=== PATIENT | female | born 1965 | race Hispanic/Latino ===

== ENCOUNTER 2017-12-21 10:08 | Emergency (ER) | payer OTHER ==
[2017-12-21] MEDS ORDERED: MORPHINE 4 MG/ML SYR ONE (11:03)
[2017-12-21] MEDS ORDERED: ONDANSETRON 4 MG/2 ML VIAL ONE (11:03)
--- NOTE | 2017-12-21 11:20 | RAD REPORT ---
EXAM DESCRIPTION: CT - Stone Protocol - 12/21/2017 10:54 am CLINICAL HISTORY: Abdominal pain. Lower abdominal pain. Left flank pain. COMPARISON: None. TECHNIQUE: Computed axial tomography of the abdomen pelvis was obtained without oral or IV contrast. Lack of IV and oral contrast limits evaluation of solid organs, bowel, and vessels. Coronal reformat phoebe images were obtained and reviewed. All CT scans are performed using dose optimization technique as appropriate and may include automated exposure control or mA/KV adjustment according to patient size. FINDINGS: A 1 millimeter calculus is present within the left kidney without hydronephrosis. A right renal calculus is not present. An ureteral calculus is not noted. A bladder calculus is not present. The liver, spleen, pancreas and adrenals appear grossly normal There is no evidence of diverticulitis. The appendix appears normal. The gallbladder has been removed. A tiny umbilical hernia is present. Tubal ligation clips are presen t. An adnexal mass is not present. IMPRESSION: 1 millimeter nonobstructing left renal calculi
[2017-12-21 11:25] LABS: Urine Bacteria 20-50 /HPF (<20); Urine Culture Reflex Order NOT NEEDED; Urine RBC <5 /HPF (NONE SEEN)
[2017-12-21 11:27] LABS: Absolute Lymphocytes (CBC) 1.4 K/uL (0.7-4.9); Absolute Monocytes 0.6 K/uL (0.1-1.3); Absolute Neutrophil 4.7 K/uL (1.8-8.0); Basophils % 0.6 % (0-1.3); Hematocrit 41.5 % (36.0-45.0); MCH 24.9 pg (27.0-35.0); MCV 75.1 fL (80-100); MPV 8.1 fL (7.6-11.3); Monocytes % 8.3 % (3.3-12.3); RBC Red Blood Cell Count 5.53 M/uL (3.86-4.86)
[2017-12-21 11:42] LABS: Bicarbonate 27 mEq/L (21-31); Glucose Level 155 mg/dL (65-120); Lipase 21 U/L (22-51); Potassium 3.8 mEq/L (3.6-5.0); Sodium Level 140 mEq/L (135-145)
[2017-12-21 11:48] LABS: ALT/SGPT 33 IU/L (10-60); AST/SGOT 29 IU/L (10-42); Albumin 4.1 g/dL (3.2-5.5); Alkaline Phosphatase 86 IU/L (42-121); Amylase Level 52 U/L (28-100); BUN Blood Urea Nitrogen 12 mg/dL (6-20); Bilirubin Direct 0.1 mg/dL (0-0.2); Bilirubin Total 0.5 mg/dL (0.3-1.2); Protein, Total 7.6 g/dL (6.0-8.3)
[2017-12-21] MEDS ORDERED: NA CHLORIDE 0.9% 500 ML ONE (11:52)
[2017-12-21] MEDS ORDERED: KETOROLAC 30 MG/ML INJ ONE (11:52)
[2017-12-21 12:50] LABS: Urine Blood 3+ (NEG); Urine Glucose NEGATIVE (NEG); Urine Protein TRACE (NEG); Urine Specific Gravity 1.025 (1.005-1.030); Urine pH 5.5 (5.0-7.0)
--- NOTE | 2017-12-21 12:56 | ER ---
Nurse's Notes [facility] Name: Erma Yoo Age: 52 yrs Sex: Female : 1965 Arrival Date: 12/21/2017 Time: 10:15 Bed 14 Private MD: Diagnosis: Left Flank Pain;Unspecified symptoms and signs involving the genitourinary system-Urgency and Frequency;Hypertensive heart disease Presentation: 12/21 10:23 Presenting complaint: Patient states: Lower abdominal pain that radiates to left flank, hb urinary frequency and urgency x 2 days. Transition of care: patient was not received from another setting of care. Onset of symptoms was December 19, 2017. Initial Sepsis Screen: Does the patient meet any 2 criteria? No. Patient's initial sepsis screen is negative. Does the patient have a suspected source of infection? Yes: Dysuria/Frequency/Urgency/UTI. Care prior to arrival: None. 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 method Historical: - Allergies: 10:28 Niacin (Hives, Respiratory distress); hb - Home Meds: 10:28 metformin 1,000 mg Oral tab 1 tab 2 times per day [Active]; lisinopril 5 mg Oral tab 1 hb tab once daily [Active]; Ambien 5 mg Oral tab 1 tab once daily [Active]; Advair Diskus Inhl [Active]; bupropion HCl 150 mg Oral Tb24 1 tab once daily [Active]; atorvastatin 10 mg oral tab 1 tab once daily [Active]; Topamax 50 mg Oral tab 1 tab 2 times per day [Active]; venlafaxine 75 mg oral tr24 1 tab once daily [Active]; - PMHx: 10:28 Hypertension; Diabetes - NIDDM; Asthma; insomnia; hb - PSHx: 10:28 Cholecystectomy; hb - Immunization history:: Adult Immunizations up to date. - Social history:: Smoking status: Patient uses tobacco products, smokes one-half pack cigarettes per day. Screenin:48 Abuse screen: Denies threats or abuse. Denies injuries from another. Nutritional aj screening: No deficits noted. Tuberculosis screening: No symptoms or risk factors identified. Fall Risk None identified. Assessment: 10:48 General: Appears in no apparent distress. uncomfortable, obese, Behavior is calm, aj cooperative, appropriate for age. Pain: Complains of pain in pelvis. Neuro: Level of Consciousness is awake, alert, obeys commands, Oriented to person, place, time, situation. Respiratory: Airway is patent Respiratory effort is even, unlabored, Respiratory pattern is regular, symmetrical. GI: Abdomen is flat, obese, Bowel sounds present X 4 quads. Abd is soft and non tender. : Reports urgency, urinary frequency. Derm: Skin is intact, is healthy with good turgor, Skin is pink, warm \T\ dry. normal. Vital Signs: 10:28 BP 168 / 106; Pulse 68; Resp 16; Temp 97.9; Pulse Ox 100% on R/A; Weight 81.65 kg; hb Height 5 ft. 1 in. (154.94 cm); Pain 9/10; 11:46 BP 183 / 103; Pulse 93; Resp 17; Pulse Ox 100% on R/A; aj 13:46 BP 176 / 102; Pulse 91; Resp 18; Temp 98.5; Pulse Ox 99% on R/A; aj 10:28 Body Mass Index 34.01 (81.65 kg, 154.94 cm) hb ED Course: 10:15 Patient arrived in ED. sb2 10:25 Triage completed. hb 10:28 Arm band placed on right wrist. hb 10:29 Annie Gorman, SISSY is Primary Nurse. aj 10:34 Arie Milner PA is PHCP. cp 10:34 Kingsley Eller MD is Attending Physician. cp 10:54 CT Stone Protocol In Process Unspecified. EDMS 11:11 Inserted saline lock: 20 gauge in right antecubital area, using aseptic technique. aj Blood collected. 13:50 No provider procedures requiring assistance completed. Patient did not have IV access aj during this emergency room visit. intact, bleeding controlled, No redness/swelling at site. Pressure dressing applied. 13:51 Patient has correct armband on for positive identification. aj Administered Medications: 11:09 Drug: morphine 2 mg Route: IVP; Site: right antecubital; aj 11:25 Follow up: Response: No adverse reaction; Pain is decreased aj 11:10 Drug: Zofran 4 mg Route: IVP; Site: right antecubital; aj 11:24 Follow up: Response: No adverse reaction; Pain is decreased aj 11:58 Drug: TORadol 30 mg Route: IVP; Site: right antecubital; aj 13:51 Follow up: Response: No adverse reaction; Pain is decreased aj 11:58 Drug: NS 0.9% 500 ml Route: IV; Rate: bolus; Site: right antecubital; aj 13:52 Follow up: Response: No adverse reaction aj Outcome: 12:55 Discharge ordered by . luis 13:50 Discharged to home ambulatory. aj 13:50 Condition: good 13:50 Discharge instructions given to patient, Instructed on discharge instructions, follow up and referral plans. medication usage, Demonstrated understanding of instructions, follow-up care, medications, Prescriptions given X 3. 13:52 Patient left the ED. iw Signatures: Dispatcher [employer] Annie Florez RN RN Hellen Ledesma RN RN iw Arie Milner, Melanie Velazco cp, RN RN Jackie Galindo sb2
--- NOTE | 2017-12-21 12:56 | EDPHYS ---
Physician Documentation [facility] Name: Erma Yoo Age: 52 yrs Sex: Female : 1965 Arrival Date: 12/21/2017 Time: 10:15 Bed 14 Private MD: ED Physician Kingsley Eller HPI: 12/21 10:50 This 52 yrs old Female presents to ER via Ambulatory with complaints of cp Abdominal Pain. 10:50 The patient complains of pain in the left mid back. The pain radiates to the left side cp of abdomen. 10:50 Onset: The symptoms/episode began/occurred 2 day(s) ago. Associated signs and symptoms: cp Pertinent positives: urinary frequency, urgency, Pertinent negatives: diarrhea, fever, hematuria, vomiting. Severity of pain: in the emergency department the pain is unchanged despite home interventions. 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 method hb Historical: - Allergies: 10:28 Niacin (Hives, Respiratory distress); hb - Home Meds: 10:28 metformin 1,000 mg Oral tab 1 tab 2 times per day [Active]; lisinopril 5 mg Oral tab 1 hb tab once daily [Active]; Ambien 5 mg Oral tab 1 tab once daily [Active]; Advair Diskus Inhl [Active]; bupropion HCl 150 mg Oral Tb24 1 tab once daily [Active]; atorvastatin 10 mg oral tab 1 tab once daily [Active]; Topamax 50 mg Oral tab 1 tab 2 times per day [Active]; venlafaxine 75 mg oral tr24 1 tab once daily [Active]; - PMHx: 10:28 Hypertension; Diabetes - NIDDM; Asthma; insomnia; hb - PSHx: 10:28 Cholecystectomy; hb - Immunization history:: Adult Immunizations up to date. - Social history:: Smoking status: Patient uses tobacco products, smokes one-half pack cigarettes per day. ROS: 11:00 Constitutional: Negative for body aches, chills, fever, poor PO intake. cp 11:00 Eyes: Negative for injury, pain, redness, and discharge. cp 11:00 ENT: Negative for drainage from ear(s), ear pain, sore throat, difficulty swallowing, difficulty handling secretions. 11:00 Cardiovascular: Negative for chest pain, edema, palpitations. 11:00 Respiratory: Negative for cough, shortness of breath, wheezing. 11:00 Abdomen/GI: Positive for abdominal pain, of the posterior aspect of left lateral abdomen, anterior aspect of left lateral abdomen and left lower quadrant, Negative for vomiting, diarrhea, constipation, anorexia. 11:00 Back: Positive for flank pain, on the left. 11:00 : Positive for urinary frequency, urinary urgency, Negative for burning with urination, vaginal bleeding, vaginal discharge. 11:00 Skin: Negative for cellulitis, rash. 11:00 Neuro: Negative for altered mental status, gait disturbance, headache, weakness. 11:00 All other systems are negative. Exam: 11:08 Constitutional: The patient appears in no acute distress, alert, awake, cp non-diaphoretic, non-toxic, well developed, well nourished, uncomfortable. 11:08 Head/Face: Normocephalic, atraumatic. cp 11:08 Eyes: Periorbital structures: appear normal, Pupils: equal, round, and reactive to light and accomodation, Extraocular movements: intact throughout, Conjunctiva: normal, no exudate, no injection, Sclera: no appreciated abnormality, Lids and lashes: appear normal, bilaterally. 11:08 ENT: External ear(s): are unremarkable, Nose: is normal, Mouth: Lips: moist, Oral mucosa: pink and intact, moist, Posterior pharynx: is normal, airway is patent, no erythema, no exudate, Voice: is normal. 11:08 Neck: ROM/movement: is normal, is supple, without pain, no range of motions limitations, no nuchal rigidity. 11:08 Chest/axilla: Inspection: normal, Palpation: is normal, no crepitus, no tenderness. 11:08 Cardiovascular: Rate: normal, Rhythm: regular. 11:08 Respiratory: the patient does not display signs of respiratory distress, Respirations: normal, no use of accessory muscles, no retractions, no splinting, no tachypnea, Breath sounds: are clear throughout, no decreased breath sounds, no stridor, no wheezing. 11:08 Abdomen/GI: Inspection: abdomen appears normal, Bowel sounds: active, all quadrants, Palpation: soft, in all quadrants, moderate abdominal tenderness, in the left lower quadrant, rebound tenderness, is not appreciated, voluntary guarding, is not appreciated, involuntary guarding, is not appreciated. 11:08 Back: pain, that is mild, of the left mid back, ROM is normal, muscle spasm, is not present, Straight leg raises: of both lower extremities does not illicit pain. 11:08 Skin: cellulitis, is not appreciated, no rash present. 11:08 Neuro: Orientation: to person, place \T\ time. Mentation: lucid, able to follow commands, Cerebellar function: is grossly normal, Motor: moves all fours, strength is normal, Sensation: no obvious gross deficits. Vital Signs: 10:28 BP 168 / 106; Pulse 68; Resp 16; Temp 97.9; Pulse Ox 100% on R/A; Weight 81.65 kg; hb Height 5 ft. 1 in. (154.94 cm); Pain 9/10; 11:46 BP 183 / 103; Pulse 93; Resp 17; Pulse Ox 100% on R/A; aj 13:46 BP 176 / 102; Pulse 91; Resp 18; Temp 98.5; Pulse Ox 99% on R/A; aj 10:28 Body Mass Index 34.01 (81.65 kg, 154.94 cm) hb MDM: 10:34 Patient medically screened. cp 12:53 Data reviewed: vital signs, nurses notes, lab test result(s), radiologic studies, CT cp scan. 12:53 Counseling: I had a detailed discussion with the patient and/or guardian regarding: the cp historical points, exam findings, and any diagnostic results supporting the discharge/admit diagnosis, lab results, radiology results, the need for outpatient follow up, a family practitioner, to return to the emergency department if symptoms worsen or persist or if there are any questions or concerns that arise at home. Counseling: I had a detailed discussion with the patient and/or guardian regarding: the presence of at least one elevated blood pressure reading (>120/80) during this emergency department visit. Response to treatment: the patient's symptoms have markedly improved after treatment. ED course: VSS. CT negative for acute findings. Will treat for UTI due to symptoms and discharge to home for continued monitoring. 12/21 10:44 Order name: Urine Dipstick--Ancillary (enter results); Complete Time: 12:52 bd 12/21 12:52 Interpretation: Normal except: UBLD 3+; UESTR TRACE. cp 12/21 10:44 Order name: Urine --Ancillary (enter results); Complete Time: 12:52 bd 12/21 10:44 Order name: Amylase, Serum; Complete Time: 11:50 cp 12/21 10:44 Order name: Basic Metabolic Panel; Complete Time: 11:50 cp 12/21 11:50 Interpretation: Normal except: GLUC 155. cp 12/21 10:44 Order name: CBC with Diff; Complete Time: 11:29 cp 12/21 11:29 Interpretation: Normal except: RBC 5.53; MCV 75.1; MCH 24.9. cp 12/21 10:44 Order name: Creatinine for Radiology; Complete Time: 11:50 cp 12/21 10:44 Order name: Hepatic Function; Complete Time: 11:50 cp 12/21 10:44 Order name: Lipase; Complete Time: 11:50 cp 12/21 10:44 Order name: Urine Microscopic Only; Complete Time: 11:29 cp 12/21 11:30 Interpretation: Normal except: UWBC 5-10; UBACT 20-50; SQEPI >50. cp 12/21 10:44 Order name: CT Stone Protocol; Complete Time: 11:22 cp 12/21 10:44 Order name: Urine Test (obtain specimen); Complete Time: 11:10 cp 12/21 10:44 Order name: IV Saline Lock; Complete Time: 11:10 cp 12/21 10:44 Order name: Labs collected and sent; Complete Time: 11:10 cp 12/21 10:44 Order name: Urine Dipstick-Ancillary (obtain specimen); Complete Time: 11:10 cp Administered Medications: 11:09 Drug: morphine 2 mg Route: IVP; Site: right antecubital; aj 11:25 Follow up: Response: No adverse reaction; Pain is decreased aj 11:10 Drug: Zofran 4 mg Route: IVP; Site: right antecubital; aj 11:24 Follow up: Response: No adverse reaction; Pain is decreased aj 11:58 Drug: TORadol 30 mg Route: IVP; Site: right antecubital; aj 13:51 Follow up: Response: No adverse reaction; Pain is decreased aj 11:58 Drug: NS 0.9% 500 ml Route: IV; Rate: bolus; Site: right antecubital; aj 13:52 Follow up: Response: No adverse reaction aj Disposition: 04/20/18 12:55 Discharged to Home. Impression: Left Flank Pain, Unspecified symptoms and signs involving the genitourinary system - Urgency and Frequency, Hypertensive heart disease. - Condition is Stable. - Discharge Instructions: Flank Pain, Hypertension, How to Take Your Blood Pressure, [id number], Managing Your High Blood Pressure. - Prescriptions for Cipro 500 mg Oral Tablet - take 1 tablet by ORAL route every 12 hours for 5 days; 10 tablet. Cyclobenzaprine 10 mg Oral Tablet - take 1 tablet by ORAL route every 8 hours As needed no driving while taking medication; 15 tablet. Tramadol 50 mg Oral Tablet - take 1 tablet by ORAL route every 8 hours as needed; 12 tablet. - Work release form, Medication Reconciliation Form, Thank You Letter, Antibiotic Education, Prescription Opioid Use form. - Follow up: Private Physician; When: 1 - 2 days; Reason: Recheck today's complaints. - Problem is new. - Symptoms have improved. Addendum: 01/05/2018 19:43 Co-signature as Attending Physician, Kingsley Eller MD I agree with the assessment and k dr plan of care. Signatures: Dispatcher [employer] EDMS Annie Gorman RN RN Kingsley Arias MD MD [facility] Hellen Giang RN RN iw Arie Milner PA PA cp Melanie Dotson RN RN Corrections: (The following items were deleted from the chart) 12/21 12:55 12:55 12/21/2017 12:55 Discharged to Home. Impression: Left Flank Pain; Unspecified cp symptoms and signs involving the genitourinary system - Urgency and Frequency. Condition is Stable. Forms are Medication Reconciliation Form, Thank You Letter, Antibiotic Education, Prescription Opioid Use. Follow up: Private Physician; When: 1 - 2 days; Reason: Recheck today's complaints. Problem is new. Symptoms have improved. cp 13:52 12:55 12/21/2017 12:55 Discharged to Home. Impression: Left Flank Pain; Unspecified iw symptoms and signs involving the genitourinary system - Urgency and Frequency; Hypertensive heart disease. Condition is Stable. Forms are Medication Reconciliation Form, Thank You Letter, Antibiotic Education, Prescription Opioid Use. Follow up: Private Physician; When: 1 - 2 days; Reason: Recheck today's complaints. Problem is new. Symptoms have improved. cp
== END 2017-12-21 13:52 | disposition home or self-care (01) ==
LOC: ER 10:08
DX: R39.9 Unspecified symptoms and signs involving the genitourinary system (principal); R39.15 Urgency of urination; I11.9 Hypertensive heart disease without heart failure; I10 Essential (primary) hypertension; E11.9 Type 2 diabetes mellitus without complications; F17.210 Nicotine dependence, cigarettes, uncomplicated; Z88.8 Allergy status to other drugs, medicaments and biological substances
CPT/HCPCS: 36415; 74176; 76377; 80048; 80076; 81003; 81015; 81025; 82150; 83690; 85025; 96374; 96375; 99284; J2405

== ENCOUNTER 2017-12-24 12:39 | Emergency (ER) | payer OTHER ==
[2017-12-24] MEDS ORDERED: PROMETHAZINE 25 MG TABLET ONE (13:49)
[2017-12-24] MEDS ORDERED: HYDROCODONE/APAP 10/325 TAB ONE (13:49)
--- NOTE | 2017-12-24 14:30 | ER ---
Nurse's Notes [facility] Name: Erma Yoo Age: 52 yrs Sex: Female : 1965 Arrival Date: 12/24/2017 Time: 12:41 Bed 27 Private MD: Diagnosis: Urinary tract infection, site not specified Presentation: 12/24 12:52 Presenting complaint: Patient states: was seen Sunday for left flank pain, had CT, was iw negative, was sent home with abx for UTI, and pain medicine, pt still having pain, also started vomiting last night. Has not had BM since . Transition of care: patient was not received from another setting of care. Onset of symptoms was December 21, 2017. Initial Sepsis Screen: Does the patient meet any 2 criteria? No. Patient's initial sepsis screen is negative. Does the patient have a suspected source of infection? No. Patient's initial sepsis screen is negative. Care prior to arrival: None. 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 iw Historical: - Allergies: 12:54 Niacin (Hives, Respiratory distress); iw - Home Meds: 12:54 Advair Diskus Inhl [Active]; Ambien 5 mg Oral tab 1 tab once daily [Active]; iw atorvastatin 10 mg Oral tab 1 tab once daily [Active]; bupropion HCl 150 mg Oral Tb24 1 tab once daily [Active]; lisinopril 5 mg Oral tab 1 tab once daily [Active]; metformin 1,000 mg Oral tab 1 tab 2 times per day [Active]; Topamax 50 mg Oral tab 1 tab 2 times per day [Active]; venlafaxine 75 mg Oral tr24 1 tab once daily [Active]; - PMHx: 12:54 Asthma; Diabetes - NIDDM; Hypertension; insomnia; iw - PSHx: 12:54 Cholecystectomy; iw - Immunization history:: Adult Immunizations up to date. - Social history:: Smoking status: Patient uses tobacco products, 2 cigarettes per day . Screenin:21 Abuse screen: Denies threats or abuse. Nutritional screening: No deficits noted. dm5 Tuberculosis screening: No symptoms or risk factors identified. Fall Risk None identified. Assessment: 13:21 General: Appears uncomfortable, well groomed, well developed, well nourished, Behavior dm5 is calm, cooperative, appropriate for age. Pain: Complains of pain in posterior aspect of left lateral abdomen and anterior aspect of left lateral abdomen Pain currently is 8 out of 10 on a pain scale. Neuro: Level of Consciousness is awake, alert, obeys commands, Oriented to person, place, time, situation, Appropriate for age. Cardiovascular: Reports None Heart tones S1 S2 Capillary refill < 3 seconds in bilateral fingers. Respiratory: Airway is patent Trachea midline Respiratory effort is even, unlabored, Respiratory pattern is regular, symmetrical, Breath sounds are clear bilaterally. GI: No signs and/or symptoms were reported involving the gastrointestinal system. : Reports pt was here Sunday and dx with kidney stones, states that the pain medicine does not help with the pain, discussed that it would not take all of the pain away and that it would be somewhat uncomfortable until the stone passes through her system. EENT: No signs and/or symptoms were reported regarding the EENT system. Derm: No signs and/or symptoms reported regarding the dermatologic system. Musculoskeletal: No signs and/or symptoms reported regarding the musculoskeletal system. 15:31 Reassessment: Patient appears in no apparent distress at this time. No changes from tl3 previously documented assessment. Patient and/or family updated on plan of care and expected duration. Pain level reassessed. Patient is alert, oriented x 3, equal unlabored respirations, skin warm/dry/pink. waiting on Urinalysis to be returned. Vital Signs: 12:54 BP 151 / 106; Pulse 99; Resp 16; Temp 98.2; Pulse Ox 99% on R/A; Weight 81.65 kg; iw Height 5 ft. 1 in. (154.94 cm); Pain 9/10; 15:31 BP 171 / 103; Pulse 94; Resp 18; Pulse Ox 100% on R/A; tl3 12:54 Body Mass Index 34.01 (81.65 kg, 154.94 cm) iw ED Course: 12:41 Patient arrived in ED. rg4 12:54 Triage completed. iw 12:54 Arm band placed on. iw 13:14 Papito Shell NP is PHCP. pm1 13:14 Arie Frey MD is Attending Physician. pm1 13:21 Cha Rodríguez, SISSY is Primary Nurse. dm5 13:21 No apparent distress. Awaiting ED provider evaluation. dm5 13:21 Patient has correct armband on for positive identification. Bed in low position. Call dm5 light in reach. Side rails up X 1. Adult w/ patient. 13:21 No provider procedures requiring assistance completed. dm5 Administered Medications: 13:54 Drug: [place] 10 mg-325 mg 1 tabs Route: PO; tl3 15:34 Follow up: Response: No adverse reaction; Pain is decreased tl3 13:54 Drug: Phenergan 25 mg Route: PO; tl3 15:34 Follow up: Response: No adverse reaction; Nausea is decreased tl3 Outcome: 14:29 Discharge ordered by . pm1 16:40 Patient left the ED. tl3 Addendum: 12/27/2017 13:00 Addendum: Culture Results: Positive urine culture. spoke with patient who reports she s s has an appointment with Dr. Cheng at 1430 today. Faxed over culture report to doctor cheng office. Signatures: Cha Rodríguez RN RN dm5 Hellen Giang RN RN iw Nani Hunter RN RN ss Papito Shell, LITA THEATRICAL RIGGER pm1 Padmini Mccoy rg4 Kailee Dave RN RN tl3 Corrections: (The following items were deleted from the chart) 12/24 12:56 12:52 Presenting complaint: Patient states: was seen Sunday for left flank pain, had iw CT, was negative, was sent home with abx for UTI, and pain medicine, pt still having pain, also started vomiting last night iw
--- NOTE | 2017-12-24 14:30 | EDPHYS ---
Physician Documentation [facility] Name: Erma Yoo Age: 52 yrs Sex: Female : 1965 Arrival Date: 12/24/2017 Time: 12:41 Bed 27 Private MD: ED Physician Arie Frey HPI: 12/24 16:00 This 52 yrs old Female presents to ER via Ambulatory with complaints of Flank pm1 Pain. 16:00 The patient complains of pain in the left low back. The pain radiates to the anterior pm1 aspect of left lateral abdomen. Onset: The symptoms/episode began/occurred 5 day(s) ago. Modifying factors: The symptoms are alleviated by nothing. the symptoms are aggravated by nothing. Associated signs and symptoms: Pertinent positives: pressure with urinating, Pertinent negatives: fever. Severity of pain: in the emergency department the pain is unchanged. The patient has not experienced similar symptoms in the past. The patient has been recently seen at the [facility] Emergency Department, this week, for similar complaints. Patient with CT scan and labs performed 3 days ago for flank pain. Patient diagnosed with UTI and discharged home with pain medications. Patient reports no improvement in pain. 16:00 Urine culture was not obtained. 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 iw Historical: - Allergies: 12:54 Niacin (Hives, Respiratory distress); iw - Home Meds: 12:54 Advair Diskus Inhl [Active]; Ambien 5 mg Oral tab 1 tab once daily [Active]; iw atorvastatin 10 mg Oral tab 1 tab once daily [Active]; bupropion HCl 150 mg Oral Tb24 1 tab once daily [Active]; lisinopril 5 mg Oral tab 1 tab once daily [Active]; metformin 1,000 mg Oral tab 1 tab 2 times per day [Active]; Topamax 50 mg Oral tab 1 tab 2 times per day [Active]; venlafaxine 75 mg Oral tr24 1 tab once daily [Active]; - PMHx: 12:54 Asthma; Diabetes - NIDDM; Hypertension; insomnia; iw - PSHx: 12:54 Cholecystectomy; iw - Immunization history:: Adult Immunizations up to date. - Social history:: Smoking status: Patient uses tobacco products, 2 cigarettes per day . ROS: 16:00 Constitutional: Negative for fever, chills, and weight loss, Eyes: Negative for injury, pm1 pain, redness, and discharge, ENT: Negative for injury, pain, and discharge, Neck: Negative for injury, pain, and swelling, Cardiovascular: Negative for chest pain, palpitations, and edema, Respiratory: Negative for shortness of breath, cough, wheezing, and pleuritic chest pain, Abdomen/GI: Negative for abdominal pain, nausea, vomiting, diarrhea, and constipation. 16:00 MS/Extremity: Negative for injury and deformity, Skin: Negative for injury, rash, and discoloration, Neuro: Negative for headache, weakness, numbness, tingling, and seizure. 16:00 Back: Positive for flank pain, on the left. 16:00 : Positive for pressure sensation with urinating. Exam: 16:00 Constitutional: This is a well developed, well nourished patient who is awake, alert, pm1 and in no acute distress. Head/Face: Normocephalic, atraumatic. Chest/axilla: Normal chest wall appearance and motion. Nontender with no deformity. No lesions are appreciated. Cardiovascular: Regular rate and rhythm with a normal S1 and S2. No gallops, murmurs, or rubs. Normal PMI, no JVD. No pulse deficits. Respiratory: Lungs have equal breath sounds bilaterally, clear to auscultation and percussion. No rales, rhonchi or wheezes noted. No increased work of breathing, no retractions or nasal flaring. Abdomen/GI: Soft, non-tender, with normal bowel sounds. No distension or tympany. No guarding or rebound. No evidence of tenderness throughout. 16:00 Skin: Warm, dry with normal turgor. Normal color with no rashes, no lesions, and no evidence of cellulitis. MS/ Extremity: Pulses equal, no cyanosis. Neurovascular intact. Full, normal range of motion. 16:00 Back: normal spinal alignment noted, CVA tenderness, that is mild, is noted on the left, vertebral tenderness, is not appreciated. Vital Signs: 12:54 BP 151 / 106; Pulse 99; Resp 16; Temp 98.2; Pulse Ox 99% on R/A; Weight 81.65 kg; iw Height 5 ft. 1 in. (154.94 cm); Pain 9/10; 15:31 BP 171 / 103; Pulse 94; Resp 18; Pulse Ox 100% on R/A; tl3 12:54 Body Mass Index 34.01 (81.65 kg, 154.94 cm) iw MDM: 13:18 Patient medically screened. pm1 14:25 Data reviewed: vital signs. Data interpreted: Pulse oximetry: on room air is 99 %. pm1 Interpretation: normal. Counseling: I had a detailed discussion with the patient and/or guardian regarding: the historical points, exam findings, and any diagnostic results supporting the discharge/admit diagnosis, the need for outpatient follow up, to return to the emergency department if symptoms worsen or persist or if there are any questions or concerns that arise at home. 16:00 ED course: Patient with CaOxalate on urine micro that was not present on prior urine pm1 three days ago. Patient likely passing stone. Pending urine culture results. Patient feeling improved pain relief with Po medications given in the ER. 12/24 14:34 Order name: Urine Microscopic Only; Complete Time: 15:51 pm1 12/24 14:34 Order name: Urine Culture pm1 12/24 16:38 Order name: Urine Dipstick--Ancillary (enter results) bd Administered Medications: 13:54 Drug: [place] 10 mg-325 mg 1 tabs Route: PO; tl3 15:34 Follow up: Response: No adverse reaction; Pain is decreased tl3 13:54 Drug: Phenergan 25 mg Route: PO; tl3 15:34 Follow up: Response: No adverse reaction; Nausea is decreased tl3 Disposition: 12/25 07:50 Co-signature as Attending Physician, Arie Frey MD I agree with the assessment and julio plan of care. Disposition: 12/24/17 14:29 Discharged to Home. Impression: Urinary tract infection, site not specified. - Condition is Stable. - Discharge Instructions: Flank Pain, Kidney Stones, Dietary Guidelines to Help Prevent Kidney Stones. - Prescriptions for promethazine 25 mg Oral Tablet - take 1 tablet by ORAL route every 6 hours As needed; 20 tablet. Tylenol- Codeine #3 300-30 mg Oral Tablet - take 2 tablets by ORAL route every 6 hours As needed; 20 tablet. - Medication Reconciliation Form, Thank You Letter, Antibiotic Education, Prescription Opioid Use form. - Follow up: Emergency Department; When: As needed; Reason: Worsening of condition. Follow up: Private Physician; When: 2 - 3 days; Reason: Recheck today's complaints, Continuance of care, Re-evaluation by your physician. - Problem is new. - Symptoms have improved. - Notes: Continue taking your cipro as directed Signatures: Dispatcher [employer] Arie Villeda MD MD cha Williams, Irene, RN RN Papito Watters, INSURANCE SPECIAL AGENT INSURANCE SPECIAL AGENT pm1 Kailee Dave RN RN tl3
[2017-12-24 15:50] LABS: Calcium Oxalate Crystals- Ur MANY (NONE SEEN); Urine Bacteria <20 /HPF (<20); Urine Culture Reflex Order NOT NEEDED; Urine RBC <5 /HPF (NONE SEEN)
[2017-12-24 16:47] LABS: Urine Blood NEGATIVE (NEG); Urine Glucose NEGATIVE (NEG); Urine Protein TRACE (NEG); Urine pH 7.5 (5.0-7.0)
== END 2017-12-24 16:40 | disposition home or self-care (01) ==
LOC: ER 12:39
DX: N39.0 Urinary tract infection, site not specified (principal); E11.9 Type 2 diabetes mellitus without complications; I10 Essential (primary) hypertension; J45.909 Unspecified asthma, uncomplicated; F51.01 Primary insomnia
CPT/HCPCS: 81003; 81015; 87077; 87086; 87088; 87186; 99282

== ENCOUNTER 2018-04-29 13:52 | Emergency (ER) | payer OTHER ==
[2018-04-29 16:34] LABS: Absolute Monocytes 0.6 K/uL (0.1-1.3); Absolute Neutrophil 6.2 K/uL (1.8-8.0); Basophils % 0.5 % (0-1.3); Hematocrit 41.1 % (36.0-45.0); Lymphocytes % 21.9 % (15.3-44.8); MCH 25.4 pg (27.0-35.0); MCV 76.7 fL (80-100); MPV 8.3 fL (7.6-11.3); Monocytes % 6.8 % (3.3-12.3); RBC Red Blood Cell Count 5.35 M/uL (3.86-4.86)
[2018-04-29 16:37] LABS: Urine Blood NEGATIVE (NEG); Urine Glucose NEGATIVE (NEG); Urine Protein NEGATIVE (NEG); Urine Specific Gravity >1.030 (1.005-1.030); Urine pH 6.5 (5.0-7.0)
[2018-04-29 16:42] LABS: Urine RBC NONE SEEN /HPF (NONE SEEN)
[2018-04-29 16:43] LABS: Calcium Oxalate Crystals- Ur MODERATE (NONE SEEN); Urine Bacteria <20 /HPF (<20); Urine Culture Reflex Order NOT NEEDED
[2018-04-29 16:50] LABS: ALT/SGPT 34 U/L (12-78); AST/SGOT 20 U/L (15-37); Albumin 3.9 g/dL (3.4-5.0); Alkaline Phosphatase 117 U/L (45-117); BUN Blood Urea Nitrogen 14 mg/dL (7-18); Bicarbonate 27 mmol/L (21-32); Bilirubin Direct < 0.1 mg/dL (0-0.2); Bilirubin Total 0.2 mg/dL (0.2-1.0); Glucose Level 137 mg/dL (74-106); Lipase 124 U/L (73-393); Potassium 3.9 mmol/L (3.5-5.1); Protein, Total 7.9 g/dL (6.4-8.2); Sodium Level 141 mmol/L (136-145)
[2018-04-29] MEDS ORDERED: NA CHLORIDE 0.9% 1,000 ML ONE ×2 (17:09→17:34)
[2018-04-29] MEDS ORDERED: ONDANSETRON 4 MG/2 ML VIAL ONE (17:09)
[2018-04-29] MEDS ORDERED: KETOROLAC 30 MG/ML INJ ONE (17:34)
--- NOTE | 2018-04-29 18:34 | RAD REPORT ---
EXAM DESCRIPTION: CT - Stone Protocol - 04/29/2018 6:23 pm CLINICAL HISTORY: Abdominal pain. Nausea and vomiting COMPARISON: December 2017 TECHNIQUE: Computed axial tomography of the abdomen pelvis was obtained without oral or IV contrast. Lack of IV and oral contrast limits evaluation of solid organs, bowel, and vessels. Coronal reformat phoebe images were obtained and reviewed. All CT scans are performed using dose optimization technique as appropriate and may include automated exposure control or mA/KV adjustment according to patient size. FINDINGS: Two 1 millimeter left renal calculi are present without hydronephrosis. An ureteral calcul us is not noted. A bladder calculus is not present. The liver, spleen, pancreas and adrenals appear grossly normal There is no evidence of diverticulitis. The appendix appears normal. The gallbladder has been removed A small umbilical hernia seen. Tubal ligation clips are present within the pelvis IMPRESSION: Nonobstructing left renal calculi
[2018-04-29] MEDS ORDERED: HYDROCODONE/APAP 5/325 MG TAB ONE (18:38)
--- NOTE | 2018-04-29 19:20 | EDPHYS ---
Physician Documentation [facility] Name: Erma Yoo Age: 52 yrs Sex: Female : 1965 Arrival Date: 04/29/2018 Time: 13:55 Bed 20 Private MD: Abundio Nicholas E ED Physician Michele Johnson HPI: 04/29 19:13 This 52 yrs old Female presents to ER via Ambulatory with complaints of gs Nausea, Diarrhea. 19:13 Onset: The symptoms/episode began/occurred 2 day(s) ago, and became persistent. gs Possible causes: unknown. The symptoms are aggravated by nothing. The symptoms are alleviated by nothing. Associated signs and symptoms: Pertinent negatives: fever. Severity of symptoms: At their worst the symptoms were moderate in the emergency department the symptoms have improved markedly. The patient has experienced similar episodes in the past, a few times. The patient has not recently seen a physician. 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 - Social history:: Smoking status: Patient uses tobacco products, 1 cigarette a day . - Ebola Screening: : No symptoms or risks identified at this time. ROS: 19:13 All other systems are negative. gs Exam: 19:13 Head/Face: Normocephalic, atraumatic. Eyes: Pupils equal round and reactive to light, gs extra-ocular motions intact. Lids and lashes normal. Conjunctiva and sclera are non-icteric and not injected. Cornea within normal limits. Periorbital areas with no swelling, redness, or edema. ENT: Nares patent. No nasal discharge, no septal abnormalities noted. Tympanic membranes are normal and external auditory canals are clear. Oropharynx with no redness, swelling, or masses, exudates, or evidence of obstruction, uvula midline. Mucous membranes moist. Neck: Trachea midline, no thyromegaly or masses palpated, and no cervical lymphadenopathy. Supple, full range of motion without nuchal rigidity, or vertebral point tenderness. No Meningismus. Chest/axilla: Normal chest wall appearance and motion. Nontender with no deformity. No lesions are appreciated. Cardiovascular: Regular rate and rhythm with a normal S1 and S2. No gallops, murmurs, or rubs. Normal PMI, no JVD. No pulse deficits. Respiratory: Lungs have equal breath sounds bilaterally, clear to auscultation and percussion. No rales, rhonchi or wheezes noted. No increased work of breathing, no retractions or nasal flaring. Back: No spinal tenderness. No costovertebral tenderness. Full range of motion. Skin: Warm, dry with normal turgor. Normal color with no rashes, no lesions, and no evidence of cellulitis. MS/ Extremity: Pulses equal, no cyanosis. Neurovascular intact. Full, normal range of motion. Neuro: Awake and alert, GCS 15, oriented to person, place, time, and situation. Cranial nerves II-XII grossly intact. Motor strength 5/5 in all extremities. Sensory grossly intact. Cerebellar exam normal. Normal gait. 19:13 Constitutional: The patient appears alert, awake. 19:13 Abdomen/GI: Palpation: mild abdominal tenderness, in all quadrants, rebound tenderness, is not appreciated. Vital Signs: 14:08 BP 176 / 103; Pulse 96; Resp 16 S; Temp 97.2; Pulse Ox 97% on R/A; Weight 76.66 kg (R); aa5 Height 5 ft. 0 in. (152.40 cm) (R); Pain 7/10; 17:15 BP 160 / 91; Pulse 76; Resp 18; Temp 98.3; Pulse Ox 99% on R/A; Pain 8/10; ch 18:10 BP 180 / 89; Pulse 78; Resp 15; Pulse Ox 99% on R/A; Pain 9/10; ch 19:04 BP 167 / 76; Pulse 80; Resp 16; Temp 98.3; Pulse Ox 99% on R/A; Pain 8/10; ch 14:08 Body Mass Index 33.01 (76.66 kg, 152.40 cm) aa5 MDM: 15:54 Patient medically screened. gs 19:13 Differential diagnosis: Nonspecific abd pain, viral gastroenteritis, gastroenteritis, gs cdiff. Data reviewed: vital signs, nurses notes. Counseling: I had a detailed discussion with the patient and/or guardian regarding: the historical points, exam findings, and any diagnostic results supporting the discharge/admit diagnosis, lab results, radiology results, the need for outpatient follow up. Response to treatment: the patient's symptoms have markedly improved after treatment, and as a result, I will discharge patient. ED course: no diarrhea her explained would need sample before starting abx will refer for follow up. 04/29 15:59 Order name: Basic Metabolic Panel; Complete Time: 17:17 04/29 15:59 Order name: CBC with Diff; Complete Time: 17:17 04/29 15:59 Order name: Hepatic Function; Complete Time: 17:17 04/29 15:59 Order name: Lipase; Complete Time: 17:17 04/29 15:59 Order name: Urine Microscopic Only; Complete Time: 17:17 04/29 16:32 Order name: Urine Dipstick--Ancillary (enter results); Complete Time: 17:17 04/29 16:32 Order name: Urine --Ancillary (enter results); Complete Time: 17:17 04/29 18:06 Order name: CT Stone Protocol; Complete Time: 19:10 04/29 15:59 Order name: IV Saline Lock; Complete Time: 16:48 04/29 15:59 Order name: Labs collected and sent; Complete Time: 16:49 04/29 15:59 Order name: Urine Dipstick-Ancillary (obtain specimen); Complete Time: 16:49 gs Administered Medications: 17:13 Drug: NS 0.9% 1000 ml Route: IV; Rate: 1 bolus; Site: right antecubital; ch 18:08 Follow up: IV Status: Completed infusion; IV Intake: 1000ml ch 17:13 Drug: Zofran 4 mg Route: IVP; Site: right antecubital; ch 18:08 Follow up: Response: No adverse reaction ch 17:25 Drug: NS 0.9% 1000 ml Route: IV; Rate: 1 bolus; Site: right antecubital; ch 19:33 Follow up: IV Status: Completed infusion; IV Intake: 1000ml bp 17:40 Drug: TORadol 15 mg Route: IVP; Site: right antecubital; ch 19:06 Follow up: Response: No adverse reaction; Marked relief of symptoms ch 18:30 Drug: [place] 5 mg-325 mg 1 tabs Route: PO; ch 19:33 Follow up: Response: No adverse reaction; Pain is decreased bp Point of Care Testing: Blood Glucose: 14:08 Blood Glucose: 152 mg/dL; aa5 Ranges: Critical Glucose Levels:Adult <50 mg/dl or >400 mg/dl <40 mg/dl or >180 mg/dl Disposition: 04/29/18 19:19 Discharged to Home. Impression: Diarrhea, unspecified. - Condition is Stable. - Discharge Instructions: Diarrhea, Adult. - Work release form, Medication Reconciliation Form, Thank You Letter, Antibiotic Education, Prescription Opioid Use form. - Follow up: Tiago Roach MD; When: 2 - 3 days; Reason: Re-evaluation by your physician. Signatures: Dispatcher [employer] Kassie Rodríguez, RN RN Berenice Landry RN RN aa5 Michele Johnson MD MD gs Peltier, Brian RN RN bp Corrections: (The following items were deleted from the chart) 19:34 19:19 04/29/2018 19:19 Discharged to Home. Impression: Diarrhea, unspecified. Condition bp is Stable. Forms are Medication Reconciliation Form, Thank You Letter, Antibiotic Education, Prescription Opioid Use. Follow up: Tiago Roach; When: 2 - 3 days; Reason: Re-evaluation by your physician. gs
--- NOTE | 2018-04-29 19:20 | ER ---
Nurse's Notes [facility] Name: Erma Yoo Age: 52 yrs Sex: Female : 1965 Arrival Date: 04/29/2018 Time: 13:55 Bed 20 Private MD: Abundio Nicholas E Diagnosis: Diarrhea, unspecified Presentation: 04/29 14:07 Presenting complaint: Patient states: Nausea, vomiting, and diarrhea that began aa5 Sunday. Pt c/o headache and upper abd aching. Transition of care: patient was not received from another setting of care. Onset of symptoms was April 2018. Risk Assessment: Do you want to hurt yourself or someone else? Patient reports no desire to harm self or others. Initial Sepsis Screen: Does the patient meet any 2 criteria? No. Patient's initial sepsis screen is negative. Does the patient have a suspected source of infection? No. Patient's initial sepsis screen is negative. Care prior to arrival: None. 14:07 Method Of Arrival: Ambulatory aa5 14:07 Acuity: VINNY 3 aa5 Triage Assessment: 19:00 General: Appears in no apparent distress. comfortable, obese, Behavior is cooperative, bp appropriate for age, anxious. GI: Reports diarrhea. 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 - Social history:: Smoking status: Patient uses tobacco products, 1 cigarette a day . - Ebola Screening: : No symptoms or risks identified at this time. Screenin:15 Abuse screen: Denies threats or abuse. Denies injuries from another. Nutritional ch screening: No deficits noted. Tuberculosis screening: No symptoms or risk factors identified. Fall Risk None identified. Assessment: 17:00 General: Appears in no apparent distress. comfortable, Behavior is calm, cooperative, ch appropriate for age. Pain: Complains of pain in head and abdomen Pain currently is 9 out of 10 on a pain scale. 17:00 Neuro: No deficits noted. Cardiovascular: Heart tones S1 S2 present. Respiratory: ch Airway is patent Respiratory effort is even, unlabored, Breath sounds are clear bilaterally. GI: Abdomen is round obese, Bowel sounds present X 4 quads. Abd is soft and non tender X 4 quads. Derm: No signs and/or symptoms reported regarding the dermatologic system. 18:10 Reassessment: Patient appears in no apparent distress at this time. Patient and/or family updated on plan of care and expected duration. Pain level reassessed. Patient is alert, oriented x 3, equal unlabored respirations, skin warm/dry/pink. pt states she does not feel any better, states her pain is still there and she is worried her blood pressure is going up because of her pain. erp notified, medicated per orders. 18:17 Reassessment: Patient appears in no apparent distress at this time. pt transported to [facility] via wheelchair now. 19:00 Reassessment: RECD REPORT FROM KASSIE SHEEHAN. 58YO HF P/W NAUSEA/DIARRHEA AND ANXIETY bp ABOUT BLOOD PRESSURE. ALL CURRENT ORDERS COMPLETED, DISPO PENDING. 19:04 Reassessment: Patient appears in no apparent distress at this time. Patient and/or family updated on plan of care and expected duration. Pain level reassessed. Patient is alert, oriented x 3, equal unlabored respirations, skin warm/dry/pink. Patient states symptoms have improved. 19:31 Reassessment: PT D/C HOME AMBULATORY, S/S RELIEVED, DX WITH NONSPECIFIC DIARRHEA. bp Vital Signs: 14:08 BP 176 / 103; Pulse 96; Resp 16 S; Temp 97.2; Pulse Ox 97% on R/A; Weight 76.66 kg (R); aa5 Height 5 ft. 0 in. (152.40 cm) (R); Pain 7/10; 17:15 BP 160 / 91; Pulse 76; Resp 18; Temp 98.3; Pulse Ox 99% on R/A; Pain 8/10; ch 18:10 BP 180 / 89; Pulse 78; Resp 15; Pulse Ox 99% on R/A; Pain 9/10; ch 19:04 BP 167 / 76; Pulse 80; Resp 16; Temp 98.3; Pulse Ox 99% on R/A; Pain 8/10; ch 14:08 Body Mass Index 33.01 (76.66 kg, 152.40 cm) aa5 ED Course: 13:55 Patient arrived in ED. mr 13:56 Abundio Nicholas MD is Private Physician. mr 14:06 Arm band placed on. aa5 14:08 Triage completed. aa5 15:22 Michele Johnson MD is Attending Physician. gs 16:07 Kassie Gill, RN is Primary Nurse. ch 16:20 Initial lab(s) drawn, by me, sent to lab. Urine collected: clean catch specimen, clear. em1 16:47 Inserted saline lock: 20 gauge in right antecubital area, using aseptic technique. em1 Blood collected. Missed attempt(s): 20 gauge in left antecubital area. Bleeding controlled, band aid applied, catheter tip intact. 17:15 Patient has correct armband on for positive identification. Placed in gown. Bed in low ch position. Call light in reach. Side rails up X 1. 17:15 No provider procedures requiring assistance completed. ch 18:[address] mw3 18:22 CT completed. Patient tolerated procedure well. Patient moved back from CT. mw3 18:23 CT Stone Protocol In Process Unspecified. EDMS 18:59 Primary Nurse role handed off by Kassie Gill, RN bp 18:59 Chavez Barreto, RN is Primary Nurse. bp 19:05 Report given to Chavez. ch 19:19 Tiago Roach MD is Referral Physician. gs 19:32 IV discontinued, intact, bleeding controlled, No redness/swelling at site. Pressure bp dressing applied. Administered Medications: 17:13 Drug: NS 0.9% 1000 ml Route: IV; Rate: 1 bolus; Site: right antecubital; ch 18:08 Follow up: IV Status: Completed infusion; IV Intake: 1000ml ch 17:13 Drug: Zofran 4 mg Route: IVP; Site: right antecubital; ch 18:08 Follow up: Response: No adverse reaction ch 17:25 Drug: NS 0.9% 1000 ml Route: IV; Rate: 1 bolus; Site: right antecubital; ch 19:33 Follow up: IV Status: Completed infusion; IV Intake: 1000ml bp 17:40 Drug: TORadol 15 mg Route: IVP; Site: right antecubital; ch 19:06 Follow up: Response: No adverse reaction; Marked relief of symptoms ch 18:30 Drug: [place] 5 mg-325 mg 1 tabs Route: PO; ch 19:33 Follow up: Response: No adverse reaction; Pain is decreased bp Point of Care Testing: Blood Glucose: 14:08 Blood Glucose: 152 mg/dL; aa5 Ranges: Intake: 18:08 IV: 1000ml; Total: 1000ml. 19:33 IV: 1000ml; Total: 2000ml. bp Outcome: 19:19 Discharge ordered by MD. 19:32 Discharged to home ambulatory, with family. bp 19:32 Condition: stable 19:32 Discharge instructions given to patient, Instructed on discharge instructions, follow up and referral plans. Demonstrated understanding of instructions, follow-up care. 19:34 Patient left the ED. bp Signatures: Dispatcher [employer] EDMS Kassie Gill RN RN Amanda Rosario Eric em1 Berenice Gold RN RN aa5 Michele Johnson MD MD Chavez Barreto RN RN Summer Saeed mw3 Corrections: (The following items were deleted from the chart) 14:10 14:07 Presenting complaint: Patient states: Nausea, vomiting, and diarrhea that began aa5 Sunday. aa5
== END 2018-04-29 19:34 | disposition home or self-care (01) ==
LOC: ER 13:52
DX: R19.7 Diarrhea, unspecified (principal); I10 Essential (primary) hypertension; Z91.048 Other nonmedicinal substance allergy status
CPT/HCPCS: 36415; 74176; 76377; 80048; 80076; 81003; 81015; 81025; 82962; 83690; 85025; 96361; 96374; 96375; 99284; J2405; J7030

== ENCOUNTER 2018-07-14 13:19 | Emergency (ER) | payer OTHER ==
[2018-07-14 14:32] LABS: Absolute Lymphocytes (CBC) 1.6 K/uL (0.7-4.9); Absolute Monocytes 0.6 K/uL (0.1-1.3); Absolute Neutrophil 5.2 K/uL (1.8-8.0); Basophils % 0.8 % (0-1.3); Eosinophils % 3.3 % (0-4.4); Hematocrit 38.1 % (36.0-45.0); Lymphocytes % 20.5 % (15.3-44.8); MCH 25.5 pg (27.0-35.0); MCV 76.6 fL (80-100); MPV 8.2 fL (7.6-11.3); Monocytes % 7.8 % (3.3-12.3); RBC Red Blood Cell Count 4.97 M/uL (3.86-4.86)
[2018-07-14] MEDS ORDERED: KETOROLAC 30 MG/ML INJ ONE (14:38)
[2018-07-14 14:46] LABS: BUN Blood Urea Nitrogen 22 mg/dL (7-18); Bicarbonate 25 mmol/L (21-32); Glucose Level 170 mg/dL (74-106); Potassium 3.8 mmol/L (3.5-5.1); Sodium Level 144 mmol/L (136-145); Troponin (Emerg Dept Use Only) < 0.02 ng/mL (0.0-0.045)
--- NOTE | 2018-07-14 15:10 | EDPHYS ---
Physician Documentation [facility] Name: Erma Yoo Age: 52 yrs Sex: Female : 1965 Arrival Date: 07/14/2018 Time: 13:22 Bed 20 Private MD: ED Physician Michele Johnson HPI: 07/14 14:50 This 52 yrs old Female presents to ER via Ambulatory with complaints of left gs breast pain. 14:50 The patient or guardian reports chest pain that is located primarily in the left gs breast. Onset: yesterday. The pain does not radiate. Associated signs and symptoms: Pertinent negatives: abdominal pain, diaphoresis, dizziness, headache, shortness of breath. The chest pain is described as sharp. Duration: The patient or guardian reports multiple episodes, that wax and wane. Modifying factors: the symptoms are aggravated by twisting torso, palpation of left breast. Severity of pain: At its worst the pain was severe in the emergency department the pain has improved moderately. The patient has not experienced similar symptoms in the past, last mammogram a few years ago. 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/A - Post-menopause aj Historical: - Allergies: 13:25 Niacin (Hives, Respiratory distress); aj - Home Meds: 13:25 Topamax 50 mg Oral tab 1 tab 2 times per day [Active]; Advair Diskus Inhl [Active]; aj Ambien 5 mg Oral tab 1 tab once daily [Active]; atorvastatin 10 mg Oral tab 1 tab once daily [Active]; bupropion HCl 150 mg Oral Tb24 1 tab once daily [Active]; lisinopril 5 mg Oral tab 1 tab once daily [Active]; metformin 1,000 mg Oral tab 1 tab 2 times per day [Active]; venlafaxine 75 mg Oral tr24 1 tab once daily [Active]; - PMHx: 13:25 Asthma; Diabetes - NIDDM; Hypertension; insomnia; aj - PSHx: 13:25 Cholecystectomy; aj - Immunization history:: Adult Immunizations up to date. - Social history:: Smoking status: Patient uses tobacco products, denies chronic smoking, but will smoke occasionally. - Ebola Screening: : Patient negative for fever greater than or equal to 101.5 degrees Fahrenheit, and additional compatible Ebola Virus Disease symptoms Patient denies exposure to infectious person Patient denies travel to an Ebola-affected area in the 21 days before illness onset No symptoms or risks identified at this time. ROS: 14:50 Constitutional: Negative for fever. gs 14:50 Skin: Negative for cellulitis, discoloration, nipple discharge. Exam: 14:50 Head/Face: Normocephalic, atraumatic. Eyes: Pupils equal round and reactive to light, gs extra-ocular motions intact. Lids and lashes normal. Conjunctiva and sclera are non-icteric and not injected. Cornea within normal limits. Periorbital areas with no swelling, redness, or edema. ENT: Nares patent. No nasal discharge, no septal abnormalities noted. Tympanic membranes are normal and external auditory canals are clear. Oropharynx with no redness, swelling, or masses, exudates, or evidence of obstruction, uvula midline. Mucous membranes moist. Neck: Trachea midline, no thyromegaly or masses palpated, and no cervical lymphadenopathy. Supple, full range of motion without nuchal rigidity, or vertebral point tenderness. No Meningismus. Cardiovascular: Regular rate and rhythm with a normal S1 and S2. No gallops, murmurs, or rubs. Normal PMI, no JVD. No pulse deficits. Respiratory: Lungs have equal breath sounds bilaterally, clear to auscultation and percussion. No rales, rhonchi or wheezes noted. No increased work of breathing, no retractions or nasal flaring. Abdomen/GI: Soft, non-tender, with normal bowel sounds. No distension or tympany. No guarding or rebound. No evidence of tenderness throughout. Back: No spinal tenderness. No costovertebral tenderness. Full range of motion. Skin: Warm, dry with normal turgor. Normal color with no rashes, no lesions, and no evidence of cellulitis. MS/ Extremity: Pulses equal, no cyanosis. Neurovascular intact. Full, normal range of motion. Neuro: Awake and alert, GCS 15, oriented to person, place, time, and situation. Cranial nerves II-XII grossly intact. Motor strength 5/5 in all extremities. Sensory grossly intact. Cerebellar exam normal. Normal gait. 14:50 Constitutional: The patient appears alert, awake, uncomfortable. 14:50 Chest/axilla: Breasts: mass(es), not id, sas etl developer rn present, tenderness, that is moderate, of the left breast. 14:50 ECG was reviewed by the Attending Physician. Vital Signs: 13:25 BP 166 / 87; Pulse 99; Resp 19; Temp 98.1; Pulse Ox 97% on R/A; Weight 79.83 kg; Height aj 5 ft. 0 in. (152.40 cm); 14:36 BP 139 / 60; Pulse 66; Resp 18; Pulse Ox 98% on R/A; Pain 10/10; em 15:05 BP 135 / 61; Pulse 65; Resp 19; Pulse Ox 99% on R/A; Pain 7/10; em 13:25 Body Mass Index 34.37 (79.83 kg, 152.40 cm) aj MDM: 13:57 Patient medically screened. 14:50 Differential diagnosis: abnormal EKG, breast mass, cad. Data reviewed: vital signs, nurses notes. 07/14 13:59 Order name: Basic Metabolic Panel; Complete Time: 14:49 07/14 13:59 Order name: CBC with Diff; Complete Time: 14:49 07/14 13:59 Order name: Troponin (emerg Dept Use Only); Complete Time: 14:49 07/14 13:59 Order name: EKG; Complete Time: 13:59 07/14 13:59 Order name: XRAY Chest Pa And Lat (2 Views); Complete Time: 15:24 07/14 13:59 Order name: Cardiac monitoring; Complete Time: 14:19 07/14 13:59 Order name: EKG - Nurse/Tech; Complete Time: 14:19 07/14 13:59 Order name: IV Saline Lock; Complete Time: 14:19 07/14 13:59 Order name: Labs collected and sent; Complete Time: 14:20 07/14 13:59 Order name: O2 Per Protocol; Complete Time: 14:20 07/14 13:59 Order name: O2 Sat Monitoring; Complete Time: 14:20 EC:50 Rate is 69 beats/min. Rhythm is regular. CA interval is normal. QRS interval is normal. QT interval is normal. T waves are Flattened in leads V2, V3. Clinical impression: NSR w/ Non-specific ST/T Changes. Interpreted by me. Administered Medications: 14:44 Drug: TORadol 30 mg Route: IVP; Site: right antecubital; iw 15:13 Follow up: Response: No adverse reaction; Pain is decreased em Disposition: 07/14/18 15:09 Discharged to Home. Impression: Other chest pain. - Condition is Stable. - Discharge Instructions: Breast Tenderness, Breast Scan. - Medication Reconciliation Form, Thank You Letter, Antibiotic Education, Prescription Opioid Use form. - Follow up: Michele Johnson MD; When: 2 - 3 days; Reason: Re-evaluation by your physician. Follow up: Clif Roman MD; When: 2 - 3 days. Signatures: Dispatcher [employer] EDAnnie Cabral RN RN Zac Casey, INFRASTRUCTURE DEVELOPER INFRASTRUCTURE DEVELOPER Hellen Esteban RN RN iw Starr, Gregory, MD MD Corrections: (The following items were deleted from the chart) 15:10 15:09 07/14/2018 15:09 Discharged to Home. Impression: Other chest pain. Condition is gs Stable. Forms are Medication Reconciliation Form, Thank You Letter, Antibiotic Education, Prescription Opioid Use. Follow up: Michele Johnson; When: 2 - 3 days; Reason: Re-evaluation by your physician. gs 15:32 15:10 07/14/2018 15:09 Discharged to Home. Impression: Other chest pain. Condition is em Stable. Discharge Instructions: Breast Tenderness, Breast Scan. Forms are Medication Reconciliation Form, Thank You Letter, Antibiotic Education, Prescription Opioid Use. Follow up: Michele Johnson; When: 2 - 3 days; Reason: Re-evaluation by your physician. Follow up: Clif Roman; When: 2 - 3 days. gs
--- NOTE | 2018-07-14 15:10 | ER ---
Nurse's Notes [facility] Name: Erma Yoo Age: 52 yrs Sex: Female : 1965 Arrival Date: 07/14/2018 Time: 13:22 Bed 20 Private MD: Diagnosis: Other chest pain Presentation: 07/14 13:23 Presenting complaint: Patient states: Reports pain to left breast for 8 days that is aj worse with deep breathing and improves with compression. Transition of care: patient was not received from another setting of care. Onset of symptoms was July 05, 2018. Risk Assessment: Do you want to hurt yourself or someone else? Patient reports no desire to harm self or others. Initial Sepsis Screen: Does the patient meet any 2 criteria? No. Patient's initial sepsis screen is negative. Does the patient have a suspected source of infection? No. Patient's initial sepsis screen is negative. Care prior to arrival: None. 13:23 Method Of Arrival: Ambulatory aj 13:23 Acuity: VINNY 3 aj Triage Assessment: 13:25 General: Appears in no apparent distress. comfortable, obese, Behavior is calm, aj cooperative, appropriate for age. Pain: Complains of pain in left breast. Neuro: Level of Consciousness is awake, alert, obeys commands, Oriented to person, place, time, situation, Appropriate for age. Respiratory: Airway is patent Respiratory effort is even, unlabored, Respiratory pattern is regular, symmetrical. GI: Abdomen is flat. Derm: Skin is intact, is healthy with good turgor, Skin is pink, warm \T\ dry. normal. Musculoskeletal: Reports pain in left breast. 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 N/A - Post-menopause aj Historical: - Allergies: 13:25 Niacin (Hives, Respiratory distress); aj - Home Meds: 13:25 Topamax 50 mg Oral tab 1 tab 2 times per day [Active]; Advair Diskus Inhl [Active]; aj Ambien 5 mg Oral tab 1 tab once daily [Active]; atorvastatin 10 mg Oral tab 1 tab once daily [Active]; bupropion HCl 150 mg Oral Tb24 1 tab once daily [Active]; lisinopril 5 mg Oral tab 1 tab once daily [Active]; metformin 1,000 mg Oral tab 1 tab 2 times per day [Active]; venlafaxine 75 mg Oral tr24 1 tab once daily [Active]; - PMHx: 13:25 Asthma; Diabetes - NIDDM; Hypertension; insomnia; aj - PSHx: 13:25 Cholecystectomy; aj - Immunization history:: Adult Immunizations up to date. - Social history:: Smoking status: Patient uses tobacco products, denies chronic smoking, but will smoke occasionally. - Ebola Screening: : Patient negative for fever greater than or equal to 101.5 degrees Fahrenheit, and additional compatible Ebola Virus Disease symptoms Patient denies exposure to infectious person Patient denies travel to an Ebola-affected area in the 21 days before illness onset No symptoms or risks identified at this time. Screenin:21 Abuse screen: Denies threats or abuse. Nutritional screening: No deficits noted. em Tuberculosis screening: No symptoms or risk factors identified. Fall Risk None identified. Assessment: 13:59 General: Appears uncomfortable, Behavior is cooperative, crying. Pain: Complains of em pain in left breast Pain currently is 10 out of 10 on a pain scale. Quality of pain is described as sharp, Pain began 1 week ago Aggravated by applying pressure. Neuro: Level of Consciousness is awake, alert, obeys commands, Oriented to person, place, time, situation. Cardiovascular: Denies chest pain, Heart tones S1 S2 present Capillary refill < 3 seconds Patient's skin is warm and dry. Respiratory: Airway is patent Respiratory effort is even, unlabored, Respiratory pattern is regular, symmetrical, Breath sounds are clear bilaterally. GI: Abdomen is round non-distended, Bowel sounds present X 4 quads. Abd is soft and non tender X 4 quads. : No signs and/or symptoms were reported regarding the genitourinary system. EENT: No signs and/or symptoms were reported regarding the EENT system. Derm: Skin is intact, Skin is pink, warm \T\ dry. Musculoskeletal: Range of motion: intact in all extremities. 14:05 Reassessment: I agree with previous assessment. hb 15:00 Reassessment: Patient appears in no apparent distress at this time. Patient and/or em family updated on plan of care and expected duration. Pain level reassessed. Patient is alert, oriented x 3, equal unlabored respirations, skin warm/dry/pink. 15:31 Reassessment: Patient appears in no apparent distress at this time. Patient and/or iw family updated on plan of care and expected duration. Pain level reassessed. Patient is alert, oriented x 3, equal unlabored respirations, skin warm/dry/pink. Patient states feeling better. Patient states symptoms have improved. Vital Signs: 13:25 BP 166 / 87; Pulse 99; Resp 19; Temp 98.1; Pulse Ox 97% on R/A; Weight 79.83 kg; Height aj 5 ft. 0 in. (152.40 cm); 14:36 BP 139 / 60; Pulse 66; Resp 18; Pulse Ox 98% on R/A; Pain 10/10; em 15:05 BP 135 / 61; Pulse 65; Resp 19; Pulse Ox 99% on R/A; Pain 7/10; em 13:25 Body Mass Index 34.37 (79.83 kg, 152.40 cm) aj ED Course: 13:22 Patient arrived in ED. mr 13:24 Triage completed. aj 13:25 Arm band placed on right wrist. Patient placed in an exam room. aj 13:27 Michele Johnson MD is Attending Physician. gs 13:27 Zac Rai LVN is Primary Nurse. em 13:50 chaperoned for breast exam. em 14:00 Patient has correct armband on for positive identification. Placed in gown. Bed in low em position. Call light in reach. 14:07 Patient moved to radiology via wheelchair. sg4 14:08 X-ray completed. Portable x-ray completed in exam room. Patient tolerated procedure sg4 well. 14:09 Patient moved back from radiology. sg4 14:10 XRAY Chest Pa And Lat (2 Views) In Process Unspecified. EDMS 14:15 Initial lab(s) drawn, by me, sent to lab. Inserted saline lock: 20 gauge in right em antecubital area, using aseptic technique. Blood collected. 15:05 Michele Johnson MD is Referral Physician. gs 15:10 Clif Roman MD is Referral Physician. gs 15:31 IV discontinued, intact, bleeding controlled, No redness/swelling at site. Pressure em dressing applied. Administered Medications: 14:44 Drug: TORadol 30 mg Route: IVP; Site: right antecubital; iw 15:13 Follow up: Response: No adverse reaction; Pain is decreased em Outcome: 15:09 Discharge ordered by . gs 15:31 Discharged to home ambulatory. em 15:31 Condition: good 15:31 Discharge instructions given to patient, Instructed on discharge instructions, follow up and referral plans. Demonstrated understanding of instructions, follow-up care. 15:32 Patient left the ED. em Signatures: Dispatcher [employer] Annie Florez, RN Eden Laguna mr Rai, Zac, TONNAGE COMPILATION CLERK TONNAGE COMPILATION CLERK em Hellen Giang RN RN iw Baxter, Heather, RN RN hb Starr, Gregory, MD MD gs Garcia, Susana sg4
--- NOTE | 2018-07-14 15:21 | RAD REPORT ---
EXAM DESCRIPTION: RAD - Chest Pa And Lat (2 Views) - 07/14/2018 2:10 pm CLINICAL HISTORY: Left-sided chest pain, breast pain COMPARISON: None. TECHNIQUE: PA and lateral views of the chest were obtained. FINDINGS: The lungs are clear. Heart size is normal and central vasculature is within normal limit s. No pleural effusion or pneumothorax seen. No acute bony finding noted. No aortic abnormality. IMPRESSION: No acute cardiopulmonary process.
--- NOTE | 2018-07-15 07:04 | EKG ---
Test Date: 2018-07-14 Test Time: 14:34:12 Tank Maker Wood: LATRELL MEASUREMENT RESULTS: Intervals: Rate: 69 [place]: 132 QRSD: 78 QT: 400 QTc: 428 [place]: P: 49 [place]: 132 QRS: 42 T: 49 INTERPRETIVE STATEMENTS: Normal sinus rhythm Nonspecific T wave abnormality Abnormal ECG No previous ECG available for comparison Electronically Signed On 07-15-18 07:02:38 APPLIANCE FIXER by Ezio Berumen
== END 2018-07-14 15:32 | disposition home or self-care (01) ==
LOC: ER 13:19
DX: N64.4 Mastodynia (principal); R07.89 Other chest pain; R94.31 Abnormal electrocardiogram [ECG] [EKG]; Z72.0 Tobacco use; E11.9 Type 2 diabetes mellitus without complications; I10 Essential (primary) hypertension; J45.909 Unspecified asthma, uncomplicated; G47.00 Insomnia, unspecified; Z79.84 Long term (current) use of oral hypoglycemic drugs; Z79.51 Long term (current) use of inhaled steroids; Z79.899 Other long term (current) drug therapy
CPT/HCPCS: 36415; 71046; 80048; 84484; 85025; 93005; 96374; 99284

== ENCOUNTER 2018-08-29 16:52 | Emergency (ER) | payer OTHER ==
--- NOTE | 2018-08-29 17:51 | ER ---
Nurse's Notes [facility] Name: Erma Yoo Age: 52 yrs Sex: Female : 1965 Arrival Date: 08/29/2018 Time: 16:56 Bed 9 Private MD: Abundio Nicholas E Diagnosis: Injury of conjunctiva and corneal abrasion without foreign body Presentation: 08/29 17:15 Presenting complaint: Patient states: Redness and pain in R eye, states, "When I woke ph up there was crusty stuff in it." Redness noted to R sclera , pt reports sensitivity to light. Transition of care: patient was not received from another setting of care. Onset of symptoms was August 29, 2018. Risk Assessment: Do you want to hurt yourself or someone else? Patient reports no desire to harm self or others. Initial Sepsis Screen: Does the patient meet any 2 criteria? No. Patient's initial sepsis screen is negative. Care prior to arrival: None. 17:15 Method Of Arrival: Ambulatory ph 17:15 Acuity: VINNY 4 ph 17:30 Initial Sepsis Screen: Does the patient have a suspected source of infection? No. ph Patient's initial sepsis screen is negative. Historical: - Allergies: 17:17 Niacin (Hives, Respiratory distress); ph - PMHx: 17:17 Asthma; Diabetes - NIDDM; Hypertension; insomnia; ph - PSHx: 17:17 Cholecystectomy; ph - Immunization history:: Adult Immunizations unknown. - Social history:: Smoking status: Patient uses tobacco products, smokes one-half pack cigarettes per day, Patient/guardian denies using alcohol, street drugs, The patient lives with family. - Family history:: not pertinent, pertinent for. - Ebola Screening: : No symptoms or risks identified at this time. - Hospitalizations: : No recent hospitalization is reported. Screenin:35 Abuse screen: Denies threats or abuse. Denies injuries from another. Nutritional ph screening: No deficits noted. Tuberculosis screening: No symptoms or risk factors identified. Fall Risk None identified. Assessment: 17:30 General: Appears in no apparent distress. uncomfortable, well groomed, Behavior is ph calm, cooperative, appropriate for age, Denies fever, feeling ill. Pain: Complains of pain in right eye. Neuro: Level of Consciousness is awake, alert, obeys commands, Oriented to person, place, time, situation. Cardiovascular: Capillary refill < 3 seconds in bilateral fingers Patient's skin is warm and dry. Respiratory: Airway is patent Respiratory effort is even, unlabored. GI: No signs and/or symptoms were reported involving the gastrointestinal system. EENT: Sclera/Cornea are reddened in right eye Reports photophobia in right eye. Derm: Skin is intact, is healthy with good turgor, Skin is pink, warm \\T\\ dry. Musculoskeletal: Circulation, motion, and sensation intact. Range of motion: intact in all extremities. 18:10 Reassessment: Patient appears in no apparent distress at this time. Patient and/or ph family updated on plan of care and expected duration. Pain level reassessed. Patient is alert, oriented x 3, equal unlabored respirations, skin warm/dry/pink. Pt instructed to follow up w/ eye doctor as soon as possible, also instructed to not use contacts until cleared until cleared by eye doctor Patient denies pain at this time. Vital Signs: 17:17 BP 170 / 94; Pulse 90; Resp 18; Temp 97.8; Pulse Ox 99% on R/A; Weight 79.83 kg; Height ph 5 ft. 1 in. (154.94 cm); 17:17 Body Mass Index 33.25 (79.83 kg, 154.94 cm) ph ED Course: 16:56 Patient arrived in ED. mr 16:56 Abundio Nicholas MD is Private Physician. mr 17:17 Triage completed. ph 17:18 Arm band placed on. ph 17:30 Evi Kim MD is Attending Physician. ma2 17:30 Patient has correct armband on for positive identification. Bed in low position. Call light in reach. Door closed. Lights dimmed. 18:10 Rosario Roy, SISSY is Primary Nurse. ph 18:10 No provider procedures requiring assistance completed. Patient did not have IV access ph during this emergency room visit. Administered Medications: No medications were administered Outcome: 17:50 Discharge ordered by . ma2 18:14 Patient left the ED. hb 18:14 Discharged to home ambulatory. ph 18:14 Condition: good 18:14 Discharge instructions given to patient, Instructed on discharge instructions, follow up and referral plans. medication usage, Demonstrated understanding of instructions, follow-up care, medications, Prescriptions given X 2. Signatures: Eden Rosario Patricia RN RN ph Melanie Dotson RN RN Evi Kim MD MD ma2
--- NOTE | 2018-08-29 17:52 | EDPHYS ---
Physician Documentation [facility] Name: Erma Yoo Age: 52 yrs Sex: Female : 1965 Arrival Date: 08/29/2018 Time: 16:56 Bed 9 Private MD: Abundio Nicholas E ED Physician Evi Kim HPI: 08/29 17:46 This 52 yrs old Female presents to ER via Ambulatory with complaints of ma2 Redness of Eye. 17:46 Onset: The symptoms/episode began/occurred gradually, 2 day(s) ago. Duration: the ma2 symptoms are continuous. Alleviated by nothing, blinking. Associated signs and symptoms: Pertinent positives: Pertinent negatives: None. chills, dizziness, ear ache, fever, headache, runny nose. Patient wears soft contacts. Severity of symptoms: At their worst the symptoms were mild in the emergency department the symptoms are unchanged. The patient has not experienced similar symptoms in the past. here with eye burning and redness . Historical: - Allergies: 17:17 Niacin (Hives, Respiratory distress); ph - PMHx: 17:17 Asthma; Diabetes - NIDDM; Hypertension; insomnia; ph - PSHx: 17:17 Cholecystectomy; ph - Immunization history:: Adult Immunizations unknown. - Social history:: Smoking status: Patient uses tobacco products, smokes one-half pack cigarettes per day, Patient/guardian denies using alcohol, street drugs, The patient lives with family. - Family history:: not pertinent, pertinent for. - Ebola Screening: : No symptoms or risks identified at this time. - Hospitalizations: : No recent hospitalization is reported. ROS: 17:46 Constitutional: Negative for fever, chills, and weight loss, ENT: Negative for injury, ma2 pain, and discharge, Neck: Negative for injury, pain, and swelling, Cardiovascular: Negative for chest pain, palpitations, and edema, Respiratory: Negative for shortness of breath, cough, wheezing, and pleuritic chest pain, Abdomen/GI: Negative for abdominal pain, nausea, diarrhea, and constipation. 17:46 Eyes: Positive for pain, redness, Negative for blurry vision, icterus, injury or acute deformity, itching, sunken appearance, swelling. 17:46 All other systems are negative. ma2 Exam: 17:46 Constitutional: This is a well developed, well nourished patient who is awake, alert, ma2 and in no acute distress. Head/Face: Normocephalic, atraumatic. ENT: Nares patent. No nasal discharge, no septal abnormalities noted. Tympanic membranes are normal and external auditory canals are clear. Oropharynx with no redness, swelling, or masses, exudates, or evidence of obstruction, uvula midline. Mucous membranes moist. Neck: Trachea midline, no thyromegaly or masses palpated, and no cervical lymphadenopathy. Supple, full range of motion without nuchal rigidity, or vertebral point tenderness. No Meningismus. Chest/axilla: Normal chest wall appearance and motion. Nontender with no deformity. No lesions are appreciated. Cardiovascular: Regular rate and rhythm with a normal S1 and S2. No gallops, murmurs, or rubs. Normal PMI, no JVD. No pulse deficits. Respiratory: Lungs have equal breath sounds bilaterally, clear to auscultation and percussion. No rales, rhonchi or wheezes noted. No increased work of breathing, no retractions or nasal flaring. Abdomen/GI: Soft, non-tender, with normal bowel sounds. No distension or tympany. No guarding or rebound. No evidence of tenderness throughout. Neuro: Awake and alert, GCS 15, oriented to person, place, time, and situation. Cranial nerves II-XII grossly intact. Motor strength 5/5 in all extremities. Sensory grossly intact. Cerebellar exam normal. Normal gait. 17:46 Eyes: Pupils: equal, round, and reactive to light and accomodation, Extraocular movements: intact throughout, Conjunctiva: tearing noted, Corneas: abrasion, that is small, approximately 2 mm(s), on the right, at 5 o'clock, Anterior chamber: normal, Lids and lashes: appear normal, Visual olvera: are intact, a slit lamp exam was employed for the exam, Intraocular pressure: right eye = 18mmHg, left eye = 17mmHg. Vital Signs: 17:17 BP 170 / 94; Pulse 90; Resp 18; Temp 97.8; Pulse Ox 99% on R/A; Weight 79.83 kg; Height ph 5 ft. 1 in. (154.94 cm); 17:17 Body Mass Index 33.25 (79.83 kg, 154.94 cm) ph MDM: 17:30 Patient medically screened. ma2 17:46 Differential diagnosis: Corneal abrasion of unlikely conjunctivitis or glaucoma or eye ma2 trauma. Data reviewed: vital signs, nurses notes. Counseling: I had a detailed discussion with the patient and/or guardian regarding: the historical points, exam findings, and any diagnostic results supporting the discharge/admit diagnosis, the presence of at least one elevated blood pressure reading (>120/80) during this emergency department visit, the need for outpatient follow up. Administered Medications: No medications were administered Disposition: 08/29/18 17:50 Discharged to Home. Impression: Injury of conjunctiva and corneal abrasion without foreign body. - Condition is Stable. - Discharge Instructions: Corneal Abrasion. - Prescriptions for Acular 0.5 % Ophthalmic Drops - instill 1 drop by OPHTHALMIC route every 6 hours into affected eye(s); 5 milliliter. Erythromycin 5 mg/gram (0.5 %) Ophthalmic Ointment - apply 1 centimeter by OPHTHALMIC route 2-3 times daily for 7 days; 1 tube. - Work release form, Medication Reconciliation Form, Thank You Letter, Antibiotic Education, Prescription Opioid Use form. - Follow up: Private Physician; When: Tomorrow; Reason: Continuance of care. - Notes: see eye doctor in 1 day dont wear contact lenses untill you see your eye doctor Signatures: Rosario Roy RN RN ph Melanie Dotson RN RN Evi Kim MD MD ma2 Corrections: (The following items were deleted from the chart) 18:14 17:50 08/29/2018 17:50 Discharged to Home. Impression: Injury of conjunctiva and hb corneal abrasion without foreign body. Condition is Stable. Forms are Medication Reconciliation Form, Thank You Letter, Antibiotic Education, Prescription Opioid Use. Follow up: Private Physician; When: Tomorrow; Reason: Continuance of care. ma2
== END 2018-08-29 18:14 | disposition home or self-care (01) ==
LOC: ER 16:52
DX: S05.01XA Injury of conjunctiva and corneal abrasion without foreign body, right eye, initial encounter (principal); X58.XXXA Exposure to other specified factors, initial encounter; F17.210 Nicotine dependence, cigarettes, uncomplicated
CPT/HCPCS: 99282

== ENCOUNTER 2018-10-22 14:11 | Emergency (ER) | payer BC, OTHER ==
--- NOTE | 2018-10-22 15:18 | RAD REPORT ---
EXAM DESCRIPTION: Nirali Toney (2 Views)10/22/2018 3:01 pm CLINICAL HISTORY: Cough COMPARISON: July 2018 FINDINGS: The lungs appear clear of acute infiltrate. The heart is normal size IMPRESSION: No acute abnormalities displayed
[2018-10-22] MEDS ORDERED: NA CHLORIDE 0.9% 1,000 ML ONE (15:29)
[2018-10-22 15:45] LABS: Absolute Lymphocytes (CBC) 1.8 K/uL (0.7-4.9); Absolute Monocytes 0.8 K/uL (0.1-1.3); Basophils % 0.8 % (0-1.3); Eosinophils % 3.8 % (0-4.4); Hematocrit 41.1 % (36.0-45.0); Lymphocytes % 23.1 % (15.3-44.8); MPV 8.1 fL (7.6-11.3); Monocytes % 9.7 % (3.3-12.3); RBC Red Blood Cell Count 5.47 M/uL (3.86-4.86)
[2018-10-22 15:57] LABS: Bilirubin Total 0.2 mg/dL (0.2-1.0); Potassium 3.9 mmol/L (3.5-5.1); Protein, Total 8.1 g/dL (6.4-8.2)
--- NOTE | 2018-10-22 16:22 | ER ---
Nurse's Notes [facility] Name: Erma Yoo Age: 52 yrs Sex: Female : 1965 Arrival Date: 10/22/2018 Time: 14:14 Bed 13 Private MD: Diagnosis: Acute bronchitis Presentation: 10/22 14:18 Presenting complaint: Productive cough with green sputum, body aches, headache, sore hb throat, nausea, intermittent fever, and diarrhea x 10 days. TMAX 102. Transition of care: patient was not received from another setting of care. Onset of symptoms is unknown. Risk Assessment: Do you want to hurt yourself or someone else? Patient reports no desire to harm self or others. Care prior to arrival: None. 14:18 Method Of Arrival: Ambulatory hb 14:18 Acuity: VINNY 3 hb 14:25 Initial Sepsis Screen: Does the patient meet any 2 criteria? No. Patient's initial rb1 sepsis screen is negative. Does the patient have a suspected source of infection? No. Patient's initial sepsis screen is negative. Triage Assessment: 14:25 General: Behavior is calm, cooperative. General: Appears in no apparent distress. 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 Historical: - Allergies: 14:20 Niacin (Hives, Respiratory distress); hb - Home Meds: 14:20 Advair Diskus Inhl [Active]; Ambien 5 mg Oral tab 1 tab once daily [Active]; hb atorvastatin 10 mg Oral tab 1 tab once daily [Active]; bupropion HCl 150 mg Oral Tb24 1 tab once daily [Active]; lisinopril 5 mg Oral tab 1 tab once daily [Active]; metformin 1,000 mg Oral tab 1 tab 2 times per day [Active]; Topamax 50 mg Oral tab 1 tab 2 times per day [Active]; venlafaxine 75 mg Oral tr24 1 tab once daily [Active]; - PMHx: 14:20 Asthma; Hypertension; Diabetes - NIDDM; insomnia; hb - PSHx: 14:20 Cholecystectomy; hb - Immunization history:: Adult Immunizations up to date. - Social history:: Smoking status: Patient/guardian denies using tobacco. - Ebola Screening: : No symptoms or risks identified at this time. Screenin:25 Abuse screen: Denies threats or abuse. Nutritional screening: No deficits noted. rb1 Tuberculosis screening: No symptoms or risk factors identified. Fall Risk None identified. Assessment: 14:25 General: Appears in no apparent distress. Behavior is calm, cooperative, Reports rb1 feeling ill for. General: Generalized bodyaches. Pain: Complains of pain in sore throat Pain currently is 5 out of 10 on a pain scale. Neuro: Level of Consciousness is awake, alert, obeys commands, Oriented to person, place, time, situation. Cardiovascular: Capillary refill < 3 seconds is brisk in bilateral fingers. Respiratory: Airway is patent Respiratory effort is even, unlabored, Respiratory pattern is regular, symmetrical. GI: No signs and/or symptoms were reported involving the gastrointestinal system. : No signs and/or symptoms were reported regarding the genitourinary system. EENT: Throat is reddened. Derm: Skin is dry, Skin is normal, Skin temperature is warm. 14:25 Respiratory: Breath sounds are clear bilaterally. rb1 15:25 Reassessment: Patient appears in no apparent distress at this time. No changes from rb1 previously documented assessment. 16:20 Reassessment: Patient appears in no apparent distress at this time. Patient and/or rb1 family updated on plan of care and expected duration. Pain level reassessed. Patient is alert, oriented x 3, equal unlabored respirations, skin warm/dry/pink. 16:47 Reassessment: Patient appears in no apparent distress at this time. Patient and/or ss family updated on plan of care and expected duration. Pain level reassessed. Patient is alert, oriented x 3, equal unlabored respirations, skin warm/dry/pink. Patient states feeling better. Patient states symptoms have improved. Vital Signs: 14:19 BP 160 / 103; Pulse 84; Resp 18; Temp 97.9; Pulse Ox 100% on R/A; Pain 8/10; hb 15:20 BP 162 / 95; Pulse 88; Resp 16; Pulse Ox 99% on R/A; rb1 16:20 BP 153 / 89; Pulse 71; Resp 17; Pulse Ox 99% on R/A; Pain 6/10; rb1 ED Course: 14:14 Patient arrived in ED. rg4 14:19 Triage completed. hb 14:19 Arm band placed on right wrist. hb 14:23 Ector Mac PA is PHCP. jmm 14:23 Michele Johnson MD is Attending Physician. m 14:25 Patient has correct armband on for positive identification. Bed in low position. Call rb1 light in reach. Side rails up X 1. Pulse ox on. NIBP on. 14:29 Chetna Piper, RN is Primary Nurse. [facility] 15:02 Chest Pa And Lat (2 Views) In Process Unspecified. EDMS 15:25 Inserted saline lock: 22 gauge in left antecubital area, using aseptic technique. Blood rb1 collected. 16:47 No provider procedures requiring assistance completed. IV discontinued, intact, ss bleeding controlled, No redness/swelling at site. Pressure dressing applied. Administered Medications: 15:25 Drug: NS 0.9% 1000 ml Route: IV; Rate: 1 bolus; Site: left antecubital; rb1 16:30 Follow up: IV Status: Completed infusion rb1 Outcome: 16:21 Discharge ordered by MD. [facility] 16:47 Discharged to home ambulatory. 16:47 Condition: good 16:47 Discharge instructions given to patient, Instructed on discharge instructions, follow up and referral plans. medication usage, Demonstrated understanding of instructions, follow-up care, medications, Prescriptions given X 1. 16:47 Patient left the ED. Signatures: Dispatcher [employer] EDMS Ector Mac PA PA jmm Smirch, Shelby, RN RN Chetna Piper, RN RN Melanie Robb, Padmini Thakkar RN rg4 Corrections: (The following items were deleted from the chart) 18:04 18:03 General: Appears [place] [id number]
--- NOTE | 2018-10-22 16:23 | EDPHYS ---
Physician Documentation [facility] Name: Erma Yoo Age: 52 yrs Sex: Female : 1965 Arrival Date: 10/22/2018 Time: 14:14 Bed 13 Private MD: ED Physician Michele Johnson HPI: 10/22 14:39 This 52 yrs old Female presents to ER via Ambulatory with complaints of Cough, jmm Sore Throat, Body Aches. 14:39 The patient or guardian reports cough. Onset: The symptoms/episode began/occurred jmm gradually, 1 week(s) ago. Modifying factors: The symptoms are alleviated by nothing, the symptoms are aggravated by nothing. Associated signs and symptoms: Pertinent positives: sore throat. This is a 52 year old female with a history of asthma, htn, dm that presents to the ED with complaints of cough, diarrhea, sore throat for the past week. Denies vomiting. . 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 Historical: - Allergies: 14:20 Niacin (Hives, Respiratory distress); hb - Home Meds: 14:20 Advair Diskus Inhl [Active]; Ambien 5 mg Oral tab 1 tab once daily [Active]; hb atorvastatin 10 mg Oral tab 1 tab once daily [Active]; bupropion HCl 150 mg Oral Tb24 1 tab once daily [Active]; lisinopril 5 mg Oral tab 1 tab once daily [Active]; metformin 1,000 mg Oral tab 1 tab 2 times per day [Active]; Topamax 50 mg Oral tab 1 tab 2 times per day [Active]; venlafaxine 75 mg Oral tr24 1 tab once daily [Active]; - PMHx: 14:20 Asthma; Hypertension; Diabetes - NIDDM; insomnia; hb - PSHx: 14:20 Cholecystectomy; hb - Immunization history:: Adult Immunizations up to date. - Social history:: Smoking status: Patient/guardian denies using tobacco. - Ebola Screening: : No symptoms or risks identified at this time. ROS: 14:39 Constitutional: Positive for body aches, fever. jmm 14:39 ENT: Positive for sore throat. 14:39 Respiratory: Positive for cough. 14:39 Abdomen/GI: Positive for diarrhea. 14:39 All other systems are negative. Exam: 14:39 Constitutional: This is a well developed, well nourished patient who is awake, alert, jmm and in no acute distress. Head/Face: atraumatic. Eyes: EOMI, no conjunctival erythema appreciated ENT: Moist Mucus Membranes Neck: Trachea midline, Supple Chest/axilla: Normal chest wall appearance and motion. Cardiovascular: Regular rate and rhythm. No edema appreciated Respiratory: Normal respirations, no respiratory distress appreciated Abdomen/GI: Non distended, soft Back: Normal ROM Skin: General appearance color normal MS/ Extremity: Moves all extremities, no obvious deformities appreciated, no edema noted to the lower extremities Neuro: Awake and alert, normal gait Psych: Behavior is normal, Mood is normal, Patient is cooperative and pleasant 14:39 ENT: Posterior pharynx: erythema, that is mild. 14:39 Respiratory: the patient does not display signs of respiratory distress, Respirations: normal, Breath sounds: are clear throughout. Vital Signs: 14:19 BP 160 / 103; Pulse 84; Resp 18; Temp 97.9; Pulse Ox 100% on R/A; Pain 8/10; hb 15:20 BP 162 / 95; Pulse 88; Resp 16; Pulse Ox 99% on R/A; rb1 16:20 BP 153 / 89; Pulse 71; Resp 17; Pulse Ox 99% on R/A; Pain 6/10; rb1 MDM: 14:36 Patient medically screened. [facility] 16:18 Data reviewed: vital signs, nurses notes. Counseling: I had a detailed discussion with [facility] the patient and/or guardian regarding: the historical points, exam findings, and any diagnostic results supporting the discharge/admit diagnosis, lab results, radiology results, the need for outpatient follow up, to return to the emergency department if symptoms worsen or persist or if there are any questions or concerns that arise at home. ED course: Patient is alert and non toxic in appearance in the ED. Patient shows no signs of resp distress. Patient is given return precautions. Patient understood and agrees with the plan of care. . 10/22 14:37 Order name: CBC with Diff; Complete Time: 16: [facility] 10/22 14:37 Order name: CMP; Complete Time: 16: [facility] 10/22 14:37 Order name: Chest Pa And Lat (2 Views) XRAY [facility] 10/22 14:37 Order name: Flu; Complete Time: 16: [facility] 10/22 14:43 Order name: Chest Pa And Lat (2 Views); Complete Time: 15:47 [facility] 10/22 14:37 Order name: Saline Lock; Complete Time: 16:02 [facility] Administered Medications: 15:25 Drug: NS 0.9% 1000 ml Route: IV; Rate: 1 bolus; Site: left antecubital; rb1 16:30 Follow up: IV Status: Completed infusion rb1 Disposition: 10/22/18 16:21 Discharged to Home. Impression: Acute bronchitis. - Condition is Stable. - Discharge Instructions: Acute Bronchitis, Adult. - Prescriptions for promethazine- DM - take 5 milliliter by ORAL route every 4-6 hours; 120 milliliter. - Medication Reconciliation Form, Thank You Letter, Antibiotic Education, Prescription Opioid Use form. - Follow up: Private Physician; When: 2 - 3 days; Reason: Recheck today's complaints, Continuance of care, Re-evaluation by your physician. Addendum: 10/24/2018 21:02 Co-signature as Attending Physician, Michele Johnson MD. g s Signatures: Dispatcher [employer] [facility] Ector Mac PA PA [facility] Nani Hunter RN RN ss Chetna Piper, SISSY RN rb1 Melanie Dotson RN RN Michele Johnson MD MD Corrections: (The following items were deleted from the chart) 10/22 16:47 16:21 10/22/2018 16:21 Discharged to Home. Impression: Acute bronchitis. Condition is ss Stable. Forms are Medication Reconciliation Form, Thank You Letter, Antibiotic Education, Prescription Opioid Use. Follow up: Private Physician; When: 2 - 3 days; Reason: Recheck today's complaints, Continuance of care, Re-evaluation by your physician. [facility]
== END 2018-10-22 16:47 | disposition home or self-care (01) ==
LOC: ER 14:11
DX: J20.9 Acute bronchitis, unspecified (principal); J45.909 Unspecified asthma, uncomplicated; I10 Essential (primary) hypertension; E11.9 Type 2 diabetes mellitus without complications; Z79.84 Long term (current) use of oral hypoglycemic drugs; Z88.8 Allergy status to other drugs, medicaments and biological substances
CPT/HCPCS: 36415; 71046; 80053; 85025; 87804; 96360; 99284; J7030

== ENCOUNTER 2018-11-07 13:06 | Emergency (ER) | payer BC ==
--- NOTE | 2018-11-07 14:19 | ER ---
Nurse's Notes [facility] Name: Erma Yoo Age: 53 yrs Sex: Female : 1965 Arrival Date: 11/07/2018 Time: 13:10 Bed Treatment Private MD: Diagnosis: Dental Carries, Dental Abscess Presentation: 11/07 13:25 Presenting complaint: Right upper molar pain 06/12. Transition of care: patient was not hb received from another setting of care. Onset of symptoms was November 07, 2018. Risk Assessment: Do you want to hurt yourself or someone else? Patient reports no desire to harm self or others. Care prior to arrival: None. 13:25 Method Of Arrival: Ambulatory hb 13:25 Acuity: VINNY 4 hb 14:00 Initial Sepsis Screen: Does the patient meet any 2 criteria? No. Patient's initial iw sepsis screen is negative. Does the patient have a suspected source of infection? No. Patient's initial sepsis screen is negative. Triage Assessment: 13:40 General: Behavior is calm. iw 14:00 General: Appears in no apparent distress. iw 14:00 EENT: Reports pain. 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 - Social history:: Smoking status: Patient/guardian denies using tobacco. - Ebola Screening: : No symptoms or risks identified at this time. - Family history:: not pertinent. - Hospitalizations: : No recent hospitalization is reported. Screenin:40 Abuse screen: Denies threats or abuse. Denies injuries from another. Nutritional iw screening: No deficits noted. Tuberculosis screening: No symptoms or risk factors identified. Fall Risk None identified. Assessment: 14:00 General: Appears uncomfortable, Behavior is calm, cooperative. Pain: Complains of pain iw in upper left third molar (#16) and upper left third molar. Neuro: Level of Consciousness is awake, alert, obeys commands, Oriented to person, place, time, situation, Moves all extremities. Cardiovascular: Patient's skin is warm and dry. Respiratory: Respiratory effort is even, unlabored, Respiratory pattern is regular. EENT: Good dentition noted. Derm: Skin is intact, is healthy with good turgor. Musculoskeletal: Range of motion: intact in all extremities. Vital Signs: 13:26 BP 146 / 86; Pulse 90; Resp 16; Temp 98.2; Pulse Ox 100% on R/A; Pain 10/10; hb ED Course: 13:10 Patient arrived in ED. rg4 13:26 Triage completed. hb 13:26 Arm band placed on right wrist. hb 14:00 Patient has correct armband on for positive identification. iw 14:08 [facility] kav 14:08 Kingsley Eller MD is Attending Physician. kav 14:17 Devin Schilling DDS is Referral Physician. kav 14:26 Hellen Giang, RN is Primary Nurse. iw 14:40 No provider procedures requiring assistance completed. Patient did not have IV access iw during this emergency room visit. Administered Medications: 14:36 Drug: HYDROcodone-acetaminophen 10 mg-325 mg 1 tabs Route: PO; iw Outcome: 14:19 Discharge ordered by MD. kav 14:42 Discharged to home ambulatory. iw 14:42 Condition: good 14:42 Discharge instructions given to patient, family, Instructed on discharge instructions, follow up and referral plans. medication usage, Demonstrated understanding of instructions, follow-up care, medications, Prescriptions given X 2. 14:43 Patient left the ED. iw Signatures: Leola Guzman FNP FNP kav Williams, Irene, RN SISSY Melanie Dotson RN RN Padmini Goldberg rg4
--- NOTE | 2018-11-07 14:19 | EDPHYS ---
Physician Documentation [facility] Name: Erma Yoo Age: 53 yrs Sex: Female : 1965 Arrival Date: 11/07/2018 Time: 13:10 Bed Treatment Private MD: ED Physician Kingsley Eller HPI: 11/07 14:12 This 53 yrs old Female presents to ER via Ambulatory with complaints of kav Toothache. 14:12 The patient presents with broken tooth/teeth, pain, swelling. The problem is located in kav the upper left third molar. Onset: The symptoms/episode began/occurred acutely, 2 day(s) ago. Duration: The symptoms are continuous, and are unchanged since they started, and are markedly worse than the original presentation. Modifying factors: The symptoms are alleviated by nothing, the symptoms are aggravated by air, cold fluids, hot fluids. Associated signs and symptoms: Pertinent positives: pain, Pertinent negatives: fever. Severity of symptoms: At their worst the symptoms were severe, just prior to arrival. The patient has been recently seen by a physician: [facility]. Patient reports that the dentist would not give her any prescription abx or pain meds as "they do not take her insurance". She found a dentist on her insurance and reports that she can't get an appointment for tooth extraction until Sunday.. 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 - Social history:: Smoking status: Patient/guardian denies using tobacco. - Ebola Screening: : No symptoms or risks identified at this time. - Family history:: not pertinent. - Hospitalizations: : No recent hospitalization is reported. ROS: 14:15 Constitutional: Negative for fever, chills, and weight loss, Eyes: Negative for injury, kav pain, redness, and discharge, Neck: Negative for injury, pain, and swelling, Cardiovascular: Negative for chest pain, palpitations, and edema, Respiratory: Negative for shortness of breath, cough, wheezing, and pleuritic chest pain, Abdomen/GI: Negative for abdominal pain, nausea, vomiting, diarrhea, and constipation, Back: Negative for injury and pain, : Negative for injury, bleeding, discharge, and swelling, MS/Extremity: Negative for injury and deformity, Skin: Negative for injury, rash, and discoloration, Neuro: Negative for headache, weakness, numbness, tingling, and seizure, Psych: Negative for depression, anxiety, suicide ideation, homicidal ideation, and hallucinations, Allergy/Immunology: Negative for hives, rash, and allergies, Endocrine: Negative for neck swelling, polydipsia, polyuria, polyphagia, and marked weight changes, Hematologic/Lymphatic: Negative for swollen nodes, abnormal bleeding, and unusual bruising. 14:15 ENT: Positive for dental pain, Negative for Gum pain Exam: 14:15 Constitutional: This is a well developed, well nourished patient who is awake, alert, kav and in no acute distress. Head/Face: Normocephalic, atraumatic. Eyes: Pupils equal round and reactive to light, extra-ocular motions intact. Lids and lashes normal. Conjunctiva and sclera are non-icteric and not injected. Cornea within normal limits. Periorbital areas with no swelling, redness, or edema. Neck: Trachea midline, no thyromegaly or masses palpated, and no cervical lymphadenopathy. Supple, full range of motion without nuchal rigidity, or vertebral point tenderness. No Meningismus. Chest/axilla: Normal chest wall appearance and motion. Nontender with no deformity. No lesions are appreciated. Cardiovascular: Regular rate and rhythm with a normal S1 and S2. No gallops, murmurs, or rubs. Normal PMI, no JVD. No pulse deficits. Respiratory: Lungs have equal breath sounds bilaterally, clear to auscultation and percussion. No rales, rhonchi or wheezes noted. No increased work of breathing, no retractions or nasal flaring. Abdomen/GI: Soft, non-tender, with normal bowel sounds. No distension or tympany. No guarding or rebound. No evidence of tenderness throughout. Back: No spinal tenderness. No costovertebral tenderness. Full range of motion. Skin: Warm, dry with normal turgor. Normal color with no rashes, no lesions, and no evidence of cellulitis. MS/ Extremity: Pulses equal, no cyanosis. Neurovascular intact. Full, normal range of motion. Neuro: Awake and alert, GCS 15, oriented to person, place, time, and situation. Cranial nerves II-XII grossly intact. Motor strength 5/5 in all extremities. Sensory grossly intact. Cerebellar exam normal. Normal gait. Psych: Awake, alert, with orientation to person, place and time. Behavior, mood, and affect are within normal limits. 14:15 ENT: Dental exam: dental caries, that is moderate, specifically in the upper left third molar (#16), fractured teeth are noted, specifically the upper left third molar (#16), pain, that is severe, specifically in the upper left third molar (#16). Vital Signs: 13:26 BP 146 / 86; Pulse 90; Resp 16; Temp 98.2; Pulse Ox 100% on R/A; Pain 10/10; hb MDM: 14:08 Medical screening is not applicable. kav 14:15 Differential diagnosis: dental caries, dental abscess. Data reviewed: vital signs, ka nurses notes. Counseling: I had a detailed discussion with the patient and/or guardian regarding: the historical points, exam findings, and any diagnostic results supporting the discharge/admit diagnosis, the need for outpatient follow up, a dentist. Administered Medications: 14:36 Drug: HYDROcodone-acetaminophen 10 mg-325 mg 1 tabs Route: PO; iw Disposition: 14:56 Co-signature as Attending Physician, Kingsley Eller MD I agree with the assessment and kdr plan of care. Disposition: 11/07/18 14:19 Discharged to Home. Impression: Dental Carries, Dental Abscess. - Condition is Stable. - Discharge Instructions: Dental Abscess, [id number], Dental Caries, Ouyw-fv-Casc, Preventive Dental Care, Adult. - Prescriptions for Augmentin 875- 125 mg Oral Tablet - take 1 tablet by ORAL route every 12 hours for 10 days; 20 tablet. Tylenol- Codeine #3 300-30 mg Oral Tablet - take 2 tablets by ORAL route every 6 hours As needed; 15 tablet. - Medication Reconciliation Form, Thank You Letter, Antibiotic Education, Prescription Opioid Use form. - Follow up: Devin Schilling DDS; When: 24 Hours; Reason: Recheck today's complaints, Continuance of care, Re-evaluation by your physician. - Problem is an acute exacerbation. - Symptoms have improved. Signatures: Kingsley Eller MD MD kdr Vern, Katherine, FNP FNP kav Williams, Irene SISSY RN iw Melanie Dotson RN RN Corrections: (The following items were deleted from the chart) 14:43 14:19 11/07/2018 14:19 Discharged to Home. Impression: Dental Carries, Dental Abscess. iw Condition is Stable. Forms are Medication Reconciliation Form, Thank You Letter, Antibiotic Education, Prescription Opioid Use. Follow up: Devin Schilling; When: 24 Hours; Reason: Recheck today's complaints, Continuance of care, Re-evaluation by your physician. Problem is an acute exacerbation. Symptoms have improved. salbador
[2018-11-07] MEDS ORDERED: HYDROCODONE/APAP 10/325 TAB ONE (14:46)
== END 2018-11-07 14:43 | disposition home or self-care (01) ==
LOC: ER 13:06
DX: K04.7 Periapical abscess without sinus (principal); Z91.048 Other nonmedicinal substance allergy status
CPT/HCPCS: 99283

== ENCOUNTER 2019-05-22 08:13 | Emergency (ER) | payer BC ==
[2019-05-22] MEDS ORDERED: ONDANSETRON 4 MG/2 ML VIAL ONE (08:39)
[2019-05-22] MEDS ORDERED: KETOROLAC 30 MG/ML INJ ONE (08:39)
[2019-05-22 08:51] LABS: Absolute Lymphocytes (CBC) 1.6 K/uL (0.7-4.9); Basophils % 0.7 % (0-1.3); Hematocrit 40.3 % (36.0-45.0); Lymphocytes % 28.3 % (15.3-44.8); RBC Red Blood Cell Count 5.36 M/uL (3.86-4.86)
--- NOTE | 2019-05-22 08:54 | RAD REPORT ---
EXAM DESCRIPTION: RAD - Chest Single View - 05/22/2019 8:44 am CLINICAL HISTORY: CHEST PAIN Chest pain. COMPARISON: Chest Pa And Lat (2 Views) dated 10/22/2018; Chest Pa And Lat (2 Views) dated 07/14/2018 FINDINGS: Portable technique limits examination quality. The lungs are grossly clear. The heart is normal in size. No displaced fractures. IMPRESSION: No acute intrathoracic process suspected.
[2019-05-22 09:14] LABS: ALT/SGPT 34 U/L (12-78); AST/SGOT 19 U/L (15-37); Albumin 3.7 g/dL (3.4-5.0); Alkaline Phosphatase 92 U/L (45-117); BUN Blood Urea Nitrogen 15 mg/dL (7-18); Bicarbonate 28 mmol/L (21-32); Bilirubin Direct < 0.1 mg/dL (0-0.2); Bilirubin Total 0.3 mg/dL (0.2-1.0); Glucose Level 176 mg/dL (74-106); Magnesium 2.1 mg/dL (1.8-2.4); NT PRO-BNP 52 pg/mL (<125); Potassium 3.2 mmol/L (3.5-5.1); Protein, Total 7.8 g/dL (6.4-8.2); Sodium Level 141 mmol/L (136-145); Troponin (Emerg Dept Use Only) < 0.02 ng/mL (0.0-0.045)
[2019-05-22] MEDS ORDERED: POTASSIUM CL SA 10 MEQ TAB PO ONE (09:58)
--- NOTE | 2019-05-22 10:34 | ER ---
Nurse's Notes [facility] Name: Erma Yoo Age: 53 yrs Sex: Female : 1965 Arrival Date: 05/22/2019 Time: 08:15 Bed 4 Private MD: Marvin Seymour Diagnosis: Chest pain on breathing;Chest pain, unspecified;Other chest pain Presentation: 05/22 08:23 Presenting complaint: Patient states: midsternal chest pain X 3 days, was seen at Dr. dimas Seymour's office and was referred to Dr. Gutierrez but he's out of town and she can't wait any longer, pain is non radiating, aggravated by exertion, sharp, constant, 8/10. Transition of care: patient was not received from another setting of care. Onset of symptoms was May 19, 2019. Risk Assessment: Do you want to hurt yourself or someone else? Patient reports no desire to harm self or others. Initial Sepsis Screen: Does the patient meet any 2 criteria? No. Patient's initial sepsis screen is negative. Does the patient have a suspected source of infection? No. Patient's initial sepsis screen is negative. Care prior to arrival: None. 08:23 Method Of Arrival: Wheelchair iw 08:23 Acuity: VINNY 2 iw Triage Assessment: 08:30 General: Appears in no apparent distress. comfortable, well groomed, well developed, sg well nourished, Behavior is calm, cooperative, appropriate for age. Pain: Complains of pain in anterior aspect of right upper chest Quality of pain is described as tender. EENT: No signs and/or symptoms were reported regarding the EENT system. Neuro: Level of Consciousness is awake, alert, obeys commands, Oriented to person, place, time, Diplomatic Interpreter/Translator are equal bilaterally Moves all extremities. Full function Gait is steady, Speech is normal, Facial symmetry appears normal, Pupils are PERRLA. Cardiovascular: Capillary refill is brisk in bilateral fingers Patient's skin is warm and dry. Chest pain is described as vague, is located in right anterior chest wall episodes are continuous is aggravated by touching the area of chest. Respiratory: Airway is patent Respiratory effort is even, unlabored, Respiratory pattern is regular, symmetrical, Breath sounds are clear bilaterally. Denies cough, shortness of breath labored breathing. GI: Abdomen is round non-distended, Bowel sounds present X 4 quads. Reports nausea, tolerance of fluids, tolerance of food. : No signs and/or symptoms were reported regarding the genitourinary system. Derm: Skin is pink, warm \T\ dry. Musculoskeletal: Circulation, motion, and sensation intact. Range of motion: intact in all extremities. Historical: - Allergies: 08: Niacin (Hives, Respiratory distress); iw - Home Meds: : Advair Diskus Inhl [Active]; Ambien 5 mg Oral tab 1 tab once daily [Active]; iw atorvastatin 10 mg Oral tab 1 tab once daily [Active]; bupropion HCl 150 mg Oral Tb24 1 tab once daily [Active]; lisinopril 5 mg Oral tab 1 tab once daily [Active]; metformin 1,000 mg Oral tab 1 tab 2 times per day [Active]; Topamax 50 mg Oral tab 1 tab 2 times per day [Active]; venlafaxine 75 mg Oral tr24 1 tab once daily [Active]; - PMHx: : Asthma; Diabetes - NIDDM; Hypertension; insomnia; iw - PSHx: : Tubal ligation; Cholecystectomy; iw - Immunization history:: Adult Immunizations up to date. - Social history:: Smoking status: Patient uses tobacco products, one cigarette per day . - Ebola Screening: : Patient negative for fever greater than or equal to 101.5 degrees Fahrenheit, and additional compatible Ebola Virus Disease symptoms Patient denies exposure to infectious person Patient denies travel to an Ebola-affected area in the 21 days before illness onset No symptoms or risks identified at this time. Screenin:36 Abuse screen: Denies threats or abuse. Denies injuries from another. Nutritional sg screening: No deficits noted. Tuberculosis screening: No symptoms or risk factors identified. Never had TB. Fall Risk None identified. Assessment: 08:36 Reassessment: Patient appears in no apparent distress at this time. Patient and/or sg family updated on plan of care and expected duration. Pain level reassessed. Patient is alert, oriented x 3, equal unlabored respirations, skin warm/dry/pink. 10:35 Reassessment: Patient appears in no apparent distress at this time. Patient and/or sg family updated on plan of care and expected duration. Pain level reassessed. Patient is alert, oriented x 3, equal unlabored respirations, skin warm/dry/pink. Patient states symptoms have not improved. Vital Signs: 08:26 BP 152 / 86; Pulse 92; Resp 16; Pulse Ox 100% on R/A; Weight 78.93 kg; Height 5 ft. iw (152.40 cm); Pain 8/10; 08:30 Temp 98.2; sg 09:30 BP 125 / 81; Pulse 80; Resp 14; Pulse Ox 99% ; sv 10:41 BP 118 / 65; Pulse 70; Resp 20; Pulse Ox 100% ; sv 08:26 Body Mass Index 33.98 (78.93 kg, 152.40 cm) iw ED Course: 08:15 Patient arrived in ED. am2 08:15 Abundio Nicholas MD is Private Physician. am2 08:15 Marvin Seymour MD is Private Physician. am2 08:18 Kingsley Eller MD is Attending Physician. kdr 08:21 Rodriguez Pa, SISSY is Primary Nurse. sg 08:21 Arm band placed on. sg 08:25 Triage completed. iw 08:25 EKG done, by life support technician. reviewed by Kingsley Eller MD. jb1 08:30 No provider procedures requiring assistance completed. Initial lab(s) drawn, by sd, sg sent to lab. Inserted saline lock: 20 gauge in left antecubital area, using aseptic technique. Blood collected. Patient maintains SpO2 saturation greater than 95% on room air. 08:42 X-ray completed. Portable x-ray completed in exam room. Patient tolerated procedure mh1 well. 08:52 XRAY Chest (1 view) In Process Unspecified. EDMS 10:31 Marvin Seymour MD is Referral Physician. kdr Administered Medications: 08:50 Drug: TORadol - Ketorolac 15 mg Route: IVP; Site: left antecubital; sg 10:00 Follow up: Response: No adverse reaction sg 08:50 Drug: Zofran 4 mg Route: IVP; Site: left antecubital; sg 10:00 Follow up: Response: No adverse reaction; Nausea is decreased sg 10:11 Drug: Potassium Chloride 40 mEq Route: PO; sg 11:00 Follow up: Response: No adverse reaction sg Outcome: 10:31 Discharge ordered by . kdr 11:24 Patient left the ED. iw Signatures: Dispatcher [employer] Germán Jane jb1 Siomara Mcdonald RN RN sv Gay, Steven, RN RN Kingsley Eller MD MD [facility] Christiane Rey [facility] Hellen Giang RN RN Rah, Annie 2
--- NOTE | 2019-05-22 10:37 | EDPHYS ---
Physician Documentation [facility] Name: Erma Yoo Age: 53 yrs Sex: Female : 1965 Arrival Date: 05/22/2019 Time: 08:15 Bed 4 Private MD: Marvin Seymour ED Physician Kingsley Eller HPI: 05/22 09:00 This 53 yrs old Female presents to ER via Wheelchair with complaints of Chest kdr Pain > 30 y/o. 09:00 The patient or guardian reports chest pain that is located primarily in the anterior kdr chest wall, right. Onset: gradually, 1 week(s) ago. The pain does not radiate. Associated signs and symptoms: Pertinent positives: diaphoresis, lightheadedness, shortness of breath, Pertinent negatives: abdominal pain, cough, headache, lower extremity pain, lower extremity swelling, nausea, near syncope, palpitations, recent travel, syncope. The chest pain is described as aching, dull, a heaviness, a pressure. Duration: The patient or guardian reports a single episode, that is still ongoing, Wax and waneing. Modifying factors: The symptoms are alleviated by nothing. the symptoms are aggravated by activity. Severity of pain: At its worst the pain was mild in the emergency department the pain is unchanged. The patient has not experienced similar symptoms in the past. The patient has been recently seen by a physician: Dr. Bruno. The patient had seen Dr. Pearl this last week and he had referred her to cardiology but they will not be able to see her until next week and she felt that she couldn't wait that long. Historical: - Allergies: 08:26 Niacin (Hives, Respiratory distress); iw - Home Meds: 08:26 Advair Diskus Inhl [Active]; Ambien 5 mg Oral tab 1 tab once daily [Active]; iw atorvastatin 10 mg Oral tab 1 tab once daily [Active]; bupropion HCl 150 mg Oral Tb24 1 tab once daily [Active]; lisinopril 5 mg Oral tab 1 tab once daily [Active]; metformin 1,000 mg Oral tab 1 tab 2 times per day [Active]; Topamax 50 mg Oral tab 1 tab 2 times per day [Active]; venlafaxine 75 mg Oral tr24 1 tab once daily [Active]; - PMHx: 08:26 Asthma; Diabetes - NIDDM; Hypertension; insomnia; iw - PSHx: 08:26 Tubal ligation; Cholecystectomy; iw - Immunization history:: Adult Immunizations up to date. - Social history:: Smoking status: Patient uses tobacco products, one cigarette per day . - Ebola Screening: : Patient negative for fever greater than or equal to 101.5 degrees Fahrenheit, and additional compatible Ebola Virus Disease symptoms Patient denies exposure to infectious person Patient denies travel to an Ebola-affected area in the 21 days before illness onset No symptoms or risks identified at this time. ROS: 09:00 Constitutional: Negative for fever, chills, and weight loss, Eyes: Negative for injury, kdr pain, redness, and discharge, ENT: Negative for injury, pain, and discharge, Neck: Negative for injury, pain, and swelling, Respiratory: Negative for shortness of breath, cough, wheezing, and pleuritic chest pain, Abdomen/GI: Negative for abdominal pain, nausea, vomiting, diarrhea, and constipation, Back: Negative for injury and pain, : Negative for injury, bleeding, discharge, and swelling, MS/Extremity: Negative for injury and deformity, Skin: Negative for injury, rash, and discoloration, Neuro: Negative for headache, weakness, numbness, tingling, and seizure activity. Psych: Negative for depression, anxiety, suicide ideation, homicidal ideation, and hallucinations, Allergy/Immunology: Negative for hives, rash, and allergies, Endocrine: Negative for neck swelling, polydipsia, polyuria, polyphagia, and marked weight changes. 09:00 Cardiovascular: Positive for chest pain, of the anterior aspect of right upper chest, Negative for edema, orthopnea, palpitations, paroxysmal nocturnal dyspnea, acute changes. Exam: 09:00 Constitutional: This is a well developed, well nourished patient who is awake, alert, kdr and in no acute distress. Head/Face: Normocephalic, atraumatic. Eyes: Pupils equal round and reactive to light, extra-ocular motions intact. Lids and lashes normal. Conjunctiva and sclera are non-icteric and not injected. Cornea within normal limits. Periorbital areas with no swelling, redness, or edema. Neck: Trachea midline, no thyromegaly or masses palpated, and no cervical lymphadenopathy. Supple, full range of motion without nuchal rigidity, or vertebral point tenderness. No Meningismus. Cardiovascular: Regular rate and rhythm with a normal S1 and S2. No gallops, murmurs, or rubs. Normal PMI, no JVD. No pulse deficits. Respiratory: Lungs have equal breath sounds bilaterally, clear to auscultation and percussion. No rales, rhonchi or wheezes noted. No increased work of breathing, no retractions or nasal flaring. Abdomen/GI: Soft, non-tender, with normal bowel sounds. No distension or tympany. No guarding or rebound. No evidence of tenderness throughout. Back: No spinal tenderness. No costovertebral tenderness. Full range of motion. Skin: Warm, dry with normal turgor. Normal color with no rashes, no lesions, and no evidence of cellulitis. MS/ Extremity: Pulses equal, no cyanosis. Neurovascular intact. Full, normal range of motion. Neuro: Awake and alert, GCS 15, oriented to person, place, time, and situation. Cranial nerves II-XII grossly intact. Motor strength 5/5 in all extremities. Sensory grossly intact. Cerebellar exam normal. Normal gait. 09:00 Chest/axilla: Inspection: normal, Palpation: tenderness, that is mild, of the anterior aspect of right upper chest. Vital Signs: 08:26 BP 152 / 86; Pulse 92; Resp 16; Pulse Ox 100% on R/A; Weight 78.93 kg; Height 5 ft. iw (152.40 cm); Pain 8/10; 08:30 Temp 98.2; sg 09:30 BP 125 / 81; Pulse 80; Resp 14; Pulse Ox 99% ; sv 10:41 BP 118 / 65; Pulse 70; Resp 20; Pulse Ox 100% ; sv 08:26 Body Mass Index 33.98 (78.93 kg, 152.40 cm) iw MDM: 09:00 Data reviewed: vital signs, nurses notes, lab test result(s). kdr 10:31 Patient medically screened. kdr 05/22 08:18 Order name: Basic Metabolic Panel; Complete Time: 09:51 kdr 05/22 08:18 Order name: CBC with Diff; Complete Time: 09:51 kdr 05/22 08:18 Order name: LFT's; Complete Time: :51 kdr 05/22 08:18 Order name: Magnesium; Complete Time: 09:51 kdr 05/22 08:18 Order name: NT PRO-BNP; Complete Time: 09:51 kdr 05/22 08:18 Order name: PT-INR; Complete Time: 09:51 kdr 05/22 08:18 Order name: Troponin (emerg Dept Use Only); Complete Time: 09:51 kdr 05/22 08:18 Order name: XRAY Chest (1 view); Complete Time: 09:51 kdr 05/22 08:18 Order name: EKG; Complete Time: 08:22 kdr 05/22 08:18 Order name: Cardiac monitoring; Complete Time: 08:25 kdr 05/22 08:18 Order name: EKG - Nurse/Tech; Complete Time: 08:25 kdr 05/22 08:18 Order name: IV Saline Lock; Complete Time: 08:36 kdr 05/22 08:18 Order name: Labs collected and sent; Complete Time: 08:36 kdr 05/22 08:18 Order name: O2 Per Protocol; Complete Time: 08:25 kdr 05/22 08:18 Order name: O2 Sat Monitoring; Complete Time: 08:25 kdr Administered Medications: 08:50 Drug: TORadol - Ketorolac 15 mg Route: IVP; Site: left antecubital; sg 10:00 Follow up: Response: No adverse reaction sg 08:50 Drug: Zofran 4 mg Route: IVP; Site: left antecubital; sg 10:00 Follow up: Response: No adverse reaction; Nausea is decreased sg 10:11 Drug: Potassium Chloride 40 mEq Route: PO; sg 11:00 Follow up: Response: No adverse reaction sg Disposition: 05/22/19 10:31 Discharged to Home. Impression: Chest pain on breathing, Chest pain, unspecified, Other chest pain. - Condition is Stable. - Discharge Instructions: Chest Wall Pain, [id number], Nonspecific Chest Pain, [id number]. - Prescriptions for Ibuprofen 600 mg Oral Tablet - take 1 tablet by ORAL route every 6 hours As needed take with food; 15 tablet. - Medication Reconciliation Form, Thank You Letter, Work release form form. - Follow up: Marvin Seymour MD; When: 2 - 3 days; Reason: If symptoms return, Further diagnostic work-up, Recheck today's complaints, Continuance of care, Re-evaluation by your physician. - Problem is new. - Symptoms have improved. Signatures: Dispatcher [employer] EDRodriguez Harden RN RN sg Kingsley Eller MD MD kdr Hellen Giang RN RN iw Corrections: (The following items were deleted from the chart) 11:24 10:31 05/22/2019 10:31 Discharged to Home. Impression: Chest pain on breathing; Chest iw pain, unspecified; Other chest pain. Condition is Stable. Forms are Medication Reconciliation Form, Thank You Letter, Antibiotic Education, Prescription Opioid Use. Follow up: Marvin Seymour; When: 2 - 3 days; Reason: If symptoms return, Further diagnostic work-up, Recheck today's complaints, Continuance of care, Re-evaluation by your physician. Problem is new. Symptoms have improved. kdr
[2019-05-22 11:44] VITALS: TEMP 98.2
[2019-05-22 11:47] VITALS: BP 118/65; O2SAT 100
--- NOTE | 2019-05-23 10:35 | EKG ---
Test Date: 2019-05-22 Test Time: 08:25:39 Rate Clerk: SARAH MEASUREMENT RESULTS: Intervals: Rate: 101 IN: 134 QRSD: 82 QT: 354 QTc: 459 [place]: P: 24 IN: 134 QRS: 8 T: 6 INTERPRETIVE STATEMENTS: Sinus tachycardia Nonspecific T wave abnormality Abnormal ECG Compared to ECG 07/14/2018 14:34:12 Sinus rhythm no longer present T-wave abnormality still present Electronically Signed On 05-23-19 10:31:59 CDT by Ezio Berumen
== END 2019-05-22 11:24 | disposition home or self-care (01) ==
LOC: ER 08:13
DX: R07.1 Chest pain on breathing (principal); E11.9 Type 2 diabetes mellitus without complications; I10 Essential (primary) hypertension; Z72.0 Tobacco use
CPT/HCPCS: 93005; 85025; 80048; 36415; 83735; 85610; 80076; 84484; 83880; 71045; 96375; 96374; 99284; J2405

== ENCOUNTER 2019-12-08 20:40 | Emergency (ER) | payer BC ==
--- NOTE | 2019-12-08 21:04 | EDPHYS ---
Physician Documentation [facility] Name: Erma Yoo Age: 54 yrs Sex: Female : 1965 Arrival Date: 12/08/2019 Time: 20:42 Bed 23 Private MD: ED Physician Harvey Henao HPI: 12/07 20:59 This 54 yrs old Female presents to ER via Ambulatory with complaints of kb Vaginal Pain. 21:01 The patient presents with an abscess of the pelvis. Description: draining, kb erythematous, swollen. Onset: The symptoms/episode began/occurred 2 day(s) ago. Possible cause(s): ingrown hair. Associated signs and symptoms: Pertinent positives: drainage, erythema, swelling, Pertinent negatives: foreign body sensation, fever, headache, nausea, shortness of breath, vomiting. Modifying factors: the symptoms are alleviated by nothing, the symptoms are aggravated by nothing. Severity of symptoms: At their worst the symptoms were moderate, in the emergency department the symptoms are unchanged. The patient has not experienced similar symptoms in the past. The patient has not recently seen a physician. Pt reports she shaved a few days ago and noticed an ingrown hair. States she used a sewing needle to poke at it and now it is red, swollen and draining. 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 - Social history:: Smoking status: Patient reports the use of cigarette tobacco products, smokes one-half pack cigarettes per day, Patient uses alcohol, only on a social basis. Patient/guardian denies using street drugs, IV drugs. ROS: 20:59 Constitutional: Negative for fever, chills, and weight loss, Neck: Negative for injury, kb pain, and swelling, Cardiovascular: Negative for chest pain, palpitations, and edema, Respiratory: Negative for shortness of breath, cough, wheezing, and pleuritic chest pain, Abdomen/GI: Negative for abdominal pain, nausea, vomiting, diarrhea, and constipation, MS/Extremity: Negative for injury and deformity, Neuro: Negative for headache, weakness, numbness, tingling, and seizure. 20:59 Skin: Positive for abscess, of the groin. Exam: 21:00 Constitutional: This is a well developed, well nourished patient who is awake, alert, kb and in no acute distress. Head/Face: Normocephalic, atraumatic. Chest/axilla: Normal chest wall appearance and motion. Nontender with no deformity. No lesions are appreciated. Cardiovascular: Regular rate and rhythm with a normal S1 and S2. No gallops, murmurs, or rubs. Normal PMI, no JVD. No pulse deficits. Respiratory: Lungs have equal breath sounds bilaterally, clear to auscultation and percussion. No rales, rhonchi or wheezes noted. No increased work of breathing, no retractions or nasal flaring. Abdomen/GI: Soft, non-tender, with normal bowel sounds. No distension or tympany. No guarding or rebound. No evidence of tenderness throughout. MS/ Extremity: Pulses equal, no cyanosis. Neurovascular intact. Full, normal range of motion. Neuro: Awake and alert, GCS 15, oriented to person, place, time, and situation. Cranial nerves II-XII grossly intact. Motor strength 5/5 in all extremities. Sensory grossly intact. Cerebellar exam normal. Normal gait. 21:00 Skin: abscess, that is small, of the pelvis, with drainage, that is purulent. Vital Signs: 20:45 BP 148 / 76; Pulse 100; Resp 18; Temp 98.0; Pulse Ox 99% ; Weight 78.02 kg; Height 5 ll1 ft. 0 in. (152.40 cm); Pain 9/10; 20:45 Body Mass Index 33.59 (78.02 kg, 152.40 cm) ll1 MDM: 20:49 Patient medically screened. kb 20:59 Data reviewed: vital signs, nurses notes. Data interpreted: Pulse oximetry: on room air kb is 99 %. Interpretation: normal. 21:00 Counseling: I had a detailed discussion with the patient and/or guardian regarding: the kb historical points, exam findings, and any diagnostic results supporting the discharge/admit diagnosis, the need for outpatient follow up, a family practitioner, to return to the emergency department if symptoms worsen or persist or if there are any questions or concerns that arise at home. ED course: Drained moderate amount of purulent drainage from abscess that was already opened. Pt educated to use hot compresses 3 times a day to area and to take antibiotics as prescribed. . Administered Medications: 21:09 Drug: Bactrim (160 mg-800 mg (DS) 1 tablet Route: PO; vc 21:09 Follow up: Response: No adverse reaction; Medication administered at discharge. vc 21: Drug: KeFLEX 500 mg Route: PO; vc 21: Follow up: Response: No adverse reaction; Medication administered at discharge. vc Disposition: 12/08 05:30 Co-signature as Attending Physician, Harvey Henao MD I agree with the assessment and tw4 plan of care. Disposition: 12/08/19 21:03 Discharged to Home. Impression: Cutaneous abscess of groin. - Condition is Stable. - Discharge Instructions: Skin Abscess, [id number]. - Prescriptions for Keflex 500 mg Oral Capsule - take 1 capsule by ORAL route every 8 hours for 10 days; 30 capsule. Bactrim DS 800- 160 mg Oral Tablet - take 1 tablet by ORAL route every 12 hours for 10 days; 20 tablet. - Medication Reconciliation Form, Thank You Letter, Antibiotic Education, Prescription Opioid Use form. - Follow up: Emergency Department; When: As needed; Reason: Worsening of condition. Follow up: Private Physician; When: 2 - 3 days; Reason: Recheck today's complaints, Continuance of care, Re-evaluation by your physician. Signatures: Flor Jimenez, JESSICA-C JESSICA-Harvey Zurita MD MD tw4 Eladia Arboleda RN RN Tabby Perez RN RN ll1 Corrections: (The following items were deleted from the chart) 12/07 21:00 21:00 Skin: abscess, that is small, of the pelvis, with drainage, aarti broussard 21:11 21:03 12/08/2019 21:03 Discharged to Home. Impression: Cutaneous abscess of groin. vc Condition is Stable. Forms are Medication Reconciliation Form, Thank You Letter, Antibiotic Education, Prescription Opioid Use. Follow up: Emergency Department; When: As needed; Reason: Worsening of condition. Follow up: Private Physician; When: 2 - 3 days; Reason: Recheck today's complaints, Continuance of care, Re-evaluation by your physician. kb
--- NOTE | 2019-12-08 21:04 | ER ---
Nurse's Notes [facility] Name: Erma Yoo Age: 54 yrs Sex: Female : 1965 Arrival Date: 12/08/2019 Time: 20:42 Bed 23 Private MD: Diagnosis: Cutaneous abscess of groin Presentation: 12/07 20:45 Chief complaint: Patient states: Reports abscess to vaginal area since Sunday. Drains ll1 bloody pus. No fever. Coronavirus screen: Proceed with normal triage. Patient denies a cough. Patient denies shortness of breath or difficulty breathing. Patient denies measured and/or subjective temperature greater than 100.4F prior to today's visit. Patient denies travel on a cruise ship or to a country the [facility] currently lists as an affected area. Patient denies contact with known and/or suspected case of COVID-19. Ebola Screen: Patient denies travel to an Ebola-affected area in the 21 days before illness onset. Initial Sepsis Screen: Does the patient meet any 2 criteria? HR > 90 bpm. Does the patient have a suspected source of infection? Yes: Skin breakdown/wound. Risk Assessment: Do you want to hurt yourself or someone else? Patient reports no desire to harm self or others. Onset of symptoms was December 06, 2019. 20:45 Method Of Arrival: Ambulatory ll1 20:45 Acuity: VINNY 3 ll1 Triage Assessment: 20:55 General: Appears in no apparent distress. uncomfortable, Behavior is calm, cooperative, vc appropriate for age. Pain: Complains of pain in pelvis and groin. 20:55 Pain: Complains of pain in groin and pelvis. 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 - Social history:: Smoking status: Patient reports the use of cigarette tobacco products, smokes one-half pack cigarettes per day, Patient uses alcohol, only on a social basis. Patient/guardian denies using street drugs, IV drugs. Screenin:55 Abuse screen: Denies threats or abuse. Nutritional screening: No deficits noted. vc Tuberculosis screening: No symptoms or risk factors identified. Fall Risk None identified. Assessment: 20:45 General: Appears in no apparent distress. uncomfortable, Behavior is calm, cooperative, vc appropriate for age. Neuro: Level of Consciousness is awake, alert, obeys commands, Oriented to person, place, time, situation. Cardiovascular: Patient's skin is warm and dry. Respiratory: Airway is patent Respiratory effort is even, unlabored, Respiratory pattern is regular, symmetrical. GI: No signs and/or symptoms were reported involving the gastrointestinal system. : No signs and/or symptoms were reported regarding the genitourinary system. : abscess, supra pubic region Reports pain in suprapubic area. EENT: No signs and/or symptoms were reported regarding the EENT system. Vital Signs: 20:45 BP 148 / 76; Pulse 100; Resp 18; Temp 98.0; Pulse Ox 99% ; Weight 78.02 kg; Height 5 ll1 ft. 0 in. (152.40 cm); Pain 9/10; 20:45 Body Mass Index 33.59 (78.02 kg, 152.40 cm) ll1 ED Course: 20:42 Patient arrived in ED. cl3 20:47 Triage completed. ll1 20:49 [facility]. kb 20:49 Harvey Henao MD is Attending Physician. kb 20:49 Arm band placed on Patient placed in an exam room, on a stretcher. ll1 20:55 Patient has correct armband on for positive identification. Placed in gown. Bed in low vc position. Call light in reach. 21:05 Eladia Arboleda, SISSY is Primary Nurse. vc 21:10 No provider procedures requiring assistance completed. Patient did not have IV access vc during this emergency room visit. Administered Medications: 21:09 Drug: Bactrim (160 mg-800 mg (DS) 1 tablet Route: PO; vc 21:09 Follow up: Response: No adverse reaction; Medication administered at discharge. vc 21:09 Drug: KeFLEX 500 mg Route: PO; vc 21:09 Follow up: Response: No adverse reaction; Medication administered at discharge. vc Outcome: 21:03 Discharge ordered by . kb 21:10 Discharged to home ambulatory. vc 21:10 Condition: good 21:10 Discharge instructions given to patient, Instructed on discharge instructions, follow up and referral plans. medication usage, wound care, Demonstrated understanding of instructions, follow-up care, medications, wound care, Prescriptions given X 2. 21:11 Patient left the ED. vc Signatures: Flor Jimenez, CONFERENCE INTERPRETER-C CONFERENCE INTERPRETER-Spencer Levy cl3 Eladia Arboleda RN RN vc Tabby Moreno RN RN ll1 Corrections: (The following items were deleted from the chart) 21:13 20:45 General: Appears in no apparent distress. uncomfortable, Behavior is calm, vc cooperative, appropriate for age, vc 21:13 20:45 Pain: Complains of pain in pelvis and groin vc vc 21:13 20:45 LMP N/A - Hysterectomy vc vc
[2019-12-08] MEDS ORDERED: CEPHALEXIN 250 MG CAP ONE (21:12)
[2019-12-08] MEDS ORDERED: SMZ./TMP. 800/160 MG TABLET ONE (21:12)
[2019-12-08 21:24] VITALS: BP 148/76; TEMP 98; O2SAT 99
== END 2019-12-08 21:11 | disposition home or self-care (01) ==
LOC: ER 20:40
DX: L02.214 Cutaneous abscess of groin (principal); I10 Essential (primary) hypertension; F17.210 Nicotine dependence, cigarettes, uncomplicated; Z91.018 Allergy to other foods; Z91.048 Other nonmedicinal substance allergy status
CPT/HCPCS: 99283

== ENCOUNTER 2019-12-25 | Emergency (ER) | payer BC, OTHER | END 2019-12-26 01:00 | disposition home or self-care (01) | CPT/HCPCS: 36415; 71045; 80048; 80076; 82550; 82553; 83690; 83735; 83880; 84484; 85025; 85610; 85730; 87070; 87081; 87804; 93005; 96374; 99285; J2930; U0001 ==

== ENCOUNTER 2020-04-09 20:07 | Emergency (ER) | payer BC, OTHER ==
--- OUTSIDE RECORDS SUMMARY | 2020-04-09 20:10 | XMS REPORT | Summary of Care ---
:1965 Author Organization [facility] Address [address] [place] [id number] Care Team Providers Name Role Phone Marvin Seymour Pilo Primary Care Provider Reason for Visit Reason Comments LAB Cough exposure Shortness of Breath Encounter Details Date Type Department Care Team Description 03/08/2020 Laboratory Only [facility] Karen Spaulding FNP [address] [facility] [address] [place] [address] Suspected Covid-19 Medicine - [facility], [facility] Fam Pob I Virus Infection [address] [facility] (Primary D x) [place] [address] Allergies Not on Filedocumented as of this encounter (statuses as of 03/08/2020) Medications Not on filedocumented as of this encounter (statuses as of 03/08/2020) Active Problems Not on filedocumented as of this encounter (statuses as of 03/08/2020) Social History Tobacco Use Types Packs/Day Years Used Date Never Assessed Sex Assigned at Date Recorded Not on file Job Start Date Occupation Industry Not on file Not on file Not on file Travel History Travel Start Travel End No recent travel history available. documented as of this encounter Last Filed Vital Signs Not on filedocumented in this encounter Plan of Treatment Name Type Priority Associated Diagnoses Order S chedule COVID-19 (PCR MOLECULAR LAB Routine Suspected Covid-1 9 Virus Expected: 03/08/2020, TESTING) Infection Expires: 2020 Health Maintenance Due Date Last Done Comments DTaP,Tdap,and Td Vaccines (1 - 1978 Tdap) Depression Screening 1979 PAP SMEAR 1988 Breast Cancer Screening 2007 (MAMMOGRAM) COLONOSCOPY 2017 Zoster Recombinant Vaccine 2017 (SHINGRIX) (1 of 2) INFLUENZA VACCINE (#1) 2020 PNEUMOCOCCAL 0-64 YEARS COMBINED Aged Out No longer eligible based on SERIES patient's age to complete this topic documented as of this encounter Results Not on filedocumented in this encounter Visit Diagnoses Diagnosis Suspected Covid-19 Virus Infection - [facility] documented in this encounter Additional Health Concerns Infection Onset Date Last Indicated Resolved Time COVID-19 Rule Out 03/08/2020 03/08/2020 documented as of this encounter Insurance Payer Benefit Plan Subscriber ID Effective Dates Phone Address Type / Group BCBS [facility] [id number] 2018-Jose [phone] [address] PPO/POS [facility] [id number] [place] [address] ([place]) [place] [address] documented as of this encounter
--- OUTSIDE RECORDS SUMMARY | 2020-04-09 20:10 | XMS REPORT | Continuity of Care Document ---
:1965 Author Organization [facility] t Address [address] [place] [address] Care Team Providers Name Role Phone Lab, [facility] Fam Pob I Attending Clinician Unavailable Problems This patient has no known problems. Allergies, Adverse Reactions, Alerts This patient has no known allergies or adverse reactions. Medications This patient has no known medications. Procedures This patient has no known procedures. Encounters Start End Encounter Admission Attending Care Care Encounter Source Date/Time Date/Time Type Type Clinicians Facility Department ID 2020-03-08 2020-03-08 Laboratory Lab, [facility] [id number] 11:13:22 11:33:22 Only Fam Pob I [facility] [id number] [place] [id number] [phone] [address] Results This patient has no known results.
[2020-04-09] MEDS ORDERED: FAMOTIDINE 20 MG/2 ML VIAL IV ONE (20:57)
[2020-04-09] MEDS ORDERED: METHYLPREDNISOLONE 125 MG INJ ONE (20:57)
[2020-04-09] MEDS ORDERED: DIPHENHYDRAMINE 50 MG/ML VIAL ONE (20:57)
[2020-04-09] MEDS ORDERED: NA CHLORIDE 0.9% 1,000 ML ONE (20:57)
--- NOTE | 2020-04-09 21:50 | EDPHYS ---
Physician Documentation [facility] Name: Erma Yoo Age: 54 yrs Sex: Female : 1965 Arrival Date: 04/09/2020 Time: 20:09 Bed 15 Private MD: ED Physician Cory Worthington HPI: 04/09 22:13 This 54 yrs old Female presents to ER via Ambulatory with complaints of kb Allergic Reaction, Rash, Dizziness, Doesn't Feel Right. 22:13 The patient presents with itching, rash, that is diffuse. Onset: The symptoms/episode kb began/occurred 1 hour(s) ago. Associated signs and symptoms: Pertinent positives: hives, Pertinent negatives: abdominal pain, Altered mental status chest pain, dysphagia, fever, headache, Light headed nausea, rash, shortness of breath, swelling, Syncope vomiting. Possible causes: The patient has no known obvious cause for the symptoms. At home the patient or guardian has treated the symptoms with nothing. Severity of symptoms: At their worst the symptoms were moderate in the emergency department the symptoms are unchanged. The patient has not experienced similar symptoms in the past. The patient has not recently seen a physician. 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 Denies any new foods or substances that could have caused symptoms. 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 - Social history:: Smoking status: Patient reports the use of cigarette tobacco products, denies chronic smoking, but will smoke occasionally. ROS: 22:12 Constitutional: Negative for fever, chills, and weight loss, Cardiovascular: Negative kb for chest pain, palpitations, and edema, Respiratory: Negative for shortness of breath, cough, wheezing, and pleuritic chest pain, Abdomen/GI: Negative for abdominal pain, nausea, vomiting, diarrhea, and constipation, MS/Extremity: Negative for injury and deformity, Neuro: Negative for headache, weakness, numbness, tingling, and seizure. 22:12 Skin: Positive for rash, diffusely. Exam: 22:12 Constitutional: This is a well developed, well nourished patient who is awake, alert, kb and in no acute distress. Head/Face: Normocephalic, atraumatic. Chest/axilla: Normal chest wall appearance and motion. Nontender with no deformity. No lesions are appreciated. Cardiovascular: Regular rate and rhythm with a normal S1 and S2. No gallops, murmurs, or rubs. Normal PMI, no JVD. No pulse deficits. Respiratory: Lungs have equal breath sounds bilaterally, clear to auscultation and percussion. No rales, rhonchi or wheezes noted. No increased work of breathing, no retractions or nasal flaring. Abdomen/GI: Soft, non-tender, with normal bowel sounds. No distension or tympany. No guarding or rebound. No evidence of tenderness throughout. MS/ Extremity: Pulses equal, no cyanosis. Neurovascular intact. Full, normal range of motion. Neuro: Awake and alert, GCS 15, oriented to person, place, time, and situation. Cranial nerves II-XII grossly intact. Motor strength 5/5 in all extremities. Sensory grossly intact. Cerebellar exam normal. Normal gait. 22:12 Skin: rash a moderate rash is noted, rash can be described as urticarial, consistent with urticaria, and is diffusely located. Vital Signs: 20:42 BP 155 / 78; Pulse 74; Resp 15 S; Temp 97.5(TE); Pulse Ox 100% on R/A; Weight 75.3 kg ca1 (R); Height 5 ft. 0 in. (152.40 cm) (R); 21:30 BP 154 / 96; Pulse 66; Resp 16; Pulse Ox 100% on R/A; jb4 20:42 Body Mass Index 32.42 (75.30 kg, 152.40 cm) ca1 MDM: 20:38 Patient medically screened. kb 22:12 Data reviewed: vital signs, nurses notes. Data interpreted: Pulse oximetry: on room air kb is 100 %. Interpretation: normal. Counseling: I had a detailed discussion with the patient and/or guardian regarding: the historical points, exam findings, and any diagnostic results supporting the discharge/admit diagnosis, the need for outpatient follow up, a family practitioner, to return to the emergency department if symptoms worsen or persist or if there are any questions or concerns that arise at home. Response to treatment: the patient's symptoms have markedly improved after treatment. 04/09 20:39 Order name: IV Start; Complete Time: 20:59 kb Administered Medications: 20:50 Drug: NS 0.9% 1000 ml Route: IV; Rate: 1000 ml; Site: right antecubital; jb4 21:45 Follow up: Response: No adverse reaction; IV Status: Completed infusion; IV Intake: jb4 1000ml 20:50 Drug: SOLU-Medrol 125 mg Route: IVP; Site: right antecubital; jb4 21:15 Follow up: Response: No adverse reaction; Marked relief of symptoms jb4 20:50 Drug: Pepcid 20 mg Route: IVP; Site: right antecubital; jb4 21:15 Follow up: Response: No adverse reaction; Marked relief of symptoms jb4 20:50 Drug: Benadryl 12.5 mg Route: IVP; Site: right antecubital; jb4 21:15 Follow up: Response: No adverse reaction; Marked relief of symptoms jb4 Disposition: 04/10 00:03 Co-signature as Attending Physician, Cory Worthington MD. [email or web address] Disposition: 04/09/20 21:49 Discharged to Home. Impression: Urticaria. - Condition is Stable. - Discharge Instructions: Hives, Gfay-[id number], Allergies, [id number]-od-Olbx. - Prescriptions for Pepcid 20 mg Oral Tablet - take 1 tablet by ORAL route every 12 hours for 5 days; 10 tablet. Prednisone 20 mg Oral Tablet - take 1 tablet by ORAL route once daily for 5 days; 5 tablet. - Medication Reconciliation Form, Thank You Letter, Antibiotic Education, Prescription Opioid Use form. - Follow up: Private Physician; When: 2 - 3 days; Reason: Recheck today's complaints, Continuance of care, Re-evaluation by your physician. Follow up: Emergency Department; When: As needed; Reason: Worsening of condition. Signatures: Flor Jimenez, JESSICA-C JESSICA-Newton Lu RN RN jb4 Bev Hercules RN RN [facility] Cory Worthington MD MD [email or web address] Corrections: (The following items were deleted from the chart) 04/09 22:02 21:49 04/09/2020 21:49 Discharged to Home. Impression: Urticaria. Condition is Stable. jb4 Forms are Medication Reconciliation Form, Thank You Letter, Antibiotic Education, Prescription Opioid Use. Follow up: Private Physician; When: 2 - 3 days; Reason: Recheck today's complaints, Continuance of care, Re-evaluation by your physician. Follow up: Emergency Department; When: As needed; Reason: Worsening of condition. kb
--- NOTE | 2020-04-09 21:50 | ER ---
Nurse's Notes [facility] Name: Erma Yoo Age: 54 yrs Sex: Female : 1965 Arrival Date: 04/09/2020 Time: 20:09 Bed 15 Private MD: Diagnosis: Urticaria Presentation: 04/09 20:42 Chief complaint: Patient states: Rash, hives itching x 2 hours. Unknown cause. Denies ca1 SOB. Ebola Screen: Patient negative for fever greater than or equal to 101.5 degrees Fahrenheit, and additional compatible Ebola Virus Disease symptoms Patient denies exposure to infectious person. Patient denies travel to an Ebola-affected area in the 21 days before illness onset. No symptoms or risks identified at this time. 20:42 Method Of Arrival: Ambulatory ca1 20:42 Coronavirus screen: Client denies travel out of the [place] in the last 14 days. At this ca1 time, the client does not indicate any symptoms associated with coronavirus-19. Initial Sepsis Screen: Does the patient meet any 2 criteria? No. Patient's initial sepsis screen is negative. Does the patient have a suspected source of infection? No. Patient's initial sepsis screen is negative. Risk Assessment: Do you want to hurt yourself or someone else? Patient reports no desire to harm self or others. Onset of symptoms was April 09, 2020. 20:42 Acuity: VINNY 3 ca1 TOUCHER UP: 20:50 LMP N/A - Post-menopause ca1 Historical: - Allergies: 20:50 Cheese; ca1 20:50 Niacin (Hives, Respiratory distress); ca1 - PMHx: 20:50 Asthma; Depression; Diabetes - NIDDM; Hypertension; insomnia; ca1 - PSHx: 20:50 Cholecystectomy; Tubal ligation; ca1 - Immunization history:: Adult Immunizations up to date. - Social history:: Smoking status: Patient reports the use of cigarette tobacco products, denies chronic smoking, but will smoke occasionally. Screenin:45 Abuse screen: Denies threats or abuse. Nutritional screening: No deficits noted. jb4 Tuberculosis screening: No symptoms or risk factors identified. Fall Risk None identified. Assessment: 20:45 General: Appears in no apparent distress. uncomfortable, Behavior is calm, cooperative, jb4 appropriate for age. Pain: Denies pain. Neuro: Level of Consciousness is awake, alert, obeys commands, Oriented to person, place, time, situation. Cardiovascular: Patient's skin is warm and dry. Respiratory: Airway is patent Respiratory effort is even, unlabored, Respiratory pattern is regular, symmetrical, Denies shortness of breath. GI: No signs and/or symptoms were reported involving the gastrointestinal system. : No signs and/or symptoms were reported regarding the genitourinary system. EENT: No signs and/or symptoms were reported regarding the EENT system. Derm: Skin is intact, Skin is pink, warm \T\ dry. Rash noted that is itchy, red, urticaria, on chest, right arm, left arm, right leg and left leg. Musculoskeletal: Circulation, motion, and sensation intact. Range of motion: intact in all extremities. 21:15 Reassessment: Patient and/or family updated on plan of care and expected duration. Pain jb4 level reassessed. Patient is alert, oriented x 3, equal unlabored respirations, skin warm/dry/pink. PT denies itching, urticaria has improved. Patient states feeling better. Patient states symptoms have improved. 21:46 Reassessment: Patient appears in no apparent distress at this time. Patient and/or jb4 family updated on plan of care and expected duration. Pain level reassessed. Patient is alert, oriented x 3, equal unlabored respirations, skin warm/dry/pink. Patient states feeling better. 22:00 Reassessment: Patient and/or family updated on plan of care and expected duration. Pain jb4 level reassessed. Patient is alert, oriented x 3, equal unlabored respirations, skin warm/dry/pink. Pt verbalized understanding of D/c and follow up instructions. Denies questions or concerns. Ambulated out of ED with steady gait. No urticaria noted. Pt denies itching. Vital Signs: 20:42 BP 155 / 78; Pulse 74; Resp 15 S; Temp 97.5(TE); Pulse Ox 100% on R/A; Weight 75.3 kg ca1 (R); Height 5 ft. 0 in. (152.40 cm) (R); 21:30 BP 154 / 96; Pulse 66; Resp 16; Pulse Ox 100% on R/A; jb4 20:42 Body Mass Index 32.42 (75.30 kg, 152.40 cm) ca1 ED Course: 20:09 Patient arrived in ED. cf2 20:10 Flor Jimenez FNP-C is PHCP. kb 20:10 Cory Worthington MD is Attending Physician. kb 20:34 Lizbeth Jaimes, SISSY is Primary Nurse. ks7 20:38 Flor Jimenez FNP-C is PHCP. kb 20:38 Cory Worthington MD is Attending Physician. kb 20:42 Newton Lewis, SISSY is Primary Nurse. jb4 20:45 Patient has correct armband on for positive identification. Bed in low position. Call jb4 light in reach. Side rails up X 1. Pulse ox on. NIBP on. 20:45 Inserted saline lock: 18 gauge in right antecubital area, using aseptic technique. jb4 20:50 Triage completed. ca1 20:50 Arm band placed on right wrist. ca1 22:00 No provider procedures requiring assistance completed. IV discontinued, intact, jb4 bleeding controlled, No redness/swelling at site. Pressure dressing applied. Administered Medications: 20:50 Drug: NS 0.9% 1000 ml Route: IV; Rate: 1000 ml; Site: right antecubital; jb4 21:45 Follow up: Response: No adverse reaction; IV Status: Completed infusion; IV Intake: jb4 1000ml 20:50 Drug: SOLU-Medrol 125 mg Route: IVP; Site: right antecubital; jb4 21:15 Follow up: Response: No adverse reaction; Marked relief of symptoms jb4 20:50 Drug: Pepcid 20 mg Route: IVP; Site: right antecubital; jb4 21:15 Follow up: Response: No adverse reaction; Marked relief of symptoms jb4 20:50 Drug: Benadryl 12.5 mg Route: IVP; Site: right antecubital; jb4 21:15 Follow up: Response: No adverse reaction; Marked relief of symptoms jb4 Intake: 21:45 IV: 1000ml; Total: 1000ml. jb4 Outcome: 21:49 Discharge ordered by . kb 22:00 Discharged to home ambulatory. jb4 22:00 Condition: stable 22:00 Discharge instructions given to patient, Instructed on discharge instructions, follow up and referral plans. medication usage, Demonstrated understanding of instructions, follow-up care, medications, Prescriptions given X 2. 22:02 Patient left the ED. jb4 Signatures: Flor Jimenez, JESSICA-C SECURITY TRAINER-Newton Lu RN RN jb4 Bev Hercules RN RN ca1 Jean-Paul Davis cf2 Lizbeth Jaimes, RN RN ks7
[2020-04-09 22:16] VITALS: TEMP 97.5; O2SAT 100
[2020-04-09 22:21] VITALS: BP 154/96
== END 2020-04-09 22:02 | disposition home or self-care (01) ==
LOC: ER 20:07
DX: L50.9 Urticaria, unspecified (principal); I10 Essential (primary) hypertension; F17.210 Nicotine dependence, cigarettes, uncomplicated; Z88.8 Allergy status to other drugs, medicaments and biological substances; Z91.018 Allergy to other foods
CPT/HCPCS: 96361; 96375; 96374; 99284; J1200; J7030; J2930

== ENCOUNTER 2020-07-18 18:40 | Emergency (ER) | payer BC ==
--- OUTSIDE RECORDS SUMMARY | 2020-07-18 18:43 | XMS REPORT | Continuity of Care Document ---
:1965 Author Organization [facility] t Address [address] [place] [address] Care Team Providers Name Role Phone Lab, [facility] Fam Pob I Attending Clinician Unavailable Problems This patient has no known problems. Allergies, Adverse Reactions, Alerts This patient has no known allergies or adverse reactions. Medications This patient has no known medications. Procedures This patient has no known procedures. Encounters Start End Encounter Admission Attending Care Care Encounter Source Date/Time Date/Time Type Type Clinicians Facility Department ID 2020-03-08 2020-03-08 Laboratory Lab, [facility] [id number] 11:13:22 11:33:22 Only Fam Pob I [facility] [id number] [place] [id number] [place] [id number] [address] Results This patient has no known results.
[2020-07-18 19:20] LABS: Absolute Lymphocytes (CBC) 1.8 K/uL (0.7-4.9); Basophils % 0.9 % (0-1.3); Hematocrit 39.6 % (36.0-45.0); Lymphocytes % 27.7 % (15.3-44.8); MPV 8.3 fL (7.6-11.3); RBC Red Blood Cell Count 5.25 M/uL (3.86-4.86)
[2020-07-18 19:22] LABS: Protime INR 0.9
[2020-07-18 19:44] LABS: ALT/SGPT 26 U/L (12-78); AST/SGOT 17 U/L (15-37); Albumin 3.5 g/dL (3.4-5.0); Alkaline Phosphatase 106 U/L (45-117); BUN Blood Urea Nitrogen 15 mg/dL (7-18); Bicarbonate 28 mmol/L (21-32); Bilirubin Direct < 0.1 mg/dL (0-0.2); Bilirubin Total 0.2 mg/dL (0.2-1.0); Glucose Level 140 mg/dL (74-106); Magnesium 2.3 mg/dL (1.8-2.4); NT PRO-BNP 49 pg/mL (<125); Potassium 3.9 mmol/L (3.5-5.1); Protein, Total 7.5 g/dL (6.4-8.2); Sodium Level 144 mmol/L (136-145); Troponin (Emerg Dept Use Only) < 0.02 ng/mL (0.0-0.045)
--- NOTE | 2020-07-18 20:10 | ER ---
Nurse's Notes [facility] Name: Erma Yoo Age: 54 yrs Sex: Female : 1965 Arrival Date: 07/18/2020 Time: 18:42 Bed 16 Private MD: Diagnosis: Chest pain on breathing;Other chest pain Presentation: 07/18 18:50 Chief complaint: Patient states: Chest pain x 3 days, constant, heavy on the L side. ca1 Went to PCP on Sunday, tested Negative for Covid. reports cough. N/V started just now. Denies fever. Coronavirus screen: Client denies travel out of the [place] in the last 14 days. nausea, vomiting. Client presents with at least one sign or symptom that may indicate coronavirus-19. Standard/surgical mask placed on the client. Provider contacted for isolation considerations. The client reports previous COVID testing was negative. Date of collection: July 16, 2020. Ebola Screen: Patient negative for fever greater than or equal to 101.5 degrees Fahrenheit, and additional compatible Ebola Virus Disease symptoms Patient denies exposure to infectious person. Patient denies travel to an Ebola-affected area in the 21 days before illness onset. No symptoms or risks identified at this time. Initial Sepsis Screen: Does the patient meet any 2 criteria? No. Patient's initial sepsis screen is negative. Does the patient have a suspected source of infection? No. Patient's initial sepsis screen is negative. Risk Assessment: Do you want to hurt yourself or someone else? Patient reports no desire to harm self or others. Onset of symptoms was July 18, 2020. 18:50 Method Of Arrival: Ambulatory ca1 18:50 Acuity: VINNY 3 ca1 GRAIN BLENDER: 18:52 LMP N/A - Post-menopause ca1 Historical: - Allergies: 18:52 Cheese; ca1 18:52 Niacin (Hives, Respiratory distress); ca1 - Home Meds: 18:52 metformin 1,000 mg Oral tab 1 tab 2 times per day [Active]; ca1 - PMHx: 18:52 Asthma; Depression; Diabetes - NIDDM; Hypertension; insomnia; ca1 - PSHx: 18:52 Cholecystectomy; Tubal ligation; ca1 - Immunization history:: Adult Immunizations up to date, Flu vaccine is up to date. - Social history:: Smoking status: Patient reports the use of cigarette tobacco products, smokes one-half pack cigarettes per day. Screenin:59 Abuse screen: Denies threats or abuse. Nutritional screening: No deficits noted. jd3 Tuberculosis screening: No symptoms or risk factors identified. Fall Risk Ambulatory Aid- None/Bed Rest/Nurse Assist (0 pts). Gait- Normal/Bed Rest/Wheelchair (0 pts) Mental Status- Oriented to own ability (0 pts). Total Gu Fall Scale indicates No Risk (0-24 pts). Assessment: 18:58 General: Appears in no apparent distress. uncomfortable, Behavior is calm, cooperative, jd3 appropriate for age. Pain: Complains of pain in chest Pain does not radiate. Quality of pain is described as aching, Pain began 2-3 days ago. Neuro: Level of Consciousness is awake, alert, obeys commands, Oriented to person, place, time, situation. Cardiovascular: Reports chest pain, Capillary refill < 3 seconds Patient's skin is warm and dry. Rhythm is irregular. Respiratory: Airway is patent Respiratory effort is even, unlabored, Respiratory pattern is regular, symmetrical, Denies shortness of breath. GI: Abdomen is round non-distended, Abd is soft and non tender X 4 quads. Reports nausea. : No signs and/or symptoms were reported regarding the genitourinary system. EENT: No signs and/or symptoms were reported regarding the EENT system. Derm: Skin is intact, Skin is dry, Skin is normal, Skin temperature is warm. Musculoskeletal: Circulation, motion, and sensation intact. Range of motion: intact in all extremities. 20:20 Reassessment: Patient appears in no apparent distress at this time. pt verbalized " I sg am ready to go home and go to sleep." Informed order for IVP toradol prior to dispo to home, pt stated understanding. 20:29 Reassessment: Patient and/or family updated on plan of care and expected duration. Pain ea level reassessed. Patient is alert, oriented x 3, equal unlabored respirations, skin warm/dry/pink. Discharge instruction given to patient, verbalized the understanding of instruction. Pt left ED ambulatory tolerating well. Vital Signs: 18:50 BP 143 / 87; Pulse 111; Resp 18 S; Temp 97.3(TE); Pulse Ox 100% on R/A; Weight 75.3 kg ca1 (R); Height 5 ft. 0 in. (152.40 cm) (R); Pain 8/10; 20:00 BP 125 / 57; Pulse 85; Resp 17; Pulse Ox 98% on R/A; sg 18:50 Body Mass Index 32.42 (75.30 kg, 152.40 cm) ca1 ED Course: 18:42 Patient arrived in ED. as 18:48 Duncan Sanchez RN is Primary Nurse. jd3 18:52 Triage completed. ca1 18:52 Flor Jimenez FNP-C is PHCP. kb 18:52 Anand Naranjo MD is Attending Physician. kb 18:52 Arm band placed on right wrist. ca1 19:00 Patient has correct armband on for positive identification. Placed in gown. Bed in low jd3 position. Call light in reach. Side rails up X 1. desk monitor on. Pulse ox on. NIBP on. 19:00 Patient maintains SpO2 saturation greater than 95% on room air. jd3 19:06 Inserted saline lock: 20 gauge in right antecubital area, using aseptic technique. dh4 Blood collected. 19:12 XRAY Chest (1 view) In Process Unspecified. EDMS 20:28 No provider procedures requiring assistance completed. IV discontinued, intact, jd3 bleeding controlled, No redness/swelling at site. Pressure dressing applied. Administered Medications: 20:20 Drug: TORadol - Ketorolac 15 mg Route: IVP; Site: right antecubital; sg 20:28 Follow up: Response: No adverse reaction; Medication administered at discharge. jd3 Outcome: 20:10 Discharge ordered by . kb 20:29 Discharged to home ambulatory, with family. jd3 20:29 Condition: stable 20:29 Discharge instructions given to patient, Instructed on discharge instructions, follow up and referral plans. medication usage, Demonstrated understanding of instructions, follow-up care, medications, Prescriptions given X 1. 20:29 Patient left the ED. jd3 Signatures: Dispatcher [employer] EDMS Flor Jimenez FNP-C FNP-Ckb Gay, Steven, RN RN sg Martinez, Amelia as Antunez, Elena, RN RN ea Davies, Jonathon, RN RN j Bev Hercules RN RN [facility] Brendan Romero 4 Corrections: (The following items were deleted from the chart) 20:18 20:00 BP 144 / 80; Pulse 85bpm; Resp 17bpm; Pulse Ox 98% RA; sg sg
--- NOTE | 2020-07-18 20:10 | EDPHYS ---
Physician Documentation [facility] Name: Erma Yoo Age: 54 yrs Sex: Female : 1965 Arrival Date: 07/18/2020 Time: 18:42 Bed 16 Private MD: ED Physician Anand Naranjo HPI: 07/18 20:01 This 54 yrs old Female presents to ER via Ambulatory with complaints of Chest kb Pain. 20:02 The patient or guardian reports chest pain that is located primarily in the anterior kb chest wall, left. Onset: 3 day(s) ago. The pain does not radiate. Associated signs and symptoms: Pertinent positives: cough, Pertinent negatives: abdominal pain, diaphoresis, dizziness, headache, lower extremity pain, lower extremity swelling, lightheadedness, nausea, near syncope, palpitations, recent travel, shortness of breath, syncope, vomiting. The chest pain is described as a pressure. Duration: The patient or guardian reports a single episode, that is still ongoing. Modifying factors: The symptoms are alleviated by nothing. the symptoms are aggravated by cough, deep breath, palpation of area. Severity of pain: At its worst the pain was moderate in the emergency department the pain is unchanged. The patient has experienced similar episodes in the past, a few times. The patient has not recently seen a physician. Pt reports left chest pressure that started 3 days ago. States she has also had a cough because she "smokes a lot." States she called her PCP on Sunday and was sent for a covid test that was negative. Pain is reproducible. Denies shortness of breath, nausea. States she has had this pain before and it was due to asthma. . RN ENDOSCOPY: 18:52 LMP N/A - Post-menopause ca1 Historical: - Allergies: 18:52 Cheese; ca1 18:52 Niacin (Hives, Respiratory distress); ca1 - Home Meds: 18:52 metformin 1,000 mg Oral tab 1 tab 2 times per day [Active]; ca1 - PMHx: 18:52 Asthma; Depression; Diabetes - NIDDM; Hypertension; insomnia; ca1 - PSHx: 18:52 Cholecystectomy; Tubal ligation; ca1 - Immunization history:: Adult Immunizations up to date, Flu vaccine is up to date. - Social history:: Smoking status: Patient reports the use of cigarette tobacco products, smokes one-half pack cigarettes per day. ROS: 19:15 Constitutional: Negative for fever, chills, and weight loss, Abdomen/GI: Negative for kb abdominal pain, nausea, vomiting, diarrhea, and constipation, Back: Negative for injury and pain, MS/Extremity: Negative for injury and deformity, Skin: Negative for injury, rash, and discoloration, Neuro: Negative for headache, weakness, numbness, tingling, and seizure. 19:15 Cardiovascular: Positive for chest pain, Negative for edema, orthopnea, palpitations, paroxysmal nocturnal dyspnea. 19:15 Respiratory: Positive for cough, Negative for dyspnea on exertion, hemoptysis, orthopnea, pleurisy, shortness of breath, sputum production, wheezing. Exam: 19:15 Constitutional: This is a well developed, well nourished patient who is awake, alert, kb and in no acute distress. Head/Face: Normocephalic, atraumatic. Cardiovascular: Regular rate and rhythm with a normal S1 and S2. No gallops, murmurs, or rubs. Normal PMI, no JVD. No pulse deficits. Respiratory: Lungs have equal breath sounds bilaterally, clear to auscultation and percussion. No rales, rhonchi or wheezes noted. No increased work of breathing, no retractions or nasal flaring. Abdomen/GI: Soft, non-tender, with normal bowel sounds. No distension or tympany. No guarding or rebound. No evidence of tenderness throughout. Skin: Warm, dry with normal turgor. Normal color with no rashes, no lesions, and no evidence of cellulitis. MS/ Extremity: Pulses equal, no cyanosis. Neurovascular intact. Full, normal range of motion. Neuro: Awake and alert, GCS 15, oriented to person, place, time, and situation. Cranial nerves II-XII grossly intact. Motor strength 5/5 in all extremities. Sensory grossly intact. Cerebellar exam normal. Normal gait. 19:15 Chest/axilla: Inspection: normal, Palpation: tenderness, that is moderate, of the anterior aspect of left upper chest, that totally reproduces the patient's complaints. 19:16 ECG was reviewed by the Attending Physician. Vital Signs: 18:50 BP 143 / 87; Pulse 111; Resp 18 S; Temp 97.3(TE); Pulse Ox 100% on R/A; Weight 75.3 kg ca1 (R); Height 5 ft. 0 in. (152.40 cm) (R); Pain 8/10; 20:00 BP 125 / 57; Pulse 85; Resp 17; Pulse Ox 98% on R/A; sg 18:50 Body Mass Index 32.42 (75.30 kg, 152.40 cm) ca1 MDM: 18:52 Patient medically screened. kb 19:15 Data reviewed: vital signs, nurses notes. Data interpreted: Pulse oximetry: on room air kb is 100 %. Interpretation: normal. 20:04 Counseling: I had a detailed discussion with the patient and/or guardian regarding: the kb historical points, exam findings, and any diagnostic results supporting the discharge/admit diagnosis, lab results, radiology results, the need for outpatient follow up, a family practitioner, to return to the emergency department if symptoms worsen or persist or if there are any questions or concerns that arise at home. 07/18 18:53 Order name: Basic Metabolic Panel; Complete Time: 19:47 kb 07/18 18:53 Order name: CBC with Diff; Complete Time: 19:33 kb 07/18 18:53 Order name: LFT's; Complete Time: 19:47 kb 07/18 18:53 Order name: Magnesium; Complete Time: 19:47 kb 07/18 18:53 Order name: NT PRO-BNP; Complete Time: 19:47 kb 07/18 18:53 Order name: PT-INR; Complete Time: 19:33 kb 07/18 18:53 Order name: Troponin (emerg Dept Use Only); Complete Time: 19:47 kb 07/18 18:53 Order name: XRAY Chest (1 view); Complete Time: 20:25 kb 07/18 18:53 Order name: EKG; Complete Time: 18:54 kb 07/18 18:53 Order name: Cardiac monitoring; Complete Time: 18:58 kb 07/18 18:53 Order name: EKG - Nurse/Tech; Complete Time: 18:58 kb 07/18 18:53 Order name: IV Saline Lock; Complete Time: 18:58 kb 07/18 18:53 Order name: D-Dimer; Complete Time: 19:33 kb 07/18 18:53 Order name: Labs collected and sent; Complete Time: 18:58 kb 07/18 18:53 Order name: O2 Per Protocol; Complete Time: 18:58 kb 07/18 18:53 Order name: O2 Sat Monitoring; Complete Time: 18:58 kb EC:16 Rate is 98 beats/min. Rhythm is regular. QRS [place] is Normal. DC interval is normal at kb 130 msec. QRS interval is normal at 76 msec. QT interval is normal at 342 msec. Administered Medications: 20:20 Drug: TORadol - Ketorolac 15 mg Route: IVP; Site: right antecubital; 20:28 Follow up: Response: No adverse reaction; Medication administered at discharge. jd3 Disposition: 07/19 15:50 Co-signature as Attending Physician, Anand Naranjo MD. rn Disposition: 07/18/20 20:10 Discharged to Home. Impression: Chest pain on breathing, Other chest pain. - Condition is Stable. - Discharge Instructions: Costochondritis, [id number], Chest Wall Pain, [id number], Nonspecific Chest Pain, [id number]. - Prescriptions for Ibuprofen 800 mg Oral Tablet - take 1 tablet by ORAL route every 8 hours As needed take with food; 30 tablet. - Medication Reconciliation Form, Thank You Letter, Antibiotic Education, Prescription Opioid Use form. - Follow up: Private Physician; When: 2 - 3 days; Reason: Recheck today's complaints, Continuance of care, Re-evaluation by your physician. Follow up: Emergency Department; When: As needed; Reason: Worsening of condition. Signatures: Dispatcher [employer] EDFlor Altman, BHARGAV SPECIALIST [employer]-Rodriguez Curtis RN RN sg Nieto, Roman, MD MD rn Davies, Jonathon, RN RN jd3 Acob, Cheryl, RN RN ca1 Corrections: (The following items were deleted from the chart) 07/18 20:29 20:10 07/18/2020 20:10 Discharged to Home. Impression: Chest pain on breathing; Other jd3 chest pain. Condition is Stable. Forms are Medication Reconciliation Form, Thank You Letter, Antibiotic Education, Prescription Opioid Use. Follow up: Private Physician; When: 2 - 3 days; Reason: Recheck today's complaints, Continuance of care, Re-evaluation by your physician. Follow up: Emergency Department; When: As needed; Reason: Worsening of condition. kb
--- NOTE | 2020-07-18 20:23 | RAD REPORT ---
EXAM DESCRIPTION: RAD - Chest Single View - 07/18/2020 7:11 pm CLINICAL HISTORY: CHEST PAIN COMPARISON: Portable December 25 TECHNIQUE: AP portable chest image was obtained 07/18/2020 7:11 pm . FINDINGS: Lung volumes are low. No focal lung parenchymal process. No failure or volume overload. He art and vasculature are normal. No measurable pleural effusion and no pneumothorax. No acute bony abn ormality seen. No acute aortic findings suspected. IMPRESSION: No acute cardiopulmonary process. No suspicious change from comparison.
[2020-07-18] MEDS ORDERED: KETOROLAC 30 MG/ML INJ ONE (20:30)
[2020-07-18 22:54] VITALS: TEMP 97.3
[2020-07-18 22:56] VITALS: BP 125/57; O2SAT 98
== END 2020-07-18 20:29 | disposition home or self-care (01) ==
LOC: ER 18:40
DX: R07.1 Chest pain on breathing (principal)
CPT/HCPCS: 36415; 71045; 80048; 80076; 83735; 83880; 84484; 85025; 85379; 85610; 93005; 96374; 99285

== ENCOUNTER 2020-10-21 14:53 | Emergency (ER) | payer BC, SELFPAY ==
[2020-10-21] MEDS ORDERED: HYDROCODONE/APAP 7.5/325 MG TAB ONE (17:54)
[2020-10-21] MEDS ORDERED: IBUPROFEN 400 MG TAB ONE (17:54)
--- NOTE | 2020-10-21 18:20 | RAD REPORT ---
EXAM DESCRIPTION: RAD - Hand Right 3 View - 10/21/2020 6:06 pm CLINICAL HISTORY: Pain;Swelling COMPARISON: No comparisons FINDINGS: Swelling is present involving the first and second fingers. No fracture or dislocation see n.
--- NOTE | 2020-10-21 18:38 | RAD REPORT ---
EXAM DESCRIPTION: US - Extremity Venous Uni Ltd - 10/21/2020 6:32 pm CLINICAL HISTORY: Pain;Swelling Arm swelling and edema. COMPARISON: No comparisons FINDINGS: Right upper extremity venous system was interrogated with Doppler technique. Normal flow, compressibility and augmentation was noted. There is no DVT present. IMPRESSION: No evidence of right upper extremity deep venous thrombosis.
--- NOTE | 2020-10-21 18:50 | ER ---
Nurse's Notes [facility] Name: Erma Yoo Age: 54 yrs Sex: Female : 1965 Arrival Date: 10/21/2020 Time: 14:55 Bed 13 Private MD: Diagnosis: Pain in right hand Presentation: 10/21 15:02 Chief complaint: Patient states: R hand joint pain and swelling since Sunday, since it ll1 got cold. Less pain with warmth, wears gloves. Coronavirus screen: Client denies travel out of the [place] in the last 14 days. At this time, the client does not indicate any symptoms associated with coronavirus-19. Ebola Screen: Patient denies travel to an Ebola-affected area in the 21 days before illness onset. Initial Sepsis Screen: Does the patient meet any 2 criteria? HR > 90 bpm. No. Patient's initial sepsis screen is negative. Does the patient have a suspected source of infection? Yes: Bone or joint infection. Risk Assessment: Do you want to hurt yourself or someone else? Patient reports no desire to harm self or others. Onset of symptoms was October 18, 2020. 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 - Social history:: Smoking status: Patient denies any tobacco usage or history of. Screenin:31 Abuse screen: Denies threats or abuse. Nutritional screening: No deficits noted. tw2 Tuberculosis screening: No symptoms or risk factors identified. Fall Risk None identified. Assessment: 17:22 General: Appears in no apparent distress. obese, well groomed, Behavior is calm, tw2 cooperative, appropriate for age. Pain: Complains of pain in right arm. Neuro: Level of Consciousness is awake, alert, obeys commands, Oriented to person, place, time, situation. Cardiovascular: Patient's skin is warm and dry. Respiratory: Airway is patent Respiratory effort is even, unlabored, Respiratory pattern is regular, symmetrical. GI: No signs and/or symptoms were reported involving the gastrointestinal system. : No signs and/or symptoms were reported regarding the genitourinary system. Musculoskeletal: Circulation, motion, and sensation intact. Range of motion: intact in all extremities, Reports pain in right arm. 18:31 Reassessment: Patient appears in no apparent distress at this time. No changes from tw2 previously documented assessment. Patient and/or family updated on plan of care and expected duration. Pain level reassessed. Patient is alert, oriented x 3, equal unlabored respirations, skin warm/dry/pink. 19:02 Reassessment: Patient appears in no apparent distress at this time. No changes from tw2 previously documented assessment. Patient and/or family updated on plan of care and expected duration. Pain level reassessed. Patient is alert, oriented x 3, equal unlabored respirations, skin warm/dry/pink. Vital Signs: 15:02 BP 118 / 75; Pulse 107; Resp 17; Temp 97.8; Pulse Ox 99% ; Weight 76.2 kg; Height 5 ft. ll1 1 in. (154.94 cm); Pain 10/10; 18:44 BP 118 / 70; Pulse 76; Resp 17; Pulse Ox 99% on R/A; tw2 15:02 Body Mass Index 31.74 (76.20 kg, 154.94 cm) ll1 ED Course: 14:55 Patient arrived in ED. as 15:03 Triage completed. ll1 15:04 Arm band placed on. ll1 17:22 Arie Milner PA is PHCP. cp 17:22 Arie Frey MD is Attending Physician. cp 17:22 Bed in low position. Call light in reach. Pulse ox on. NIBP on. tw2 17:35 Opal Mcelroy, SISSY is Primary Nurse. tw2 18:06 XRAY Hand RIGHT 3 View In Process Unspecified. EDMS 18:32 US Extremity Venous Unilateral Ltd In Process Unspecified. EDMS 19:01 No provider procedures requiring assistance completed. Patient did not have IV access tw2 during this emergency room visit. Administered Medications: 17:43 Drug: Hydrocodone-Acetaminophen (7.5 mg-325 mg) 1 tabs {Note: RASS 0.} Route: PO; tw2 18:53 Follow up: Response: No adverse reaction; Pain is decreased; RASS: Alert and Calm (0) tw2 17:44 Drug: Ibuprofen 800 mg Route: PO; 18:53 Follow up: Response: No adverse reaction Outcome: 18:50 Discharge ordered by . luis 19:01 Patient left the ED. jb4 19:01 Discharged to home ambulatory. tw2 19:01 Condition: stable 19:01 Discharge instructions given to patient, Instructed on discharge instructions, follow up and referral plans. no drinking with medication, no driving heavy equipment, medication usage, Demonstrated understanding of instructions, follow-up care, medications, Prescriptions given X 2. Signatures: Dispatcher [employer] EDMS Milena Roman Corey, PA PA cp Wise, Tara RN RN tw2 Newton Lewis, RN RN jb4 Tabby Moreno RN RN ll1
--- NOTE | 2020-10-21 18:50 | EDPHYS ---
Physician Documentation [facility] Name: Erma Yoo Age: 54 yrs Sex: Female : 1965 Arrival Date: 10/21/2020 Time: 14:55 Bed 13 Private MD: ED Physician Arie Frey HPI: 10/21 17:35 This 54 yrs old Female presents to ER via Ambulatory with complaints of Hand cp Swelling, Hand Pain, Arm Pain. 17:35 The patient or guardian reports pain, swelling, tenderness. The complaints affect the cp dorsum of right hand. Context: resulted from an unknown cause. Onset: The symptoms/episode began/occurred 3 day(s) ago. Associated signs and symptoms: Pertinent positives: decreased sensation distally, Pertinent negatives: cyanosis distally, fever, injury. Severity of symptoms: in the emergency department the symptoms are unchanged, despite home interventions. 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 - Social history:: Smoking status: Patient denies any tobacco usage or history of. ROS: 17:40 MS/extremity: Positive for pain, paresthesias, swelling, tenderness, of the right hand, cp Negative for injury or acute deformity, decreased range of motion. 17:40 Constitutional: Negative for body aches, chills, fever. cp 17:40 Cardiovascular: Negative for chest pain. 17:40 Respiratory: Negative for cough, shortness of breath, wheezing. 17:40 Abdomen/GI: Negative for abdominal pain, nausea, vomiting, and diarrhea. 17:40 Skin: Negative for cellulitis, rash. 17:40 Neuro: Negative for headache, weakness. 17:40 All other systems are negative. Exam: 17:45 Constitutional: The patient appears in no acute distress, alert, awake, non-toxic, well cp developed, well nourished. 17:45 Head/Face: Normocephalic, atraumatic. cp 17:45 Chest/axilla: Inspection: normal. 17:45 Cardiovascular: Rate: normal. 17:45 Respiratory: the patient does not display signs of respiratory distress, Respirations: normal. 17:45 Musculoskeletal/extremity: Extremities: grossly normal except: noted in the dorsum of right hand: pain, tenderness, mild swelling noted proximal phalanx and distal metacarpals right second and third digits, There is no evidence of decreased ROM, deformity, erythema, Perfusion: the extremity is normally perfused throughout, the right index finger decreased sensation. 17:45 Skin: cellulitis, is not appreciated, no rash present. Vital Signs: 15:02 BP 118 / 75; Pulse 107; Resp 17; Temp 97.8; Pulse Ox 99% ; Weight 76.2 kg; Height 5 ft. ll1 1 in. (154.94 cm); Pain 10/10; 18:44 BP 118 / 70; Pulse 76; Resp 17; Pulse Ox 99% on R/A; tw2 15:02 Body Mass Index 31.74 (76.20 kg, 154.94 cm) ll1 MDM: 17:23 Patient medically screened. julio 18:00 Differential diagnosis: dislocation, closed fracture, contusion, tendonitis, cp cellulitis, gout. 18:48 Data reviewed: vital signs, nurses notes, radiologic studies, plain films, ultrasound. cp ED course: Review of [place] prescription monitor website shows narcotic score of 170, sedative score 301 and overdose risk score of 070. 18:50 Counseling: I had a detailed discussion with the patient and/or guardian regarding: the cp historical points, exam findings, and any diagnostic results supporting the discharge/admit diagnosis, radiology results, the need for outpatient follow up, a family practitioner, to return to the emergency department if symptoms worsen or persist or if there are any questions or concerns that arise at home. 18:50 Response to treatment: the patient's symptoms have markedly improved after treatment, cp and as a result, I will discharge patient. 10/21 17:32 Order name: US Extremity Venous Unilateral Ltd; Complete Time: 18:41 cp 10/21 17:32 Order name: XRAY Hand RIGHT 3 View; Complete Time: 18:41 cp Administered Medications: 17:43 Drug: Hydrocodone-Acetaminophen (7.5 mg-325 mg) 1 tabs {Note: RASS 0.} Route: PO; tw2 18:53 Follow up: Response: No adverse reaction; Pain is decreased; RASS: Alert and Calm (0) tw2 17:44 Drug: Ibuprofen 800 mg Route: PO; tw2 18:53 Follow up: Response: No adverse reaction tw2 Disposition: 19:05 Chart complete. cp 10/22 05:41 Co-signature as Attending Physician, Arie Frey MD I agree with the assessment and julio plan of care. Disposition: 10/21/20 18:50 Discharged to Home. Impression: Pain in right hand. - Condition is Stable. - Discharge Instructions: Hand Pain. - Prescriptions for Diclofenac Sodium 75 mg Oral Tablet Sustained Release - take 1 tablet by ORAL route 2 times per day; 30 tablet. Tramadol 50 mg Oral Tablet - take 1 tablet by ORAL route every 8 hours as needed; 12 tablet. - Medication Reconciliation Form, Thank You Letter, Antibiotic Education, Prescription Opioid Use form. - Follow up: Private Physician; When: 2 - 3 days; Reason: Recheck today's complaints. - Problem is new. - Symptoms have improved. Signatures: Dispatcher [employer] EDArie Harris MD MD cha Page, Corey, PA PA cp Opal Mcelroy RN RN tw2 Newton Lewis RN RN jb4 Tabby Moreno RN RN ll1 Corrections: (The following items were deleted from the chart) 10/21 19:01 18:50 10/21/2020 18:50 Discharged to Home. Impression: Pain in right hand. Condition is jb4 Stable. Forms are Medication Reconciliation Form, Thank You Letter, Antibiotic Education, Prescription Opioid Use. Follow up: Private Physician; When: 2 - 3 days; Reason: Recheck today's complaints. Problem is new. Symptoms have improved. cp
[2020-10-21 19:19] VITALS: BP 118/70; O2SAT 99
== END 2020-10-21 19:01 | disposition home or self-care (01) ==
LOC: ER 14:53
DX: M79.641 Pain in right hand (principal); I10 Essential (primary) hypertension; Z91.011 Allergy to milk products; Z91.048 Other nonmedicinal substance allergy status
CPT/HCPCS: 93971; 99284

== ENCOUNTER 2020-12-27 15:29 | Emergency (ER) | payer SELFPAY ==
--- OUTSIDE RECORDS SUMMARY | 2020-12-27 15:31 | XMS REPORT | Continuity of Care Document ---
:1965 Author Organization [facility] t Address [address] [place] [address] Care Team Providers Name Role Phone Lab, [facility] Pob I Attending Clinician Unavailable Problems This patient has no known problems. Allergies, Adverse Reactions, Alerts This patient has no known allergies or adverse reactions. Medications This patient has no known medications. Procedures This patient has no known procedures. Encounters Start End Encounter Admission Attending Care Care Encounter Source Date/Time Date/Time Type Type Clinicians Facility Department ID 2020-03-08 2020-03-08 Laboratory Lab, [facility] [id number] 11:13:22 11:33:22 Only Fam Pob I [facility] [id number] [place] [id number] Bess[place] [phone] nal 044 Office [address] One Results This patient has no known results.
--- NOTE | 2020-12-27 20:12 | RAD REPORT ---
EXAM DESCRIPTION: Nirali Toney (2 Views)12/27/2020 7:55 pm CLINICAL HISTORY: Cough COMPARISON: 2019 FINDINGS: The lungs appear clear of acute infiltrate. The heart is normal size IMPRESSION: No acute abnormalities displayed
[2020-12-27 20:51] LABS: SARS-COV-2 RT PCR NEGATIVE (NEGATIVE)
--- NOTE | 2020-12-27 20:58 | EDPHYS ---
Physician Documentation [facility] Name: Erma Yoo Age: 55 yrs Sex: Female : 1965 Arrival Date: 12/27/2020 Time: 15:34 Bed 14 Private MD: Marvin Seymour ED Physician Anand Naranjo HPI: 12/27 19:35 This 55 yrs old Female presents to ER via Ambulatory with complaints of Cough, cp Fever. 19:35 The patient or guardian reports cough, that is intermittent, with productive sputum. cp Onset: The symptoms/episode began/occurred 4 day(s) ago. Associated signs and symptoms: Pertinent positives: fever, sore throat, Pertinent negatives: chest pain, diarrhea, vomiting. Historical: - Allergies: 15:43 Cheese; ll1 15:43 Niacin (Hives, Respiratory distress); ll1 - PMHx: 15:43 Asthma; Hypertension; Diabetes - NIDDM; Depression; insomnia; ll1 - PSHx: 15:43 Cholecystectomy; Tubal ligation; ll1 - Immunization history:: Client reports receiving the 2nd dose of the Covid vaccine, Flu vaccine is up to date. - Social history:: Smoking status: Patient reports the use of cigarette tobacco products, denies chronic smoking, but will smoke occasionally. ROS: 19:37 Eyes: Negative for injury, pain, redness, and discharge. cp 19:37 Constitutional: Negative for body aches, chills, fever, poor PO intake. 19:37 Respiratory: Positive for cough, "sounds productive", Negative for shortness of breath, wheezing. 19:37 Abdomen/GI: Negative for abdominal pain, nausea, vomiting, and diarrhea. 19:37 Skin: Negative for cellulitis, rash. 19:37 Neuro: Negative for altered mental status, headache, weakness. 19:37 All other systems are negative. Exam: 19:38 Head/Face: Normocephalic, atraumatic. cp 19:38 Constitutional: The patient appears in no acute distress, alert, awake, comfortable, non-toxic, well developed, well nourished. 19:38 Eyes: Periorbital structures: appear normal, Conjunctiva: normal, no exudate, no injection, Lids and lashes: appear normal, bilaterally. 19:38 ENT: External ear(s): are unremarkable, Nose: is normal, Mouth: Lips: moist, Oral mucosa: moist, Posterior pharynx: Airway: no evidence of obstruction, patent, Tonsils: no enlargement, no exudate, erythema, that is mild, exudate, is not appreciated. 19:38 Neck: ROM/movement: is normal, is supple, no meningismus, no nuchal rigidity, Lymph nodes: no appreciated lymphadenopathy. 19:38 Chest/axilla: Inspection: normal. 19:38 Cardiovascular: Rate: normal, Rhythm: regular. 19:38 Respiratory: the patient does not display signs of respiratory distress, Respirations: normal, no use of accessory muscles, no retractions, labored breathing, is not present, Breath sounds: bronchial sounds, that are mild, are heard diffusely, wheezing: is not appreciated. 19:38 Abdomen/GI: Exam negative for discomfort, distension, guarding, Inspection: abdomen appears normal. Vital Signs: 15:39 BP 153 / 91; Pulse 84; Resp 17; Temp 98.7; Pulse Ox 97% on R/A; Weight 75.75 kg; Height ll1 5 ft. 1 in. (154.94 cm); Pain 0/10; 21:00 BP 160 / 90; Pulse 70; Resp 16; Pulse Ox 98% on R/A; jb4 15:39 Body Mass Index 31.55 (75.75 kg, 154.94 cm) ll1 MDM: 19:16 Patient medically screened. cp 20:30 Differential Diagnosis: Bronchitis Influenza Pneumonia Other strep throat. cp 20:57 Data reviewed: vital signs, nurses notes, lab test result(s), radiologic studies, plain cp films. 20:57 Test interpretation: by ED physician or midlevel provider: plain radiologic studies. cp Counseling: I had a detailed discussion with the patient and/or guardian regarding: the historical points, exam findings, and any diagnostic results supporting the discharge/admit diagnosis, lab results, radiology results, to return to the emergency department if symptoms worsen or persist or if there are any questions or concerns that arise at home. ED course: VSS. Patient appears non-toxic and no signs of respiratory distress. Will discharge to home for continued monitoring. 12/27 19:32 Order name: XRAY Chest Pa And Lat (2 Views); Complete Time: 20:15 cp 12/27 20:15 Interpretation: Report reviewed. cp 12/27 19:32 Order name: Strep 12/27 20:48 Order name: Throat Culture EDOH 12/27 20:52 Order name: COVID-19/FLU A+B EDMS Administered Medications: 20:59 Drug: Albuterol HFA Inhaler 2 puffs Route: Inhalation; jb4 21:44 Follow up: Response: No adverse reaction jb4 20:59 Drug: Tessalon Perle (benzonatate) 200 mg Route: PO; jb4 21:44 Follow up: Response: No adverse reaction jb4 Disposition: 22:58 Co-signature as Attending Physician, Anand Naranjo MD. rn Disposition: 12/27/20 20:58 Discharged to Home. Impression: Acute bronchitis, unspecified. - Condition is Stable. - Discharge Instructions: Acute Bronchitis, Adult. - Prescriptions for Tessalon Perles 100 mg Oral Capsule - take 2 capsule by ORAL route every 8 hours As needed; 30 capsule. Albuterol Sulfate 2.5 mg /3 mL (0.083 %) Inhalation Solution for Nebulization - inhale 1 unit by NEBULIZATION route every 8 hours As needed; 1 box. Zithromax Z- [place] 250 mg Oral Tablet - take 1 tablet by ORAL route as directed for 5 days Day 1 - take two (2) tablets one time. Day 2, 3, 4 , 5 take one (1) tablet once daily.; 6 tablet. Albuterol Sulfate 90 mcg/actuation - inhale 1-2 puff by INHALATION route every 4-6 hours; 1 Inhaler. - Medication Reconciliation Form, Thank You Letter, Antibiotic Education, Prescription Opioid Use, Work release form form. - Follow up: Private Physician; When: 2 - 3 days; Reason: Worsening of condition. - Problem is new. - Symptoms have improved. Signatures: Dispatcher [employer] EDMS Anand Naranjo MD MD rn Page, Corey, PA PA cp Bryson, James, RN RN jb4 Tabby Moreno RN RN ll1 Corrections: (The following items were deleted from the chart) 19:48 19:33 Influenza Screen (A \\T\\ B)+BA.LAB.BRZ ordered. EDMS EDMS 19:48 19:33 CORONAVIRUS+MR.LAB.BRZ ordered. EDOH EDMS 21:45 20:58 12/27/2020 20:58 Discharged to Home. Impression: Acute bronchitis, unspecified. jb4 Condition is Stable. Forms are Medication Reconciliation Form, Thank You Letter, Antibiotic Education, Prescription Opioid Use. Follow up: Private Physician; When: 2 - 3 days; Reason: Worsening of condition. Problem is new. Symptoms have improved. cp
--- NOTE | 2020-12-27 20:58 | ER ---
Nurse's Notes [facility] Name: Erma Yoo Age: 55 yrs Sex: Female : 1965 Arrival Date: 12/27/2020 Time: 15:34 Bed 14 Private MD: Marvin Seymour Diagnosis: Acute bronchitis, unspecified Presentation: 12/27 15:39 Chief complaint: Patient states: Cough , fever, fatigue, tiredness for 4 days. Fever ll1 101 at home. Coronavirus screen: Client denies travel out of the [place] in the last 14 days. chills, congestion, cough unrelated to allergies, diarrhea, difficulty breathing, fatigue, fever, nausea, runny nose, sore throat, Client presents with at least one sign or symptom that may indicate coronavirus-19. Standard/surgical mask placed on the client. Ebola Screen: Patient denies travel to an Ebola-affected area in the 21 days before illness onset. Initial Sepsis Screen: Does the patient meet any 2 criteria? No. Patient's initial sepsis screen is negative. Does the patient have a suspected source of infection? No. Patient's initial sepsis screen is negative. Risk Assessment: Do you want to hurt yourself or someone else? Patient reports no desire to harm self or others. Onset of symptoms was December 24, 2020. 15:39 Method Of Arrival: Ambulatory ll1 15:39 Acuity: VINNY 3 ll1 Historical: - Allergies: 15:43 Cheese; ll1 15:43 Niacin (Hives, Respiratory distress); ll1 - PMHx: 15:43 Asthma; Hypertension; Diabetes - NIDDM; Depression; insomnia; ll1 - PSHx: 15:43 Cholecystectomy; Tubal ligation; ll1 - Immunization history:: Client reports receiving the 2nd dose of the Covid vaccine, Flu vaccine is up to date. - Social history:: Smoking status: Patient reports the use of cigarette tobacco products, denies chronic smoking, but will smoke occasionally. Screenin:20 Abuse screen: Denies threats or abuse. Nutritional screening: No deficits noted. jb4 Tuberculosis screening: No symptoms or risk factors identified. Fall Risk None identified. Assessment: 19:20 General: Appears in no apparent distress. comfortable, Behavior is calm, cooperative, jb4 appropriate for age. Pain: Denies pain. Neuro: Level of Consciousness is awake, alert, obeys commands, Oriented to person, place, time, situation. Cardiovascular: Patient's skin is warm and dry. Respiratory: Airway is patent Respiratory effort is even, unlabored, Respiratory pattern is regular, symmetrical. GI: No signs and/or symptoms were reported involving the gastrointestinal system. : No signs and/or symptoms were reported regarding the genitourinary system. EENT: No signs and/or symptoms were reported regarding the EENT system. Derm: Skin is intact, Skin is pink, warm \T\ dry. Musculoskeletal: Circulation, motion, and sensation intact. Range of motion: intact in all extremities. 20:30 Reassessment: Patient appears in no apparent distress at this time. Patient and/or jb4 family updated on plan of care and expected duration. Pain level reassessed. Patient is alert, oriented x 3, equal unlabored respirations, skin warm/dry/pink. 21:43 Reassessment: Patient appears in no apparent distress at this time. Patient and/or jb4 family updated on plan of care and expected duration. Pain level reassessed. Patient is alert, oriented x 3, equal unlabored respirations, skin warm/dry/pink. Vital Signs: 15:39 BP 153 / 91; Pulse 84; Resp 17; Temp 98.7; Pulse Ox 97% on R/A; Weight 75.75 kg; Height ll1 5 ft. 1 in. (154.94 cm); Pain 0/10; 21:00 BP 160 / 90; Pulse 70; Resp 16; Pulse Ox 98% on R/A; jb4 15:39 Body Mass Index 31.55 (75.75 kg, 154.94 cm) ll1 ED Course: 15:34 Patient arrived in ED. am2 15:34 Marvin Seymour MD is Private Physician. am2 15:42 Triage completed. ll1 15:43 Arm band placed on. ll1 19:14 Arie Milner PA is PHCP. cp 19:14 Anand Naranjo MD is Attending Physician. cp 19:20 Patient has correct armband on for positive identification. Bed in low position. Call jb4 light in reach. Side rails up X 1. 19:36 Newton Lewis, SISSY is Primary Nurse. jb4 19:44 Strep Sent. jb4 19:54 XRAY Chest Pa And Lat (2 Views) In Process Unspecified. EDMS 21:44 No provider procedures requiring assistance completed. Patient did not have IV access jb4 during this emergency room visit. Administered Medications: 20:59 Drug: Albuterol HFA Inhaler 2 puffs Route: Inhalation; jb4 21:44 Follow up: Response: No adverse reaction jb4 20:59 Drug: Tessalon Perle (benzonatate) 200 mg Route: PO; jb4 21:44 Follow up: Response: No adverse reaction jb4 Outcome: 20:58 Discharge ordered by . luis 21:44 Discharged to home ambulatory. jb4 21:44 Condition: stable 21:44 Discharge instructions given to patient, Instructed on discharge instructions, follow up and referral plans. medication usage, Demonstrated understanding of instructions, follow-up care, medications, Prescriptions given X 4. 21:45 Patient left the ED. jb4 Signatures: Dispatcher [employer] EDMS Arie Milner PA PA cp Bryson, James, RN RN jb4 Annie Monreal am2 Tabby Moreno RN RN ll1 Corrections: (The following items were deleted from the chart) 19:48 19:44 Influenza Screen (A \T\ B)+BA.LAB.BRZ drawn and sent. jb4 EDMS
[2020-12-27] MEDS ORDERED: BENZONATATE 100 MG CAP PO ONE (21:11)
[2020-12-27] MEDS ORDERED: ALBUTEROL INHALER 60 PUFF/8 GM IH ONE (21:12)
[2020-12-27 21:54] VITALS: TEMP 98.7
[2020-12-27 21:55] VITALS: BP 160/90; O2SAT 98
== END 2020-12-27 21:45 | disposition home or self-care (01) ==
LOC: ER 15:29
DX: J20.9 Acute bronchitis, unspecified (principal); Z20.822 Contact with and (suspected) exposure to COVID-19; I10 Essential (primary) hypertension; F17.210 Nicotine dependence, cigarettes, uncomplicated; Z91.018 Allergy to other foods; Z91.048 Other nonmedicinal substance allergy status
CPT/HCPCS: 0240U; 71046; 87070; 87081; 99284

== ENCOUNTER 2021-02-23 17:43 | Emergency (ER) | payer SELFPAY ==
--- OUTSIDE RECORDS SUMMARY | 2021-02-23 17:46 | XMS REPORT | Continuity of Care Document ---
:1965 Author Organization [facility] t Address [address] [place] [address] Care Team Providers Name Role Phone Lab, [facility] Pob I Attending Clinician Unavailable Problems This patient has no known problems. Allergies, Adverse Reactions, Alerts This patient has no known allergies or adverse reactions. Medications This patient has no known medications. Procedures This patient has no known procedures. Encounters Start End Encounter Admission Attending Care Care Encounter Source Date/Time Date/Time Type Type Clinicians Facility Department ID 2020-03-08 2020-03-08 Laboratory Lab, [facility] [id number] 11:13:22 11:33:22 Only Fam Pob I [facility] [id number] [place] [id number] Bess[place] [id number] nal 044 [address] One Results This patient has no known results.
--- NOTE | 2021-02-23 19:09 | EDPHYS ---
Physician Documentation [facility] Name: Erma Yoo Age: 55 yrs Sex: Female : 1965 Arrival Date: 02/23/2021 Time: 17:46 Bed 7 Private MD: ED Physician Arie Frey HPI: 02/23 18:58 This 55 yrs old Female presents to ER via Ambulatory with complaints of Right cp Wrist Pain. 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 - tw2 Historical: - Allergies: 17:57 Niacin (Hives, Respiratory distress); tw2 17:57 cheese; tw2 - Home Meds: 17:57 venlafaxine 75 mg Oral tr24 1 tab once daily [Active]; Topamax 50 mg Oral tab 1 tab 2 tw2 times per day [Active]; metformin 1,000 mg Oral tab 1 tab 2 times per day [Active]; lisinopril 5 mg Oral tab 1 tab once daily [Active]; bupropion HCl 150 mg Oral Tb24 1 tab once daily [Active]; atorvastatin 10 mg Oral tab 1 tab once daily [Active]; Ambien 5 mg Oral tab 1 tab once daily [Active]; Advair Diskus Inhl [Active]; - PMHx: 17:57 Hypertension; Diabetes - NIDDM; Depression; Asthma; insomnia; tw2 - PSHx: 17:57 Cholecystectomy; Tubal ligation; tw2 Vital Signs: 17:54 BP 147 / 86; Pulse 90; Resp 18; Temp 97.9(TE); Pulse Ox 100% on R/A; Weight 79.83 kg; tw2 Height 5 ft. 0 in. (152.40 cm); Pain 10/10; 17:54 Body Mass Index 34.37 (79.83 kg, 152.40 cm) tw2 MDM: 18:49 Patient medically screened. cp 02/23 18:59 Order name: Splint - Wrist; Complete Time: 20:00 cp Administered Medications: 19:30 Drug: Ibuprofen 800 mg Route: PO; ad5 19:30 Drug: Tylenol 1000 mg Route: PO; ad5 Disposition: 02/23/21 19:12 Discharged to Home. Impression: Carpal tunnel syndrome, right upper limb. - Condition is Stable. - Discharge Instructions: Carpal Tunnel Syndrome. - Prescriptions for Ultracet 37.5- 325 mg Oral Tablet - take 1 tablet by ORAL route every 6 hours - for up to 5 days; do not exceed 8 tablets per day.; 20 tablet. Diclofenac Sodium 75 mg Oral Tablet, Delayed Release (E.C.) - take 1 tablet by ORAL route 2 times per day; 20 tablet. - Medication Reconciliation Form, Thank You Letter, Antibiotic Education, Prescription Opioid Use form. - Follow up: Dar Levine MD; When: 2 - 3 days; Reason: Recheck today's complaints. - Problem is an ongoing problem. - Symptoms are unchanged. Signatures: Arie Milner PA PA cp Opal Mcelroy, RN RN tw2 Parish Che ad5 Corrections: (The following items were deleted from the chart) 19:11 19:09 02/23/2021 19:09 Discharged to Home. Impression: Carpal tunnel syndrome, right cp upper limb. Condition is Stable. Forms are Medication Reconciliation Form, Thank You Letter, Antibiotic Education, Prescription Opioid Use. Follow up: Dar Levine; When: 2 - 3 days; Reason: Recheck today's complaints. Problem is an ongoing problem. Symptoms have improved. cp 20:03 19:12 02/23/2021 19:12 Discharged to Home. Impression: Carpal tunnel syndrome, right ad5 upper limb. Condition is Stable. Prescriptions for Diclofenac Sodium 75 mg Oral Tablet, Delayed Release (E.C.) - take 1 tablet by ORAL route 2 times per day; 20 tablet, Ultracet 37.5-325 mg Oral Tablet - take 1 tablet by ORAL route every 6 hours - for up to 5 days; do not exceed 8 tablets per day.; 20 tablet. and Forms are Medication Reconciliation Form, Thank You Letter, Antibiotic Education, Prescription Opioid Use. Follow up: Dar Levine; When: 2 - 3 days; Reason: Recheck today's complaints. Problem is an ongoing problem. Symptoms are unchanged. cp
--- NOTE | 2021-02-23 19:09 | ER ---
Nurse's Notes [facility] Name: Erma Yoo Age: 55 yrs Sex: Female : 1965 Arrival Date: 02/23/2021 Time: 17:46 Bed 7 Private MD: Diagnosis: Carpal tunnel syndrome, right upper limb Presentation: 02/23 17:54 Chief complaint: Patient states: i came to the ER last time it was both hands. they tw2 gave me gabapentin. the doctor saw me and it was nerves. this time it is still the same. i cant stand the pain. all the doctor did was increase the pain that they gave me. Coronavirus screen: At this time, the client does not indicate any symptoms associated with coronavirus-19. Ebola Screen: Patient denies travel to an Ebola-affected area in the 21 days before illness onset. Initial Sepsis Screen: Does the patient meet any 2 criteria? No. Patient's initial sepsis screen is negative. Does the patient have a suspected source of infection? No. Patient's initial sepsis screen is negative. Risk Assessment: Do you want to hurt yourself or someone else? Patient reports no desire to harm self or others. Onset of symptoms was February 23, 2021. 17:54 Method Of Arrival: Ambulatory tw2 17:54 Acuity: VINNY 3 tw2 Triage Assessment: 17:57 General: Appears in no apparent distress. uncomfortable, obese, well groomed, Behavior tw2 is calm, cooperative, appropriate for age. Pain: Complains of pain in right hand. Musculoskeletal: Swelling present in right hand. 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 Historical: - Allergies: 17:57 Niacin (Hives, Respiratory distress); tw2 17:57 cheese; tw2 - Home Meds: 17:57 venlafaxine 75 mg Oral tr24 1 tab once daily [Active]; Topamax 50 mg Oral tab 1 tab 2 tw2 times per day [Active]; metformin 1,000 mg Oral tab 1 tab 2 times per day [Active]; lisinopril 5 mg Oral tab 1 tab once daily [Active]; bupropion HCl 150 mg Oral Tb24 1 tab once daily [Active]; atorvastatin 10 mg Oral tab 1 tab once daily [Active]; Ambien 5 mg Oral tab 1 tab once daily [Active]; Advair Diskus Inhl [Active]; - PMHx: 17:57 Hypertension; Diabetes - NIDDM; Depression; Asthma; insomnia; tw2 - PSHx: 17:57 Cholecystectomy; Tubal ligation; tw2 Screenin:30 Abuse screen: Denies threats or abuse. Denies injuries from another. Nutritional ad5 screening: No deficits noted. Tuberculosis screening: No symptoms or risk factors identified. Fall Risk None identified. Assessment: 19:30 General: Appears in no apparent distress. Behavior is calm, cooperative, appropriate ad5 for age. Neuro: No deficits noted. Level of Consciousness is awake, alert, obeys commands, Oriented to person, place, time, situation, Appropriate for age [employer] Emergency Services Dispatcher are equal bilaterally Intact. Cardiovascular: No deficits noted. Capillary refill < 3 seconds Patient's skin is warm and dry. Respiratory: No deficits noted. Airway is patent Respiratory effort is even, unlabored, Respiratory pattern is regular, symmetrical. Musculoskeletal: Reports pain in smiley wrist, worse to R wrist; distal SMCs intact; pt denies injury, no obvious edema, deformity or other abnormality noted. Vital Signs: 17:54 BP 147 / 86; Pulse 90; Resp 18; Temp 97.9(TE); Pulse Ox 100% on R/A; Weight 79.83 kg; tw2 Height 5 ft. 0 in. (152.40 cm); Pain 10/10; 17:54 Body Mass Index 34.37 (79.83 kg, 152.40 cm) tw2 ED Course: 17:46 Patient arrived in ED. mr 17:55 Triage completed. tw2 17:57 Arm band placed on. tw2 18:45 Arie Milner PA is PHCP. cp 18:45 Anand Naranjo MD is Attending Physician. cp 19:07 Parish Che is Primary Nurse. ad5 19:08 Dar Levine MD is Referral Physician. cp 19:11 Arie Frey MD is Attending Physician. cp 19:11 Dar Levine MD is Referral Physician. cp 19:35 Velcro wrist splint applied to right wrist. ad5 20:02 Patient did not have IV access during this emergency room visit. ad5 20:03 No provider procedures requiring assistance completed. ad5 Administered Medications: 19:30 Drug: Ibuprofen 800 mg Route: PO; ad5 19:30 Drug: Tylenol 1000 mg Route: PO; ad5 Outcome: 19:09 Discharge ordered by MD. cp 19:12 Discharge ordered by MD. cp 20:03 Discharged to home ambulatory. ad5 20:03 Condition: stable 20:03 Discharge instructions given to patient, Instructed on discharge instructions, follow up and referral plans. medication usage, Demonstrated understanding of instructions, follow-up care, medications, Prescriptions given X 2. 20:03 Patient left the ED. ad5 Signatures: Eden Rosario mr Arie Milner PA PA Opal Hardy RN RN tw2 Parish Che ad5 Corrections: (The following items were deleted from the chart) 20:02 19:30 Musculoskeletal: Reports pain in smiley wrist, worse to R wrist; distal SMCs intact ad5 ad5
[2021-02-23] MEDS ORDERED: ACETAMINOPHEN 500 MG TAB ONE (19:34)
[2021-02-23] MEDS ORDERED: IBUPROFEN 400 MG TAB ONE (19:35)
[2021-02-23 20:25] VITALS: BP 147/86; TEMP 97.9; O2SAT 100
== END 2021-02-23 20:03 | disposition home or self-care (01) ==
LOC: ER 17:43
DX: G56.01 Carpal tunnel syndrome, right upper limb (principal); I10 Essential (primary) hypertension; E11.9 Type 2 diabetes mellitus without complications; Z91.018 Allergy to other foods; Z91.048 Other nonmedicinal substance allergy status

== ENCOUNTER 2021-03-13 01:08 | Emergency (ER) | payer SELFPAY ==
--- OUTSIDE RECORDS SUMMARY | 2021-03-13 01:11 | XMS REPORT | Continuity of Care Document ---
:1965 Author Organization [facility] t Address [address] [place] [address] Care Team Providers Name Role Phone Lab, [facility] Fam Pob I Attending Clinician Unavailable Problems This patient has no known problems. Allergies, Adverse Reactions, Alerts This patient has no known allergies or adverse reactions. Medications This patient has no known medications. Procedures This patient has no known procedures. Encounters Start End Encounter Admission Attending Care Care Encounter Source Date/Time Date/Time Type Type Clinicians Facility Department ID 2020-03-08 2020-03-08 Laboratory Lab, [facility] [id number] 11:13:22 11:33:22 Only Fam Pob I [facility] [id number] [place] [id number] Bessy [id number] nal 0[address] One Results This patient has no known results.
[2021-03-13] MEDS ORDERED: KETOROLAC 30 MG/ML INJ ONE (03:51)
--- NOTE | 2021-03-13 04:42 | EDPHYS ---
Physician Documentation [facility] Name: Erma Yoo Age: 55 yrs Sex: Female : 1965 Arrival Date: 03/13/2021 Time: 01:09 Bed 4 Private MD: Marvin Seymour ED Physician Cory Worthington HPI: 03/13 04:34 This 55 yrs old Female presents to ER via Ambulatory with complaints of Arm mh7 Pain. 04:34 The patient or guardian complains of pain, that is chronic. The complaints affect the mh7 right wrist. Context: The problem was sustained at an unknown location, resulted from carpal tunnel. Onset: The symptoms/episode began/occurred 1 week(s) ago. Treatment prior to arrival includes: no previous treatment. Modifying factors: The symptoms are alleviated by nothing. the symptoms are aggravated by movement. Associated signs and symptoms: Pertinent positives: decreased range of motion, pain, Pertinent negatives: deformity, erythema, fever, nausea, numbness, swelling, tingling, vomiting, warmth, weakness. Severity of symptoms: At their worst the symptoms were moderate, 2 day(s) ago, in the emergency department the symptoms are unchanged. The patient has experienced similar episodes in the past, multiple times. 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 bb Historical: - Allergies: : Cheese; bb :27 Niacin (Hives, Respiratory distress); bb - Home Meds: : Advair Diskus Inhl [Active]; Ambien 5 mg Oral tab 1 tab once daily [Active]; bb atorvastatin 10 mg Oral tab 1 tab once daily [Active]; bupropion HCl 150 mg Oral Tb24 1 tab once daily [Active]; lisinopril 5 mg Oral tab 1 tab once daily [Active]; metformin 1,000 mg Oral tab 1 tab 2 times per day [Active]; Topamax 50 mg Oral tab 1 tab 2 times per day [Active]; venlafaxine 75 mg Oral tr24 1 tab once daily [Active]; - PMHx: :27 Asthma; Depression; Diabetes - NIDDM; Hypertension; insomnia; bb - Immunization history:: Adult Immunizations unknown. - Social history:: Smoking status: unknown. ROS: 04:34 Constitutional: Negative for fever, chills, and weight loss, Eyes: Negative for injury, mh7 pain, redness, and discharge, ENT: Negative for injury, pain, and discharge, Neck: Negative for injury, pain, and swelling, Cardiovascular: Negative for chest pain, palpitations, and edema, Respiratory: Negative for shortness of breath, cough, wheezing, and pleuritic chest pain, Abdomen/GI: Negative for abdominal pain, nausea, vomiting, diarrhea, and constipation, Back: Negative for injury and pain, : Negative for injury, bleeding, discharge, and swelling, Skin: Negative for injury, rash, and discoloration, Neuro: Negative for headache, weakness, numbness, tingling, and seizure, Psych: Negative for depression, anxiety, suicide ideation, homicidal ideation, and hallucinations, Allergy/Immunology: Negative for hives, rash, and allergies, Endocrine: Negative for neck swelling, polydipsia, polyuria, polyphagia, and marked weight changes, Hematologic/Lymphatic: Negative for swollen nodes, abnormal bleeding, and unusual bruising. Exam: 04:34 Constitutional: This is a well developed, well nourished patient who is awake, alert, mh7 and in no acute distress. Head/Face: Normocephalic, atraumatic. Skin: Warm, dry with normal turgor. Normal color with no rashes, no lesions, and no evidence of cellulitis. 04:34 Neuro: Awake and alert, GCS 15, oriented to person, place, time, and situation. Cranial nerves II-XII grossly intact. Motor strength 5/5 in all extremities. Sensory grossly intact. Cerebellar exam normal. Normal gait. Psych: Awake, alert, with orientation to person, place and time. Behavior, mood, and affect are within normal limits. 04:34 Musculoskeletal/extremity: Extremities: noted in the right wrist: pain, tenderness, volar aspect, ROM: limited active range of motion due to pain, in the right wrist, limited passive range of motion due to pain, in the right wrist, Circulation is intact in all extremities. Sensation intact. Compartment Syndrome exam of affected extremity: is normal. no numbness, no tingling, no sensation deficit, no palor, no weak pulses, Joints: the right wrist displays painful range of motion, tenderness, Tendon exam: specific tendon testing normal through active and passive range of motion Vital Signs: 01:25 BP 160 / 88; Pulse 85; Resp 16 S; Temp 98.3(O); Pulse Ox 97% on R/A; Weight 79.83 kg bb (R); Height 5 ft. 0 in. (152.40 cm) (R); Pain 10/10; 02:15 BP 163 / 77; Pulse 69; Resp 16; Pulse Ox 100% on R/A; jb4 03:30 BP 137 / 82; Pulse 56; Resp 18; Pulse Ox 98% on R/A; jb4 04:30 BP 176 / 86; Pulse 73; Resp 16; Pulse Ox 97% on R/A; jb4 01:25 Body Mass Index 34.37 (79.83 kg, 152.40 cm) bb MDM: 04:40 Differential diagnosis: tendonitis, carpal tunnel pain. Data reviewed: vital signs, [facility] nurses notes, old medical records. Counseling: I had a detailed discussion with the patient and/or guardian regarding: the historical points, exam findings, and any diagnostic results supporting the discharge/admit diagnosis, the need for outpatient follow up, a hand specialist, to return to the emergency department if symptoms worsen or persist or if there are any questions or concerns that arise at home. Response to treatment: the patient's symptoms have markedly improved after treatment. 04:42 Patient medically screened. [facility] Administered Medications: 03:35 Drug: TORadol (ketorolac) 60 mg Route: IM; Site: right gluteus; jb4 04:00 Follow up: Response: No adverse reaction; Marked relief of symptoms; Pain is decreased jb4 Disposition Summary: 03/13/21 04:42 Discharge Ordered Location: Home [facility] Problem: an acute exacerbation [facility] Symptoms: have improved [facility] Condition: Stable [facility] Diagnosis - Carpal tunnel syndrome, right upper limb [facility] Followup: [facility] - With: Private Physician - When: 1 - 2 days - Reason: Worsening of condition, Recheck today's complaints, Continuance of care, Re-evaluation by your physician Followup: [facility] - With: Dar Levine MD - When: 1 - 2 days - Reason: Worsening of condition, Recheck today's complaints Discharge Instructions: - Discharge Summary Sheet [facility] - Carpal Tunnel Syndrome, [id number] [facility] Forms: - Medication Reconciliation Form [facility] - Thank You Letter [facility] - Antibiotic Education [facility] - Prescription Opioid Use [facility] Prescriptions: - ketorolac 10 mg Oral tablet - take 1 tablet by ORAL route every 6 hours As needed not to exceed 40 mg in [facility] 24hrs; 12 tablet; Refills: 0, Product Selection Permitted Signatures: Maris Allen RN RN bb Newton Lewis RN RN jb4 Cory Worthington MD MD [facility]
--- NOTE | 2021-03-13 04:42 | ER ---
Nurse's Notes [facility] Name: Erma Yoo Age: 55 yrs Sex: Female : 1965 Arrival Date: 03/13/2021 Time: : Bed 4 Private MD: Marvin Seymour Diagnosis: Carpal tunnel syndrome, right upper limb Presentation: 03/13 01:25 Chief complaint: Patient states: she has carpal tunnel syndrome in her right wrist and bb her hand feels like it is burning with pain 06/12 she has appt with Dr Pasquale velasco till March 28. Coronavirus screen: At this time, the client does not indicate any symptoms associated with coronavirus-19. Ebola Screen: No symptoms or risks identified at this time. Initial Sepsis Screen: Does the patient meet any 2 criteria? No. Patient's initial sepsis screen is negative. Does the patient have a suspected source of infection? No. Patient's initial sepsis screen is negative. Risk Assessment: Do you want to hurt yourself or someone else? Patient reports no desire to harm self or others. Onset of symptoms is unknown. 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 bb Historical: - Allergies: : Cheese; bb 01: Niacin (Hives, Respiratory distress); bb - Home Meds: 01: Advair Diskus Inhl [Active]; Ambien 5 mg Oral tab 1 tab once daily [Active]; bb atorvastatin 10 mg Oral tab 1 tab once daily [Active]; bupropion HCl 150 mg Oral Tb24 1 tab once daily [Active]; lisinopril 5 mg Oral tab 1 tab once daily [Active]; metformin 1,000 mg Oral tab 1 tab 2 times per day [Active]; Topamax 50 mg Oral tab 1 tab 2 times per day [Active]; venlafaxine 75 mg Oral tr24 1 tab once daily [Active]; - PMHx: 01:27 Asthma; Depression; Diabetes - NIDDM; Hypertension; insomnia; bb - Immunization history:: Adult Immunizations unknown. - Social history:: Smoking status: unknown. Screenin:30 Abuse screen: Denies threats or abuse. Nutritional screening: No deficits noted. jb4 Tuberculosis screening: No symptoms or risk factors identified. Fall Risk None identified. Assessment: 01:30 General: Appears in no apparent distress. uncomfortable, Behavior is calm, cooperative, jb4 crying, Pt given ice pack, applied to right wrist.. Pain: Complains of pain in right hand Pain does not radiate. Pain currently is 10 out of 10 on a pain scale. Neuro: Level of Consciousness is awake, alert, obeys commands, Oriented to person, place, time, situation. Cardiovascular: Patient's skin is warm and dry. Respiratory: Airway is patent Respiratory effort is even, unlabored, Respiratory pattern is regular, symmetrical. GI: No signs and/or symptoms were reported involving the gastrointestinal system. : No signs and/or symptoms were reported regarding the genitourinary system. EENT: No signs and/or symptoms were reported regarding the EENT system. Derm: Skin is intact, Skin is pink, warm \T\ dry. Musculoskeletal: Circulation, motion, and sensation intact. Range of motion: intact in all extremities. 02:25 Reassessment: Patient appears in no apparent distress at this time. Patient and/or jb4 family updated on plan of care and expected duration. Pain level reassessed. Patient is alert, oriented x 3, equal unlabored respirations, skin warm/dry/pink. 03:30 Reassessment: Patient appears in no apparent distress at this time. Patient and/or jb4 family updated on plan of care and expected duration. Pain level reassessed. Patient is alert, oriented x 3, equal unlabored respirations, skin warm/dry/pink. 04:54 Reassessment: Patient appears in no apparent distress at this time. Patient and/or jb4 family updated on plan of care and expected duration. Pain level reassessed. Patient is alert, oriented x 3, equal unlabored respirations, skin warm/dry/pink. Vital Signs: 01:25 BP 160 / 88; Pulse 85; Resp 16 S; Temp 98.3(O); Pulse Ox 97% on R/A; Weight 79.83 kg bb (R); Height 5 ft. 0 in. (152.40 cm) (R); Pain 10/10; 02:15 BP 163 / 77; Pulse 69; Resp 16; Pulse Ox 100% on R/A; jb4 03:30 BP 137 / 82; Pulse 56; Resp 18; Pulse Ox 98% on R/A; jb4 04:30 BP 176 / 86; Pulse 73; Resp 16; Pulse Ox 97% on R/A; jb4 01:25 Body Mass Index 34.37 (79.83 kg, 152.40 cm) ED Course: 01:09 Patient arrived in ED. am4 01:09 Marvin Seymour MD is Private Physician. am4 01:27 Triage completed. bb 01:27 Arm band placed on Patient placed in an exam room, on a stretcher, on pulse oximetry. bb 01:30 Patient has correct armband on for positive identification. Bed in low position. Call jb4 light in reach. Side rails up X 1. Pulse ox on. NIBP on. 01:39 Cory Worthington MD is Attending Physician. [facility] 01:51 Newton Lewis, RN is Primary Nurse. jb4 04:30 No provider procedures requiring assistance completed. Patient did not have IV access jb4 during this emergency room visit. 04:41 Dar Levine MD is Referral Physician. [facility] Administered Medications: 03:35 Drug: TORadol (ketorolac) 60 mg Route: IM; Site: right gluteus; jb4 04:00 Follow up: Response: No adverse reaction; Marked relief of symptoms; Pain is decreased jb4 Outcome: 04:42 Discharge ordered by . [facility] 04:58 Discharged to home ambulatory. jb4 04:58 Condition: stable 04:58 Discharge instructions given to patient, Instructed on discharge instructions, follow up and referral plans. medication usage, Demonstrated understanding of instructions, follow-up care, medications, Prescriptions given X 1. 04:58 Patient left the ED. jb4 Signatures: Maris Allen, RN RN Newton Lewis, SISSY RN jb4 Cory Worthington MD MD Rosanna Bernal 4
[2021-03-13 05:03] VITALS: TEMP 98.3
[2021-03-13 05:08] VITALS: BP 176/86; O2SAT 97
== END 2021-03-13 04:58 | disposition home or self-care (01) ==
LOC: ER 01:08
DX: G56.01 Carpal tunnel syndrome, right upper limb (principal); I10 Essential (primary) hypertension; E11.9 Type 2 diabetes mellitus without complications; F32.9 Major depressive disorder, single episode, unspecified; Z91.018 Allergy to other foods; Z91.048 Other nonmedicinal substance allergy status
CPT/HCPCS: 96372; 99283

== ENCOUNTER 2021-04-20 15:54 | Emergency (ER) | payer SELFPAY ==
--- OUTSIDE RECORDS SUMMARY | 2021-04-20 15:56 | XMS REPORT | Continuity of Care Document ---
:1965 Author Organization [facility] t Address [address] [place] [address] Care Team Providers Name Role Phone Lab, [facility] Fam Pob I Attending Clinician Unavailable Problems This patient has no known problems. Allergies, Adverse Reactions, Alerts This patient has no known allergies or adverse reactions. Medications This patient has no known medications. Procedures This patient has no known procedures. Encounters Start End Encounter Admission Attending Care Care Encounter Source Date/Time Date/Time Type Type Clinicians Facility Department ID 2020-03-08 2020-03-08 Laboratory Lab, [facility] [id number] 11:13:22 11:33:22 Only Fam Pob I [facility] [id number] [place] [id number] Bessy [id number] nal 044 [address] One Results This patient has no known results.
[2021-04-20 17:22] LABS: Absolute Lymphocytes (CBC) 1.5 K/uL (0.7-4.9); Basophils % 0.5 % (0-1.3); Hematocrit 39.8 % (36.0-45.0); Lymphocytes % 24.2 % (15.3-44.8); MPV 7.8 fL (7.6-11.3); RBC Red Blood Cell Count 5.26 M/uL (3.86-4.86)
[2021-04-20 17:27] LABS: ALT/SGPT 49 U/L (12-78); AST/SGOT 23 U/L (15-37); Albumin 3.7 g/dL (3.4-5.0); Alkaline Phosphatase 86 U/L (45-117); BUN Blood Urea Nitrogen 11 mg/dL (7-18); Bicarbonate 26 mmol/L (21-32); Bilirubin Direct < 0.1 mg/dL (0-0.2); Bilirubin Total 0.3 mg/dL (0.2-1.0); Glucose Level 231 mg/dL (74-106); Lipase 69 U/L (73-393); Potassium 3.8 mmol/L (3.5-5.1); Protein, Total 7.5 g/dL (6.4-8.2); Sodium Level 142 mmol/L (136-145)
--- NOTE | 2021-04-20 19:56 | RAD REPORT ---
EXAM DESCRIPTION: CT - Abdomen Pelvis W Contrast - 04/20/2021 7:38 pm CLINICAL HISTORY: ABD PAIN COMPARISON: No comparisons TECHNIQUE: Biphasic, helical CT imaging of the abdomen and pelvis was performed following 100 ml non -ionic IV contrast. No oral contrast administered. All CT scans are performed using dose optimization technique as appropriate and may include automated exposure control or mA/KV adjustment according to patient size. FINDINGS: No suspicious findings in the lung bases. The liver, spleen, and pancreas show no suspicious focal findings. Fatty infiltration of the liver is noted. Cholecystectomy clips present with no biliary tree dilatation. Symmetric renal function is seen with no hydronephrosis or suspicious renal mass. No pyelonephritis o r acute parenchymal process. No bladder abnormalities. No adrenal abnormalities. Uterus and ovaries s how no suspicious findings. Tubal ligation clips are present. No dilated bowel loops or bowel wall thickening. No appendicitis findings. No free air, free fluid or inflammatory stranding. No hernia, mass or bulky lymphadenopathy. No suspicious bony findings. IMPRESSION: Contrast enhanced CT abdomen and pelvis showing no acute or emergent finding.
[2021-04-20 20:20] LABS: Urine Blood 1+ (Negative); Urine Glucose Trace (Negative); Urine Protein Negative (Negative); Urine Specific Gravity 1.025 (1.005-1.030); Urine pH 5.5 (5.0-7.0)
[2021-04-20 20:55] LABS: Urine Specific Gravity/Preg 1.025 (1.005-1.030)
[2021-04-20] MEDS ORDERED: ONDANSETRON 4 MG/2 ML VIAL ONE (21:05)
[2021-04-20] MEDS ORDERED: NA CHLORIDE 0.9% 1,000 ML ONE (21:05)
[2021-04-20] MEDS ORDERED: MORPHINE 4 MG/ML SYR ONE (21:05)
[2021-04-20] MEDS ORDERED: CODEINE 30MG/APAP 300MG TAB ONE (21:32)
--- NOTE | 2021-04-20 21:39 | ER ---
Nurse's Notes [facility] Name: Erma Yoo Age: 55 yrs Sex: Female : 1965 Arrival Date: 04/20/2021 Time: 15:58 Bed 17 [facility] MD: Diagnosis: Upper abdominal pain, unspecified Presentation: 04/20 16:03 Chief complaint: Patient states: LUQ pain that began 1.5 weeks ago. Denies N/V/D and/or ss constipation. Coronavirus screen: Client denies travel out of the [place] in the last 14 days. Ebola Screen: Patient denies exposure to infectious person. Patient denies travel to an Ebola-affected area in the 21 days before illness onset. Initial Sepsis Screen: Does the patient meet any 2 criteria? No. Patient's initial sepsis screen is negative. Does the patient have a suspected source of infection? No. Patient's initial sepsis screen is negative. Risk Assessment: Do you want to hurt yourself or someone else? Patient reports no desire to harm self or others. Note Pt reports that her abd is tender upon palpation. Onset of symptoms was April 09, 2021. 16:03 Method Of Arrival: Ambulatory ss 16:03 Acuity: VINNY 3 ss Historical: - Allergies: 16:05 Cheese; ss 16:05 Niacin (Hives, Respiratory distress); ss - PMHx: 16:05 Asthma; Depression; Diabetes - NIDDM; Hypertension; insomnia; ss - Immunization history:: Client reports receiving the 2nd dose of the Covid vaccine. - Social history:: Smoking status: Patient reports the use of cigarette tobacco products, smokes one-half pack cigarettes per day. Screenin:16 Abuse screen: Denies threats or abuse. Denies injuries from another. Nutritional kg screening: No deficits noted. Tuberculosis screening: No symptoms or risk factors identified. Fall Risk None identified. No fall in past 12 months (0 pts). No secondary diagnosis (0 pts). No IV (0 pts). Ambulatory Aid- None/Bed Rest/Nurse Assist (0 pts). Gait- Normal/Bed Rest/Wheelchair (0 pts) Mental Status- Oriented to own ability (0 pts). Total Gu Fall Scale indicates No Risk (0-24 pts). Assessment: 21:00 General: Appears in no apparent distress. Behavior is calm, cooperative, appropriate kg for age, quiet. Pain: Complains of pain in left upper quadrant. Neuro: No deficits noted. Cardiovascular: No deficits noted. Respiratory: No deficits noted. GI: Abdomen is round Bowel sounds present X 4 quads. Abdomen is tender to palpation in left lower quadrant. : No deficits noted. EENT: No deficits noted. Derm: No deficits noted. Musculoskeletal: No deficits noted. Vital Signs: 16:03 BP 142 / 93; Pulse 97; Resp 15; Temp 98.6(TE); Pulse Ox 98% on R/A; Weight 79.83 kg; ss Height 5 ft. 0 in. (152.40 cm); Pain 10/10; 20:00 BP 177 / 78; Pulse 63; Resp 20; Pulse Ox 100% ; kg 21:00 BP 171 / 71; Pulse 61; Resp 18; Pulse Ox 100% ; kg 22:07 BP 166 / 88; Pulse 60; Resp 20; Pulse Ox 100% ; kg 16:03 Body Mass Index 34.37 (79.83 kg, 152.40 cm) ED Course: 15:58 Patient arrived in ED. mr 16:05 Triage completed. ss 16:05 Arm band placed on right wrist. ss 16:51 Initial lab(s) drawn, by in, sent to lab. Inserted saline lock: 20 gauge in right dh3 antecubital area, using aseptic technique. Blood collected. 18:36 Flor Jimenez FNP-C is [facility]. kb 18:36 Anand Naranjo MD is Attending Physician. kb 19:38 CT Abd/Pelvis - IV Contrast Only In Process Unspecified. EDMS 20:37 Zac Rai, SISSY is Primary Nurse. em 22:16 Patient has correct armband on for positive identification. kg 22:16 No provider procedures requiring assistance completed. IV discontinued, intact, kg bleeding controlled, No redness/swelling at site. Pressure dressing applied. Administered Medications: 20:45 Drug: NS 0.9% 1000 ml Route: IV; Rate: 1000 ml; Site: right antecubital; kg 22:18 Follow up: Response: No adverse reaction; IV Status: Completed infusion; IV Intake: kg 1000ml 21:11 Drug: Zofran (Ondansetron) 4 mg Route: IVP; Site: right antecubital; kg 22:17 Follow up: Response: No adverse reaction kg 21:11 Not Given (Patient Refused): morphine 4 mg IVP once; RASS on ADMIN: Combtv4, Very kg Agttd3, Agttd2, Rstlss1, AlertClm0, Drwsy-1, Lt Sdtn-2, Mod Sdtn-3, Dp Sdtn-4, UnArsble-5 21:12 Drug: Tylenol #3 (300 mg-30 mg) 1 tablet Route: PO; kg 22:17 Follow up: Response: No adverse reaction; Pain is decreased kg Intake: 22:18 IV: 1000ml; Total: 1000ml. kg Outcome: 21:39 Discharge ordered by . kb 22:16 Discharged to home ambulatory. kg 22:16 Condition: good 22:16 Discharge instructions given to patient, Instructed on discharge instructions, follow up and referral plans. Demonstrated understanding of instructions, follow-up care, medications, Prescriptions given X 1. 22:18 Patient left the ED. kg Signatures: Dispatcher [employer] Flor Rodriguez, JESSICA-C JESSICA-Eden Sanchez mr Zac Rai, RN RN Nani Anaya, SISSY RN Jenna Dawkins [facility] Betzy Ziegler RN RN kg
--- NOTE | 2021-04-20 21:40 | EDPHYS ---
Physician Documentation [facility] Name: Erma Yoo Age: 55 yrs Sex: Female : 1965 Arrival Date: 04/20/2021 Time: 15:58 Bed 17 Private MD: ED Physician Anand Naranjo HPI: 04/20 21:54 This 55 yrs old Female presents to ER via Ambulatory with complaints of kb Abdominal Pain. 21:54 The patient presents with abdominal pain. The patient has not recently seen a physician.kb 21:54 Onset: The symptoms/episode began/occurred 1.5 week(s) ago. The symptoms do not kb radiate. Associated signs and symptoms: none. The symptoms are described as constant. Modifying factors: The symptoms are alleviated by nothing, the symptoms are aggravated by pressure. Severity of pain: At its worst the pain was moderate in the emergency department the pain is unchanged. The patient has not experienced similar symptoms in the past. Historical: - Allergies: 16:05 Cheese; ss 16:05 Niacin (Hives, Respiratory distress); ss - PMHx: 16:05 Asthma; Depression; Diabetes - NIDDM; Hypertension; insomnia; ss - Immunization history:: Client reports receiving the 2nd dose of the Covid vaccine. - Social history:: Smoking status: Patient reports the use of cigarette tobacco products, smokes one-half pack cigarettes per day. ROS: 21:53 Constitutional: Negative for fever, chills, and weight loss. kb 21:53 Abdomen/GI: Positive for abdominal pain, Negative for nausea, vomiting, and diarrhea. 21:53 All other systems are negative. Exam: 21:53 Constitutional: This is a well developed, well nourished patient who is awake, alert, kb and in no acute distress. Head/Face: Normocephalic, atraumatic. ENT: Moist Mucous membranes Cardiovascular: Regular rate and rhythm with a normal S1 and S2. No gallops, murmurs, or rubs. No pulse deficits. Respiratory: Respirations even and unlabored. No increased work of breathing, no retractions or nasal flaring. Skin: Warm, dry with normal turgor. Normal color. MS/ Extremity: Pulses equal, no cyanosis. Neurovascular intact. Full, normal range of motion. Neuro: Awake and alert, GCS 15, oriented to person, place, time, and situation. Moves all extremities. Normal gait. Psych: Awake, alert, with orientation to person, place and time. Behavior, mood, and affect are within normal limits. 21:53 Abdomen/GI: Inspection: abdomen appears normal, Bowel sounds: normal, Palpation: soft, in all quadrants, moderate abdominal tenderness, in the left upper quadrant. Vital Signs: 16:03 BP 142 / 93; Pulse 97; Resp 15; Temp 98.6(TE); Pulse Ox 98% on R/A; Weight 79.83 kg; ss Height 5 ft. 0 in. (152.40 cm); Pain 10/10; 20:00 BP 177 / 78; Pulse 63; Resp 20; Pulse Ox 100% ; kg 21:00 BP 171 / 71; Pulse 61; Resp 18; Pulse Ox 100% ; kg 22:07 BP 166 / 88; Pulse 60; Resp 20; Pulse Ox 100% ; kg 16:03 Body Mass Index 34.37 (79.83 kg, 152.40 cm) ss MDM: 19:30 Patient medically screened. kb 21:53 Data reviewed: vital signs, nurses notes. Data interpreted: Pulse oximetry: on room air kb is 98 %. Interpretation: normal. Counseling: I had a detailed discussion with the patient and/or guardian regarding: the historical points, exam findings, and any diagnostic results supporting the discharge/admit diagnosis, lab results, radiology results, the need for outpatient follow up, a family practitioner, to return to the emergency department if symptoms worsen or persist or if there are any questions or concerns that arise at home. 04/20 16:10 Order name: Basic Metabolic Panel kb 04/20 16:10 Order name: CBC with Diff; Complete Time: 17:27 kb 04/20 16:10 Order name: Hepatic Function kb 04/20 16:10 Order name: Lipase kb 04/20 16:10 Order name: Basic Metabolic Panel; Complete Time: 17:27 EDMS 04/20 16:11 Order name: Liver (Hepatic) Function; Complete Time: 17:27 EDMS 04/20 16:11 Order name: Lipase; Complete Time: 17:27 EDMS 04/20 19:22 Order name: CT Abd/Pelvis - IV Contrast Only; Complete Time: 20:02 kb 04/20 20:19 Order name: Urine --Ancillary (enter results); Complete Time: 20:59 tt3 04/20 20:19 Order name: Urine Dipstick-Ancillary; Complete Time: 20:20 EDMS 04/20 16:10 Order name: IV Saline Lock; Complete Time: 16:55 kb 04/20 16:10 Order name: Labs collected and sent; Complete Time: 16:55 kb Administered Medications: 20:45 Drug: NS 0.9% 1000 ml Route: IV; Rate: 1000 ml; Site: right antecubital; kg 22:18 Follow up: Response: No adverse reaction; IV Status: Completed infusion; IV Intake: kg 1000ml 21:11 Drug: Zofran (Ondansetron) 4 mg Route: IVP; Site: right antecubital; kg 22:17 Follow up: Response: No adverse reaction kg 21:11 Not Given (Patient Refused): morphine 4 mg IVP once; RASS on ADMIN: Combtv4, Very kg Agttd3, Agttd2, Rstlss1, AlertClm0, Drwsy-1, Lt Sdtn-2, Mod Sdtn-3, Dp Sdtn-4, UnArsble-5 21:12 Drug: Tylenol #3 (300 mg-30 mg) 1 tablet Route: PO; kg 22:17 Follow up: Response: No adverse reaction; Pain is decreased kg Disposition: 04/21 14:35 Co-signature as Attending Physician, Anand Naranjo MD. rn Disposition Summary: 04/20/21 21:39 Discharge Ordered Location: Home kb Condition: Stable kb Diagnosis - Upper abdominal pain, unspecified kb Followup: kb - With: Emergency Department - When: As needed - Reason: Worsening of condition Followup: kb - With: Private Physician - When: 2 - 3 days - Reason: Recheck today's complaints, Continuance of care, Re-evaluation by your physician Discharge Instructions: - Discharge Summary Sheet kb - Abdominal Pain, Adult, [id number] kb Forms: - Medication Reconciliation Form kb - Thank You Letter kb - Antibiotic Education kb - Prescription Opioid Use kb - Work release form kg Prescriptions: - Diclofenac Sodium 75 mg Oral tablet,delayed release (DR/EC) - take 1 tablet by ORAL route 2 times per day As needed; 30 tablet; Refills: 0, kb Product Selection Permitted Signatures: Dispatcher [employer] EDFlor Altman, JESSICA-C CHIEF GREEN OFFICER-Ckb Anand Naranjo MD MD rn Nani Hunter RN RN ss Betzy Ziegler RN RN kg
[2021-04-20 22:26] VITALS: TEMP 98.6
[2021-04-20 22:28] VITALS: O2SAT 100
[2021-04-20 22:30] VITALS: BP 166/88
== END 2021-04-20 22:18 | disposition home or self-care (01) ==
LOC: ER 15:54
DX: R10.12 Left upper quadrant pain (principal); I10 Essential (primary) hypertension; F17.210 Nicotine dependence, cigarettes, uncomplicated; Z91.018 Allergy to other foods; Z91.048 Other nonmedicinal substance allergy status
CPT/HCPCS: 36415; 74177; 80048; 80076; 81003; 81025; 83690; 85025; 96361; 96374; 99284; J2405; J7030; Q9967

== ENCOUNTER 2021-05-13 03:11 | Observation (INO) | payer SELFPAY ==
--- OUTSIDE RECORDS SUMMARY | 2021-05-13 03:14 | XMS REPORT | Continuity of Care Document ---
:1965 Author Organization [facility] t Address [address] [place] [address] Care Team Providers Name Role Phone Lab, Adc Fam Pob I Attending Clinician Unavailable Problems This patient has no known problems. Allergies, Adverse Reactions, Alerts This patient has no known allergies or adverse reactions. Medications This patient has no known medications. Procedures This patient has no known procedures. Encounters Start End Encounter Admission Attending Care Care Encounter Source Date/Time Date/Time Type Type Clinicians Facility Department ID 2021-04-26 2021-04-26 Outpatient [facility] [id number] [facility] 00:00:00 00:00:00 [facility]ics 2020-03-08 2020-03-08 Laboratory Lab, [facility] [id number] 11:13:22 11:33:22 Only Fam Pob I [facility] [id number] [place] [id number] [facility] [id number] [address]al [address] Results This patient has no known results.
--- NOTE | 2021-05-13 04:18 | ER ---
Nurse's Notes [facility] Name: Erma Yoo Age: 55 yrs Sex: Female : 1965 Arrival Date: 05/13/2021 Time: 03:13 Bed 3 Private MD: Diagnosis: Chest pain, unspecified;Type 2 diabetes mellitus with hyperglycemia;Obesity, unspecified;Essential (primary) hypertension Presentation: 05/13 03:35 Chief complaint: Patient states: substernal chest pain that started at 10 PM, reports em nausea, denies fever, cough shortness of breath. Coronavirus screen: Vaccine status: Patient reports receiving the 2nd dose of the covid vaccine. Ebola Screen: Patient negative for fever greater than or equal to 101.5 degrees Fahrenheit, and additional compatible Ebola Virus Disease symptoms Patient denies exposure to infectious person. Patient denies travel to an Ebola-affected area in the 21 days before illness onset. No symptoms or risks identified at this time. Initial Sepsis Screen: Does the patient meet any 2 criteria? HR > 90 bpm. No. Patient's initial sepsis screen is negative. Does the patient have a suspected source of infection? No. Patient's initial sepsis screen is negative. Risk Assessment: Do you want to hurt yourself or someone else? Patient reports no desire to harm self or others. Onset of symptoms was May 13, 2021. 03:35 Method Of Arrival: Ambulatory em 03:35 Acuity: VINNY 3 em Triage Assessment: 03:35 General: Appears in no apparent distress. uncomfortable, Behavior is cooperative, em crying. Pain: Complains of pain in chest. Neuro: Level of Consciousness is awake, alert, obeys commands, Oriented to person, place, time, situation. Cardiovascular: Reports chest pain, Patient's skin is warm and dry. Respiratory: Airway is patent Respiratory effort is even, unlabored, Respiratory pattern is regular, symmetrical. Derm: Skin is intact, is healthy with good turgor, Skin is pink, warm \T\ dry. Musculoskeletal: Capillary refill < 3 seconds, Range of motion: intact in all extremities. SCRAPER MEAT: 03:37 LMP N/A - Post-menopause em Historical: - Allergies: 03:37 Cheese; em 03:37 Niacin (Hives, Respiratory distress); em - Home Meds: 03:37 lisinopril 5 mg Oral tab 1 tab once daily [Active]; atorvastatin 10 mg Oral tab 1 tab em once daily [Active]; - PMHx: 03:37 Asthma; Depression; Diabetes - NIDDM; Hypertension; insomnia; em - Immunization history:: Client reports receiving the 2nd dose of the Covid vaccine. - Social history:: Smoking status: Patient denies any tobacco usage or history of. - Family history:: not pertinent. Screenin:54 Abuse screen: Denies threats or abuse. Nutritional screening: No deficits noted. ea Tuberculosis screening: No symptoms or risk factors identified. Fall Risk None identified. Assessment: 04:55 General: Appears uncomfortable, Behavior is cooperative, crying. Pain:. Neuro: Level of ea Consciousness is awake, alert, obeys commands, Oriented to person, place, time. Respiratory: Airway is patent Respiratory effort is even, unlabored, Respiratory pattern is regular, symmetrical. Vital Signs: 03:35 BP 188 / 105; Pulse 96; Resp 18; Temp 97.4; Pulse Ox 99% on R/A; Weight 78.02 kg; em Height 5 ft. 0 in. (152.40 cm); Pain 10/10; 04:57 BP 169 / 95; Pulse 90; Resp 18; Pulse Ox 98% ; ea 03:35 Body Mass Index 33.59 (78.02 kg, 152.40 cm) em ED Course: 03:13 Patient arrived in ED. bp1 03:37 Triage completed. em 03:37 Arm band placed on. em 03:49 Arie Frey MD is Attending Physician. julio 04:15 Initial lab(s) drawn, by ky, sent to lab. Inserted saline lock: 20 gauge in left em antecubital area, using aseptic technique. Blood collected. 04:16 Eduardo Xie is Hospitalizing Provider. julio 04:55 Hien Kc, SISSY is Primary Nurse. ea 04:55 Patient has correct armband on for positive identification. Bed in low position. Call ea light in reach. school bus monitor on. Pulse ox on. NIBP on. 04:56 Inserted saline lock: 20 gauge in right forearm, using aseptic technique. Patient ea maintains SpO2 saturation greater than 95% on room air. 04:57 No provider procedures requiring assistance completed. Patient admitted, IV remains in ea place. 08:10 Primary Nurse role handed off by Hien Kc RN eb 09:10 Ashley Varghese RN is Primary Nurse. jl7 Administered Medications: 04:49 Drug: Zofran (Ondansetron) 4 mg Route: IVP; Site: right forearm; ea 05:44 Follow up: Response: No adverse reaction ea 04:50 Drug: Aspirin Chewable Tablet 324 mg Route: PO; ea 05:43 Follow up: Response: No adverse reaction ea 04:50 Drug: Pepcid (famotidine) 20 mg Route: IVP; Site: right forearm; ea 05:43 Follow up: Response: No adverse reaction ea 04:50 Drug: Nitro-Bid (nitroglycerin) Ointment 2 % 1 inches Route: Transdermal; Site: ea affected area; 04:50 Drug: Lopressor (metoprolol TARTRATE) 50 mg Route: PO; ea 05:43 Follow up: Response: No adverse reaction ea 04:50 Drug: morphine 2 mg Route: IVP; Site: right forearm; ea 04:54 Not Given (Hemodynamic Parameters): Lopressor (metoprolol) 5 mg IVP once; Hold for SBP ea <100 or HR <60. 04:54 Drug: Lovenox (enoxaparin) 1 mg/kg Route: Sub-Q; Site: right lower abdomen; ea 05:44 Follow up: Response: No adverse reaction ea 05:15 Drug: morphine 2 mg Route: IVP; Site: right forearm; ea 05:44 Follow up: Response: No adverse reaction ea 05:59 Drug: Insulin Regular Human 8 units {Co-Signature: SISSY Briscoe).} Route: Sub-Q; ea Site: left lower abdomen; 06:08 Follow up: Response: No adverse reaction ea Outcome: 04:18 Decision to Hospitalize by Provider. julio 04:57 Admitted to ER Hold. Please see [facility] for further documentation. ea 04:57 Condition: stable 04:57 Instructed on the need for admit, Demonstrated understanding of instructions. 17:27 Patient left the ED. ss Signatures: Arie Frey MD MD cha Munoz, Edgar RN Nani Callahan RN RN Ashley Varghese RN RN jl7 Kc, Hien, RN RN ea Lou, Eula eb Paniauga, Brina bp1 Chidi, RN Gamba wg
--- NOTE | 2021-05-13 04:19 | EDPHYS ---
Physician Documentation [facility] Name: Erma Yoo Age: 55 yrs Sex: Female : 1965 Arrival Date: 05/13/2021 Time: 03:13 Bed 3 Private MD: NIEVES Physician Arie Frey HPI: 05/13 04:08 This 55 yrs old Female presents to ER via Ambulatory with complaints of Chest julio Pain > 30 y/o. 04:08 This 55 yrs old Female presents to ER via Ambulatory with complaints of Chest julio Pain > 30 y/o. 04:08 This 55 yrs old Female presents to ER via Ambulatory with complaints of Chest julio Pain > 30 y/o. 04:08 The patient or guardian reports chest pain that is located primarily in the substernal julio area, anterior chest wall, bilaterally. Onset: 2 day(s) ago. The pain does not radiate. Associated signs and symptoms: The patient has no apparent associated signs or symptoms. The chest pain is described as a pressure. Duration: The patient or guardian reports a single episode, that is still ongoing. Modifying factors: The symptoms are alleviated by nothing. the symptoms are aggravated by nothing. Severity of pain: At its worst the pain was moderate in the emergency department the pain is unchanged. The patient has not experienced similar symptoms in the past. 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 - Social history:: Smoking status: Patient denies any tobacco usage or history of. - Family history:: not pertinent. ROS: 04:08 Constitutional: Negative for fever, chills, and weight loss, Eyes: Negative for injury, julio pain, redness, and discharge, ENT: Negative for injury, pain, and discharge, Neck: Negative for injury, pain, and swelling, Respiratory: Negative for shortness of breath, cough, wheezing, and pleuritic chest pain, Abdomen/GI: Negative for abdominal pain, nausea, vomiting, diarrhea, and constipation, Back: Negative for injury and pain, : Negative for injury, bleeding, discharge, and swelling, MS/Extremity: Negative for injury and deformity, Skin: Negative for injury, rash, and discoloration, Neuro: Negative for headache, weakness, numbness, tingling, and seizure, Psych: Negative for depression, anxiety, suicide ideation, homicidal ideation, and hallucinations, Allergy/Immunology: Negative for hives, rash, and allergies, Endocrine: Negative for neck swelling, polydipsia, polyuria, polyphagia, and marked weight changes, Hematologic/Lymphatic: Negative for swollen nodes, abnormal bleeding, and unusual bruising. 04:08 Cardiovascular: Positive for chest pain, of the chest. Exam: 04:08 Constitutional: This is a well developed, well nourished patient who is awake, alert, julio and in no acute distress. Head/Face: Normocephalic, atraumatic. Eyes: Pupils equal round and reactive to light, extra-ocular motions intact. Lids and lashes normal. Conjunctiva and sclera are non-icteric and not injected. Cornea within normal limits. Periorbital areas with no swelling, redness, or edema. ENT: Nares patent. No nasal discharge, no septal abnormalities noted. Tympanic membranes are normal and external auditory canals are clear. Oropharynx with no redness, swelling, or masses, exudates, or evidence of obstruction, uvula midline. Mucous membranes moist. Neck: Trachea midline, no thyromegaly or masses palpated, and no cervical lymphadenopathy. Supple, full range of motion without nuchal rigidity, or vertebral point tenderness. No Meningismus. Chest/axilla: Normal chest wall appearance and motion. Nontender with no deformity. No lesions are appreciated. Respiratory: Lungs have equal breath sounds bilaterally, clear to auscultation and percussion. No rales, rhonchi or wheezes noted. No increased work of breathing, no retractions or nasal flaring. Abdomen/GI: Soft, non-tender, with normal bowel sounds. No distension or tympany. No guarding or rebound. No evidence of tenderness throughout. Back: No spinal tenderness. No costovertebral tenderness. Full range of motion. Skin: Warm, dry with normal turgor. Normal color with no rashes, no lesions, and no evidence of cellulitis. MS/ Extremity: Pulses equal, no cyanosis. Neurovascular intact. Full, normal range of motion. Neuro: Awake and alert, GCS 15, oriented to person, place, time, and situation. Cranial nerves II-XII grossly intact. Motor strength 5/5 in all extremities. Sensory grossly intact. Cerebellar exam normal. Normal gait. Psych: Awake, alert, with orientation to person, place and time. Behavior, mood, and affect are within normal limits. 04:08 Cardiovascular: Rate: normal, Rhythm: regular, Pulses: Pulses are 4+ in bilateral radial, brachial, femoral, popliteal, posterior tibial and and dorsalis pedis arteries.. Heart sounds: normal, Edema: is not appreciated, JVD: is not appreciated. 04:08 ECG was reviewed by the Attending Physician. Vital Signs: 03:35 BP 188 / 105; Pulse 96; Resp 18; Temp 97.4; Pulse Ox 99% on R/A; Weight 78.02 kg; em Height 5 ft. 0 in. (152.40 cm); Pain 10/10; 04:57 BP 169 / 95; Pulse 90; Resp 18; Pulse Ox 98% ; ea 03:35 Body Mass Index 33.59 (78.02 kg, 152.40 cm) em MDM: 03:50 Patient medically screened. julio 04:12 Differential diagnosis: abnormal EKG, acute myocardial infarction, coronary artery julio disease chest wall pain, Cholelithiasis pancreatitis, peptic ulcer disease, pneumonia, stable angina, unstable angina. HEART Score: History: Moderately Suspicious (1), ECG: Non specific repolarization disturbance / LBTB / PM (1), Age: > 45 and < 65 years (1), Risk Factors: > or = 3 Risk factors for atherosclerotic disease (2), [Hypercholesterolemia] [Hypertension] [DM] [+ Family HX] [Obesity] Troponin: < or = 1 x Normal Limit (0). The patient was given aspirin in the Emergency Department. The patient's deep vein thrombosis risk score was calculated as follows: Total Score: 0. This patient was found to be at low risk for a deep vein thrombosis by using the Well's assessment criteria. The patient's pulmonary embolism risk score was calculated as follows: Total Score: 0-2 points. This patient was found to be at low risk for a pulmonary embolism by using the Well's assessment criteria. DAVID Risk Score: TOTAL SCORE = 0. Data reviewed: vital signs, nurses notes, lab test result(s), EKG, radiologic studies, plain films. Data interpreted: director imaging: rate is 96 beats/min, rhythm is regular, Pulse oximetry: on room air. Test interpretation: by ED physician or midlevel provider: ECG, plain radiologic studies. Counseling: I had a detailed discussion with the patient and/or guardian regarding: the historical points, exam findings, and any diagnostic results supporting the discharge/admit diagnosis, lab results, radiology results, the need for further work-up and treatment in the hospital. 05/13 03:53 Order name: Basic Metabolic Panel; Complete Time: 05: [facility] 05/13 03:53 Order name: CBC with Diff; Complete Time: 05: [facility] 05/13 03:53 Order name: LFT's; Complete Time: 05: [facility] 05/13 03:53 Order name: Magnesium; Complete Time: 05: [facility] 05/13 03:53 Order name: NT PRO-BNP; Complete Time: 05: [facility] 05/13 03:53 Order name: PT-INR; Complete Time: 05: [facility] 05/13 03:53 Order name: Troponin (emerg Dept Use Only); Complete Time: 05: [facility] 05/13 03:53 Order name: Lipase; Complete Time: 05: [facility] 05/13 05:48 Order name: SARS-COV-2 RT PCR [facility] 05/13 08:28 Order name: Glucose, Ancillary Testing [facility] 05/13 08:54 Order name: Troponin I [facility] 05/13 08:54 Order name: Lipid Profile [facility] 05/13 08:54 Order name: T4 Free [facility] 05/13 03:53 Order name: EKG; Complete Time: 03:54 [facility] 05/13 06:59 Order name: RAD [facility] 05/13 08:54 Order name: Thyroid Stimulating Hormone [facility] 05/13 10:00 Order name: Hemoglobin A1c [facility] 05/13 11:31 Order name: Glucose, Ancillary Testing [facility] 05/13 15:20 Order name: Troponin I [facility] 05/13 03:53 Order name: Cardiac monitoring; Complete Time: 04:58 [facility] 05/13 03:53 Order name: EKG - Nurse/Tech; Complete Time: 04:58 [facility] 05/13 03:53 Order name: IV Saline Lock; Complete Time: 04:58 [facility] 05/13 03:53 Order name: Labs collected and sent; Complete Time: : [facility] 05/13 03:53 Order name: O2 Per Protocol; Complete Time: 04:58 [facility] 05/13 03:53 Order name: O2 Sat Monitoring; Complete Time: 04:58 [facility] 05/13 05:02 Order name: CONS Physician Consult EDMS EC:08 Rate is 77 beats/min. Rhythm is regular. QRS [place] is Normal. IA interval is normal. QRS julio interval is normal. QT interval is normal. No Q waves. T waves are Normal. No ST changes noted. Clinical impression: NSR w/ Non-specific ST/T Changes and No evidence of ischemia. Interpreted by me. Reviewed by me. Administered Medications: 04:49 Drug: Zofran (Ondansetron) 4 mg Route: IVP; Site: right forearm; ea 05:44 Follow up: Response: No adverse reaction ea 04:50 Drug: Aspirin Chewable Tablet 324 mg Route: PO; ea 05:43 Follow up: Response: No adverse reaction ea 04:50 Drug: Pepcid (famotidine) 20 mg Route: IVP; Site: right forearm; ea 05:43 Follow up: Response: No adverse reaction ea 04:50 Drug: Nitro-Bid (nitroglycerin) Ointment 2 % 1 inches Route: Transdermal; Site: ea affected area; 04:50 Drug: Lopressor (metoprolol TARTRATE) 50 mg Route: PO; ea 05:43 Follow up: Response: No adverse reaction ea 04:50 Drug: morphine 2 mg Route: IVP; Site: right forearm; ea 04:54 Not Given (Hemodynamic Parameters): Lopressor (metoprolol) 5 mg IVP once; Hold for SBP ea <100 or HR <60. 04:54 Drug: Lovenox (enoxaparin) 1 mg/kg Route: Sub-Q; Site: right lower abdomen; ea 05:44 Follow up: Response: No adverse reaction ea 05:15 Drug: morphine 2 mg Route: IVP; Site: right forearm; ea 05:44 Follow up: Response: No adverse reaction ea 05:59 Drug: Insulin Regular Human 8 units {Co-Signature: SISSY Briscoe).} Route: Sub-Q; ea Site: left lower abdomen; 06:08 Follow up: Response: No adverse reaction ea Disposition Summary: 05/13/21 04:18 Hospitalization Ordered Hospitalization Status: Observation julio Provider: Eduardo Xie cha Condition: Fair julio Problem: new julio Symptoms: have improved julio Bed/Room Type: Standard julio Location: [facility] ER HOLD(05/13/21 05:32) tl1 Room Assignment: ERHOLD-(05/13/21 05:32) tl1 Diagnosis - Chest pain, unspecified julio - Type 2 diabetes mellitus with hyperglycemia julio - Obesity, unspecified julio - Essential (primary) hypertension julio Forms: - Medication Reconciliation Form julio - SBAR form julio Signatures: Dispatcher [employer] EDMS Arie Frey MD MD cha Munoz, Edgar, RN RN Glenna Dumont RN RN tl1 Hien Kc RN RN ea Liam, RN Gamba wg Corrections: (The following items were deleted from the chart) 04:30 03:54 CORONAVIRUS+MR.LAB.BRZ ordered. EDMS EDMS 04:59 03:54 Chest Single View+RAD.RAD.BRZ ordered. EDMS EDMS 05:32 04:18 Telemetry/MedSurg (observation) julio tl1 05:32 04:18 julio tl1
[2021-05-13 04:39] LABS: Protime INR 0.9
[2021-05-13 04:40] LABS: Absolute Lymphocytes (CBC) 1.1 K/uL (0.7-4.9); Basophils % 0.7 % (0-1.3); Hematocrit 38.2 % (36.0-45.0); Lymphocytes % 20.1 % (15.3-44.8); MPV 7.8 fL (7.6-11.3); RBC Red Blood Cell Count 5.08 M/uL (3.86-4.86)
[2021-05-13] MEDS ORDERED: MORPHINE 2 MG/ML SYR ONE ×4 (04:48→10:17)
[2021-05-13] MEDS ORDERED: NITROGLYCERIN 1 GM PKT TD ONE (04:48)
[2021-05-13] MEDS ORDERED: METOPROLOL TAR 50 MG TAB ONE (04:48)
[2021-05-13] MEDS ORDERED: ASPIRIN 81 MG CHEWABLE TABLET ONE (04:48)
[2021-05-13] MEDS ORDERED: ONDANSETRON 4 MG/2 ML VIAL ONE ×2 (04:49→10:17)
[2021-05-13] MEDS ORDERED: FAMOTIDINE 20 MG/2 ML VIAL IV ONE (04:49)
[2021-05-13] MEDS ORDERED: METOPROLOL TARTRATE 5 MG/5 ML INJ IV ONE (04:49)
[2021-05-13] MEDS ORDERED: ENOXAPARIN 80 MG/0.8 ML SQ ONE (04:49)
[2021-05-13 04:58] LABS: ALT/SGPT 80 U/L (12-78); AST/SGOT 33 U/L (15-37); Albumin 3.3 g/dL (3.4-5.0); Alkaline Phosphatase 119 U/L (45-117); BUN Blood Urea Nitrogen 13 mg/dL (7-18); Bicarbonate 27 mmol/L (21-32); Bilirubin Direct < 0.1 mg/dL (0-0.2); Bilirubin Total 0.3 mg/dL (0.2-1.0); Glucose Level 343 mg/dL (74-106); Lipase 185 U/L (73-393); Magnesium 2.2 mg/dL (1.8-2.4); NT PRO-BNP 131 pg/mL (<125); Potassium 3.9 mmol/L (3.5-5.1); Sodium Level 138 mmol/L (136-145); Troponin (Emerg Dept Use Only) < 0.02 ng/mL (0.0-0.045)
--- NOTE | 2021-05-13 05:30 | P.HP ---
Certification for Inpatient Patient admitted to: Observation With expected LOS: <2 Midnights Patient will require the following post-hospital care: None Practitioner: I am a practitioner with admitting privileges, knowledge of patient current condition, hospital course, and medical plan of care. Services: Services provided to patient in accordance with Admission requirements found in Title 42 Section 412.3 of the Code of Federal Regulations <Tom Mansfield - Last Filed: 05/13/21 05:26> Patient History Date of Service: 05/13/21 Primary Care Provider: Lion Reason for admission: chest pain History of Present Illness: Ms. Yoo is a 55 yo F with HTN, DM ,HLD who presents with 10/10 stabbing thomas al chest pain beginning today while she was in bed. She also reports nausea. Denies palpitations, lightheadedness, SOB. Glu 343. Initial troponin wnl, EKG wnl. Mother recently of an [place]. Former tobacco user, quit 1 week ago. - Past Medical/Surgical History Has patient received pneumonia vaccine in the past: No Diabetic: Yes -: HTN -: DM -: HLD -: iron -: tubal ligation - Family History Mother -: Heart disease - Social History Smoking Status: Former smoker Alcohol use: Yes CD- Drugs: No Caffeine use: Yes Place of Residence: Home <Tom Mansfield - Last Filed: 05/13/21 05:26> Date of Service: 05/13/21 <Evi Allen - Last Filed: 05/16/21 01:48> Allergies niacin Allergy (Unverified 12/21/17 13:56) Unknown Review of Systems 10-point ROS is otherwise unremarkable Cardiovascular: Chest Pain Gastrointestinal: Nausea <Tom Mansfield - Last Filed: 05/13/21 05:26> Physical Examination - Physical Exam General: Alert, In no apparent distress HEENT: Atraumatic, PERRLA, Mucous membr. moist/pink, EOMI, Sclerae nonicteric Neck: Supple, 2+ carotid pulse no bruit, No LAD, Without JVD or thyroid abnormality Respiratory: Clear to auscultation bilaterally, Normal air movement Cardiovascular: Regular rate/rhythm, Normal S1 S2 Gastrointestinal: Normal bowel sounds, No tenderness Musculoskeletal: No tenderness Integumentary: No rashes Neurological: Normal gait, Normal speech, Normal strength at 5/5 x4 extr, Normal tone, Normal affect Lymphatics: No axilla or inguinal lymphadenopathy - Studies Laboratory Data (last 24 hrs) 05/13/21 04:15: PT 10.3, INR 0.90 05/13/21 04:15: WBC 5.70, Hgb 12.6, Hct 38.2, Plt Count 262 05/13/21 04:15: Sodium 138, Potassium 3.9, BUN 13, Creatinine 0.86, Glucose 343 H, Magnesium 2.2, Total Bilirubin 0.3, AST 33, ALT 80 H, Alkaline Phosphatase 119 H, Lipase 185 <Tom Mansfield - Last Filed: 05/13/21 05:26> Assessment and Plan - Problems (Diagnosis) (1) Chest pain Status: Acute Qualifiers: Chest pain type: unspecified Qualified Code(s): R07.9 - Chest pain, unspecified (2) HTN (hypertension) Status: Chronic Qualifiers: Hypertension type: primary hypertension Qualified Code(s): I10 - Essential (primary) hypertension (3) HLD (hyperlipidemia) Status: Chronic Qualifiers: Hyperlipidemia type: unspecified Qualified Code(s): E78.5 - Hyperlipidemia, unspecified (4) T2DM (type 2 diabetes mellitus) Status: Chronic Qualifiers: Diabetes mellitus [facility] insulin use: without [facility] use Diabetes mellitus complication status: without complication Qualified Code(s): E11.9 - Type 2 diabetes mellitus without complications - Plan on telemetry, trend troponins, repeat EKG cardiology consulted daily ASA, BB, statin, PRN morphine, NTG and hydralazine lipid and thyroid panel pending sliding scale insulin, accuchecks, A1c pending DVT ppx Discharge Plan: Home Plan to discharge in: 24 Hours - Advance Directives Does patient have a Living Will: No Does patient have a Durable POA for Healthcare: No - Code Status/Comfort Care Code Status Assessed: Yes (full code ) Critical Care: No Time Spent Managing Pts Care (In Minutes): 70 <Tom Mansfield - Last Filed: 05/13/21 05:26> Date of Service: 05/13/21 Subjective: Agree with plan of care as mentioned above Physical Examination: Vitals: Afebrile vital signs are stable Physical exam: Cardiovascular: Within normal limits. Lungs: Within normal limits Abdomen: Within normal limits Neuro: Awake, alert, oriented to person place and time Assessment: 1. Chest pain rule out acute coronary syndrome Plan: 1. Continue with current plan of care 2. Outpatient cardiology workup <Evi Allen - Last Filed: 05/16/21 01:48>
[2021-05-13] MEDS ORDERED: INSULIN -REGULAR HUMAN 50 UNIT/0.5 ML ML ONE ×3 (06:16→13:02)
--- NOTE | 2021-05-13 06:59 | RAD REPORT ---
EXAM DESCRIPTION: RAD - Chest Single View - 05/13/2021 5:14 am CLINICAL HISTORY: CHEST PAIN COMPARISON: Chest Pa And Lat (2 Views) dated 12/27/2020; Chest Single View dated 07/18/2020; Chest Si ngle View dated 12/26/2019; Chest Single View dated 05/22/2019; Abdomen Pelvis W Contrast dated 2020 FINDINGS: Lines: None. Lungs: Decreased lung volumes with increased right basilar opacities. Pleural: No significant pleural effusions or pneumothorax. Cardiac: The heart size is within normal limits. Bones: No acute fractures. Other: IMPRESSION: Decreased lung volumes with increased right basilar opacities which may represent atelec tasis but pneumonia difficult to entirely exclude.
[2021-05-13] MEDS ORDERED: MORPHINE 2 MG/ML SYR IV PRN (07:27)
[2021-05-13] MEDS ORDERED: ONDANSETRON 4 MG/2 ML VIAL IV PRN (07:27)
[2021-05-13] MEDS ORDERED: ACETAMINOPHEN 500 MG TAB PO PRN (07:27)
[2021-05-13] MEDS ORDERED: METOPROLOL TAR 25 MG TAB PO SCH (07:27)
[2021-05-13] MEDS ORDERED: HYDRALAZINE HCL 20 MG/ML VIAL IV PRN (07:27)
[2021-05-13] MEDS ORDERED: NITROGLYCERIN 0.4 MG/TAB SL PRN (07:27)
[2021-05-13] MEDS: INSULIN -REGULAR HUMAN 50 UNIT/0.5 ML ML SQ SCH ×3 (07:30→16:30)
[2021-05-13] MEDS ORDERED: ASPIRIN EC 81 MG TAB PO ONE (08:10)
[2021-05-13] MEDS ORDERED: ENOXAPARIN 40 MG/0.4 ML SQ ONE (08:10)
[2021-05-13 08:54] LABS: HDL Cholesterol 25 mg/dL (40-60); LDL Cholesterol, Calculated 118 (<130); Troponin I < 0.02 ng/mL (0.0-0.045)
[2021-05-13] MEDS ORDERED: ASPIRIN EC 81 MG TAB PO SCH (09:00)
[2021-05-13] MEDS ORDERED: ENOXAPARIN 40 MG/0.4 ML SQ SCH (09:00)
[2021-05-13 09:25] VITALS: BMI 33.5
[2021-05-13] MEDS ORDERED: NITROGLYCERIN 0.4 MG/TAB SL ONE ×2 (10:07→10:28)
[2021-05-13 12:11] VITALS: O2SAT 94
[2021-05-13 16:20] VITALS: BP 132/70
[2021-05-13 17:44] VITALS: TEMP 97.4
[2021-05-13] MEDS ORDERED: ATORVASTATIN 40 MG TAB PO SCH (21:00)
--- NOTE | 2021-05-15 16:24 | CON ---
Date of Consultation: 05/13/2021 Reason For Consultation: Chest pain. History Of Present Illness: This is a 55-year-old female with history of hypertension, dyslipidemia, diabetes, presented with chest pain, was at rest while lying in bed. Denies any radiation. No vomi ting. No diaphoresis. Denies having any shortness of breath. No exertional chest pain. She has hi story of hypertension, diabetes, dyslipidemia, and completely asymptomatic at the time of my intervie w. Past Medical History: Hypertension, diabetes, dyslipidemia. Medications: Refer reconciliation sheet for detailed list. Allergies: NIACIN. Family History: Mother side, coronary artery disease. Social History: Ex-smoker. Does not drink or use drugs. Review of Systems: All systems reviewed and they were negative except for mentioned in HPI. Physical Examination: Vital Signs: Reviewed. Head and Neck: Pupils are equal, reactive to light. Intact eye movements. No JVD. No cervical lym phadenopathy. Neck is supple. Thyroid is not enlarged. Lungs: Clear to auscultation bilaterally. No rhonchi, rales, or crackles. No accessory muscle use. Heart: Regular rate and rhythm. No extra sounds. Abdomen: Soft, nontender. Bowel sounds positive. No organomegaly. No masses or hernia. No rigidi ty or rebound. Extremities: No edema, clubbing, or cyanosis. Intact pulses. Skin: No rash noted. Neurologic: Alert, awake, oriented x3. No acute focal deficits appreciated. Lymph Nodes: No cervical or axillary lymphadenopathy. Investigations: Labs were reviewed. Troponins were negative. EKG unremarkable for acute abnormalit y. Assessment And Recommendations: Chest pain, atypical, but with risk factors. Cardiac enzymes are ne gative and the patient remained chest pain free. The patient can be released and to follow up with westley virgen in the office early next week for exercise stress test and echocardiogram and in case of recurrence to return back to emergency room. Please continue aspirin 81 mg until the workup is complete. SR/MODL Voice ID: [id number] Report ID: [id number]
--- NOTE | 2021-05-16 01:49 | P.DS ---
Discharge Date: 05/13/21 Primary Care Provider: Lion Disposition: ROUTINE DISCHARGE Discharge Condition: GOOD Reason for Admission: chest pain Brief History of Present Illness: Ms. Yoo is a 55 yo F with HTN, DM ,HLD who presents with 1010 stabbing sternal chest pain beginning today while she was in bed. She also reports nausea. Denies palpitations, lightheadedness, SOB. Glu 343. Initial troponin wnl, EKG wnl. Mother recently of an [place]. Former tobacco user, quit 1 week ago. Hospital Course: Patient was ruled out for acute coronary syndrome. Patient will continue with outpatient cardiac workup. Vital Signs/Physical Exam: Temp Pulse Resp BP Pulse Ox 97.4 F 56 14 132/70 100 05/13/21 03:35 05/13/21 16:00 05/13/21 16:00 05/13/21 16:00 05/13/21 16:00 General: Alert, In no apparent distress, Oriented x3 Laboratory Data at Discharge: WBC 5.70 K/uL (4.3-10.9) 05/13/21 04:15 Hgb 12.6 g/dL (12.0-15.0) 05/13/21 04:15 Hct 38.2 % (36.0-45.0) 05/13/21 04:15 Plt Count 262 K/uL (152-406) 05/13/21 04:15 PT 10.3 SECONDS (9.5-12.5) 05/13/21 04:15 INR 0.90 05/13/21 04:15 Sodium 138 mmol/L (136-145) 05/13/21 04:15 Potassium 3.9 mmol/L (3.5-5.1) 05/13/21 04:15 BUN 13 mg/dL (7-18) 05/13/21 04:15 Creatinine 0.86 mg/dL (0.55-1.3) 05/13/21 04:15 Glucose 343 mg/dL (74-106) H 05/13/21 04:15 Magnesium 2.2 mg/dL (1.8-2.4) 05/13/21 04:15 Total Bilirubin 0.3 mg/dL (0.2-1.0) 05/13/21 04:15 AST 33 U/L (15-37) 05/13/21 04:15 ALT 80 U/L (12-78) H 05/13/21 04:15 Alkaline Phosphatase 119 U/L (45-117) H 05/13/21 04:15 Troponin I < 0.02 ng/mL (0.0-0.045) 05/13/21 14:54 Triglycerides 368 mg/dL (<150) H 05/13/21 08:05 Cholesterol 217 mg/dL (<200) H 05/13/21 08:05 HDL Cholesterol 25 mg/dL (40-60) L 05/13/21 08:05 Cholesterol/HDL Ratio 8.68 05/13/21 08:05 Lipase 185 U/L (73-393) 05/13/21 04:15 Home Medications: Aspirin [Aspirin EC 81 MG] 81 mg PO DAILY #30 tablet. 05/13/21 Atorvastatin Calcium 40 mg PO DAILY #30 tablet 05/13/21 Gabapentin [Neurontin] 100 mg PO TID 05/13/21 Hydrocodone 5/APAP 325 [[place] 5/325] 1 tab PO Q6H PRN #30 tab 05/13/21 Metformin ER [Glucophage ER] 500 mg PO DAILY 05/13/21 Nitroglycerin 0.4 mg SL DIRECTED #20 tab.subl 05/13/21 Potassium Chloride [Klor-Con 10] 10 meq PO DAILY 05/13/21 Zolpidem Tartrate [Ambien] 10 mg PO BEDTIME PRN PRN 05/13/21 New Medications: Aspirin [Aspirin EC 81 MG] 81 mg PO DAILY #30 tablet. Atorvastatin Calcium 40 mg PO DAILY #30 tablet Nitroglycerin 0.4 mg SL DIRECTED #20 tab.subl Hydrocodone 5/APAP 325 [[place] 5/325] 1 tab PO Q6H PRN #30 tab PRN Reason: Pain Physician Discharge Instructions: OK TO DC IV AND DC home FOLLOW-UP WITH PRIMARY CARE PROVIDER IN 1-2 WEEKS FOLLOW-UP WITH CARDIOLOGY IN 1-2 WEEKS RETURN TO THE ER IF symptoms worsen CALL or TEXT DR. CANCHOLA AT [phone] IF ANY QUESTIONS REGARDING HOSPITAL STAY. PLEASE CALL THE FLOOR AT [phone] IF ANY MEDICATION OR NURSING QUESTIONS. Diet: AHA (1800kcal ADA diet) Activity: Fall precautions Followup: NONE,NONE [Primary Care Provider] - Time spent managing pt's care (in minutes): 35
--- NOTE | 2021-05-16 08:10 | ECHO ---
HEIGHT: 5 ft 0 in WEIGHT: 172 lb 0 oz DATE OF STUDY: 05/13/[address]: Evi Allen MD 2-DIMENSIONAL: YES M.MODE: YES DOPPLER: YES COLOR FLOW: YES TDS: PORTABLE: DEFINITY: BUBBLE STUDY: DIAGNOSIS: CARDIAC HISTORY: CATHERIZATION: SURGERY: PROSTHETIC VALVE: PACEMAKER: MEASUREMENTS (cm) DIASTOLIC (NORMALS) SYSTOLIC (NORMALS) IVSd 1.1 (0.6-1.2) LA Diam 3.6 (1.9-4.0) LVEF 68% LVIDd 3.7 (3.5-5.7) LVIDs 2.4 (2.0-3.5) %FS 37% LVPWd 0.8 (0.6-1.2) Ao Diam 2.5 (2.0-3.7) 2 DIMENSIONAL ASSESSMENT: RIGHT ATRIUM: NORMAL LEFT ATRIUM: NORMAL RIGHT VENTRICLE: NORMAL LEFT VENTRICLE: NORMAL TRICUSPID VALVE: MILD TRICUSPID REGURGITATION MITRAL VALVE: MILD MITRAL REGURGITATION PULMONIC VALVE: NORMAL AORTIC VALVE: NORMAL PERICARDIAL EFFUSION: NONE AORTIC ROOT: NORMAL LEFT VENTRICULAR WALL MOTION: NORMAL DOPPLER/COLOR FLOW: SEE BELOW COMMENTS: NORMAL LEFT VENTRICULAR EJECTION FRACTION 60-65%. MILD MITRAL REGURGITATION. MILD TRICUSPID REGURGITATION. TECHNOLOGIST: WINNIE CHILDERS
== END 2021-05-13 17:20 | disposition home or self-care (01) ==
LOC: ER 03:11 → ERHOLD 05:09
PROVIDERS: ADMIT Hospitalist; ATTEND Hospitalist
DX: R07.89 Other chest pain (principal); I10 Essential (primary) hypertension; E11.65 Type 2 diabetes mellitus with hyperglycemia; E78.5 Hyperlipidemia, unspecified; J45.909 Unspecified asthma, uncomplicated; G47.00 Insomnia, unspecified; F32.9 Major depressive disorder, single episode, unspecified; E66.9 Obesity, unspecified; Z68.33 Body mass index [BMI] 33.0-33.9, adult; Z20.822 Contact with and (suspected) exposure to COVID-19; Z87.891 Personal history of nicotine dependence; Z88.8 Allergy status to other drugs, medicaments and biological substances; Z91.018 Allergy to other foods; Z90.49 Acquired absence of other specified parts of digestive tract; Z82.49 Family history of ischemic heart disease and other diseases of the circulatory system
CPT/HCPCS: 36415; 71045; 80048; 80061; 80076; 82947; 83036; 83690; 83735; 83880; 84439; 84443; 84484; 85025; 85610; 93005; 93306; 94760; 96372; 96374; 96375; 99285; G0378; J1650; J2270; J2405; U0003

== ENCOUNTER 2021-09-06 20:34 | Emergency (ER) | payer OTHER ==
--- OUTSIDE RECORDS SUMMARY | 2021-09-06 20:37 | XMS REPORT | Continuity of Care Document ---
:1965 Author Organization [facility] t Address [address] [place] [address] Care Team Providers Name Role Phone PCP, PATIENT DOES NOT HAVE A Primary Care Physician Unavaila Aurora Ramirez Attending Clinician Unavailable Lab, Fam Pob I Attending Clinician Unavailable Elizabeth LOPEZ Attending Clinician ELIZABETH Attending Clinician Unavailable Payers Payer Name Policy Type Policy Number Effective Date Expiration Date S ource Problems This patient has no known problems. Allergies, Adverse Reactions, Alerts Allergy Allergy Status Severity Reaction(s) Onset Inactive Treating Comm ents Source Name Type Date Date Clinician NO KNOWN Drug Active Univers ALLERGIE Class [facility] Social History Social Habit Start Date Stop Date Quantity Comments Source [facility] Status Start Date Stop Date Source Unknown if ever smoked [facility] Medications This patient has no known medications. Procedures This patient has no known procedures. Encounters Start End Encounter Admission Attending Care Care Encounter Source Date/Time Date/Time Type Type Clinicians Facility Department ID 2021-04-26 2021-04-26 [facility] [id number] 2020-11-25 2020-11-25 Outpatient Max SHAW [facility] [id number] Luis Daniel 08:50:00 08:41:49 TOYIN [facility] 2020-03-08 2020-03-08 Laboratory Lab, [facility] [id number] 11:13:22 11:33:22 Only Fam Pob I Health [id number] [place] [id number] Professio [phone] [place] [address] [address] 2020-03-08 2020-03-08 Laboratory Lab, Adc Fam Pob I [facility] [id number] [facility] 11:13:22 11:33:22 Only Khoa [facility] [id number] ity bella [place] [id number] Alvin as Professio [phone] dical [place] [address] [address] 2020-03-08 2020-03-08 Outpatient R ELIZABETH [facility] [id number] Univers 11:20:00 11:20:[address] [facility] Results This patient has no known results.
[2021-09-06] MEDS ORDERED: ACETAMINOPHEN 500 MG TAB ONE (21:35)
[2021-09-06] MEDS ORDERED: ONDANSETRON 4 MG (ODT) TAB ONE (21:46)
[2021-09-06 22:39] LABS: SARS-COV-2 RT PCR POSITIVE (NEGATIVE)
[2021-09-06] MEDS ORDERED: NA CHLORIDE 0.9% 1,000 ML ONE (22:44)
[2021-09-06 22:53] LABS: Urine Blood Negative (Negative); Urine Glucose Negative (Negative); Urine Protein Negative (Negative); Urine Specific Gravity 1.025 (1.005-1.030)
[2021-09-06 23:03] LABS: Absolute Lymphocytes (CBC) 0.6 K/uL (0.7-4.9); Hematocrit 36.2 % (36.0-45.0); Lymphocytes % 9.8 % (15.3-44.8); MPV 7.8 fL (7.6-11.3)
[2021-09-06 23:04] LABS: Protime INR 1.06
[2021-09-06 23:44] LABS: ALT/SGPT 41 U/L (12-78); AST/SGOT 28 U/L (15-37); Albumin 2.9 g/dL (3.4-5.0); Alkaline Phosphatase 92 U/L (45-117); BUN Blood Urea Nitrogen 12 mg/dL (7-18); Bicarbonate 25 mmol/L (21-32); Bilirubin Direct < 0.1 mg/dL (0-0.2); Bilirubin Total 0.2 mg/dL (0.2-1.0); Glucose Level 139 mg/dL (74-106); Lipase 152 U/L (73-393); Magnesium 2.3 mg/dL (1.8-2.4); NT PRO-BNP 76 pg/mL (<125); Protein, Total 6.8 g/dL (6.4-8.2); Sodium Level 143 mmol/L (136-145); Troponin (Emerg Dept Use Only) < 0.02 ng/mL (0.0-0.045)
--- NOTE | 2021-09-07 01:33 | EDPHYS ---
Physician Documentation [facility] Name: Erma Yoo Age: 55 yrs Sex: Female : 1965 Arrival Date: 09/06/2021 Time: 21:04 Bed 15 Private MD: ED Physician Cory Worthington HPI: 09/06 22:38 This 55 yrs old Female presents to ER via Ambulatory with complaints of Cough. mh7 22:38 The patient or guardian reports cough, that is intermittent, described as moderate, mh7 with no sputum, flu symptoms, low-grade fever, myalgias, Body aches, fever. Onset: The symptoms/episode began/occurred 3 day(s) ago. Severity of symptoms: At their worst the symptoms were moderate, yesterday, in the emergency department the symptoms are unchanged. Modifying factors: The symptoms are alleviated by nothing, Did not take any medication the symptoms are aggravated by nothing. Associated signs and symptoms: Pertinent positives: chest pain, with cough, fever, nausea, rhinorrhea, vomiting, Pertinent negatives: diarrhea, ear ache, sore throat. 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 tw Historical: - Allergies: 21:36 Niacin (Hives, Respiratory distress); tw5 21:36 Cheese; tw - Home Meds: 21:36 Ambien 5 mg Oral tab 1 tab once daily [Active]; atorvastatin 10 mg Oral tab 1 tab once tw5 daily [Active]; losartan 25 mg oral tab 1 tab once daily [Active]; metformin 1,000 mg Oral tab 1 tab 2 times per day [Active]; Topamax 50 mg Oral tab 1 tab 2 times per day [Active]; Advair Diskus Inhl [Active]; bupropion HCl 150 mg Oral Tb24 1 tab once daily [Active]; venlafaxine 75 mg Oral tr24 1 tab once daily [Active]; - PMHx: 21:36 Asthma; Depression; Diabetes - NIDDM; Hypertension; insomnia; tw5 - PSHx: 21:36 Ligation of fallopian tube; Cholecystectomy; tw5 ROS: 22:38 Eyes: Negative for injury, pain, redness, and discharge, ENT: Negative for injury, mh7 pain, and discharge, Neck: Negative for injury, pain, and swelling. 22:38 Back: Negative for injury and pain, : Negative for injury, bleeding, discharge, and swelling, MS/Extremity: Negative for injury and deformity, Skin: Negative for injury, rash, and discoloration, Neuro: Negative for headache, weakness, numbness, tingling, and seizure, Psych: Negative for depression, anxiety, suicide ideation, homicidal ideation, and hallucinations, Allergy/Immunology: Negative for hives, rash, and allergies, Endocrine: Negative for neck swelling, polydipsia, polyuria, polyphagia, and marked weight changes, Hematologic/Lymphatic: Negative for swollen nodes, abnormal bleeding, and unusual bruising. 22:38 Abdomen/GI: Negative for abdominal pain, diarrhea, constipation, abdominal cramps, abdominal distension, anorexia, dysphagia, hematemesis, black/tarry stool, rectal pain, rectal bleeding, bowel incontinence, flatulence. Exam: 22:38 Head/Face: Normocephalic, atraumatic. Eyes: Pupils equal round and reactive to light, mh7 extra-ocular motions intact. Lids and lashes normal. Conjunctiva and sclera are non-icteric and not injected. Cornea within normal limits. Periorbital areas with no swelling, redness, or edema. Neck: Trachea midline, no thyromegaly or masses palpated, and no cervical lymphadenopathy. Supple, full range of motion without nuchal rigidity, or vertebral point tenderness. No Meningismus. Chest/axilla: Normal chest wall appearance and motion. Nontender with no deformity. No lesions are appreciated. 22:38 Respiratory: Lungs have equal breath sounds bilaterally, clear to auscultation and percussion. No rales, rhonchi or wheezes noted. No increased work of breathing, no retractions or nasal flaring. Abdomen/GI: Soft, non-tender, with normal bowel sounds. No distension or tympany. No guarding or rebound. No evidence of tenderness throughout. Back: No spinal tenderness. No costovertebral tenderness. Full range of motion. Skin: Warm, dry with normal turgor. Normal color with no rashes, no lesions, and no evidence of cellulitis. MS/ Extremity: Pulses equal, no cyanosis. Neurovascular intact. Full, normal range of motion. Neuro: Awake and alert, GCS 15, oriented to person, place, time, and situation. Cranial nerves II-XII grossly intact. Motor strength 5/5 in all extremities. Sensory grossly intact. Cerebellar exam normal. Normal gait. Psych: Awake, alert, with orientation to person, place and time. Behavior, mood, and affect are within normal limits. 22:38 Constitutional: The patient appears in no acute distress, alert, awake, uncomfortable. 22:38 Cardiovascular: Rate: tachycardic, Rhythm: regular, Pulses: no pulse deficits are appreciated, Heart sounds: normal, normal S1and S2, Edema: is not appreciated, JVD: is not appreciated. Vital Signs: 21:33 BP 131 / 83; Pulse 123; Resp 20; Temp 101.5; Pulse Ox 99% on R/A; Weight 67.59 kg; tw5 Height 5 ft. 0 in. (152.40 cm); Pain 8/10; 23:18 BP 111 / 70; Pulse 105; Resp 20; Pulse Ox 96% on R/A; ic1 09/07 00:06 BP 111 / 62; Pulse 91; Resp 16; Pulse Ox 98% on R/A; ic1 01:18 BP 106 / 55; Pulse 86; Resp 16; Pulse Ox 95% on R/A; ic1 01:32 Temp 99.1(O); ic1 09/06 21:33 Body Mass Index 29.10 (67.59 kg, 152.40 cm) tw5 Gloria Coma Score: 09/06 23:20 Eye Response: spontaneous(4). Verbal Response: oriented(5). Motor Response: obeys ic1 commands(6). Total: 15. MDM: 09/07 01:31 Differential Diagnosis: Bronchitis Influenza Upper Respiratory Infection Sinusitis mh7 Allergic Rhinitis Asthma Exacerbation Viral Syndrome Pneumonia. Data reviewed: vital signs, nurses notes, lab test result(s), cardiac enzymes, CBC, electrolytes, Flu: negative urinalysis, Covid positive. Data interpreted: Pulse oximetry: on room air is 96 %. Interpretation: normal. Counseling: I had a detailed discussion with the patient and/or guardian regarding: the historical points, exam findings, and any diagnostic results supporting the discharge/admit diagnosis, lab results, radiology results, the need for outpatient follow up, to return to the emergency department if symptoms worsen or persist or if there are any questions or concerns that arise at home. Response to treatment: the patient's symptoms have markedly improved after treatment, patient is well hydrated. 01:[address] [facility] 09/06 21:38 Order name: COVID-19/FLU A+B (Document "Date of Onset" if Symptomatic) [facility] 09/06 21:39 Order name: COVID-19/FLU A+B; Complete Time: 23:23 MS 09/06 22:37 Order name: Basic Metabolic Panel [facility] 09/06 22:37 Order name: CBC with Diff; Complete Time: 23:23 [facility] 09/06 22:37 Order name: LFT's; Complete Time: 23:48 [facility] 09/06 22:37 Order name: Magnesium; Complete Time: 23:48 [facility] 09/06 22:37 Order name: NT PRO-BNP; Complete Time: 23:48 [facility] 09/06 22:37 Order name: PT-INR; Complete Time: 00:03 [facility] 09/06 22:37 Order name: Troponin (emerg Dept Use Only); Complete Time: 23:48 [facility] 09/06 22:37 Order name: Lipase; Complete Time: 23:48 [facility] 09/06 22:37 Order name: Basic Metabolic Panel; Complete Time: 23:48 EDCT 09/06 22:52 Order name: Urine Dipstick-Ancillary; Complete Time: 23:23 [facility] 09/06 23:49 Order name: D-Dimer [facility] 09/06 21:38 Order name: EKG; Complete Time: 21:38 [facility] 09/06 21:38 Order name: EKG - Nurse/Tech; Complete Time: 21:46 [facility] 09/06 22:37 Order name: XRAY Chest (1 view) [facility] 09/06 22:37 Order name: Cardiac monitoring; Complete Time: 22:46 [facility] 09/06 22:37 Order name: IV Saline Lock; Complete Time: 22:46 [facility] 09/06 22:37 Order name: Labs collected and sent; Complete Time: 22:46 [facility] 09/06 22:37 Order name: O2 Per Protocol; Complete Time: 22:46 [facility] 09/06 22:37 Order name: O2 Sat Monitoring; Complete Time: 22:46 [facility] 09/06 22:37 Order name: Urine Dipstick-Ancillary (obtain specimen); Complete Time: 22:53 [facility] 09/06 23:51 Order name: D-Dimer; Complete Time: 00:03 EDCT 09/07 00:03 Order name: CT Chest For PE Angio mh7 Administered Medications: 09/06 21:36 Drug: Tylenol 1000 mg Route: PO; ld1 21:46 Drug: Ondansetron 4 mg Route: PO; tw5 22:45 Drug: NS 0.9% 1000 ml Route: IV; Rate: 1000 ml; Site: right forearm; ic1 23:40 Follow up: IV Status: Completed infusion; IV Intake: 950ml ic1 Disposition Summary: 09/07/21 01:32 Discharge Ordered Location: Home [facility] Problem: [facility] Symptoms: have improved mh Condition: Stable [facility] Diagnosis - Coronavirus infection, unspecified [facility] Followup: [facility] - With: Private Physician - When: 1 - 2 days - Reason: Worsening of condition, Recheck today's complaints, Continuance of care, Re-evaluation by your physician Discharge Instructions: - Discharge Summary Sheet [facility] - COVID-19 [facility] - COVID-[address] [facility] - 10 Things You Can Do to Manage Your COVID-19 Symptoms at Home - [place] [id number] - COVID-19: Quarantine vs. Isolation - [place] [address] Forms: - Medication Reconciliation Form 7 - Thank You Letter 7 - Antibiotic Education 7 - Prescription Opioid Use [facility] - SBAR form bb - Work release form cs9 Prescriptions: - albuterol sulfate 90 mcg/actuation Inhalation HFA aerosol inhaler - inhale 2 puff by INHALATION route every 6 hours As needed; 1 Inhaler; Refills: 7 0, Product Selection Permitted - Tessalon Perles 100 mg Oral Capsule - take 1 capsule by ORAL route every 8 hours As needed; 15 capsule; Refills: 0, mh7 Product Selection Permitted - Zithromax Z-Franklin 250 mg Oral Tablet - take 1 tablet by ORAL route as directed for 5 days Day 1 - take two (2) tablets [facility] [place] one time. Day 2, 3, 4 , 5 take one (1) tablet once daily.; 6 tablet; Refills: 0, Product Selection Permitted Signatures: Dispatcher [employer] Cory Gaffney MD MD 7 Jaz Malin RN RN ld1 Melany Pleitez tw5 Letitia Booker RN RN ic1 Corrections: (The following items were deleted from the chart) 23:51 23:49 D-Dimer ordered. EDMS EDMS
--- NOTE | 2021-09-07 01:33 | ER ---
Nurse's Notes [facility] Name: Erma Yoo Age: 55 yrs Sex: Female : 1965 Arrival Date: 09/06/2021 Time: 21:04 Bed 15 Private MD: Diagnosis: Coronavirus infection, unspecified Presentation: 09/06 21:34 Chief complaint: Patient states: "I am so sick, I was in contact with someone that had tw5 the covid on Sunday. On Sunday I started to not feel well. I have been so tired, and dizzy since.". Coronavirus screen: Vaccine status: Patient reports receiving the 2nd dose of the covid vaccine. [employer]. Ebola Screen: Patient negative for fever greater than or equal to 101.5 degrees Fahrenheit, and additional compatible Ebola Virus Disease symptoms Patient denies exposure to infectious person. Patient denies travel to an Ebola-affected area in the 21 days before illness onset. Initial Sepsis Screen: Does the patient meet any 2 criteria? Temp <36.0*C (96.8*F)) or > 38.3*C (100.9*F). HR > 90 bpm. Does the patient have a suspected source of infection? No. Patient's initial sepsis screen is negative. Risk Assessment: Do you want to hurt yourself or someone else? Patient reports no desire to harm self or others. Onset of symptoms was September 03, 2021. 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 Historical: - Allergies: 21:36 Niacin (Hives, Respiratory distress); tw 21:36 Cheese; tw - Home Meds: 21:36 Ambien 5 mg Oral tab 1 tab once daily [Active]; atorvastatin 10 mg Oral tab 1 tab once tw5 daily [Active]; losartan 25 mg oral tab 1 tab once daily [Active]; metformin 1,000 mg Oral tab 1 tab 2 times per day [Active]; Topamax 50 mg Oral tab 1 tab 2 times per day [Active]; Advair Diskus Inhl [Active]; bupropion HCl 150 mg Oral Tb24 1 tab once daily [Active]; venlafaxine 75 mg Oral tr24 1 tab once daily [Active]; - PMHx: 21:36 Asthma; Depression; Diabetes - NIDDM; Hypertension; insomnia; tw5 - PSHx: 21:36 Ligation of fallopian tube; Cholecystectomy; tw5 Screenin:34 Abuse screen: Denies threats or abuse. Denies injuries from another. Nutritional tw5 screening: No deficits noted. Tuberculosis screening: No symptoms or risk factors identified. Fall Risk No fall in past 12 months (0 pts). Secondary diagnosis (15 points). Assessment: 23:19 Reassessment: No changes from previously documented assessment. General: Appears in no ic1 apparent distress. Behavior is calm, cooperative. Pain: Denies pain. Neuro: No deficits noted. 23:20 Cardiovascular: No deficits noted. Respiratory: No deficits noted. GI: No deficits ic1 noted. : No deficits noted. EENT: No deficits noted. Derm: No deficits noted. Musculoskeletal: No deficits noted. 09/07 00:09 Reassessment: Patient appears in no apparent distress at this time. Patient and/or ic1 family updated on plan of care and expected duration. Pain level reassessed. Vital Signs: 09/06 21:33 BP 131 / 83; Pulse 123; Resp 20; Temp 101.5; Pulse Ox 99% on R/A; Weight 67.59 kg; tw5 Height 5 ft. 0 in. (152.40 cm); Pain 8/10; 23:18 BP 111 / 70; Pulse 105; Resp 20; Pulse Ox 96% on R/A; ic1 09/07 00:06 BP 111 / 62; Pulse 91; Resp 16; Pulse Ox 98% on R/A; ic1 01:18 BP 106 / 55; Pulse 86; Resp 16; Pulse Ox 95% on R/A; ic1 01:32 Temp 99.1(O); ic1 09/06 21:33 Body Mass Index 29.10 (67.59 kg, 152.40 cm) tw5 Gloria Coma Score: 09/06 23:20 Eye Response: spontaneous(4). Verbal Response: oriented(5). Motor Response: obeys ic1 commands(6). Total: 15. ED Course: 21:04 Patient arrived in ED. ag3 21:36 Triage completed. tw5 21:46 COVID-19/FLU A+B Sent. tw5 21:46 COVID-19/FLU A+B (Document "Date of Onset" if Symptomatic) Sent. tw5 22:24 Cory Worthington MD is Attending Physician. 7 22:59 XRAY Chest (1 view) In Process Unspecified. EDMS 23:20 Inserted saline lock: 20 gauge in right antecubital area, using aseptic technique. ic1 23:20 Patient has correct armband on for positive identification. Placed in gown. Bed in low ic1 position. Call light in reach. Side rails up X 1. Side rails up X2. 09/07 00:02 Notified ED physician of a critical lab result(s). D-dimer 839 Dr Worthington notified. bb 00:31 CT Chest For PE Angio In Process Unspecified. EDMS Administered Medications: 09/06 21:36 Drug: Tylenol 1000 mg Route: PO; ld1 21:46 Drug: Ondansetron 4 mg Route: PO; tw5 22:45 Drug: NS 0.9% 1000 ml Route: IV; Rate: 1000 ml; Site: right forearm; ic1 23:40 Follow up: IV Status: Completed infusion; IV Intake: 950ml ic1 Intake: 23:40 IV: 950ml; Total: 950ml. ic1 Outcome: 09/07 01:32 Discharge ordered by . [facility] 02:06 Discharged to home ambulatory. ic1 02:06 Condition: stable 02:06 Discharge instructions given to patient, Instructed on discharge instructions, follow up and referral plans. Demonstrated understanding of instructions, follow-up care, medications, Prescriptions given X 3. 02:07 Patient left the ED. ic1 Signatures: Dispatcher [employer] EDMS Maris Allen, RN RN bb Alize Heredia 3 Cory Worthington MD MD 7 Jaz Malin RN RN ld1 Melany Pleitez tw5 Letitia Booker RN RN ic1
[2021-09-07 02:40] VITALS: BP 106/55; O2SAT 95
[2021-09-07 02:41] VITALS: TEMP 99.1
--- NOTE | 2021-09-07 07:47 | RAD REPORT ---
EXAM DESCRIPTION: RAD - Chest Single View - 09/06/2021 10:59 pm CLINICAL HISTORY: COUGH COMPARISON: Chest Single View dated 05/13/2021; Chest Pa And Lat (2 Views) dated 12/27/2020; Chest Sin gle View dated 07/18/2020; Chest Single View dated 12/26/2019 FINDINGS: Lines: None. Lungs: No evidence of edema or pneumonia. Pleural: No significant pleural effusions or pneumothorax. Cardiac: The heart size is within normal limits. Bones: No acute fractures. Other: IMPRESSION: No acute cardiopulmonary disease.
--- NOTE | 2021-09-07 11:23 | EKG ---
Test Date: 2021-09-06 Test Time: 21:43:29 Cigarette And Filter Chief Inspector: JANE MEASUREMENT RESULTS: Intervals: Rate: 114 VA: 148 QRSD: 64 QT: 340 QTc: 468 Lafe: P: 53 VA: 148 QRS: 39 T: 23 INTERPRETIVE STATEMENTS: Sinus tachycardia Nonspecific T wave abnormality Abnormal ECG Compared to ECG 05/13/2021 03:59:26 Sinus rhythm no longer present T-wave abnormality still present Electronically Signed On 09-07-21 11:22:14 CARPENTER REPAIR by Ezio Berumen
--- NOTE | 2021-09-07 13:27 | RAD REPORT ---
EXAM DESCRIPTION: CT - Chest For Pe Angio - 09/07/2021 7:18 am CLINICAL HISTORY: 55 years Female Cough; chest pain COMPARISON: None Available TECHNIQUE: Axial CT angiography of the chest was performed with multiplanar reformation and 3D and M IP reconstruction. This exam was performed according to our departmental dose-optimization program, w hich includes automated exposure control, adjustment of the mA and/or kV according to patient size an d/or use of iterative reconstruction technique. FINDINGS: Pulmonary arteries: No evidence of pulmonary embolism. Aorta: No evidence of aortic dissection or aneurysm. Mediastinum: Unremarkable. No adenopathy. Heart: Heart is normal in size. No pericardial effusion. Lungs / airways: Minimal bibasilar dependent atelectasis. Airways are patent. Pleura: No significant pleural effusion. No pneumothorax. Osseous: Unremarkable. Soft tissues: Unremarkable. Visualized upper abdomen: Unremarkable. IMPRESSION: No acute intrathoracic abnormality. Electronically signed by: Nathaniel Diamond MD 09/07/2021 12:56 AM LAWNMOWER REPAIR MECHANIC Due to temporary technical issues with the PACS/Fluency reporting system, reports are being signed by the in house radiologist without review as a courtesy to ensure prompt reporting. The interpreting r adiologist is fully responsible for the content of the report.
== END 2021-09-07 02:07 | disposition home or self-care (01) ==
LOC: ER 20:34
DX: U07.1 COVID-19 (principal)
CPT/HCPCS: 93005; 85025; 80048; 36415; 83735; 85610; 85379; 80076; 81003; 84484; 83690; 83880; 0240U; 71275; 71045; 96360; 99284; Q9967; J7030

== ENCOUNTER 2021-09-28 14:50 | Emergency (ER) | payer OTHER ==
--- OUTSIDE RECORDS SUMMARY | 2021-09-28 14:52 | XMS REPORT | Continuity of Care Document ---
:1965 Author Organization [facility] t Address [address] [place] [address] Care Team Providers Name Role Phone PCP, PATIENT DOES NOT HAVE A Primary Care Physician UnavailAurora Gabriel Attending Clinician Unavailable Lab, Fam Pob I [...] NO KNOWN Drug Active Univers ALLERGIE Class [facility] Social History Social Habit Start Date Stop Date Quantity Comments Source Sex Assigned At Uni versity [facility] Smoking Status Start Date Stop Date Source Unknown if ever smoked Universit y [facility] Medications This patient has no known medications. Procedures This patient has no known procedures. Encounters Start End Encounter Admission Attending Care Care Encounter Source Date/Time Date/Time Type Type Clinicians Facility Department ID 2021-09-28 Outpatient [facility] [id number] [facility] 13:41:50 [id number] 2021-04-26 2021-04-26 Outpatient [facility] [id number] [facility] 00:00:00 00:00:00 [facility] 2020-11-25 2020-11-25 Outpatient Max SHAW [facility] [id number] [facility] 08:50:00 08:41:49 TOYIN ity [facility] 2020-03-08 2020-03-08 Laboratory Lab, [facility] [id number] 11:13:22 11:33:22 Only Fam Pob I Health [id number] [place] [id number] Professio [phone] [place] [address] [address] 2020-03-08 2020-03-08 Laboratory Lab, [facility] Fam Pob I [facility] [id number]. [id number] Univers 11:13:22 11:33:22 Only Elizabeth [facility] [id number] [facility] [id number] Alvin as Professio [phone] [place] [address] 2020-03-08 2020-03-08 Outpatient R ELIZABETH [facility] [id number] Univers 11:20:00 [facility]20[facility] This patient has no known results.
--- NOTE | 2021-09-28 15:12 | ER ---
Nurse's Notes [facility] Name: Erma Yoo Age: 55 yrs Sex: Female : 1965 Arrival Date: 09/28/2021 Time: 14:53 Bed Waiting Private MD: Marvin Seymour Diagnosis: Disorder of teeth and supporting structures, unspecified Presentation: 09/28 15:00 Chief complaint: Patient states: "I had a tooth breath on the bottom right side and now jd3 it is swelling on the right side and hurts. I just need something to help until I can get in to see the dentist.". Coronavirus screen: At this time, the client does not indicate any symptoms associated with coronavirus-19. Ebola Screen: No symptoms or risks identified at this time. Initial Sepsis Screen: Does the patient meet any 2 criteria? No. Patient's initial sepsis screen is negative. Does the patient have a suspected source of infection? No. Patient's initial sepsis screen is negative. Risk Assessment: Do you want to hurt yourself or someone else? Patient reports no desire to harm self or others. Onset of symptoms was September 27, 2021. 15:00 Method Of Arrival: Ambulatory jd3 15:00 Acuity: VINNY 4 jd3 Triage Assessment: 15:23 EENT: Reports pain in lower right second bicuspid (#29). 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 N/A - Irregular menses jd3 Historical: - Allergies: 15:02 Cheese; jd3 15:02 Niacin (Hives, Respiratory distress); jd3 - Home Meds: 15:02 Ambien 5 mg Oral tab 1 tab once daily [Active]; bupropion HCl 150 mg Oral Tb24 1 tab jd3 once daily [Active]; Advair Diskus Inhl [Active]; metformin 1,000 mg Oral tab 1 tab 2 times per day [Active]; losartan 25 mg Oral tab 1 tab once daily [Active]; venlafaxine 75 mg Oral tr24 1 tab once daily [Active]; atorvastatin 10 mg Oral tab 1 tab once daily [Active]; Topamax 50 mg Oral tab 1 tab 2 times per day [Active]; - PMHx: 15:02 Depression; Hypertension; Diabetes - NIDDM; Asthma; insomnia; jd3 - PSHx: 15:02 Cholecystectomy; Ligation of fallopian tube; jd3 - Immunization history:: Adult Immunizations up to date, Client reports receiving the 2nd dose of the Covid vaccine, Flu vaccine is up to date. - Social history:: Smoking status: Patient reports the use of cigarette tobacco products, denies chronic smoking, but will smoke occasionally. Screenin:23 Abuse screen: Denies threats or abuse. Nutritional screening: No deficits noted. jd3 Tuberculosis screening: No symptoms or risk factors identified. Fall Risk Ambulatory Aid- None/Bed Rest/Nurse Assist (0 pts). Gait- Normal/Bed Rest/Wheelchair (0 pts) Mental Status- Oriented to own ability (0 pts). Total Gu Fall Scale indicates No Risk (0-24 pts). Assessment: 15:21 General: Appears in no apparent distress. comfortable, Behavior is calm, cooperative, jd3 appropriate for age. Pain: Complains of pain in mouth and lower right second bicuspid (#29) Quality of pain is described as sharp, tender. Neuro: Level of Consciousness is awake, alert, obeys commands, Oriented to person, place, time, situation. Cardiovascular: Capillary refill < 3 seconds Patient's skin is warm and dry. Respiratory: Airway is patent Respiratory effort is even, unlabored, Respiratory pattern is regular, symmetrical. GI: No signs and/or symptoms were reported involving the gastrointestinal system. : No signs and/or symptoms were reported regarding the genitourinary system. EENT: Dental caries noted in lower right second bicuspid (#29). Derm: Skin is intact, Skin is dry, Skin is normal, Skin temperature is warm. Musculoskeletal: Circulation, motion, and sensation intact. Range of motion: intact in all extremities. Vital Signs: 15:03 BP 175 / 102; Pulse 97; Resp 18 S; Temp 98.0(TE); Pulse Ox 100% on R/A; Weight 68.04 kg jd3 (R); Height 5 ft. 0 in. (152.40 cm) (R); Pain 9/10; 15:03 Body Mass Index 29.29 (68.04 kg, 152.40 cm) jd3 ED Course: 14:53 Patient arrived in ED. as 14:54 Marvin Seymour MD is Private Physician. as 15:02 Triage completed. jd3 15:04 Arm band placed on. jd3 15:06 Arie Milner PA is PHCP. cp 15:06 Evi Kim MD is Attending Physician. cp 15:11 Ken Carroll DDS is Referral Physician. cp 15:21 Duncan Sanchez, RN is Primary Nurse. jd3 15:23 Patient has correct armband on for positive identification. Bed in low position. Call jd3 light in reach. Side rails up X 1. Pulse ox on. NIBP on. 15:23 No provider procedures requiring assistance completed. Patient did not have IV access jd3 during this emergency room visit. Administered Medications: No medications were administered Outcome: 15:11 Discharge ordered by MD. cp 15:23 Discharged to home ambulatory. jd3 15:23 Condition: stable 15:23 Discharge instructions given to patient, Instructed on discharge instructions, follow up and referral plans. medication usage, Demonstrated understanding of instructions, follow-up care, medications, Prescriptions given X 2. 15:24 Patient left the ED. jd3 Signatures: Milena Roman as Arie Milner PA PA cp Duncan Sanchez, RN RN jd3
--- NOTE | 2021-09-28 15:12 | EDPHYS ---
Physician Documentation [facility] Name: Erma Yoo Age: 55 yrs Sex: Female : 1965 Arrival Date: 09/28/2021 Time: 14:53 Bed Waiting Private MD: Marvin Seymour ED Physician Evi Kim HPI: 09/28 15:06 This 55 yrs old Female presents to ER via Ambulatory with complaints of cp Toothache. 15:06 The patient presents with broken tooth/teeth, pain. The problem is located in the right cp lower jaw. Onset: The symptoms/episode began/occurred yesterday. Duration: The symptoms are continuous. Associated signs and symptoms: Pertinent negatives: anorexia, dysphagia, fever, inability to eat, swelling. Severity of symptoms: in the emergency department the symptoms are unchanged, despite home interventions. 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/A - Irregular menses jd3 Historical: - Allergies: 15:02 Cheese; jd3 15:02 Niacin (Hives, Respiratory distress); jd3 - Home Meds: 15:02 Ambien 5 mg Oral tab 1 tab once daily [Active]; bupropion HCl 150 mg Oral Tb24 1 tab jd3 once daily [Active]; Advair Diskus Inhl [Active]; metformin 1,000 mg Oral tab 1 tab 2 times per day [Active]; losartan 25 mg Oral tab 1 tab once daily [Active]; venlafaxine 75 mg Oral tr24 1 tab once daily [Active]; atorvastatin 10 mg Oral tab 1 tab once daily [Active]; Topamax 50 mg Oral tab 1 tab 2 times per day [Active]; - PMHx: 15:02 Depression; Hypertension; Diabetes - NIDDM; Asthma; insomnia; jd3 - PSHx: 15:02 Cholecystectomy; Ligation of fallopian tube; jd3 - Immunization history:: Adult Immunizations up to date, Client reports receiving the 2nd dose of the Covid vaccine, Flu vaccine is up to date. - Social history:: Smoking status: Patient reports the use of cigarette tobacco products, denies chronic smoking, but will smoke occasionally. ROS: 15:07 Constitutional: Negative for body aches, chills, fever, poor PO intake. cp 15:07 ENT: Positive for dental pain, Negative for drainage from ear(s), ear pain, sore cp throat, difficulty swallowing, difficulty handling secretions. 15:07 Respiratory: Negative for cough, shortness of breath, wheezing. 15:07 Abdomen/GI: Negative for abdominal pain, nausea, vomiting, and diarrhea. 15:07 Neuro: Negative for headache, weakness. 15:07 All other systems are negative. Exam: 15:09 Head/Face: Normocephalic, atraumatic. cp 15:09 Constitutional: The patient appears in no acute distress, alert, awake, non-toxic, well developed, well nourished. 15:09 ENT: External ear(s): are unremarkable, Nose: is normal, Mouth: Lips: moist, Oral mucosa: pink and intact, moist, Posterior pharynx: Airway: no evidence of obstruction, patent, Dental exam: abscess, is not appreciated, dental caries, that is moderate, diffusely, fractured teeth are noted, specifically the lower right second bicuspid (#29), gum swelling, not appreciated, pain, that is mild, specifically in the lower right second bicuspid (#29). 15:09 Neck: ROM/movement: is normal, is supple, without pain, no range of motions limitations, Lymph nodes: no appreciated lymphadenopathy. 15:09 Chest/axilla: Inspection: normal. 15:09 Cardiovascular: Rate: normal. Vital Signs: 15:03 BP 175 / 102; Pulse 97; Resp 18 S; Temp 98.0(TE); Pulse Ox 100% on R/A; Weight 68.04 kg jd3 (R); Height 5 ft. 0 in. (152.40 cm) (R); Pain 9/10; 15:03 Body Mass Index 29.29 (68.04 kg, 152.40 cm) jd3 MDM: 15:10 Data reviewed: vital signs, nurses notes, and as a result, I will discharge patient. cp Counseling: I had a detailed discussion with the patient and/or guardian regarding: the historical points, exam findings, and any diagnostic results supporting the discharge/admit diagnosis, the need for outpatient follow up, for definitive care, maxillary-facial surgery. 15:11 Patient medically screened. cp 15:11 Differential diagnosis: dental caries, dental abscess, gingivostomatitis. cp 15:11 ED course: VSS. Will discharge to home for continued monitoring. cp Administered Medications: No medications were administered Disposition: 18:41 Co-signature as Attending Physician, Evi Kim MD. ma2 Disposition Summary: 09/28/21 15:11 Discharge Ordered Location: Home cp Problem: new cp Symptoms: have improved cp Condition: Stable cp Diagnosis - Disorder of teeth and supporting structures, unspecified cp Followup: cp - With: Ken Carroll DDS - When: 2 - 3 days - Reason: Recheck today's complaints Discharge Instructions: - Dental Pain cp - Discharge Summary Sheet jd3 Forms: - Medication Reconciliation Form cp - Thank You Letter cp - Work release form jd3 - Antibiotic Education cp - Prescription Opioid Use cp Prescriptions: - Amoxicillin 875 mg Oral Tablet - take 1 tablet by ORAL route every 12 hours for 10 days; 20 tablet; Refills: 0, cp Product Selection Permitted - Ibuprofen 800 mg Oral Tablet - take 1 tablet by ORAL route every 8 hours As needed take with food; 30 tablet; cp Refills: 0, Product Selection Permitted Signatures: Arie Milner PA PA cp Davies, Jonathon, RN RN jEvi Montes MD MD ma2
[2021-09-28 15:36] VITALS: BP 175/102; TEMP 98; O2SAT 100
== END 2021-09-28 15:24 | disposition home or self-care (01) ==
LOC: ER 14:50
DX: K08.89 Other specified disorders of teeth and supporting structures (principal)
CPT/HCPCS: 99283

== ENCOUNTER 2022-07-31 07:27 | Emergency (ER) | payer OTHER, SELFPAY ==
--- OUTSIDE RECORDS SUMMARY | 2022-07-31 07:32 | XMS REPORT | Continuity of Care Document ---
:1965 Author Organization [facility] t Address [address] [place] [address] Care Team Providers Name Role Phone DOCTOR UNASSIGNED, NO NAME Primary Care Physician UnavailTOYIN Reeves Attending Clinician Unavailable Lab, Adc Fam Pob I Attending Clinician Unavailable Khoa Blackman Attending Clinician KHOA JOHNSON Attending Clinician Unavailable Payers Payer Name Policy Type Policy Number Effective Date Expiration Date S ource Problems Condition Condition Condition Status Onset Resolution Last Treating Co mments Source Name Details Category Date Date Treatment Clinician Date [id number] [place] [id number] tunnel Spirit syndrome - [facility] Allergies, Adverse Reactions, Alerts Allergy Allergy Status Severity Reaction(s) Onset Inactive Treating Comm ents Source Name Type Date Date Clinician NO KNOWN Drug Active [facility] ALLERGIE Class it[facility] of [facility] niacin niacin Active Unknown [facility] Cheese Cheese Active Unknown Common [facility] - [facility] Social History Social Habit Start Date Stop Date Quantity Comments Source History of Tobacco Current Smoker Co mmon Spirit - [facility] Use [facility] Sex Assigned At Com mon Spirit - [facility] Smoking Status Start Date Stop Date Source Unknown if ever smoked [facility] Current Smoker 2021-04-29 00:00:00 Common Spiri t - [facility] Medications Ordered Filled Start Stop Current Ordering Indication Dosage Frequency Signature Comments Components Source Medication Medication Date Date Medication? Clinician (SIG) Name Name Losartan Losartan No Losartan Potassium Potassium Potassium glipiZIDE glipiZIDE No glipiZIDE Potassium Potassium No Potassium Chloride ER Chloride ER Chloride ER Gabapentin Gabapentin No Gabapentin hydroCHLORO hydroCHLORO No hydroCHLOR thiazide thiazide Othiazide clonazePAM clonazePAM No clonazePAM Sertraline Sertraline No Sertraline HCl HCl HCl Ambien Ambien No Ambien Metformin Metformin No Metformin HCl HCl HCl ProAir HFA ProAir HFA No ProAir HFA atorvastati atorvastati No atorvastat n n in Vital Signs Vital Name Observation Time Observation Value Comments Source height 2021-04-26 08:00:00 60 [in_i] [facility] weight 2021-04-26 08:00:00 173.8 [lb_av] [facility] bmi 2021-04-26 08:00:00 33.94 kg/m2 [facility] blood pressure 2021-04-26 08:00:00 132 mm[Hg] [facility] - systolic [facility] blood pressure 2021-04-26 08:00:00 82 mm[Hg] Common [facility] - diastolic [facility] Procedures This patient has no known procedures. Encounters Start End Encounter Admission Attending Care Care Encounter Source Date/Time Date/Time Type Type Clinicians Facility Department ID 2021-09-28 Outpatient [facility] [id number] Common 13:41:50 [id number] [facility] 2021-04-26 2021-04-26 OFFICE [facility] [id number] Co mmon 00:00:00 00:00:00 VISIT NEW Spir it PT LEVEL 3 [facility] 2020-12-16 2020-12-16 Outpatient Max [facility] [id number] Univers 09:00:00 08:53:43 TOYIN [facility] 2020-11-25 2020-11-25 Outpatient Max [facility] [id number] Univers 08:50:00 08:41:49 TOYIN [facility] 2020-03-08 2020-03-08 Laboratory Lab, Adc [facility] Pob I [facility] [id number] Univers 11:13:22 11:33:22 Only Green, Khoa [facility] [id number] ity bella [place] [id number] Alvin as Professio [phone] Nv dical [address] 2020-03-08 2020-03-08 Laboratory Lab, [facility] [id number] 11:13:22 11:33:22 Only Fam Pob I Health [id number] [place] [id number] Professio [phone] [place] [address] [address] 2020-03-08 2020-03-08 Outpatient R [facility] [id number] Univers 11:20:00 11:20:00 KHOA bowman [facility] Results This patient has no known results.
[2022-07-31] MEDS ORDERED: HYDROCODONE/CHLORPHEN 5 ML/OSYR ONE (07:53)
[2022-07-31 08:32] LABS: SARS-COV-2 RT PCR NEGATIVE (NEGATIVE)
--- NOTE | 2022-07-31 08:34 | ER ---
Nurse's Notes [facility] Name: Erma Yoo Age: 56 yrs Sex: Female : 1965 Arrival Date: 07/31/2022 Time: 07:28 Bed 10 Private MD: Marvin Seymour Diagnosis: Acute bronchitis, unspecified;Mild intermittent asthma with (acute) exacerbation Presentation: 07/31 07:34 Chief complaint: Patient states: fever, body aches and fatigue that began over the ss weekend. Coronavirus screen: Client denies travel out of the [place] in the last 14 days. Ebola Screen: Patient denies exposure to infectious person. Patient denies travel to an Ebola-affected area in the 21 days before illness onset. Initial Sepsis Screen: Does the patient meet any 2 criteria? No. Patient's initial sepsis screen is negative. Does the patient have a suspected source of infection? No. Patient's initial sepsis screen is negative. Risk Assessment: Do you want to hurt yourself or someone else? Patient reports no desire to harm self or others. Onset of symptoms was July 28, 2022. 07:34 Method Of Arrival: Ambulatory ss 07:34 Acuity: VINNY 3 ss [employer]: 07:36 LMP N/A - Post-menopause ss Historical: - Allergies: 07:36 Niacin (Hives, Respiratory distress); ss 07:36 Cheese; ss - Home Meds: 07:36 Ambien 5 mg Oral tab 1 tab once daily [Active]; atorvastatin 10 mg Oral tab 1 tab once ss daily [Active]; Advair Diskus Inhl [Active]; bupropion HCl 150 mg Oral Tb24 1 tab once daily [Active]; losartan 25 mg Oral tab 1 tab once daily [Active]; metformin 1,000 mg Oral tab 1 tab 2 times per day [Active]; Topamax 50 mg Oral tab 1 tab 2 times per day [Active]; venlafaxine 75 mg Oral tr24 1 tab once daily [Active]; - PMHx: 07:36 Asthma; Depression; Diabetes - NIDDM; Hypertension; insomnia; ss - PSHx: 07:36 Cholecystectomy; Ligation of fallopian tube; ss - Immunization history:: Client reports receiving the 1st dose of the Covid vaccine. - Social history:: Smoking status: Patient reports the use of cigarette tobacco products, denies chronic smoking, but will smoke occasionally. Screenin:50 Abuse screen: Denies threats or abuse. Denies injuries from another. Nutritional ss screening: No deficits noted. Tuberculosis screening: Never had TB. Fall Risk None identified. Assessment: 07:37 General: Appears in no apparent distress. comfortable, Behavior is calm, cooperative. ss General: Reports fever for feeling ill for. Neuro: Level of Consciousness is awake, alert, obeys commands, Oriented to person, place, time, situation. Cardiovascular: Capillary refill < 3 seconds is brisk in bilateral. Respiratory: Airway is patent Respiratory effort is even, unlabored, Respiratory pattern is regular, symmetrical. Derm: Skin is intact, is healthy with good turgor, Skin is pink, warm \T\ dry. normal. Musculoskeletal: Circulation, motion, and sensation intact. Range of motion: intact in all extremities, Swelling absent. 09:28 Reassessment: Patient appears in no apparent distress at this time. Patient is alert, ss oriented x 3, equal unlabored respirations, skin warm/dry/pink. Vital Signs: 07:34 BP 131 / 81; Pulse 83; Resp 15; Temp 97.6(O); Pulse Ox 100% on R/A; Weight 71.67 kg; ss Height 5 ft. 0 in. (152.40 cm); Pain 9/10; 07:34 Body Mass Index 30.86 (71.67 kg, 152.40 cm) ED Course: 07:28 Patient arrived in ED. am2 07:28 Marvin Seymour MD is Private Physician. am2 07:33 [facility] snw 07:34 Kendrick Silverman DO is Attending Physician. snw 07:35 Triage completed. ss 07:36 Arm band placed on right wrist. ss 07:49 Nani Hunter, SISSY is Primary Nurse. ss 07:50 Patient has correct armband on for positive identification. Bed in low position. ss 07:50 COVID-19/FLU A+B/RSV Sent. ss 08:34 Marvin Seymour MD is Referral Physician. snw 09:17 No provider procedures requiring assistance completed. Patient did not have IV access ss during this emergency room visit. Administered Medications: 07:54 Drug: Tussionex Pennkinetic ER (chlorpheniramine-hydrocodone) Suspension 5 ml Route: PO;ss 09:10 Follow up: Response: No adverse reaction ss 09:10 Drug: Rocephin (cefTRIAXone) 1 grams Route: IM; Site: right gluteus; ss 09:28 Follow up: Response: No adverse reaction; Medication administered at discharge. ss Medication: 07:37 VIS not applicable for this client. Outcome: 08:34 Discharge ordered by . ana 09:28 Discharged to home ambulatory. 09:28 Condition: good 09:28 Discharge instructions given to patient, family, Instructed on discharge instructions, follow up and referral plans. medication usage, Demonstrated understanding of instructions, follow-up care, medications, Prescriptions given X 4. 09:29 Patient left the ED. Signatures: Almaz Rivera FNP-C FNP-Nani Epperson, RN RN Annie Monreal
--- NOTE | 2022-07-31 08:35 | EDPHYS ---
Physician Documentation [facility] Name: Erma Yoo Age: 56 yrs Sex: Female : 1965 Arrival Date: 07/31/2022 Time: 07:28 Bed 10 Private MD: Marvin Seymour ED Physician Kendrick Silverman HPI: 07/31 07:46 This 56 yrs old Female presents to ER via Ambulatory with complaints of Fever, snw General Weakness, Decreased Appetite, Nausea/Vomiting. 07:46 The patient reports fever, that was measured at 104 degrees Fahrenheit. Onset: The snw symptoms/episode began/occurred suddenly, 3 day(s) ago, and became persistent. Associated signs and symptoms: Pertinent positives: chills, cough, myalgias, nausea, sinus congestion, vomiting. Severity of symptoms: At their worst the symptoms were moderate severe. The patient has not experienced similar symptoms in the past, but co-worker has similar symptoms. The patient has not recently seen a physician. 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/A - Post-menopause ss Historical: - Allergies: 07:36 Niacin (Hives, Respiratory distress); ss 07:36 Cheese; ss - Home Meds: 07:36 Ambien 5 mg Oral tab 1 tab once daily [Active]; atorvastatin 10 mg Oral tab 1 tab once ss daily [Active]; Advair Diskus Inhl [Active]; bupropion HCl 150 mg Oral Tb24 1 tab once daily [Active]; losartan 25 mg Oral tab 1 tab once daily [Active]; metformin 1,000 mg Oral tab 1 tab 2 times per day [Active]; Topamax 50 mg Oral tab 1 tab 2 times per day [Active]; venlafaxine 75 mg Oral tr24 1 tab once daily [Active]; - PMHx: 07:36 Asthma; Depression; Diabetes - NIDDM; Hypertension; insomnia; ss - PSHx: 07:36 Cholecystectomy; Ligation of fallopian tube; ss - Immunization history:: Client reports receiving the 1st dose of the Covid vaccine. - Social history:: Smoking status: Patient reports the use of cigarette tobacco products, denies chronic smoking, but will smoke occasionally. ROS: 07:45 Eyes: Negative for injury, pain, redness, and discharge, ENT: Negative for injury, snw pain, and discharge, Neck: Negative for injury, pain, and swelling, Cardiovascular: Negative for chest pain, palpitations, and edema. 07:45 Abdomen/GI: Negative for abdominal pain, nausea, vomiting, diarrhea, and constipation, Back: Negative for injury and pain, : Negative for injury, bleeding, discharge, and swelling, MS/Extremity: Negative for injury and deformity, Skin: Negative for injury, rash, and discoloration, Neuro: Negative for headache, weakness, numbness, tingling, and seizure, Psych: Negative for depression, anxiety, suicide ideation, homicidal ideation, and hallucinations. 07:45 Constitutional: Positive for body aches, chills, fatigue, fever, malaise, poor PO intake. 07:45 Respiratory: Positive for cough. Exam: 07:45 Constitutional: The patient appears alert, awake, uncomfortable. snw 07:45 Head/Face: Normocephalic, atraumatic. Eyes: Pupils equal round and reactive to light, snw extra-ocular motions intact. Lids and lashes normal. Conjunctiva and sclera are non-icteric and not injected. Cornea within normal limits. Periorbital areas with no swelling, redness, or edema. ENT: Nares patent. No nasal discharge, no septal abnormalities noted. Tympanic membranes are normal and external auditory canals are clear. Oropharynx with no redness, swelling, or masses, exudates, or evidence of obstruction, uvula midline. Mucous membranes moist. Neck: Trachea midline, no thyromegaly or masses palpated, and no cervical lymphadenopathy. Supple, full range of motion without nuchal rigidity, or vertebral point tenderness. No Meningismus. Chest/axilla: Normal chest wall appearance and motion. Nontender with no deformity. No lesions are appreciated. 07:45 Abdomen/GI: Soft, non-tender, with normal bowel sounds. No distension or tympany. No guarding or rebound. No evidence of tenderness throughout. Back: No spinal tenderness. No costovertebral tenderness. Full range of motion. Skin: Warm, dry with normal turgor. Normal color with no rashes, no lesions, and no evidence of cellulitis. MS/ Extremity: Pulses equal, no cyanosis. Neurovascular intact. Full, normal range of motion. Neuro: Awake and alert, GCS 15, oriented to person, place, time, and situation. Cranial nerves II-XII grossly intact. Motor strength 5/5 in all extremities. Sensory grossly intact. Cerebellar exam normal. Normal gait. Psych: Awake, alert, with orientation to person, place and time. Behavior, mood, and affect are within normal limits. 07:45 Cardiovascular: Rate: tachycardic, Rhythm: regular. 07:45 Respiratory: the patient does not display signs of respiratory distress, Respirations: normal, Breath sounds: bronchial sounds, that are moderate, are heard diffusely. Vital Signs: 07:34 BP 131 / 81; Pulse 83; Resp 15; Temp 97.6(O); Pulse Ox 100% on R/A; Weight 71.67 kg; ss Height 5 ft. 0 in. (152.40 cm); Pain 9/10; 07:34 Body Mass Index 30.86 (71.67 kg, 152.40 cm) ss MDM: 07:33 Patient medically screened. snw 08:43 Data reviewed: vital signs, nurses notes. Data interpreted: Pulse oximetry: on room air snw is 100 %. Interpretation: normal. Counseling: I had a detailed discussion with the patient and/or guardian regarding: the historical points, exam findings, and any diagnostic results supporting the discharge/admit diagnosis, lab results, the need for outpatient follow up, to return to the emergency department if symptoms worsen or persist or if there are any questions or concerns that arise at home. Response to treatment: the patient's symptoms have mildly improved after treatment. Special discussion: I have referred the patient to see his PCP for further evaluation of high blood pressure. Based on the history and exam findings, there is no indication for further emergent testing or inpatient evaluation. I discussed with the patient/guardian the need to see the primary care provider for further evaluation of the symptoms. 07/31 07:44 Order name: COVID-19/FLU A+B/RSV; Complete Time: 08:33 snw Administered Medications: 07:54 Drug: Tussionex Pennkinetic ER (chlorpheniramine-hydrocodone) Suspension 5 ml Route: PO;ss 09:10 Follow up: Response: No adverse reaction ss 09:10 Drug: Rocephin (cefTRIAXone) 1 grams Route: IM; Site: right gluteus; ss 09:28 Follow up: Response: No adverse reaction; Medication administered at discharge. Disposition: 19:12 Co-signature as Attending Physician, Kendrick Silverman DO I was immediately available on-site ms3 in the Emergency Department for consultation in the care of the patient.. Disposition Summary: 07/31/22 08:34 Discharge Ordered Location: Home snw Condition: Stable snw Diagnosis - Acute bronchitis, unspecified snw - Mild intermittent asthma with (acute) exacerbation snw Followup: snw - With: Emergency Department - When: As needed - Reason: Worsening of condition Followup: snw - With: Marvin Seymour MD - When: 2 - 3 days - Reason: Recheck today's complaints, Continuance of care, Re-evaluation by your physician Discharge Instructions: - Discharge Summary Sheet snw - Acute Bronchitis, Adult snw - Asthma, Adult snw - Rehydration, Adult snw Forms: - Medication Reconciliation Form snw - Thank You Letter snw - Antibiotic Education snw - Prescription Opioid Use snw - Work release form snw Prescriptions: - Zyrtec 10 mg Oral Tablet - take 1 tablet by ORAL route once daily As needed; 20 tablet; Refills: 0, snw Product Selection Permitted - Pepcid 20 mg Oral Tablet - take 1 tablet by ORAL route once daily; 20 tablet; Refills: 0, Product snw Selection Permitted - Zithromax 500 mg Oral Tablet - take 1 tablet by ORAL route once daily for 5 days; 5 tablet; Refills: 0, snw Product Selection Permitted - Tylenol-Codeine #3 300 mg-30 mg Oral - take 1 tablet by ORAL route 2 times per day; 10 tablet; Refills: 0, Product snw Selection Permitted Signatures: Dispatcher [employer] Almaz Nguyen, CHIEF CONTROLLER TOWER-C CHIEF CONTROLLER TOWER-Csnw Nani Hunter, SISSY RN Kendrick Moran DO DO ms3
[2022-07-31] MEDS ORDERED: CEFTRIAXONE 1000 MG/VIAL ONE (09:02)
[2022-07-31] MEDS ORDERED: WATER FOR INJ,STERILE 10 ML ONE (09:02)
[2022-07-31 09:33] VITALS: BP 131/81; TEMP 97.6; O2SAT 100
== END 2022-07-31 09:29 | disposition home or self-care (01) ==
LOC: ER 07:27
DX: J20.9 Acute bronchitis, unspecified (principal); J45.21 Mild intermittent asthma with (acute) exacerbation; I10 Essential (primary) hypertension; F17.210 Nicotine dependence, cigarettes, uncomplicated; Z20.822 Contact with and (suspected) exposure to COVID-19
CPT/HCPCS: 0241U; 96372; 99283

== ENCOUNTER 2023-04-24 17:51 | Emergency (ER) | payer OTHER, SELFPAY ==
--- OUTSIDE RECORDS SUMMARY | 2023-04-24 17:55 | XMS REPORT | Continuity of Care Document ---
:[address] 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 [facility] Allergies, Adverse Reactions, Alerts Allergy Allergy Status Severity Reaction(s) Onset Inactive Treating Comm ents Source Name Type Date Date Clinician NO KNOWN Drug Active [facility]ERG[facility] Class [facility] niacin niacin Active Unknown [facility] Cheese Cheese Active Unknown [facility] Social History Social Habit Start Date Stop Date Quantity Comments Source History of Tobacco Current Smoker [facility] Sex Assigned At Com mon [facility] Smoking Status Start Date Stop Date Source Unknown if ever smoked [facility] Current Smoker 2021-04-29 00:00:00 Common Spiri [facility] Medications Ordered Filled Start Stop Current [...] Comments Source height 2021-04-26 08:00:00 60 [in_i] [facility] weight 2021-04-26 08:00:00 173.8 [lb_av] [facility] bmi 2021-04-26 08:00:00 33.94 kg/m2 [facility] blood pressure 2021-04-26 08:00:00 132 mm[Hg] [facility] blood pressure 2021-04-26 08:00:00 82 mm[Hg] Common [facility] - diastolic [facility] Procedures This patient has no known procedures. Encounters Start End Encounter Admission Attending Care Care Encounter Source Date/Time Date/Time Type Type Clinicians Facility Department ID 2021-09-28 Outpatient [facility] [id number] Common 13:41:50 [id number] [facility] 2021-04-26 2021-04-26 [facility]ICE [facility] [id number] Co mmon 00:00:00 00:00:00 VISIT NEW Spir it PT LEVEL 3 [facility] 2020-12-16 2020-12-16 Outpatient Max [facility]AW [facility] [id number] Univers 09:00:00 08:53:43 TOYIN bowman [facility] 2020-11-25 2020-11-25 Outpatient Max SHAW [facility] [id number] Univers 08:50:00 08:41:49 TOYIN bowman [facility] 2020-03-08 2020-03-08 Laboratory Lab, [facility] [id number] 11:13:22 11:33:22 Only Fam Pob I Health [id number] [place] [id number] Professio [phone] nal [facility] [address] 2020-03-08 2020-03-08 Laboratory Lab, Adc Fam Pob I [facility] [id number] [facility] 11:13:22 11:33:22 Only Khoa Johnson [facility] [id number] ity of [place] [id number] Alvin as Professio [phone] Oh dical [address] 2020-03-08 2020-03-08 Outpatient R ELIZABETH [facility] [id number] Univers 11:20:00 11:20:00 KHOA bowman [facility] Results This patient has no known results.
[2023-04-24 18:35] LABS: Absolute Lymphocytes (CBC) 2.4 K/uL (0.7-4.9); Hematocrit 42.2 % (36.0-45.0); Lymphocytes % 29.8 % (15.3-44.8); MCV 75.2 fL (80-100); MPV 7.7 fL (7.6-11.3); Platelets 327 thou/uL (152-406); RBC Red Blood Cell Count 5.61 M/uL (3.86-4.86)
--- NOTE | 2023-04-24 18:55 | RAD REPORT ---
EXAM DESCRIPTION: CT - Ct Stroke Brain Wo Cont - 04/24/2023 6:31 pm CLINICAL HISTORY: STROKE ALERT Headache, drowsiness COMPARISON: No comparisons TECHNIQUE: All CT scans are performed using dose optimization technique as appropriate and may inclu de automated exposure control or mA/KV adjustment according to patient size. FINDINGS: No intracranial hemorrhage, hydrocephalus or extra-axial fluid collection.Mild brain atrop hy.No areas of brain edema or evidence of midline shift. The paranasal sinuses and mastoids are clear. The calvarium is intact. IMPRESSION: No acute intracranial abnormality.
--- NOTE | 2023-04-24 18:59 | RAD REPORT ---
EXAM DESCRIPTION: RAD - Chest Single View - 04/24/2023 6:29 pm CLINICAL HISTORY: CHEST PAIN Chest pain. COMPARISON: Chest Single View dated 09/06/2021; Chest Single View dated 05/13/2021; Chest Pa And Lat (2 Views) dated 12/27/2020; Chest Single View dated 07/18/2020 FINDINGS: Portable technique limits examination quality. The lungs are grossly clear. The heart is normal in size. No displaced fractures. IMPRESSION: No acute intrathoracic process suspected.
[2023-04-24 19:11] LABS: Magnesium 2.2 mg/dL (1.6-2.4); Potassium 4.2 mEq/L (3.5-5.1); Troponin High Sensitivity 3.6 pg/mL (<58.9)
[2023-04-24] MEDS ORDERED: NA CHLORIDE 0.9% 1,000 ML ONE (20:25)
--- NOTE | 2023-04-24 21:02 | EDPHYS ---
Physician Documentation [facility] Name: Erma Yoo Age: 57 yrs Sex: Female : 1965 Arrival Date: 04/24/2023 Time: 17:51 Bed 3 Private MD: ED Physician Kendrick Silverman HPI: 04/24 21:00 This 57 yrs old Female presents to ER via Ambulatory with complaints of Chest kb Pain. 21:00 The patient or guardian reports chest pain that is located primarily in the anterior kb chest wall, left. Onset: at 16:30. The pain does not radiate. Associated signs and symptoms: Pertinent positives: tingling to left arm and leg. The chest pain is described as sharp. Duration: The patient or guardian reports a single episode. Modifying factors: The symptoms are alleviated by nothing. the symptoms are aggravated by nothing. Severity of pain: At its worst the pain was mild moderate in the emergency department the pain is unchanged. The patient has not experienced similar symptoms in the past. The patient has not recently seen a physician. Historical: - Allergies: 18:03 Cheese; aa5 18:03 Niacin (Hives, Respiratory distress); aa5 - PMHx: 18:03 Asthma; Depression; Diabetes - NIDDM; Hypertension; insomnia; aa5 - PSHx: 18:03 Cholecystectomy; Ligation of fallopian tube; aa5 - Immunization history:: Adult Immunizations unknown. - Social history:: Smoking status: Patient reports the use of cigarette tobacco products. ROS: 20:58 Constitutional: Negative for fever, chills, and weight loss. kb 20:58 Cardiovascular: Positive for chest pain, Negative for edema, orthopnea, palpitations, paroxysmal nocturnal dyspnea. 20:58 MS/extremity: Positive for tingling, of the left arm and left leg. 20:58 All other systems are negative. Exam: 18:13 ECG was reviewed by the Attending Physician. kb 20:58 Constitutional: This is a well developed, well nourished patient who is awake, alert, kb and in no acute distress. Head/Face: Normocephalic, atraumatic. ENT: Moist Mucous membranes Cardiovascular: Regular rate and rhythm with a normal S1 and S2. No gallops, murmurs, or rubs. No pulse deficits. Respiratory: Respirations even and unlabored. No increased work of breathing. Talking in full sentences Abdomen/GI: Soft, non-tender. No distention Skin: Warm, dry with normal turgor. Normal color. MS/ Extremity: Pulses equal, no cyanosis. Neurovascular intact. Full, normal range of motion. Neuro: Awake and alert, GCS 15, oriented to person, place, time, and situation. Moves all extremities. Normal gait. Vital Signs: 17:58 BP 161 / 87; Pulse 83; Resp 16 S; Temp 97.7(TE); Pulse Ox 100% on R/A; Weight 72.57 kg aa5 (R); Height 5 ft. 0 in. (R); 18:14 BP 161 / 98; Pulse 79; Resp 17; Pulse Ox 99% ; Pain 7/10; me1 19:17 BP 147 / 91; Pulse 67; Resp 18; Pulse Ox 100% on R/A; kd3 20:48 BP 135 / 91; Pulse 65; Resp 18; Pulse Ox 100% on R/A; kd3 21:16 BP 154 / 88; Pulse 82; Resp 16; Pulse Ox 99% on R/A; kd3 17:58 Body Mass Index 31.25 (72.57 kg, 152.4 cm) aa5 18:14 Pain Scale: Adult me1 MDM: 17:58 Patient medically screened. kb 20:59 Data reviewed: vital signs, nurses notes. kb 21:00 Differential diagnosis: abnormal EKG, acute myocardial infarction, anxiety, coronary kb artery disease chest wall pain. Consideration of Admission/Observation Escalation of care including admission/observation considered. admission considered for chest pain, but serial troponin wnl. HEART score 2.. Management of patient was discussed with the following: Dr Silverman, who evaluated pt as well. Recommends follow up outpatient. Counseling: I had a detailed discussion with the patient and/or guardian regarding the historical points, exam findings, and any diagnostic results supporting the discharge/admit diagnosis, lab results, radiology results, the need for outpatient follow up, a device repair technician, a family practitioner, to return to the emergency department if symptoms worsen or persist or if there are any questions or concerns that arise at home. 04/24 18:09 Order name: Basic Metabolic Panel; Complete Time: 19:11 kb 04/24 18:09 Order name: CBC with Diff; Complete Time: 18:43 kb 04/24 18:09 Order name: Magnesium; Complete Time: 19:11 kb 04/24 18:09 Order name: Troponin HS; Complete Time: 19:11 kb 04/24 20:10 Order name: Troponin High Sensitivity; Complete Time: 20:56 kb 04/24 18:09 Order name: XRAY Chest (1 view); Complete Time: 19:04 kb 04/24 18:09 Order name: CT Stroke Brain w/o Contrast; Complete Time: 19:04 kb 04/24 18:09 Order name: EKG; Complete Time: 18:09 kb 04/24 18:09 Order name: Cardiac monitoring; Complete Time: 18:13 kb 04/24 18:09 Order name: EKG - Nurse/Tech; Complete Time: 18:13 kb 04/24 18:09 Order name: IV Saline Lock; Complete Time: 18:27 kb 04/24 18:09 Order name: Labs collected and sent; Complete Time: 18:27 kb 04/24 18:09 Order name: O2 Per Protocol; Complete Time: 18:13 kb 04/24 18:09 Order name: O2 Sat Monitoring; Complete Time: 18:13 kb EC:13 Rate is 82 beats/min. Rhythm is regular. QRS [place] is Normal. GA interval is normal at kb 146 msec. QRS interval is normal at 70 msec. QT interval is normal at 399 msec. Administered Medications: 20:24 Drug: NS 0.9% IV 1000 ml Route: IV; Rate: 1000 ml; Site: left forearm; rv 21:16 Follow up: IV Status: Completed infusion; IV Intake: 1000ml kd3 Disposition: 20:25 Co-signature as Attending Physician, Kendrick DOBSON was immediately available on-site ms3 in the Emergency Department for consultation in the care of the patient. Disposition Summary: 04/24/23 21:02 Discharge Ordered Location: Home kb Condition: Stable kb Diagnosis - Chest pain, unspecified kb - Hyperglycemia, unspecified kb Followup: kb - With: Emergency Department - When: As needed - Reason: Worsening of condition Followup: kb - With: Private Physician - When: 2 - 3 days - Reason: Recheck today's complaints, Continuance of care, Re-evaluation by your physician Discharge Instructions: - Discharge Summary Sheet kb - Nonspecific Chest Pain, Adult, [id number] kb Forms: - Medication Reconciliation Form kb - Thank You Letter kb - Antibiotic Education kb - Prescription Opioid Use kb - Patient Portal Instructions kb - Leadership Thank You Letter kb - Work release form pf1 Signatures: Dispatcher [employer] EDMS Flor Jimenez FNP-C FNP-Berenice Chirinos, RN RN aa5 Jordy Orlando, RN RN rv Kendrick Silverman, DO AMOS ms3 Blanca Suarez RN kd3 Corrections: (The following items were deleted from the chart) 18:27 18:09 BASIC METABOLIC PANEL+[id number].LAB.BRZ ordered. EDMS EDMS
--- NOTE | 2023-04-24 21:02 | ER ---
Nurse's Notes [facility] Name: Erma Yoo Age: 57 yrs Sex: Female : 1965 Arrival Date: 04/24/2023 Time: 17:51 Bed 3 Private MD: Diagnosis: Chest pain, unspecified;Hyperglycemia, unspecified Presentation: 04/24 17:58 Chief complaint: Patient states: "I was just driving and started feeling chest pain and aa5 then it traveled down my left arm as tingling and then to my left leg". No arm drift, pt ambulatory with steady gait, speech is clear. 17:58 Acuity: VINNY 2 aa5 17:58 Onset of symptoms was April 24, 2023 at 16:30. aa5 17:58 Coronavirus screen: At this time, the client does not indicate any symptoms associated aa5 with coronavirus-19. Ebola Screen: Patient denies travel to an Ebola-affected area in the 21 days before illness onset. Initial Sepsis Screen: Does the patient meet any 2 criteria? No. Patient's initial sepsis screen is negative. Does the patient have a suspected source of infection? No. Patient's initial sepsis screen is negative. Risk Assessment: Do you want to hurt yourself or someone else? Patient reports no desire to harm self or others. 17:58 Method Of Arrival: Ambulatory aa5 Historical: - Allergies: 18:03 Cheese; aa5 18:03 Niacin (Hives, Respiratory distress); aa5 - PMHx: 18:03 Asthma; Depression; Diabetes - NIDDM; Hypertension; insomnia; aa5 - PSHx: 18:03 Cholecystectomy; Ligation of fallopian tube; aa5 - Immunization history:: Adult Immunizations unknown. - Social history:: Smoking status: Patient reports the use of cigarette tobacco products. Screenin:14 [facility] ED Fall Risk Assessment (Adult) Score/Fall Risk Level 0 - 2 = Low Risk. Abuse me1 screen: Denies threats or abuse. Nutritional screening: No deficits noted. Tuberculosis screening: No symptoms or risk factors identified. Assessment: 18:14 General: Appears uncomfortable, well groomed, well developed, well nourished, Behavior me1 is calm, cooperative, appropriate for age, Reports c/o chest pain that is midsternal and stabbing. SOB with chest pain. c/o nausea as well. Denies fever, chills or feeling ill. Reports no bm x 3 days. Denies fever, feeling ill, chills. Pain: Complains of pain in chest Pain does not radiate. Pain currently is 7 out of 10 on a pain scale. Quality of pain is described as stabbing, Pain began suddenly, 1 hour ago. Neuro: Level of Consciousness is awake, alert, obeys commands, Oriented to person, place, time, situation, Appropriate for age. Cardiovascular: Capillary refill < 3 seconds Patient's skin is warm and dry. Respiratory: Airway is patent Respiratory effort is even, unlabored, Respiratory pattern is regular, symmetrical. GI: Reports constipation, Patient currently denies nausea, vomiting. 19:20 General: Appears uncomfortable, Behavior is calm, cooperative. Pain: Complains of pain kd3 in chest. Neuro: Level of Consciousness is awake, alert, obeys commands, Oriented to person, place, time, situation. Cardiovascular: Patient's skin is warm and dry. Respiratory: Airway is patent Trachea midline Respiratory effort is even, unlabored, Respiratory pattern is regular, symmetrical. Vital Signs: 17:58 BP 161 / 87; Pulse 83; Resp 16 S; Temp 97.7(TE); Pulse Ox 100% on R/A; Weight 72.57 kg aa5 (R); Height 5 ft. 0 in. (R); 18:14 BP 161 / 98; Pulse 79; Resp 17; Pulse Ox 99% ; Pain 7/10; me1 19:17 BP 147 / 91; Pulse 67; Resp 18; Pulse Ox 100% on R/A; kd3 20:48 BP 135 / 91; Pulse 65; Resp 18; Pulse Ox 100% on R/A; kd3 21:16 BP 154 / 88; Pulse 82; Resp 16; Pulse Ox 99% on R/A; kd3 17:58 Body Mass Index 31.25 (72.57 kg, 152.4 cm) aa5 18:14 Pain Scale: Adult me1 ED Course: 17:55 Patient arrived in ED. kj1 17:58 [facility] Jim[facility]-C [facility] kb 17:58 Kendrick Silverman DO is Attending Physician. kb 17:58 Arm band placed on. aa5 18:01 Triage completed. aa5 18:14 Patient has correct armband on for positive identification. Bed in low position. Call me1 light in reach. Side rails up X2. Provided Education on: POC. Verbalized understanding.. Client placed on continuous cardiac and pulse oximetry monitoring. NIBP monitoring applied. monitoring manager on. 18:14 No provider procedures requiring assistance completed. Patient maintains SpO2 me1 saturation greater than 95% on room air. 18:26 Inserted saline lock: 22 gauge in left forearm, using aseptic technique. me1 18:27 CBC with Diff Sent. me1 18:27 Magnesium Sent. me1 18:27 Troponin HS Sent. me1 18:31 XRAY Chest (1 view) In Process Unspecified. EDMS 18:33 CT Stroke Brain w/o Contrast In Process Unspecified. EDMS 19:17 Blanca Suarez, RN is Primary Nurse. kd3 21:16 IV discontinued, intact, bleeding controlled, No redness/swelling at site. Pressure kd3 dressing applied. Administered Medications: 20:24 Drug: NS 0.9% IV 1000 ml Route: IV; Rate: 1000 ml; Site: left forearm; rv 21:16 Follow up: IV Status: Completed infusion; IV Intake: 1000ml kd3 Medication: 18:14 VIS not applicable for this client. me1 Intake: 21:16 IV: 1000ml; Total: 1000ml. kd3 Outcome: 21:02 Discharge ordered by . kb 21:16 Discharged to home ambulatory. kd3 21:16 Condition: stable 21:16 Discharge instructions given to patient, Instructed on discharge instructions, follow up and referral plans. Demonstrated understanding of instructions, follow-up care, medications. 21:16 Patient left the ED. kd3 Signatures: Dispatcher [employer] EDID Flor Jimenez, BROADCAST TECHNICIAN-C BROADCAST TECHNICIAN-CkBerenice Hu, RN RN aa5 Jordy Orlando RN RN rv Lulu Jimenez kj1 Blanca Suarez RN RN kd3 Summer Oseguera, SISSY RN me1 Corrections: (The following items were deleted from the chart) 18:03 17:58 Pulse 83bpm; Resp 16bpm; Spontaneous; Pulse Ox 100% RA; aa5 aa5 18:04 17:58 Chief complaint: Patient states: "I was just driving and started feeling chest aa5 pain and then it traveled down my left arm as tingling and then to my left leg" aa5 18:27 18:27 BASIC METABOLIC PANEL+C.LAB.KELVIN drawn and sent. me1 EDMS
[2023-04-24 21:45] VITALS: TEMP 97.7
[2023-04-24 21:50] VITALS: BP 154/88; O2SAT 99
--- NOTE | 2023-04-25 12:57 | EKG ---
Test Date: 2023-04-24 Test Time: 18:09:52 Airplane Pilot Helper: ISADORA MEASUREMENT RESULTS: Intervals: Rate: 82 DE: 146 QRSD: 70 QT: 342 QTc: 399 [place]: P: 54 DE: 146 QRS: 35 T: 51 INTERPRETIVE STATEMENTS: Normal sinus rhythm with sinus arrhythmia Normal ECG Compared to ECG 09/06/2021 21:43:29 Sinus tachycardia no longer present T-wave abnormality no longer present Electronically Signed On 04-25-23 12:55:51 CDT by Jordan Ortiz
== END 2023-04-24 21:16 | disposition home or self-care (01) ==
LOC: ER 17:51
DX: R07.89 Other chest pain (principal); E11.65 Type 2 diabetes mellitus with hyperglycemia; I10 Essential (primary) hypertension; Z72.0 Tobacco use; Z91.018 Allergy to other foods; Z91.048 Other nonmedicinal substance allergy status
CPT/HCPCS: 93005; 85025; 80048; 36415; 83735; 84484 ×2; 70450; 71045; 96360; 99285; J7030

== ENCOUNTER 2023-07-24 16:02 | Emergency (ER) | payer OTHER ==
--- OUTSIDE RECORDS SUMMARY | 2023-07-24 16:28 | XMS REPORT | Continuity of Care Document ---
:1965 Author Organization [facility] t Address [address] [place] [address] Care Team Providers Name Role Phone Marvin Seymour Jr. Primary Care Physician Ian Crespo Attending Clinician Unavailable [email or web address] Attending Clinician Unavailable TOYIN SHAW Attending Clinician Unavailable Doctor Unassigned, Joaquin Attending Clinician Unavailable Lab, Adc Fam Pob I Attending Clinician Unavailable Khoa Blackman Attending Clinician KHOA JOHNSON Attending Clinician Unavailable [email or web address] Admitting Clinician Unavailable Payers Payer Name Policy Type Policy Number Effective Date Expiration Date S ource Problems Condition Condition Condition Status Onset Resolution Last Treating Co mments Source Name Details Category Date Date Treatment Clinician Date [id number] [place] [address] tunnel Spirit syndrome - [facility] Allergies, Adverse Reactions, Alerts Allergy Allergy Status Severity Reaction(s) Onset Inactive Treating Comm ents Source Name Type Date Date Clinician NO KNOWN Drug Active Univers ALLERGIE Class ity of [facility] niacin niacin Active Unknown Common Spirit - [facility] Cheese Cheese Active Unknown [facility] - [facility] Social History Social Habit Start Date Stop Date Quantity Comments Source Sexual orientation Univer [facility] History of Tobacco Current Smoker Co mmon Spirit - Use [facility] Sex Assigned At Sp corwin - [facility] Sex Assigned At [birth year] Univers[facility] 00:00:00 00:00:00 [facility] Smoking Status Start Date Stop Date Source Tobacco smoking consumption [facility] Current Smoker 2021-04-29 00:00:00 Common Spiri t [facility] nter Medications Ordered Filled Start Stop Current Ordering [...] Comments Source height 2021-04-26 08:00:00 60 [in_i] [facility] weight 2021-04-26 08:00:00 173.8 [lb_av] [facility] bmi 2021-04-26 08:00:00 33.94 kg/m2 [facility] blood pressure 2021-04-26 08:00:00 132 mm[Hg] Common [facility] - systolic [facility] blood pressure 2021-04-26 08:00:00 82 mm[Hg] Common [facility] - diastolic [facility] Procedures This patient has no known procedures. Encounters Start End Encounter Admission Attending Care Care Encounter Source Date/Time Date/Time Type Type Clinicians Facility Department ID 2023-07-24 Outpatient Crespo, [facility] [id number] Common 13:22:00 Ian [id number] [facility] 2023-07-18 Outpatient [facility] [id number] Common 16:14:00 [id number] [facility] 2021-09-28 Outpatient [facility] [id number] Common 13:41:50 [id number] [facility] 2023-06-29 2023-06-29 Outpatient [email or web address] PRIV PRIV [id number] [facility] 00:00:00 00:00:00 diyala_S [id number] Medic al 2021-04-26 2021-04-26 OFFICE STLMLC STL[facility]C [id number] Co mmon 00:00:00 00:00:00 VISIT NEW Spir it PT LEVEL 3 - [facility] 2020-12-16 2020-12-16 Outpatient R VALERIA [facility] [id number] Univers 09:00:00 08:53:43 TOYIN y [facility] 2020-11-25 2020-11-25 [facility] [id number] Univers 08:50:00 08:41:49 TOYIN [facility] 2020-03-10 2020-03-10 Patient Doctor [facility] [id number] Univers 00:00:00 00:00:00 Secure Msg Unassigned, HEALTH [id number] ity of [place]quin [place] [id number] Alvin as PROFESSIO [phone] [place] [address] OFFICE BUILDING ONE 2020-03-08 2020-03-08 Laboratory Lab, [facility] [id number] 11:13:22 11:33:22 Only Fam Pob I Health [id number] [place] [id number] Professio [phone] [place] [address] [address] 2020-03-08 2020-03-08 Laboratory Lab, [facility] Fam Pob I [facility] [id number] Univers 11:13:22 11:33:22 Only Green, [facility] [id number] ity of [place] [id number] Alvin as Professio [phone] [place] [address] 2020-03-08 2020-03-08 Outpatient R ELIZABETH [facility] [id number] Univers 11:20:00 11:20:00 KHOA ity [facility] Results This patient has no known results.
[2023-07-24 17:10] LABS: SARS-CoV-2 Antigen Rapid Res Negative (Negative)
[2023-07-24 17:30] LABS: Specific Gravity > 1.030 (1.005-1.030); Urine Bacteria None Seen /HPF (<20); Urine Bilirubin NEGATIVE (Negative); Urine Blood Negative (Negative); Urine Clarity Clear (Clear); Urine Color Light-Yellow (Yellow); Urine Glucose 4+ (Over) (Negative); Urine Protein NEGATIVE (Negative); Urine RBC <5 /HPF (None Seen); Urine Urobilinogen Normal (Normal); Urine pH 5.5 (5.0-7.0)
--- NOTE | 2023-07-24 17:45 | EDPHYS ---
Physician Documentation [facility] Name: Erma Yoo Age: 57 yrs Sex: Female : 1965 Arrival Date: 07/24/2023 Time: 16:02 Bed 12 Private MD: ED Physician Juan Pablo Trujillo HPI: 07/24 16:36 This 57 yrs old Female presents to ER via Ambulatory with complaints of snw Weakness. 16:36 malaise, cough, congestion, N/V/D, pt states she thinks it has to do with the weather.. snw The patient has experienced similar episodes in the past. The patient has not recently seen a physician. Historical: - Allergies: 16:21 Cheese; nj1 16:21 Niacin (Hives, Respiratory distress); nj1 - PMHx: 16:21 Asthma; Depression; Diabetes - NIDDM; Hypertension; insomnia; nj1 - PSHx: 16:21 Cholecystectomy; Ligation of fallopian tube; nj1 - Immunization history:: Client reports receiving the 1st dose of the Covid vaccine. - Social history:: Smoking status: Patient reports the use of cigarette tobacco products, smokes one-half pack cigarettes per day. ROS: 16:35 Eyes: Negative for injury, pain, redness, and discharge, ENT: Negative for injury, snw pain, and discharge, Neck: Negative for injury, pain, and swelling, Cardiovascular: Negative for chest pain, palpitations, and edema, 16:35 Back: Negative for injury and pain, : Negative for injury, bleeding, discharge, and swelling, MS/Extremity: Negative for injury and deformity, Skin: Negative for injury, rash, and discoloration, Neuro: Negative for headache, weakness, numbness, tingling, and seizure, Psych: Negative for depression, anxiety, suicide ideation, homicidal ideation, and hallucinations, 16:35 Constitutional: Positive for body aches, fatigue, malaise, poor PO intake, 16:35 Respiratory: Positive for cough, 16:35 Abdomen/GI: Positive for nausea, vomiting, and diarrhea, Exam: 16:31 Head/Face: Normocephalic, atraumatic. Eyes: Pupils equal round and reactive to light, snw extra-ocular motions intact. Lids and lashes normal. Conjunctiva and sclera are non-icteric and not injected. Cornea within normal limits. Periorbital areas with no swelling, redness, or edema. ENT: Nares patent. No nasal discharge, no septal abnormalities noted. Tympanic membranes are normal and external auditory canals are clear. Oropharynx with no redness, swelling, or masses, exudates, or evidence of obstruction, uvula midline. Mucous membranes moist. Neck: Trachea midline, no thyromegaly or masses palpated, and no cervical lymphadenopathy. Supple, full range of motion without nuchal rigidity, or vertebral point tenderness. No Meningismus. Chest/axilla: Normal chest wall appearance and motion. Nontender with no deformity. No lesions are appreciated. Cardiovascular: Regular rate and rhythm with a normal S1 and S2. No gallops, murmurs, or rubs. Normal PMI, no JVD. No pulse deficits. 16:31 Constitutional: The patient appears alert, awake, listless, 16:35 Back: No spinal tenderness. No costovertebral tenderness. Full range of motion. snw Skin: Warm, dry with normal turgor. Normal color with no rashes, no lesions, and no evidence of cellulitis. MS/ Extremity: Pulses equal, no cyanosis. Neurovascular intact. Full, normal range of motion. Neuro: Awake and alert, GCS 15, oriented to person, place, time, and situation. Cranial nerves II-XII grossly intact. Motor strength 5/5 in all extremities. Sensory grossly intact. Cerebellar exam normal. Normal gait. Psych: Awake, alert, with orientation to person, place and time. Behavior, mood, and affect are within normal limits. 16:35 Respiratory: the patient does not display signs of respiratory distress, Respirations: normal, Breath sounds: are clear throughout, cough, 16:35 Abdomen/GI: Inspection: abdomen appears normal, Bowel sounds: normal, Vital Signs: 16:18 BP 158 / 94; Pulse 74; Resp 18; Temp 99(O); Pulse Ox 100% ; Weight 70.31 kg; Height 5 nj1 ft. 0 in. ; Pain 5/10; 16:18 Body Mass Index 30.27 (70.31 kg, 152.4 cm) nj 16:18 Pain Scale: Adult nj1 MDM: 16:17 Patient medically screened. snw 17:45 Differential Diagnosis flu, UTI. Data reviewed: vital signs, nurses notes. I considered snw the following discharge prescriptions or medication management in the emergency department Medications were administered in the Emergency Department. See MAR. Counseling: I had a detailed discussion with the patient and/or guardian regarding the historical points, exam findings, and any diagnostic results supporting the discharge/admit diagnosis, the presence of at least one elevated blood pressure reading (>120/80) during this emergency department visit, lab results, the need for outpatient follow up, for definitive care, to return to the emergency department if symptoms worsen or persist or if there are any questions or concerns that arise at home. Special discussion: I have referred the patient to see his PCP for further evaluation of high blood pressure. Based on the history and exam findings, there is no indication for further emergent testing or inpatient evaluation. I discussed with the patient/guardian the need to see the primary care provider for further evaluation of the symptoms. 07/24 16:37 Order name: Flu; Complete Time: 17:44 snw 07/24 16:37 Order name: SARS RAPID; Complete Time: 17:12 snw 07/24 16:37 Order name: Urine W/Microscopic (UAM); Complete Time: 17:44 snw Administered Medications: No medications were administered Disposition Summary: 07/24/23 17:44 Discharge Ordered Notes: Location: Home snw Condition: Stable snw Diagnosis - Influenza due to other identified influenza virus with gastrointestinal snw manifestations - Flu B Followup: snw - With: Emergency Department - When: As needed - Reason: Worsening of condition Followup: snw - With: Private Physician - When: 5 - 6 days - Reason: Recheck today's complaints, Continuance of care, Re-evaluation by your physician Discharge Instructions: - Discharge Summary Sheet snw - Fever, Adult snw - Influenza, Adult snw - Cough, Adult snw - Rehydration, Adult snw Forms: - Work release form snw - Medication Reconciliation Form snw - Thank You Letter snw - Antibiotic Education snw - Prescription Opioid Use snw - Patient Portal Instructions snw - Leadership Thank You Letter snw Prescriptions: - Zofran 4 mg Oral Tablet - take 1 tablet ORAL route every 12 hours As needed; 6 tablet; Refills: 0, snw Product Selection Permitted - Zyrtec 10 mg Oral Tablet - take 1 tablet ORAL route once daily As needed; 20 tablet; Refills: 0, Product snw Selection Permitted - Pepcid 20 mg Oral Tablet - take 1 tablet ORAL route once daily; 20 tablet; Refills: 0, Product Selection snw Permitted Signatures: Dispatcher [employer] Almaz Nguyen FNP-C FNP-Chloe Mcfarlane, RN RN nj1 Corrections: (The following items were deleted from the chart) 16:35 16:31 Head/Face: Normocephalic, atraumatic. Eyes: Pupils equal round and reactive to snw light, extra-ocular motions intact. Lids and lashes normal. Conjunctiva and sclera are non-icteric and not injected. Cornea within normal limits. Periorbital areas with no swelling, redness, or edema. ENT: Nares patent. No nasal discharge, no septal abnormalities noted. Tympanic membranes are normal and external auditory canals are clear. Oropharynx with no redness, swelling, or masses, exudates, or evidence of obstruction, uvula midline. Mucous membranes moist. Neck: Trachea midline, no thyromegaly or masses palpated, and no cervical lymphadenopathy. Supple, full range of motion without nuchal rigidity, or vertebral point tenderness. No Meningismus. Chest/axilla: Normal chest wall appearance and motion. Nontender with no deformity. No lesions are appreciated. Cardiovascular: Regular rate and rhythm with a normal S1 and S2. No gallops, murmurs, or rubs. Normal PMI, no JVD. No pulse deficits. snw
--- NOTE | 2023-07-24 17:45 | ER ---
Nurse's Notes [facility] Name: Erma Yoo Age: 57 yrs Sex: Female : 1965 Arrival Date: 07/24/2023 Time: 16:02 Bed 12 Private MD: Diagnosis: Influenza due to other identified influenza virus with gastrointestinal manifestations-Flu B Presentation: 07/24 16:18 Chief complaint: Patient states: Generalized weakness, malaise since Sunday, not nj1 getting better. Body aches, chills, cough, nausea and diarrhea. Coronavirus screen: Vaccine status: Patient reports receiving the 1st dose of the Covid vaccine. Ebola Screen: Patient denies travel to an Ebola-affected area in the 21 days before illness onset. Initial Sepsis Screen: Does the patient meet any 2 criteria? No. Patient's initial sepsis screen is negative. Does the patient have a suspected source of infection? No. Patient's initial sepsis screen is negative. Risk Assessment: Do you want to hurt yourself or someone else? Patient reports no desire to harm self or others. Onset of symptoms was July 22, 2023. 16:18 Method Of Arrival: Ambulatory [facility] 16:18 Acuity: VINNY 4 nj1 Historical: - Allergies: 16:21 Cheese; nj1 16:21 Niacin (Hives, Respiratory distress); nj1 - PMHx: 16:21 Asthma; Depression; Diabetes - NIDDM; Hypertension; insomnia; nj1 - PSHx: 16:21 Cholecystectomy; Ligation of fallopian tube; nj1 - Immunization history:: Client reports receiving the 1st dose of the Covid vaccine. - Social history:: Smoking status: Patient reports the use of cigarette tobacco products, smokes one-half pack cigarettes per day. Screenin:56 [facility] ED Fall Risk Assessment (Adult) Score/Fall Risk Level 0 - 2 = Low Risk hb Oriented to surroundings, Maintained a safe environment. Abuse screen: Denies threats or abuse. Denies injuries from another. Nutritional screening: No deficits noted. Tuberculosis screening: No symptoms or risk factors identified. Assessment: 17:30 General: Appears in no apparent distress. Behavior is calm, cooperative. Pain: Pain hb currently is 5 out of 10 on a pain scale. Neuro: Level of Consciousness is awake, alert, obeys commands, Oriented to person, place, time, situation. Cardiovascular: Patient's skin is warm and dry. Vital Signs: 16:18 BP 158 / 94; Pulse 74; Resp 18; Temp 99(O); Pulse Ox 100% ; Weight 70.31 kg; Height 5 nj1 ft. 0 in. ; Pain 5/10; 16:18 Body Mass Index 30.27 (70.31 kg, 152.4 cm) nj1 16:18 Pain Scale: Adult [facility] ED Course: 16:05 Patient arrived in ED. rg4 16:11 Almaz Rivera FNP-C [facility]. snw 16:11 Juan Pablo Trujillo MD is Attending Physician. snw 16:21 Triage completed. nj1 16:23 Arm band placed on right wrist. nj1 16:51 Urine W/Microscopic (UAM) Sent. hb 16:51 SARS RAPID Sent. hb 16:51 Flu Sent. hb 17:56 Patient has correct armband on for positive identification. Provided Education on: . hb 17:56 No provider procedures requiring assistance completed. Patient did not have IV access hb during this emergency room visit. Administered Medications: No medications were administered Outcome: 17:44 Discharge ordered by . snw 17:56 Discharged to home ambulatory, hb 17:56 Condition: stable 17:56 Discharge instructions given to patient, Instructed on discharge instructions, follow up and referral plans. medication usage, Demonstrated understanding of instructions, follow-up care, medications, Prescriptions given X 3, 17:57 Patient left the ED. hb Signatures: Almaz Rivera FNP-C MECHANIC GENERAL OPERATIONAL TEST-Csnw Melanie Dotson RN Padmini Thakkar rg4 Chloe Aranda RN RN nj
[2023-07-24 18:16] VITALS: BP 158/94; TEMP 99; O2SAT 100
== END 2023-07-24 17:57 | disposition home or self-care (01) ==
LOC: ER 16:02
DX: J10.2 Influenza due to other identified influenza virus with gastrointestinal manifestations (principal); E11.9 Type 2 diabetes mellitus without complications; I10 Essential (primary) hypertension; J45.909 Unspecified asthma, uncomplicated; Z88.8 Allergy status to other drugs, medicaments and biological substances; Z91.018 Allergy to other foods
CPT/HCPCS: 36415; 81001; 87804; 87811; 99283

== ENCOUNTER 2024-10-17 05:23 | Emergency (ER) | payer OTHER ==
--- OUTSIDE RECORDS SUMMARY | 2024-10-17 05:26 | XMS REPORT | Continuity of Care Document ---
Author Name Unknown Address [address] [facility] [address] [place] [address] [facility] thconnect Address [address] [facility]. [address] [place] [address] Care Team Providers Care Reports Analysis Manager Name Role Phone Marvin Seymour Jr. Primary Care Physician [phone] Ian Crespo Attending Clinician Unavailable KATHY WILBURN Attending Clinician Unavailable JAMES YOST Attending Clinician Unavailab JAZLYN Bosch Attending Clinician UnavailANDREA Mcknight Attending Clinician Unavailab SALVATORE Hector Attending Clinician Unavailable PEDRITO DOHERTY Attending Clinician Unavailable [email or web address] Attending Clinician Jordyn LONGORIA MD Attending Clinician Prema Grant90 Attending Clinician Unavailable TOYIN SHAW Attending Clinician Unavailable Doctor Unassigned, [place] Attending Clinician U navailable Lab, Adc Fam Pob I Attending Clinician Karen Hedrick Attending Clinician KAREN JOHNSON Attending Clinician Unavailable [email or web address] Admitting Clinician Jordyn sexton Payers Payer Name Policy Type Policy Number Effective Date Expirati on Date Source [facility] Individual Exchange Benefit Plan [id number] 2024 00:00:00 [facility] EUGENIO CHEN COPAY FOCUS 9 [id number] 2024 00:00:00 [employer] MP [facility] GOLD 4 [facility] ON/OFF 9 [id number] 2023 00:00:00 Problems Condition Name Condition Details Condition Category Status Onset Date Resolution Date Last Treatment Date Treating Clinician Comments Source HTN (hypertens ion) HTN (hypertens ion) Disease Active 2022-09 0- 00:00: 00 Luisa Seybold - Externa l Insomnia Insomnia Disease Active 2022-09 0- 00:00: 00 Luisa Seybold - Externa l Depression Depression Disease Active 2022-09 0- 00:00: 00 Luisa Seybold - Externa l DM (diabetes mellitus) (multi HCC) DM (diabetes mellitus) (multi HCC) Disease Active 2022-09 0- 00:00: 00 Luisa Seybold - Externa l Asthma (HHS-HCC) Asthma (HHS-HCC) Disease Active 2022-09 0- 00:00: 00 Luisa Seybold - Externa l Overweight (BMI 25.0-29.9) Overweight (BMI 25.0-29.9) Disease Active 2022-09 0- 00:00: 00 Luisa Seybold - Externa l History of suicide attempt History of suicide attempt Disease Active - 00:00: 00 Luisa Seheideold - Externa l [id number] Carpal tunnel syndrome of right wrist Problem Active [facility] [id number] Depression with anxiety Problem [facility] [id number] Essential hypertensi on Problem [facility] [id number] Type 2 diabetes mellitus with hyperglyce ana m, without long-term current use of insulin Problem [facility] [id number] Mild persistent asthma without complicati on Problem [facility] [id number] Primary insomnia Problem [facility] [id number] Mixed hyperlipid emia Problem [facility] Allergies, Adverse Reactions, Alerts Allergy Name Allergy Type Status Severity Reaction(s) Onset Date Inactive Date Treating Clinician Comments Source Cheese Propensi ty to adverse reaction s Active 2022-09 00:00: 00 Other reaction( s): Unknown Luisa Aguilar Externa l Isopropy l Nicotina te Propensi ty to adverse reaction s Active 12-21 00:00: 00 Other reaction( s): Unknown Luisa Purdya l niacin niacin Active Unknown [facility] Cheese Cheese Active Unknown [facility] NO KNOWN ALLERGIE S Drug Class Active [facility] Social History Social Habit Start Date Stop Date Quantity Comments Source Sexual orientation Lesli Stinson - External History of tobacco use Cigarette Smoker Luisa pfeiffer - External Tobacco use and exposure 2023-06-06 00:00:00 2023-06-06 00:00:00 Smokeless tobacco non-user Luisa Stinson - External Alcohol intake 2023-06-06 00:00:00 2023-06-06 00:00:00 Ex-drinker (finding) Luisa Stinson - External History of Social function 2023-06-06 00:00:00 2023-06-06 00:00:00 Luisa Stinson - External Education 2023-06-06 00:00:00 2023-06-06 00:00:00 17 Luisa Stinson - External Alcohol Comment 2023-06-06 00:00:00 2023-06-06 00:00:00 sober since 2021 Luisa Stinson - External Cigarettes smoked current (pack per day) - Reported 2023-06-06 00:00:00 2023-06-06 00:00:00 Luisa Milad - External Cigarette pack-years 2023-06-06 00:00:00 2023-06-06 00:00:00 Luisa Seshanon - External Sex Assigned At 1965 00:00:00 1965 00:00:00 Luisa Milad - External Smoking Status Start Date Stop Date Source Tobacco smoking consumption unknown [facility] Never Smoker [facility] Smokes tobacco daily 2023-06-06 00:00:00 Luisa Milad - External Medications Ordered Medication Name Filled Medication Name Start Date Stop Date Current Medication? Ordering Clinician Indication Dosage Frequency Signature (SIG) Comments Components Source Zolpidem Tartrate 10 MG Zolpidem Tartrate 10 MG 2023-09 00:00: 00 No 1{table t_at_be dtime_a s_neede d} QD Zolpidem Tartrate 10 MG Amoxicillin -Pot Clavulanate 875-125 MG Amoxicillin -Pot Clavulanate 875-125 MG 2023-09 00:00: 00 No 1{table t} BID Amoxicilli n-Pot Clavulanat e 875-125 MG Pseudoeph-B romphen-DM 30-2-10 MG/5ML Pseudoeph-B romphen-DM 30-2-10 MG/5ML 2023-09 2 00:00: 00 No 5{ml} TID Pseudoeph- Bromphen-D M 30-2-10 MG/5ML Oseltamivir Phosphate 75 MG Oseltamivir Phosphate 75 MG 2023-09 00:00: 00 No 1{capsu le} BID Oseltamivi r Phosphate 75 MG Losartan Potassium 50 MG Losartan Potassium 50 MG 2023-09- 00:00: 00 No 1{table t} QD Losartan Potassium 50 MG Gabapentin 100 MG Gabapentin 100 MG - 00:00: 00 No 1{capsu le} QD Gabapentin 100 MG Naproxen 500 MG Naproxen 500 MG 5-15 00:00: 00 No QD Naproxen 500 MG Ondansetron HCl 4 MG Ondansetron HCl 4 MG 01-08 00:00: 00 No 1{table t} QD Ondansetro n HCl 4 MG Metformin HCl 500 MG oral Tablet 2022-09 15:07: 08 Yes 500mg Take 1 tablet (500 mg total) by mouth in the morning and 1 tablet (500 mg total) in the evening. Take with meals. Luisa cabrera Trulicity 0.75 MG/0.5ML subcutaneou s Solution Pen-injecto r 2022-09 00:00: 00 Yes [id number] .75mg Inject 0.75 mg into the skin once a week. Luisa cabrera Propranolol HCl 10 MG oral Tablet 05-13 00:00: 00 Yes 10mg Take 1 tablet (10 mg total) by mouth 3 times daily. Luisa cabrera Sumatriptan Succinate 100 MG oral Tablet 05-13 00:00: 00 Yes TAKE 1 TABLET BY MOUTH TWICE A DAY NEEDED WITH AT LEAST 2 HOURS BETWEEN DOSES Luisa cabrera Losartan Potassium-H CTZ 100-25 MG oral Tablet 05-12 00:00: 00 Yes 1{tbl} Take 1 tablet by mouth daily. Luisa cabrera Zolpidem Tartrate 10 MG oral Tablet 05-11 00:00: 00 Yes 10mg Take 1 tablet (10 mg total) by mouth at bedtime as needed. Luisa cabrera Clonazepam 0.5 MG oral Tablet 04-25 00:00: 00 Yes .5mg Take 1 tablet (0.5 mg total) by mouth 2 times daily. Luisa cabrera Potassium Chloride CR 10 MEQ oral Cap CR 04-05 00:00: 00 Yes 10meq Take 1 capsule (10 mEq total) by mouth daily. Luisa cabrera Pregabalin 50 MG oral Capsule 04-05 00:00: 00 Yes TAKE ONE (1) CAPSULE (50 MG) BY MOUTH 2 TIMES PER DAY. Luisa cabrera Pen Aiken 32G x 4 mm 6" Pen Aiken 32G x 4 mm 16" No QD Pen Aiken 32G x 4 mm 09/08" clonazePAM 0.5 MG clonazePAM 0.5 MG No 1{table t} clonazePAM 0.5 MG Doxepin HCl 25 MG Doxepin HCl 25 MG No Doxepin HCl 25 MG metFORMIN HCl 1000 MG metFORMIN HCl 1000 MG No 1{table t_with_ a_meal} BID metFORMIN HCl 1000 MG DULoxetine HCl 30 MG DULoxetine HCl 30 MG No 1{capsu le} BID DULoxetine HCl 30 MG hydrOXYzine HCl 25 MG hydrOXYzine HCl 25 MG No 1{table t_as_ne eded} QD hydrOXYzin e HCl 25 MG Potassium Chloride ER 10 MEQ Potassium Chloride ER 10 MEQ No 1{table t_with_ food} QD Potassium Chloride ER 10 MEQ Albuterol Sulfate HFA 108 (90 Base) MCG/ACT Albuterol Sulfate HFA 108 (90 Base) MCG/ACT No 6xD Albuterol Sulfate HFA 108 (90 Base) MCG/ACT Lantus SoloStar 100 UNIT/ML Lantus SoloStar 100 UNIT/ML No QD Lantus SoloStar 100 UNIT/ML Atorvastati n Calcium 80 MG Atorvastati n Calcium 80 MG No 1{table t} QD Atorvastat in Calcium 80 MG Diclofenac Potassium 50 MG Diclofenac Potassium 50 MG No BID Diclofenac Potassium 50 MG Pantoprazol e Sodium 40 MG Pantoprazol e Sodium 40 MG No Pantoprazo le Sodium 40 MG Mounjaro 5 MG/0.5ML Mounjaro 5 MG/0.5ML No Mounjaro 5 MG/0.5ML Immunizations Ordered Immunization Name Filled Immunization Name Date Status Comments Source Fluarix (IIV3) - SDS - 0.5mL Fluarix (IIV3) - SDS - 0.5mL Unknown Completed [facility] Vital Signs Vital Name Observation Time Observation Value Comments S ource height 2024-10-07 14:30:00 60 [in_i] [facility] weight 2024-10-07 14:30:00 145.8 [lb_av] [facility] temperature 2024-10-07 14:30:00 98.4 [degF] [facility] bmi 2024-10-07 14:30:00 28.47 kg/m2 [facility] oximetry 2024-10-07 14:30:00 95 % [facility] respiratory rate 2024-10-07 14:30:00 16 /min [facility] blood pressure systolic 2024-10-07 14:30:00 146 mm[Hg] [facility] blood pressure diastolic 2024-10-07 14:30:00 80 mm[Hg] [facility] height 2024-08-20 08:00:00 60 [in_i] [facility] weight 2024-08-20 08:00:00 144.8 [lb_av] [facility] temperature 2024-08-20 08:00:00 98.1 [degF] Com [facility] bmi 2024-08-20 08:00:00 28.28 kg/m2 [facility] oximetry 2024-08-20 08:00:00 99 % [facility] respiratory rate 2024-08-20 08:00:00 16 /min [facility] blood pressure systolic 2024-08-20 08:00:00 156 mm[Hg] [facility] blood pressure diastolic 2024-08-20 08:00:00 84 mm[Hg] Common [facility] height 2024-08-08 16:00:00 60 [in_i] [facility] weight 2024-08-08 16:00:00 147 [lb_av] Comm [facility] temperature 2024-08-08 16:00:00 98.0 [degF] Com [facility] bmi 2024-08-08 16:00:00 28.71 kg/m2 [facility] oximetry 2024-08-08 16:00:00 99 % [facility] respiratory rate 2024-08-08 16:00:00 16 /min [facility] blood pressure systolic 2024-08-08 16:00:00 150 mm[Hg] Common [facility] blood pressure diastolic 2024-08-08 16:00:00 76 mm[Hg] [facility] height 2024-08-04 15:00:00 60 [in_i] [facility] weight 2024-08-04 15:00:00 147.0 [lb_av] Co [facility] temperature 2024-08-04 15:00:00 97.5 [degF] Com [facility] bmi 2024-08-04 15:00:00 28.71 kg/m2 [facility] oximetry 2024-08-04 15:00:00 96 % [facility] respiratory rate 2024-08-04 15:00:00 16 /min [facility] height 2024-07-15 14:40:00 60 [in_i] [facility] weight 2024-07-15 14:40:00 149.4 [lb_av] Co [facility] temperature 2024-07-15 14:40:00 97.9 [degF] Com [facility] bmi 2024-07-15 14:40:00 29.17 kg/m2 [facility] oximetry 2024-07-15 14:40:00 98 % [facility] respiratory rate 2024-07-15 14:40:00 16 /min [facility] blood pressure systolic 2024-07-15 14:40:00 134 mm[Hg] Common [facility] blood pressure diastolic 2024-07-15 14:40:00 84 mm[Hg] [facility] height 2024-04-18 08:00:00 60 [in_i] [facility] weight 2024-04-18 08:00:00 157.8 [lb_av] [facility] temperature 2024-04-18 08:00:00 98.2 [degF] Com [facility] bmi 2024-04-18 08:00:00 30.81 kg/m2 [facility] oximetry 2024-04-18 08:00:00 98 % [facility] respiratory rate 2024-04-18 08:00:00 16 /min [facility] blood pressure systolic 2024-04-18 08:00:00 178 mm[Hg] [facility] blood pressure diastolic 2024-04-18 08:00:00 77 mm[Hg] [facility] height 2024-03-27 16:00:00 60 [in_i] [facility] weight 2024-03-27 16:00:00 158.4 [lb_av] Co [facility] temperature 2024-03-27 16:00:00 97.3 [degF] Com [facility] bmi 2024-03-27 16:00:00 30.93 kg/m2 [facility] oximetry 2024-03-27 16:00:00 97 % [facility] respiratory rate 2024-03-27 16:00:00 16 /min [facility] blood pressure systolic 2024-03-27 16:00:00 144 mm[Hg] [facility] blood pressure diastolic 2024-03-27 16:00:00 78 mm[Hg] [facility] height 2024-02-13 10:40:00 60 [in_i] [facility] weight 2024-02-13 10:40:00 155.8 [lb_av] [facility] temperature 2024-02-13 10:40:00 97.8 [degF] Com [facility] bmi 2024-02-13 10:40:00 30.42 kg/m2 [facility] oximetry 2024-02-13 10:40:00 98 % [facility] respiratory rate 2024-02-13 10:40:00 16 /min [facility] blood pressure systolic 2024-02-13 10:40:00 123 mm[Hg] [facility] blood pressure diastolic 2024-02-13 10:40:00 69 mm[Hg] [facility] height 2024-01-23 11:20:00 60 [in_i] [facility] weight 2024-01-23 11:20:00 156.0 [lb_av] [facility] temperature 2024-01-23 11:20:00 98.1 [degF] Com [facility] bmi 2024-01-23 11:20:00 30.46 kg/m2 [facility] oximetry 2024-01-23 11:20:00 99 % [facility] respiratory rate 2024-01-23 11:20:00 16 /min [facility] blood pressure systolic 2024-01-23 11:20:00 127 mm[Hg] [facility] blood pressure diastolic 2024-01-23 11:20:00 78 mm[Hg] [facility] height 2024-01-16 09:00:00 60 [in_i] [facility] weight 2024-01-16 09:00:00 153.2 [facility]lb[facility]av[facility]-16 09:00:00 98.4 [degF] Com [facility] bmi 2024-01-16 09:00:00 29.92 kg/m2 [facility] oximetry 2024-01-16 09:00:00 99 % [facility] respiratory rate 2024-01-16 09:00:00 16 /min [facility] blood pressure systolic 2024-01-16 09:00:00 158 mm[Hg] Common [facility] blood pressure diastolic 2024-01-16 09:00:00 96 mm[Hg] [facility] height 2024-01-09 10:40:00 60 [in_i] [facility] weight 2024-01-09 10:40:00 154.2 [lb_av] [facility] temperature 2024-01-09 10:40:00 98.1 [degF] Com [facility] bmi 2024-01-09 10:40:00 30.11 kg/m2 [facility] oximetry 2024-01-09 10:40:00 95 % [facility] respiratory rate 2024-01-09 10:40:00 16 /min [facility] blood pressure systolic 2024-01-09 10:40:00 162 mm[Hg] Common [facility] blood pressure diastolic 2024-01-09 10:40:00 98 mm[Hg] [facility] height 2023-11-29 10:20:00 60 [in_i] [facility] weight 2023-11-29 10:20:00 155.6 [lb_av] [facility] temperature 2023-11-29 10:20:00 97.9 [degF] Com [facility] bmi 2023-11-29 10:20:00 30.39 kg/m2 [facility] oximetry 2023-11-29 10:20:00 97 % [facility] respiratory rate 2023-11-29 10:20:00 16 /min [facility] blood pressure systolic 2023-11-29 10:20:00 114 mm[Hg] [facility] blood pressure diastolic 2023-11-29 10:20:00 65 mm[Hg] [facility] height 2023-09-27 15:00:00 60 [in_i] [facility] weight 2023-09-27 15:00:00 153.6 [lb_av] [facility] temperature 2023-09-27 15:00:00 98.4 [degF] Com [facility] bmi 2023-09-27 15:00:00 29.99 kg/m2 [facility] oximetry 2023-09-27 15:00:00 99 % [facility] respiratory rate 2023-09-27 15:00:00 16 /min [facility] blood pressure systolic 2023-09-27 15:00:00 128 mm[Hg] [facility] blood pressure diastolic 2023-09-27 15:00:00 74 mm[Hg] [facility] height 2023-08-29 08:00:00 60 [in_i] [facility] weight 2023-08-29 08:00:00 156.4 [lb_av] [facility] temperature 2023-08-29 08:00:00 98.6 [degF] Com [facility] bmi 2023-08-29 08:00:00 30.54 kg/m2 [facility] oximetry 2023-08-29 08:00:00 98 % [facility] respiratory rate 2023-08-29 08:00:00 16 /min [facility] blood pressure systolic 2023-08-29 08:00:00 136 mm[Hg] [facility] blood pressure diastolic 2023-08-29 08:00:00 78 mm[Hg] Common [facility] height 2023-08-01 09:00:00 60 [in_i] [facility] weight 2023-08-01 09:00:00 155 [lb_av] [facility] temperature 2023-08-01 09:00:00 98.2 [degF] Com [facility] bmi 2023-08-01 09:00:00 30.27 kg/m2 [facility] oximetry 2023-08-01 09:00:00 98 % [facility] respiratory rate 2023-08-01 09:00:00 16 /min [facility] blood pressure systolic 2023-08-01 09:00:00 122 mm[Hg] [facility] blood pressure diastolic 2023-08-01 09:00:00 82 mm[Hg] [facility] Systolic blood pressure 2023-06-06 19:54:00 117 mm[Hg] Luisa ybo ld - External Diastolic blood pressure 2023-06-06 19:54:00 80 mm[Hg] Luisa Seybo ld - External Heart rate 2023-06-06 19:54:00 93 /min Kelse y Seybold - External Body temperature 2023-06-06 19:54:00 37 Shayna Luisa Seybold - External Respiratory rate 2023-06-06 19:54:00 20 /min Luisa Seybold - External Body height 2023-06-06 19:54:00 154.9 cm Ruby ey Seybold - External Body weight 2023-06-06 19:54:00 71.124 kg Ruby ey Seybold - External BMI 2023-06-06 19:54:00 29.63 kg/m2 Ruby ey Seybold - External Oxygen saturation in Arterial blood by Pulse oximetry 2023-06-06 19:54:00 99 /min Luisa Seybo ld - External height 2021-04-26 08:00:00 60 [in_i] [facility] weight 2021-04-26 08:00:00 173.8 [lb_av] Co [facility] bmi 2021-04-26 08:00:00 33.94 kg/m2 [facility] blood pressure systolic 2021-04-26 08:00:00 132 mm[Hg] Common [facility] blood pressure diastolic 2021-04-26 08:00:00 82 mm[Hg] Common [facility] Encounters Start Date/Time End Date/Time Encounter Type Admission Type Attending [facility] Care Facility Care Department Encounter ID Source 2024-08-04 14:45:00 [facility] [id number] [facility] 2024-07-15 14:36:00 Out[facility] [id number] [facility] 2024-07-11 09:23:00 Out[facility] [id number] [facility] 2024-07-07 16:16:01 Outpatient [facility] [id number] [facility] 2024-05-09 09:47:00 Outpatient [facility]resp[facility] [id number] [facility] 2024-04-16 10:14:01 Outpatient [facility] [id number] [facility] 2024-03-03 10:42:00 Outpatient Ian Crespo ST[facility] ST[facility] [id number] [facility] 2024-02-12 14:30:00 Outpatient Ian Crespo [facility] [id number] [facility] 2024-01-23 10:57:00 Outpatient Ian Crespo [facility] [id number] [facility] 2024-01-15 16:26:00 Outpatient Ian Crespo [facility] [id number] [facility] 2023-12-27 09:47:00 Outpatient Ian CrespoLC STLMLC [id number] [facility] 2023-11-29 09:19:00 Outpatient Ian Crespo [facility] [id number] [facility] 2023-11-27 08:46:00 Outpatient Ian Crespo [facility] [id number] [facility] 2023-11-23 09:29:00 Outpatient Ian Crespo [facility] [id number] [facility] 2023-11-22 14:24:00 Outpatient Ian Crespo [facility] [id number] [facility] 2023-10-25 08:19:00 Outpatient Ian Crespo [facility] [id number] [facility] 2023-09-26 16:29:00 Outpatient Ian Crespo [facility] [id number] [facility] 2023-09-24 08:07:00 Outpatient Ian Crespo [facility] [id number] [facility] 2023-08-01 09:10:01 Outpatient Ian Crespo [facility] [id number] [facility] 2023-07-31 16:27:00 Outpatient Ian Crespo [facility] [id number] [facility] 2023-07-24 13:22:00 Outpatient Ian Crespo [facility] [id number] [facility] 2023-07-18 16:14:00 Outpatient [facility] [id number] [facility] 2021-09-28 13:41:50 Outpatient STL[facility]C STL[facility]C [id number] [facility] 2024-10-07 00:00:00 2024-10-07 00:00:00 OFFICE VISIT ESTAB PT LEVEL 3 [facility]C STL[facility]C [id number] [facility] 2024-08-20 00:00:00 2024-08-20 00:00:00 OFFICE VISIT ESTAB PT LEVEL 4 [facility]C STL[facility]C [id number] [facility] 2024-08-08 00:00:00 2024-08-08 00:00:00 OFFICE VISIT ESTAB PT LEVEL 3 [facility] ST[facility]C [id number] [facility] 2024-08-06 00:00:00 2024-08-06 00:00:00 (TEL) [facility]LMLC STL[facility]C [id number] [facility] 2024-08-04 00:00:00 2024-08-04 00:00:00 OFFICE VISIT ESTAB PT LEVEL 3 [facility] ST[facility]C [id number] [facility] 2024-07-15 00:00:00 2024-07-15 00:00:00 OFFICE VISIT ESTAB PT LEVEL 4 [facility] ST[facility]C [id number] [facility] 2024-06-06 00:00:00 2024-06-06 00:00:00 Outpatient KATHY WILBURN [id number] [facility] 2024-05-29 11:30:00 2024-05-29 11:30:00 Outpatient JAMES YOST [id number] [facility] 2024-05-08 00:00:00 2024-05-08 00:00:00 (TEL) [facility]LMLC STL[facility]C [id number] [facility] 2024-04-29 00:00:00 2024-04-29 00:00:00 (TEL) STLMLC STL[facility]C [id number] [facility] 2024-04-18 00:00:00 2024-04-18 00:00:00 OFFICE VISIT ESTAB PT LEVEL 3 [facility] ST[facility]C [id number] [facility] 2024-04-10 00:00:00 2024-04-10 00:00:00 Outpatient KATHY WILBURN [id number] Luisa [facility] 2024-04-09 00:00:00 2024-04-09 00:00:00 (TEL) STLMLC STL[facility]C [id number] [facility] 2024-04-07 00:00:00 2024-04-07 00:00:00 (TEL) STLMLC ST[facility]C [id number] [facility] 2024-03-27 00:00:00 2024-03-27 00:00:00 OFFICE VISIT ESTAB PT LEVEL 4 [facility] ST[facility]C [id number] [facility] 2024-03-22 18:05:00 2024-03-22 20:03:00 Emergency ER JAZLYN SCHULTZ [facility] [id number] [facility] 2024-02-13 00:00:00 2024-02-13 00:00:00 OFFICE VISIT ESTAB PT LEVEL 3 [facility] ST[facility]C [id number] [facility] 2024-02-11 15:37:00 2024-02-11 17:40:00 Emergency ER ANDREA RINCON [facility] [id number] [facility] 2024-01-26 19:11:00 2024-01-26 21:17:00 Emergency ER SALVATORE VARELA [facility] [id number] [facility] 2024-01-23 00:00:00 2024-01-23 00:00:00 OFFICE VISIT ESTAB PT LEVEL 4 [facility] [id number] [facility] [facility] 2024-01-16 00:00:00 2024-01-16 00:00:00 OFFICE VISIT ESTAB PT LEVEL 3 STLMLC STLMLC [id number] [facility] 2024-01-09 00:00:00 2024-01-09 00:00:00 OFFICE VISIT ESTAB PT LEVEL 4 STLMLC STLMLC [id number] [facility] 2023-12-28 00:00:00 2023-12-28 00:00:00 (TEL) STLMLC STLMLC [id number] [facility] 2023-11-29 00:00:00 2023-11-29 00:00:00 (ESTPTWM) Establishe d PT Women STLMLC STLMLC [id number] [facility] 2023-11-29 00:00:00 2023-11-29 00:00:00 (TEL) STLMLC STLMLC [id number] [facility] 2023-11-22 00:00:00 2023-11-22 00:00:00 (TEL) STLMLC STLMLC [id number] [facility] 2023-10-10 00:00:00 2023-10-10 00:00:00 Outpatient KATHY WILBURN [id number] Luisa [facility] 2023-09-27 00:00:00 2023-09-27 00:00:00 OFFICE VISIT ESTAB PT LEVEL 4 STLMLC STLMLC [id number] [facility] 2023-09-27 00:00:00 2023-09-27 00:00:00 (TEL) STLMLC STLMLC [id number] [facility] 2023-09-04 00:00:00 2023-09-04 00:00:00 (TEL) STLMLC STLMLC [id number] [facility] 2023-08-29 00:00:00 2023-08-29 00:00:00 (TEL) STLMLC STLMLC [id number] [facility] 2023-08-29 00:00:00 2023-08-29 00:00:00 OFFICE VISIT ESTAB PT LEVEL 4 STLMLC STLMLC [id number] [facility] 2023-08-01 00:00:00 2023-08-01 00:00:00 OFFICE VISIT NEW PT [facility]EVEL 4 [facility] [id number] 2023-07-18 13:30:00 2023-07-18 13:30:00 Outpatient BESSY PEDRITOEMILIANA CAREY [id number] [facility] 2023-07-18 00:00:00 2023-07-18 00:00:00 (TEL) [facility] [id number] [facility] 2023-07-11 10:45:00 2023-07-11 10:45:00 Outpatient KATHY WILBURN [id number] [facility] 2023-06-29 00:00:00 2023-06-29 00:00:00 Outpatient GC_GCBZW_Ka diyala_S [facility] [id number] [facility] 2023-06-20 00:00:00 2023-06-20 00:00:00 Outpatient MD LUISA UMAÑA [id number] [facility] 2023-06-17 00:00:00 2023-06-17 00:00:00 Outpatient KATHY WILBURN [id number] [facility] 2023-06-08 00:00:00 2023-06-08 00:00:00 Outpatient KATHY WILBURN [id number] Lu[facility] 2023-06-06 15:45:00 2023-06-06 15:45:00 Outpatient MARCIAL CAREY [id number] [facility] 2023-06-06 15:00:00 2023-06-06 15:00:00 Outpatient KATHY WILBURN [id number] Lu[facility] 2023-05-23 00:00:00 2023-05-23 00:00:00 Outpatient KATHY WILBURN [id number] [facility] 2021-04-26 00:00:00 2021-04-26 00:00:00 OFFICE VISIT NEW PT LEVEL 3 STLMLC STLMLC [id number] [facility] 2020-12-16 09:00:00 2020-12-16 08:53:43 Outpatient TO[facility]IN [facility] [id number] [facility] 2020-11-25 08:50:00 2020-11-25 08:41:49 Outpatient [facility] [id number] [facility] 2020-03-10 00:00:00 2020-03-10 00:00:00 Patient Secure Msg Doctor Unassigned, [place] [facility] OFFICE BUILDING ONE [id number] [facility] 2020-03-08 11:13:22 2020-03-08 11:33:22 Laboratory Only Lab, [facility] Fam Pob [facility] Office Building One [id number] [facility] 2020-03-08 11:13:22 2020-03-08 11:33:22 [facility] Only [facility] Office Building One [id number] 2020-03-08 11:20:00 2020-03-08 11:20:00 Outpatient Max [facility] [id number] [facility] Results Test Description Test Time Test Comments Results Result Co mments Source HEMOGLOBIN [id number] 00:00:00* Test Item Value Reference Range Interpretation Comme [facility] A1C (test code = 4548-4) 13.4 COMPREHENSIVE METABOLIC [id number] 00:00:00* Test Item Value Reference Range Interpretation Comme [facility] HEMOGLOBIN A1c (test code = 4548-4) 9.8 % See_Comment H [Automated messa ge] The system which generated this result transmitted reference range: 4.2-5.6 %. The reference range was not used to interpret this result as normal/abnormal. ALBUMIN, URINE, RANDOM (test code = 28898-2) 1.5 MG/DL NOT ESTAB MG/DL CALC ALBUMIN/CREAT, RND (test code = 89371-4) 7 MG/G See_Comment [Automated messa ge] The system which generated this result transmitted reference range: <30 MG/G. The reference range was not used to interpret this result as normal/abnormal. CREATININE, URINE, CONC. (test code = 2161-8) 201.6 MG/DL NOT ESTAB MG/DL CALC LDL CHOL (test code = 10054-9) 167 MG/DL See_Comment H [Automated messa ge] The system which generated this result transmitted reference range: <100 MG/DL. The reference range was not used to interpret this result as normal/abnormal. CHOLESTEROL (test code = 2093-3) 246 MG/DL See_Comment H [Automated messa ge] The system which generated this result transmitted reference range: <200 MG/DL. The reference range was not used to interpret this result as normal/abnormal. HDL CHOLESTEROL (test code = 2085-9) 34 MG/DL See_Comment L [Automated messa ge] The system which generated this result transmitted reference range: >39 MG/DL. The reference range was not used to interpret this result as normal/abnormal. RISK RATIO LDL/HDL (test code = 94546-4) 4.91 RATIO See_Comment H [Automated message] The system which generated this result transmitted reference range: <3.22 RATIO. The reference range was not used to interpret this result as normal/abnormal. TRIGLYCERIDES (test code = 2571-8) 273 MG/DL See_Comment H [Automated messa ge] The system which generated this result transmitted reference range: <150 MG/DL. The reference range was not used to interpret this result as normal/abnormal. ALBUMIN (test code = 1751-7) 4.1 G/DL See_Comment [Automated messa ge] The system which generated this result transmitted reference range: 3.5-5.2 G/DL. The reference range was not used to interpret this result as normal/abnormal. ALKALINE PHOSPHATASE (test code = 6768-6) 101 U/L See_Comment [Automated message] The system which generated this result transmitted reference range: 40-136 U/L. The reference range was not used to interpret this result as normal/abnormal. BILIRUBIN, TOTAL (test code = 1975-2) 0.3 MG/DL See_Comment [Automated messa ge] The system which generated this result transmitted reference range: <=1.2 MG/DL. The reference range was not used to interpret this result as normal/abnormal. BUN (test code = 3094-0) 12 MG/DL See_Comment [Automated messa ge] The system which generated this result transmitted reference range: 6-20 MG/DL. The reference range was not used to interpret this result as normal/abnormal. CALCIUM (test code = 04717-3) 9.8 MG/DL See_Comment [Automated messa ge] The system which generated this result transmitted reference range: 8.5-10.5 MG/DL. The reference range was not used to interpret this result as normal/abnormal. CALC A/G RATIO (test code = 1759-0) 1.3 RATIO See_Comment [Automated messa ge] The system which generated this result transmitted reference range: 1.0-2.6 RATIO. The reference range was not used to interpret this result as normal/abnormal. CALC BUN/CREAT (test code = 3097-3) 16 RATIO See_Comment [Automated messa ge] The system which generated this result transmitted reference range: 6-28 RATIO. The reference range was not used to interpret this result as normal/abnormal. CALC GLOBULIN (test code = 39102-8) 3.1 G/DL See_Comment [Automated messa ge] The system which generated this result transmitted reference range: 1.9-3.7 G/DL. The reference range was not used to interpret this result as normal/abnormal. CARBON DIOXIDE (test code = 1963-8) 27 MEQ/L See_Comment [Automated messa ge] The system which generated this result transmitted reference range: 19-31 MEQ/L. The reference range was not used to interpret this result as normal/abnormal. CHLORIDE (test code = 2075-0) 103 MEQ/L See_Comment [Automated messa ge] The system which generated this result transmitted reference range: 95-107 MEQ/L. The reference range was not used to interpret this result as normal/abnormal. CREATININE (test code = 2160-0) 0.75 MG/DL See_Comment [Automated messa ge] The system which generated this result transmitted reference range: 0.60-1.30 MG/DL. The reference range was not used to interpret this result as normal/abnormal. eGFR (2020 CKD-EPI) (test code = 86324-8) 93 ML/MIN/1.73 See_Comment [Automated message] The system which generated this result transmitted reference range: >60 ML/MIN/1.73. The reference range was not used to interpret this result as normal/abnormal. GLUCOSE (test code = 1558-6) 204 MG/DL See_Comment H [Automated messa ge] The system which generated this result transmitted reference range: 70-99 MG/DL. The reference range was not used to interpret this result as normal/abnormal. POTASSIUM (test code = 2823-3) 4.2 MEQ/L See_Comment [Automated messa ge] The system which generated this result transmitted reference range: 3.5-5.4 MEQ/L. The reference range was not used to interpret this result as normal/abnormal. PROTEIN, TOTAL (test code = 2885-2) 7.2 G/DL See_Comment [Automated messa ge] The system which generated this result transmitted reference range: 6.1-8.3 G/DL. The reference range was not used to interpret this result as normal/abnormal. AST (test code = 1920-8) 16 U/L See_Comment [Automated messa ge] The system which generated this result transmitted reference range: 9-40 U/L. The reference range was not used to interpret this result as normal/abnormal. ALT (test code = 1742-6) 18 U/L See_Comment [Automated messa ge] The system which generated this result transmitted reference range: 5-40 U/L. The reference range was not used to interpret this result as normal/abnormal. SODIUM (test code = 2951-2) 138 MEQ/L See_Comment [Automated messa ge] The system which generated this result transmitted reference range: 133-146 MEQ/L. The reference range was not used to interpret this result as normal/abnormal. HEMOGLOBIN [id number] 00:00:00* Test Item Value Reference Range Interpretation Comme nts A1C (test code = 4548-4) 9.3 HEMOGLOBIN [id number] 00:00:00* Test Item Value Reference Range Interpretation Comme nts A1C (test code = 4548-4) 12.4 HEMOGLOBIN [id number] 00:00:00* Test Item Value Reference Range Interpretation Comme nts HEMOGLOBIN A1c (test code = 4548-4) 13.1 % See_Comment H [Automated messa ge] The system which generated this result transmitted reference range: 4.2-5.6 %. The reference range was not used to interpret this result as normal/abnormal. POC, COVID 19 Antigen + Flu by SofiaPOC, COVID 19 Antigen + Flu by SofiaPOC, COVID 19 Antigen + Flu by SofiaPOC, COVID 19 Antigen + Flu by Chinyere
[2024-10-17] MEDS ORDERED: ONDANSETRON 4 MG/2 ML VIAL ONE (06:36)
[2024-10-17] MEDS ORDERED: HYDROCODONE/APAP 10/325 TAB ONE (06:37)
[2024-10-17] MEDS ORDERED: KETOROLAC 30 MG/ML INJ ONE (06:37)
[2024-10-17 06:55] LABS: Absolute Eosinophils 0.4 K/uL (0-0.5); Absolute Lymphocytes (CBC) 1.5 K/uL (0.7-4.9); Absolute Monocytes 0.5 K/uL (0.1-1.3); Absolute Neutrophil 4.2 K/uL (1.8-8.0); Basophils % 0.7 % (0-1.3); Eosinophils % 5.3 % (0-4.4); Hematocrit 42.7 % (36.0-45.0); Lymphocytes % 23.5 % (15.3-44.8); MCHC 32.8 g/dL (32.0-36.0); MCV 73.1 fL (80-100); Neutrophils % 63.5 % (41.7-73.7); Nucleated Red Blood Cells % 0.1 % (0-0); Platelets 304 thou/uL (152-406); RBC Red Blood Cell Count 5.85 M/uL (3.86-4.86); Red Cell Distribution Width 15.2 % (12.1-15.2)
[2024-10-17 07:04] LABS: Albumin 3.6 g/dL (3.4-5.0); Albumin/Globulin Ratio 0.9 (1.1-1.8); Anion Gap 11.9 mEq/L (5.0-15.0); Bilirubin Total 0.4 mg/dL (0.2-1.0); Potassium 3.9 mEq/L (3.5-5.1); Protein, Total 7.6 g/dL (6.4-8.2)
--- NOTE | 2024-10-17 08:21 | RAD REPORT ---
EXAMINATION: CT Abdomen Pelvis W Contrast CLINICAL INDICATION: Female, 58 years old. Right lower pelvic pain, R thigh pain TECHNIQUE: CT abdomen and pelvis was performed, after the administration of IV contrast, as per [facility] protocol. Axial, sagittal and coronal reconstructions were obtained. One or more of the following dose reduction techniques were used: Automated exposure control, adjustment of the mA and k V according to patient size, and iterative reconstruction. Unless otherwise specified, incidental findings do not require dedicated imaging follow-up. COMPARISON: 04/20/2021 FINDINGS: LOWER CHEST: The visualized lung bases are clear. LIVER: Normal in size and contour. No focal lesion. BILIARY SYSTEM: Status post cholecystectomy. SPLEEN: Normal size. No focal lesion. PANCREAS: No mass, ductal dilation, or mio-pancreatic fluid. ADRENALS: Normal; no mass. KIDNEYS: Normal size and contour. No hydronephrosis. URINARY BLADDER: Suboptimally distended limiting evaluation.. GASTROINTESTINAL TRACT: No evidence of free air, significant intra-abdominal free fluid, bowel obstru ction or abscess. APPENDIX: Normal appendix. LYMPH NODES: No lymphadenopathy. MUSCULOSKELETAL: No acute osseous abnormality. Moderately advanced lumbar spine degenerative changes with disc extrusion most pronounced at L4-5. ADDITIONAL FINDINGS: Retroverted uterus. Bilateral tubal occlusion devices. Mild diastasis recti. IMPRESSION: No acute or concerning abnormalities seen in the abdomen or pelvis. Moderately advanced lumbar spine degenerative changes. If there is concern for radiculopathy, dedic ed lumbar spine MRI evaluation may be indicated. Other incidental findings as above.
--- NOTE | 2024-10-17 08:38 | RAD REPORT ---
EXAMINATION: US RIGHT LOWER EXTREMITY VENOUS DOPPLER CLINICAL INDICATION: [facility] MAIN Right leg Right leg pain Bed Name: 6 Y TECHNIQUE: Complete bilateral duplex sonography of the RIGHT lower extremity veins was performed. The examination included compression for vein patency, color Doppler imaging and flow augmentation in response to distal compression of the distal external iliac, common femoral, femoral, popliteal, tibi al, and great and small saphenous veins. COMPARISON: 10/21/2020 FINDINGS: Duplex sonography testing of the veins of the RIGHT lower extremity was performed. Color flow imaging shows all veins to be compressible with [id number] color filling. Pulsatile and phasic flow is present within all lower extremity deep and superficial veins examined. IMPRESSION: No evidence of deep venous thrombosis.
--- NOTE | 2024-10-17 08:47 | ER ---
Nurse's Notes [facility] Name: Erma Yoo Age: 58 yrs Sex: Female : 1965 Arrival Date: 10/17/2024 Time: 05:23 Bed 6 Private MD: Diagnosis: Pain in right leg Presentation: 10/17 06:25 Chief complaint: Patient states: right leg from thigh to knee for 1 week that got worse bm8 2 days ago. Coronavirus screen: At this time, the client does not indicate any symptoms associated with coronavirus-19. Ebola Screen: Patient negative for fever greater than or equal to 101.5 degrees Fahrenheit, and additional compatible Ebola Virus Disease symptoms Patient denies exposure to infectious person. Patient denies travel to an Ebola-affected area in the 21 days before illness onset. No symptoms or risks identified at this time. Initial Sepsis Screen: Does the patient meet any 2 criteria? No. Patient's initial sepsis screen is negative. Does the patient have a suspected source of infection? No. Patient's initial sepsis screen is negative. Risk Assessment: Do you want to hurt yourself or someone else? Patient reports no desire to harm self or others. Onset of symptoms was October 12, 2024 at 08:00. 06:25 Method Of Arrival: Ambulatory bm8 06:25 Acuity: VINNY 3 bm8 Triage Assessment: 06:28 General: Appears in no apparent distress. comfortable, Behavior is calm, cooperative, bm8 appropriate for age. Pain: Complains of pain in right leg Pain currently is 6 out of 10 on a pain scale. EENT: No deficits noted. No signs and/or symptoms were reported regarding the EENT system. Neuro: No deficits noted. Cardiovascular: No deficits noted. Capillary refill < 3 seconds in bilateral fingers toes Patient's skin is warm and dry. Respiratory: No deficits noted. GI: No deficits noted. No signs and/or symptoms were reported involving the gastrointestinal system. : No deficits noted. No signs and/or symptoms were reported regarding the genitourinary system. Derm: No deficits noted. No signs and/or symptoms reported regarding the dermatologic system. Musculoskeletal: Circulation, motion, and sensation intact. Capillary refill < 3 seconds, in bilateral fingers. Range of motion: intact in all extremities, Reports pain in right leg. Historical: - Allergies: 06: Cheese; bm8 06:28 Niacin (Hives, Respiratory distress); bm8 - Home Meds: :28 manjaro [Active]; Lantus Sub-Q [Active]; metformin 500 mg Oral tablet 1 tab 2 times per bm8 day [Active]; Ambien Oral [Active]; losartan 50 mg oral tablet 1 tab 2 times per day [Active]; - PMHx: :28 Asthma; Diabetes - NIDDM; Hypertension; insomnia; Depression; bm8 - PSHx: :28 Cholecystectomy; Ligation of fallopian tube; bm8 - Immunization history:: Adult Immunizations up to date. - Infectious Disease History:: Denies. - Family history:: not pertinent. - Social history:: Smoking status: Patient reports the use of cigarette tobacco products. Screenin:01 [facility] ED Fall Risk Assessment (Adult) History of falling in the last 3 months, ld1 including since admission No falls in past 3 months (0 pts) Confusion or Disorientation No (0 pts) Intoxicated or Sedated No (0 pts) Impaired Gait No (0 pts) Mobility Assist Device Used No (0 pt) Altered Elimination No (0 pt) Score/Fall Risk Level 0 - 2 = Low Risk Oriented to surroundings, Hourly rounding (assess needs \T\ fall precautionary measures) done. Abuse screen: Denies threats or abuse. Denies injuries from another. Nutritional screening: No deficits noted. Tuberculosis screening: No symptoms or risk factors identified. Assessment: 09:01 General: Appears in no apparent distress. uncomfortable, Behavior is calm, cooperative, ld1 appropriate for age. Pain: Complains of pain in right leg Pain does not radiate. Pain currently is 8 out of 10 on a pain scale. Quality of pain is described as throbbing, Pain began 2-3 days ago. Neuro: Level of Consciousness is awake, alert, obeys commands, Oriented to person, place, time, situation, Appropriate for age. Cardiovascular: Capillary refill < 3 seconds Patient's skin is warm and dry. Respiratory: Airway is patent Respiratory effort is even, unlabored. GI: Abdomen is flat, non-distended. Vital Signs: 06:25 BP 174 / 99; Pulse 89; Resp 18; Temp 98.4; Pulse Ox 100% ; Weight 65.32 kg; Height 5 bm8 ft. 0 in. ; Pain 6/10; 09:01 BP 162 / 84; Pulse 81; Resp 15; Pulse Ox 100% on R/A; ld1 06:25 Body Mass Index 28.12 (65.32 kg, 152.4 cm) bm8 06:25 Pain Scale: Adult bm8 ED Course: 06:13 Patient arrived in ED. jj6 06:15 River Fiore MD is Attending Physician. sp4 06:25 Stan Najera, RN is Primary Nurse. bm8 06:28 Triage completed. bm8 06:28 Arm band placed on right wrist. bm8 06:55 Extremity Venous Uni Ltd US In Process Unspecified. EDMS 07:23 Attending Physician role handed off by River Fiore MD ec2 07:23 Juan Pablo Trujillo MD is Attending Physician. ec2 07:39 CT Abd/Pelvis - IV Contrast Only In Process Unspecified. EDMS 09:01 Patient has correct armband on for positive identification. Placed in gown. Bed in low ld1 position. Call light in reach. Side rails up X2. Pulse ox on. NIBP on. Door closed. Noise minimized. Warm blanket given. 09:01 No provider procedures requiring assistance completed. IV discontinued, intact, ld1 bleeding controlled, No redness/swelling at site. Administered Medications: 06:44 Drug: Brainerd PO 10 mg-325 mg 1 tabs PO once Route: PO; bm8 06:44 Drug: TORadol - Ketorolac IVP 15 mg IVP once Route: IVP; Site: right antecubital; bm8 06:44 Drug: Ondansetron IVP 4 mg IVP once; over 2 minutes Route: IVP; Site: right antecubital;bm8 Medication: 09:01 VIS not applicable for this client. ld1 Outcome: 08:46 Discharge ordered by . ec2 09:03 Discharged to home ambulatory, ld1 09:03 Condition: stable 09:03 Discharge instructions given to patient, Instructed on discharge instructions, follow up and referral plans. Demonstrated understanding of instructions, follow-up care, medications, Prescriptions given X 1, 09:03 Patient left the ED. ld1 Signatures: Dispatcher [employer] EDMS Jaz Silverman RN RN ld1 Clair Rodriguez jj6 River Fiore MD MD sp4 Juan Pablo Trujillo MD MD ec2 Stan Najera, SISSY RN bm8
--- NOTE | 2024-10-17 08:47 | EDPHYS ---
Physician Documentation [facility] Name: Erma Yoo Age: 58 yrs Sex: Female : 1965 Arrival Date: 10/17/2024 Time: 05:23 Bed 6 Private MD: ED Physician Juan Pablo Trujillo HPI: 10/17 06:15 This 58 yrs old Female presents to ER via Unassigned with complaints of Leg sp4 Pain. 06:25 58-year-old female past medical history diabetes presents with acute worsening pain in sp4 the right thigh right lower extremity. Patient states pain has been there for 2 months and her primary care physician advised her to go to the emergency room for worsening pain. Historical: - Allergies: 06:28 Cheese; bm8 06:28 Niacin (Hives, Respiratory distress); bm8 - Home Meds: 06:28 manjaro [Active]; Lantus Sub-Q [Active]; metformin 500 mg Oral tablet 1 tab 2 times per bm8 day [Active]; Ambien Oral [Active]; losartan 50 mg oral tablet 1 tab 2 times per day [Active]; - PMHx: 06:28 Asthma; Diabetes - NIDDM; Hypertension; insomnia; Depression; bm8 - PSHx: 06:28 Cholecystectomy; Ligation of fallopian tube; bm8 - Immunization history:: Adult Immunizations up to date. - Infectious Disease History:: Denies. - Family history:: not pertinent. - Social history:: Smoking status: Patient reports the use of cigarette tobacco products. ROS: 06:25 Constitutional: Negative for fever, chills, and weight loss, positive for right lower sp4 extremity pain, right thigh pain 06:25 All other systems are negative, Exam: 06:25 Constitutional: This is a well developed, well nourished patient who is awake, alert, sp4 and in no acute distress. Head/Face: Normocephalic, atraumatic. Eyes: Pupils equal round and reactive to light, extra-ocular motions intact. Lids and lashes normal. Conjunctiva and sclera are not injected. Cornea within normal limits. Periorbital areas with no swelling, redness, or edema. ENT: Nares patent. No nasal discharge, no septal abnormalities noted. Tympanic membranes are normal and external auditory canals are clear. Oropharynx with no redness, swelling, or masses, exudates, or evidence of obstruction, uvula midline. Mucous membranes moist. Neck: Trachea midline, no thyromegaly or masses palpated, and no cervical lymphadenopathy. Supple, full range of motion without nuchal rigidity, or vertebral point tenderness. Chest/axilla: Normal chest wall appearance and motion. Nontender with no deformity. No lesions are appreciated. Cardiovascular: Regular rate and rhythm with a normal S1 and S2. No gallops, murmurs, or rubs. Normal PMI, no JVD. No pulse deficits. Respiratory: Lungs have equal breath sounds bilaterally, clear to auscultation and percussion. No rales, rhonchi or wheezes noted. No increased work of breathing, no retractions or nasal flaring. Abdomen/GI: Soft, with normal bowel sounds. No distension or tympany. No guarding or rebound. No evidence of tenderness throughout. Back: No spinal tenderness. No costovertebral tenderness. Skin: Warm, dry with normal turgor. Normal color with no rashes, no lesions, and no evidence of cellulitis. MS/ Extremity: Pulses equal, no cyanosis. Neurovascular intact. Full, normal range of motion. Neuro: Awake and alert, GCS 15, oriented to person, place, time, and situation. Cranial nerves II-XII grossly intact. Motor strength 5/5 in all extremities. Sensory grossly intact. Psych: Awake, alert, with orientation to person, place and time. Behavior, mood, and affect are within normal limits Vital Signs: 06:25 BP 174 / 99; Pulse 89; Resp 18; Temp 98.4; Pulse Ox 100% ; Weight 65.32 kg; Height 5 bm8 ft. 0 in. ; Pain 6/10; 09:01 BP 162 / 84; Pulse 81; Resp 15; Pulse Ox 100% on R/A; ld1 06:25 Body Mass Index 28.12 (65.32 kg, 152.4 cm) bm8 06:25 Pain Scale: Adult bm8 MDM: 06:24 Medical Screening Exam initiated sp4 07:25 Data reviewed: vital signs, nurses notes. Transition of care: Care assumed from River Fiore MD. ED course: Patient signed out to me by previous physician, in brief arrives today for evaluation of right pelvic and right leg pain. Plans to follow-up CT imaging and ultrasonography.. 07:26 Differential diagnosis: closed fracture, contusion, abrasion, tendonitis. Consideration sp4 of Admission/Observation Escalation of care including admission/observation considered. 10/17 06:24 Order name: CBC with Diff; Complete Time: 07:23 sp4 10/17 06:24 Order name: CMP; Complete Time: 07:23 sp4 10/17 06:23 Order name: Extremity Venous Uni Ltd US; Complete Time: 08:43 sp4 10/17 06:24 Order name: CT Abd/Pelvis - IV Contrast Only; Complete Time: 08:33 sp4 10/17 06:24 Order name: IV Saline Lock; Complete Time: 06:49 sp4 10/17 06:24 Order name: Labs collected and sent; Complete Time: 06:49 sp4 Administered Medications: 06:44 Drug: Hudson PO 10 mg-325 mg 1 tabs PO once Route: PO; bm8 06:44 Drug: TORadol - Ketorolac IVP 15 mg IVP once Route: IVP; Site: right antecubital; bm8 06:44 Drug: Ondansetron IVP 4 mg IVP once; over 2 minutes Route: IVP; Site: right antecubital;bm8 Disposition Summary: 10/17/24 08:46 Discharge Ordered Notes: Location: Home ec2 Condition: Stable ec2 Diagnosis - Pain in right leg ec2 Followup: ec2 - With: Private Physician - When: - Reason: Re-evaluation by your physician Discharge Instructions: - Discharge Summary Sheet ec2 - Musculoskeletal Pain ec2 Forms: - Work release form ec2 - Medication Reconciliation Form ec2 - Antibiotic Education ec2 - Prescription Opioid Use ec2 - Patient Portal Instructions ec2 - Leadership Thank You Letter ec2 Prescriptions: - methocarbamol 500 mg Oral tablet - take 1 tablet ORAL route 4 times per day; 15 tablet; Refills: 0, Product ec2 Selection Permitted Signatures: Dispatcher [employer] River Staton MD MD sp4 Juan Pablo Trujillo MD MD ec2 Stan Najera RN RN bm8
[2024-10-17 09:08] VITALS: TEMP 98.4; O2SAT 100
[2024-10-17 09:09] VITALS: BP 162/84
== END 2024-10-17 09:03 | disposition home or self-care (01) ==
LOC: ER 05:23
DX: M79.604 Pain in right leg (principal); Z72.0 Tobacco use
CPT/HCPCS: 85025; 36415; 80053; 74177; 93971; 96375; 96374; 99284; Q9967; J2405

== ENCOUNTER 2024-12-05 17:20 | Emergency (ER) | payer OTHER ==
--- OUTSIDE RECORDS SUMMARY | 2024-12-05 17:25 | XMS REPORT | Continuity of Care Document ---
Author Name Unknown Address [address] [facility]. [address] [place] [address] [facility] Address [address] 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 Primary Care Physician [phone] Ian Crespo Attending Clinician Unavailable KATHY WILBURN Attending Clinician Unavailable JAMES YOST Attending Clinician UnavailJAZLYN Cabrera Attending Clinician UnavailANDREA Mcknight Attending Clinician UnavailSALVATORE Pride Attending Clinician Unavailable PEDRITO DOHERTY Attending Clinician Unavailable [email or web address] Attending Clinician Jordyn LONGORIA MD Attending Clinician Unavailab cisneros LAB90 Attending Clinician Unavailable TOYIN SHAW Attending Clinician Unavailable Doctor Unassigned, [place] Attending Clinician U navailable Lab, Adc Fam Pob I Attending Clinician Unavailab Mccarthy INJECTION MOLDING ENGINEERKaren Fisher Attending Clinician KAREN JOHNSON Attending Clinician Unavailable [email or web address] Admitting Clinician Unavaila darshan Payers Payer Name Policy Type Policy Number Effective Date Expirati on Date Source [facility] Individual Exchange Benefit Plan [id number] 2024 00:00:00 [facility] EUGENIO CHOI-Nicky COPAY FOCUS 9 [id number] 2024 00:00:00 [employer] MP [facility] GOLD 4 [facility] ON/OFF 9 [id number] 2023 00:00:00 Problems Condition Name Condition Details Condition Category Status Onset Date Resolution Date Last Treatment Date Treating Clinician Comments Source HTN (hypertens ion) HTN (hypertens ion) Disease Active 2022-09 00:00: 00 Luisa Stinson - Externa rick Insomnia Insomnia Disease Active 2022-09 00:00: 00 Luisa Aguilar Externa rick Depression Depression Disease Active 2022-09 00:00: 00 Luisa Crewsold - Externa rick DM (diabetes mellitus) (multi HCC) DM (diabetes mellitus) (multi HCC) Disease Active 2022-09 0 00:00: 00 Luisa Crewsold - Externa rick Asthma (HHS-HCC) Asthma (HHS-HCC) Disease Active 2022-09 0- 00:00: 00 Luisa Stinson - Externa l Overweight (BMI 25.0-29.9) Overweight (BMI 25.0-29.9) Disease Active 2022-09 0- 00:00: 00 Luisa Aguilar Externa rick History of suicide attempt History of suicide attempt Disease Active 09-03 00:00: 00 Luisa Stinson - Externa l [id number] Carpal tunnel syndrome of right wrist Problem Active [facility] [id number] Depression with anxiety Problem [facility] [id number] Essential hypertensi on Problem [facility] [id number] Type 2 diabetes mellitus with hyperglyce ana m, without long-term current use of insulin Problem [facility] [id number] Mild persistent asthma without complicati on Problem [facility] [id number] Primary insomnia Problem [facility] [id number] Mixed hyperlipid emia Problem [facility] [id number] Lumbar disc herniation Problem [facility] Allergies, Adverse Reactions, Alerts Allergy Name Allergy Type Status Severity Reaction(s) Onset Date Inactive Date Treating Clinician Comments Source Cheese Propensi ty to adverse reaction s Active 2022-09 00:00: 00 Other reaction( s): Unknown Luisa Stinson - Externa l Isopropy l Nicotina te Propensi ty to adverse reaction s Active 12-21 00:00: 00 Other reaction( s): Unknown Luisa Purdya l niacin niacin Active Unknown [facility] Cheese Cheese Active Unknown [facility] NO KNOWN ALLERGIE S Drug Class Active [facility] Social History Social Habit Start Date [...] 00:00:00 2023-06-06 00:00:00 sober since 2021 Luisa Crewskentrell - External Cigarettes smoked current (pack per day) - Reported 2023-06-06 00:00:00 2023-06-06 00:00:00 Luisa Stinson - External Cigarette pack-years 2023-06-06 00:00:00 2023-06-06 00:00:00 Luisa Stinson - External Sex Ass[birth year] At 1965 00:00:00 1965 00:00:00 Luisa Stinson - External Smoking Status Start Date Stop Date Source Tobacco smoking consumption unknown [facility] Never Smoker [facility] Smokes tobacco daily 2023-06-06 00:00:00 Luisa Crewskentrell - External Medications Ordered Medication Name Filled Medication Name Start Date Stop Date Current Medication? Ordering Clinician Indication Dosage Frequency Signature (SIG) Comments Components Source Rosuvastati n Calcium 40 MG Rosuvastati n Calcium 40 MG 11-18 00:00: 00 No 1{table t} QD Rosuvastat in Calcium 40 MG Zolpidem Tartrate 10 MG Zolpidem Tartrate 10 MG 11-18 00:00: 00 No 1{table t_at_be dtime_a s_neede d} QD Zolpidem Tartrate 10 MG SOLU-Medrol SOLU-Medrol 10-28 00:00: 00 No 125mg [facility] Amoxicillin -Pot Clavulanate 875-125 MG Amoxicillin -Pot Clavulanate 875-125 MG 2023-09 00:00: 00 No 1{table t} BID Amoxicilli n-Pot Clavulanat e 875-125 MG Pseudoeph-B romphen-DM 30-2-10 MG/5ML Pseudoeph-B romphen-DM 30-2-10 MG/5ML 2023-09 00:00: 00 No 5{ml} TID Pseudoeph- Bromphen-D M 30-2-10 MG/5ML Losartan Potassium 50 MG Losartan Potassium 50 MG 2023-09 00:00: 00 No 1{table t} QD Losartan Potassium 50 MG Gabapentin 100 MG Gabapentin 100 MG 7-25 00:00: 00 No 1{capsu le} QD Gabapentin 100 MG Naproxen 500 MG Naproxen 500 MG 5-15 00:00: 00 No BID Naproxen 500 MG Ondansetron HCl 4 MG Ondansetron HCl 4 MG 5-08 00:00: 00 No 1{table t} QD Ondansetro n HCl 4 MG Metformin HCl 500 MG oral Tablet 2022-09 004 15:07: 08 Yes 500mg Take 1 tablet (500 mg total) by mouth in the morning and 1 tablet (500 mg total) in the evening. Take with meals. Luisa cabrera Trulicity 0.75 MG/0.5ML subcutaneou s Solution Pen-injecto r 2022-09 00:00: 00 Yes [id number] .75mg Inject 0.75 mg into the skin [...] Chloride CR 10 MEQ oral Cap CR 8-03 00:00: 00 Yes 10meq Take 1 capsule (10 mEq total) by mouth daily. Luisa Galeana l Pregabalin 50 MG oral Capsule 04-05 00:00: 00 Yes TAKE ONE (1) CAPSULE (50 MG) BY MOUTH 2 TIMES PER DAY. Luisa Purdya l Pen [place] 32G x 4 mm 1/6" Pen [place] 32G x 4 mm 1/6" No QD Pen [place] 32G x 4 mm 1/6" clonazePAM 0.5 MG clonazePAM 0.5 MG No [...] UNIT/ML No QD Lantus SoloStar 100 UNIT/ML Diclofenac Potassium 50 MG Diclofenac Potassium 50 MG No BID Diclofenac Potassium 50 MG Pantoprazol e Sodium 40 MG Pantoprazol e Sodium 40 MG No Pantoprazo le Sodium 40 MG Mounjaro 5 MG/0.5ML Mounjaro 5 MG/0.5ML No Mounjaro 5 MG/0.5ML DULoxetine HCl 60 MG DULoxetine HCl 60 MG No 1{capsu le} BID DULoxetine HCl 60 MG Immunizations Ordered Immunization Name Filled Immunization Name Date Status Comments Source Fluarix (IIV3) - SDS - 0.5mL Fluarix (IIV3) - SDS - 0.5mL Unknown Completed [facility] Vital Signs Vital Name Observation Time Observation Value Comments S ource height 2024-11-18 13:45:00 60 [in_i] Commo n [facility] weight 2024-11-18 13:45:00 144.6 [lb_av] Co on [facility] temperature 2024-11-18 13:45:00 98.2 [degF] Com [facility] bmi 2024-11-18 13:45:00 28.24 kg/m2 Comm on [facility] oximetry 2024-11-18 13:45:00 98 % Commo n [facility] blood pressure systolic 2024-11-18 13:45:00 129 mm[Hg] [facility] blood pressure diastolic 2024-11-18 13:45:00 80 mm[Hg] Common [facility] height 2024-10-28 16:30:00 60 [in_i] Commo n [facility] weight 2024-10-28 16:30:00 145.4 [lb_av] Co [facility] temperature 2024-10-28 16:30:00 98.1 [degF] Com [facility] bmi 2024-10-28 16:30:00 28.39 kg/m2 Comm on [facility] oximetry 2024-10-28 16:30:00 98 % Commo n [facility] blood pressure systolic 2024-10-28 16:30:00 160 mm[Hg] Common [facility] blood pressure diastolic 2024-10-28 16:30:00 87 mm[Hg] [facility] height 2024-10-07 14:30:00 60 [in_i] Commo n [facility] weight 2024-10-07 14:30:00 145.8 [lb_av] Co [facility] temperature 2024-10-07 14:30:00 98.4 [degF] Com [facility] bmi 2024-10-07 14:30:00 28.47 kg/m2 Comm on [facility] oximetry 2024-10-07 14:30:00 95 % Commo n [facility] respiratory rate 2024-10-07 14:30:00 16 /min Common [facility] blood pressure systolic 2024-10-07 14:30:00 146 mm[Hg] Common [facility] blood pressure diastolic 2024-10-07 14:30:00 80 mm[Hg] [facility] height 2024-08-20 08:00:00 60 [in_i] Commo n [facility] weight 2024-08-20 08:00:00 144.8 [lb_av] Co mmon [facility] temperature 2024-08-20 08:00:00 98.1 [degF] Com [facility] bmi 2024-08-20 08:00:00 28.28 kg/m2 Comm on [facility] oximetry 2024-08-20 08:00:00 99 % Commo n [facility] respiratory rate 2024-08-20 08:00:00 16 /min [facility] blood pressure systolic 2024-08-20 08:00:00 156 mm[Hg] Common [facility] t [facility] blood pressure diastolic 2024-08-20 08:00:00 84 mm[Hg] Common [facility] height 2024-08-08 16:00:00 60 [in_i] Commo n [facility] weight 2024-08-08 16:00:00 147 [lb_av] Comm on [facility] temperature 2024-08-08 16:00:00 98.0 [degF] Com [facility] bmi 2024-08-08 16:00:00 28.71 kg/m2 Comm on [facility] oximetry 2024-08-08 16:00:00 99 % Commo n [facility] respiratory rate 2024-08-08 16:00:00 16 /min [facility] blood pressure systolic 2024-08-08 16:00:00 150 mm[Hg] [facility] blood pressure diastolic 2024-08-08 16:00:00 76 mm[Hg] [facility] height 2024-08-04 15:00:00 60 [in_i] Commo n [facility] weight 2024-08-04 15:00:00 147.0 [lb_av] Co on [facility] temperature 2024-08-04 15:00:00 97.5 [degF] Com [facility] bmi 2024-08-04 15:00:00 28.71 kg/m2 Comm on [facility] oximetry 2024-08-04 15:00:00 96 % Commo n [facility] respiratory rate 2024-08-04 15:00:00 16 /min [facility] height 2024-07-15 14:40:00 60 [in_i] Commo n [facility] weight 2024-07-15 14:40:00 149.4 [lb_av] Co mmon [facility] temperature 2024-07-15 14:40:00 97.9 [degF] Com [facility] bmi 2024-07-15 14:40:00 29.17 kg/m2 Comm on [facility] oximetry 2024-07-15 14:40:00 98 % Commo n [facility] respiratory rate 2024-07-15 14:40:00 16 /min Common [facility] blood pressure systolic 2024-07-15 14:40:00 134 mm[Hg] [facility] blood pressure diastolic 2024-07-15 14:40:00 84 mm[Hg] [facility] height 2024-04-18 08:00:00 60 [in_i] Commo n [facility] weight 2024-04-18 08:00:00 157.8 [lb_av] Co mmon [facility] temperature 2024-04-18 08:00:00 98.2 [degF] Com mon [facility] bmi 2024-04-18 08:00:00 30.81 kg/m2 Comm on [facility] oximetry 2024-04-18 08:00:00 98 % Commo n [facility] respiratory rate 2024-04-18 08:00:00 16 /min Common [facility] blood pressure systolic 2024-04-18 08:00:00 178 mm[Hg] [facility] blood pressure diastolic 2024-04-18 08:00:00 77 mm[Hg] Common [facility] height 2024-03-27 16:00:00 60 [in_i] Commo n [facility] weight 2024-03-27 16:00:00 158.4 [lb_av] Co [facility] temperature 2024-03-27 16:00:00 97.3 [degF] Com [facility] bmi 2024-03-27 16:00:00 30.93 kg/m2 Comm on [facility] oximetry 2024-03-27 16:00:00 97 % Commo n [facility] respiratory rate 2024-03-27 16:00:00 16 /min Common [facility] blood pressure systolic 2024-03-27 16:00:00 144 mm[Hg] [facility] blood pressure diastolic 2024-03-27 16:00:00 78 mm[Hg] [facility] height 2024-02-13 10:40:00 60 [in_i] Commo n [facility] weight 2024-02-13 10:40:00 155.8 [facility]lb[facility]av[facility]-13 10:40:00 97.8 [degF] Com [facility] bmi 2024-02-13 10:40:00 30.42 kg/m2 Comm on [facility] oximetry 2024-02-13 10:40:00 98 % Commo n [facility] respiratory rate 2024-02-13 10:40:00 16 /min [facility] blood pressure systolic 2024-02-13 10:40:00 123 mm[Hg] [facility] blood pressure diastolic 2024-02-13 10:40:00 69 mm[Hg] [facility] height 2024-01-23 11:20:00 60 [in_i] Commo n [facility] weight 2024-01-23 11:20:00 156.0 [lb_av] Co [facility] temperature 2024-01-23 11:20:00 98.1 [degF] Com [facility] bmi 2024-01-23 11:20:00 30.46 kg/m2 Comm on [facility] oximetry 2024-01-23 11:20:00 99 % Commo n [facility] respiratory rate 2024-01-23 11:20:00 16 /min [facility] blood pressure systolic 2024-01-23 11:20:00 127 mm[Hg] [facility] blood pressure diastolic 2024-01-23 11:20:00 78 mm[Hg] [facility] height 2024-01-16 09:00:00 60 [in_i] Commo n [facility] weight 2024-01-16 09:00:00 153.2 [lb_av] Co [facility] temperature 2024-01-16 09:00:00 98.4 [degF] Com [facility] bmi 2024-01-16 09:00:00 29.92 kg/m2 Comm on [facility] oximetry 2024-01-16 09:00:00 99 % Commo n [facility] respiratory rate 2024-01-16 09:00:00 16 /min Common [facility] blood pressure systolic 2024-01-16 09:00:00 158 mm[Hg] [facility] blood pressure diastolic 2024-01-16 09:00:00 96 mm[Hg] [facility] height 2024-01-09 10:40:00 60 [in_i] Commo n [facility] weight 2024-01-09 10:40:00 154.2 [lb_av] Co mmon [facility] temperature 2024-01-09 10:40:00 98.1 [degF] Com [facility] bmi 2024-01-09 10:40:00 30.11 kg/m2 Comm on [facility] oximetry 2024-01-09 10:40:00 95 % Commo n [facility] respiratory rate 2024-01-09 10:40:00 16 /min [facility] blood pressure systolic 2024-01-09 10:40:00 162 mm[Hg] [facility] blood pressure diastolic 2024-01-09 10:40:00 98 mm[Hg] [facility] height 2023-11-29 10:20:00 60 [in_i] Commo n [facility] weight 2023-11-29 10:20:00 155.6 [lb_av] Co mmon [facility] temperature 2023-11-29 10:20:00 97.9 [degF] Com mon [facility] bmi 2023-11-29 10:20:00 30.39 kg/m2 Comm on [facility] oximetry 2023-11-29 10:20:00 97 % Commo n [facility] respiratory rate 2023-11-29 10:20:00 16 /min [facility] blood pressure systolic 2023-11-29 10:20:00 114 mm[Hg] [facility] blood pressure diastolic 2023-11-29 10:20:00 65 mm[Hg] [facility] height 2023-09-27 15:00:00 60 [in_i] Commo n [facility] weight 2023-09-27 15:00:00 153.6 [lb_av] Co mmon [facility] temperature 2023-09-27 15:00:00 98.4 [degF] Com mon [facility] bmi 2023-09-27 15:00:00 29.99 kg/m2 Comm on [facility] oximetry 2023-09-27 15:00:00 99 % Commo n [facility] respiratory rate 2023-09-27 15:00:00 16 /min [facility] blood pressure systolic 2023-09-27 15:00:00 128 mm[Hg] [facility] blood pressure diastolic 2023-09-27 15:00:00 74 mm[Hg] [facility] height 2023-08-29 08:00:00 60 [in_i] Commo n [facility] weight 2023-08-29 08:00:00 156.4 [lb_av] Co mmon [facility] temperature 2023-08-29 08:00:00 98.6 [degF] Com mon [facility] bmi 2023-08-29 08:00:00 30.54 kg/m2 Comm on [facility] oximetry 2023-08-29 08:00:00 98 % Commo n [facility] respiratory rate 2023-08-29 08:00:00 16 /min [facility] blood pressure systolic 2023-08-29 08:00:00 136 mm[Hg] [facility] blood pressure diastolic 2023-08-29 08:00:00 78 mm[Hg] [facility] height 2023-08-01 09:00:00 60 [in_i] Commo n [facility] weight 2023-08-01 09:00:00 155 [lb_av] Comm on [facility] temperature 2023-08-01 09:00:00 98.2 [degF] Com mon [facility] bmi 2023-08-01 09:00:00 30.27 kg/m2 Comm on [facility] oximetry 2023-08-01 09:00:00 [facility]01 09:00:00 16 /min [facility] blood pressure systolic 2023-08-01 09:00:00 122 mm[Hg] [facility] blood pressure diastolic 2023-08-01 09:00:00 82 mm[Hg] [facility] Systolic blood pressure 2023-06-06 19:54:00 117 mm[Hg] Luisa Seybo ld - External Diastolic blood pressure 2023-06-06 [...] height 2021-04-26 08:00:00 60 [in_i] Commo n [facility] weight 2021-04-26 08:00:00 173.8 [lb_av] Co mmon [facility] bmi 2021-04-26 08:00:00 33.94 kg/m2 Comm on [facility] blood pressure systolic 2021-04-26 08:00:00 132 mm[Hg] [facility] blood pressure diastolic 2021-04-26 08:00:00 82 mm[Hg] [facility] Encounters Start Date/Time End Date/Time Encounter Type Admission Type Attending [facility] Facility Care Department Encounter ID Source 2024-11-17 16:40:00 Outpatient Ian Crespo [facility] [id number] [facility] 2024-10-27 13:44:01 Outpatient Ian Crespo [facility] STL[facility] [id number] [facility] 2024-08-04 14:45:00 Outpatient Ian Crespo [facility] STL[facility] [id number] [facility] 2024-07-15 14:36:00 Outpatient Ian Crespo [facility] [id number] [facility] 2024-07-11 09:23:00 Outpatient Ian Crespo [facility] [id number] [facility] 2024-07-07 16:16:01 Outpatient Ian Crespo [facility] STL[facility] [id number] [facility] 2024-05-09 09:47:00 Outpatient Ian Crespo [facility] STL[facility]C [id number] [facility] 2024-04-16 10:14:01 Outpatient Ian Crespo [facility] STL[facility] [id number] [facility] 2024-03-03 10:42:00 Outpatient Ian Crespo [facility] [id number] [facility] 2024-02-12 14:30:00 Outpatient Ian Crespo [facility] [id number] [facility] 2024-01-23 10:57:00 Outpatient Ian Crespo [facility] [id number] [facility] 2024-01-15 16:26:00 Outpatient Ian Crespo [facility] [id number] [facility] 2023-12-27 09:47:00 Outpatient Ian Crespo [facility] [id number] [facility] 2023-11-29 09:19:00 Outpatient Ian Crespo [facility] [id number] [facility] 2023-11-27 08:46:00 Outpatient Ian Crespo [facility] [id number] [facility] 2023-11-23 09:29:00 Outpatient Ian Crespo [facility] [id number] [facility] 2023-11-22 14:24:00 Outpatient Ian Crespo [facility] [id number] [facility] 2023-10-25 08:19:00 Outpatient Ian Crespo [facility] [id number] [facility] 2023-09-26 16:29:00 Outpatient Ian Crespo [facility] [id number] [facility] 2023-09-24 08:07:00 Outpatient Ian Crespo [facility] [id number] [facility] 2023-08-01 09:10:01 Outpatient Ian Crespo [facility] [id number] [facility] 2023-07-31 16:27:00 Outpatient Crespo, Ian [facility] STL[facility]C [id number] [facility] 2023-07-24 13:22:00 Outpatient Ian Crespo [facility] [id number] [facility] 2023-07-18 16:14:00 Outpatient [facility] [id number] [facility] 2021-09-28 13:41:50 Outpatient [facility] [id number] [facility] 2024-11-18 00:00:00 2024-11-18 00:00:00 OFFICE VISIT ESTAB PT LEVEL 4 [facility] STL[facility]C [id number] [facility] 2024-11-05 00:00:00 2024-11-05 00:00:00 (TEL) [facility]C STL[facility]C [id number] [facility] 2024-10-28 00:00:00 2024-10-28 00:00:00 OFFICE VISIT ESTAB PT LEVEL 3 [facility] STL[facility]C [id number] [facility] 2024-10-27 00:00:00 2024-10-27 00:00:00 (TEL) [facility]LMLC STL[facility]C [id number] [facility] 2024-10-16 00:00:00 2024-10-16 00:00:00 (TEL) [facility]LMLC STL[facility]C [id number] [facility] 2024-10-07 00:00:00 2024-10-07 00:00:00 OFFICE VISIT ESTAB PT LEVEL 3 [facility] STL[facility]C [id number] [facility] 2024-08-20 00:00:00 2024-08-20 00:00:00 OFFICE VISIT ESTAB PT LEVEL 4 [facility] ST[facility]C [id number] [facility] 2024-08-08 00:00:00 2024-08-08 00:00:00 OFFICE VISIT ESTAB PT LEVEL 3 [facility] STL[facility]C [id number] [facility] 2024-08-06 00:00:00 2024-08-06 00:00:00 (TEL) STLMLC STLMLC [id number] [facility] 2024-08-04 00:00:00 2024-08-04 00:00:00 OFFICE VISIT ESTAB PT LEVEL 3 [facility] ST[facility]C [id number] [facility] 2024-07-15 00:00:00 2024-07-15 00:00:00 OFFICE VISIT ESTAB PT LEVEL 4 [facility] STL[facility]C [id number] [facility] 2024-06-06 00:00:00 2024-06-06 00:00:00 Outpatient KATHY WILBURN [id number] [facility] 2024-05-29 11:30:00 2024-05-29 11:30:00 Outpatient JAMES YOST [id number] [facility] 2024-05-08 00:00:00 2024-05-08 00:00:00 (TEL) [facility]LMLC STL[facility]C [id number] [facility] 2024-04-29 00:00:00 2024-04-29 00:00:00 (TEL) [facility]LMLC STL[facility]C [id number] [facility] 2024-04-18 00:00:00 2024-04-18 00:00:00 OFFICE VISIT ESTAB PT LEVEL 3 [facility] STL[facility]C [id number] [facility] 2024-04-10 00:00:00 2024-04-10 00:00:00 Outpatient KATHY WILBURN [id number] [facility] 2024-04-09 00:00:00 2024-04-09 00:00:00 (TEL) STLMLC STL[facility]C [id number] [facility] 2024-04-07 00:00:00 2024-04-07 00:00:00 (TEL) STLMLC STL[facility]C [id number] [facility] 2024-03-27 00:00:00 2024-03-27 00:00:00 OFFICE VISIT ESTAB PT LEVEL 4 [facility] STL[facility]C [id number] [facility] 2024-03-22 18:05:00 2024-03-22 20:03:00 Emergency ER JAZLYN SCHULTZ [facility] [id number] [facility] 2024-02-13 00:00:00 2024-02-13 00:00:00 OFFICE VISIT ESTAB PT LEVEL 3 [facility] ST[facility]C [id number] [facility] 2024-02-11 15:37:00 2024-02-11 17:40:00 Emergency ER ANDREA RINCON [facility] [id number] [facility] 2024-01-26 19:11:00 2024-01-26 21:17:00 Emergency ER SALVATORE VARELA [facility] [id number] [facility] 2024-01-23 00:00:00 2024-01-23 00:00:00 OFFICE VISIT ESTAB PT LEVEL 4 [facility] STL[facility]C [id number] [facility] 2024-01-16 00:00:00 2024-01-16 00:00:00 OFFICE VISIT ESTAB PT LEVEL 3 [facility] STL[facility]C [id number] [facility] 2024-01-09 00:00:00 2024-01-09 00:00:00 OFFICE VISIT ESTAB PT LEVEL 4 STLMLC STLMLC [id number] [facility] 2023-12-28 00:00:00 2023-12-28 00:00:00 (TEL) STLMLC STLMLC [id number] [facility] 2023-11-29 00:00:00 2023-11-29 00:00:00 (ESTPTWAurora) Raudele nicky PT Women STLMLC STLMLC [id number] [facility] 2023-11-29 00:00:00 2023-11-29 00:00:00 (TEL) STLMLC STLMLC [id number] [facility] 2023-11-22 00:00:00 2023-11-22 00:00:00 (TEL) STLMLC STLMLC [id number] [facility] 2023-10-10 00:00:00 2023-10-10 00:00:00 Outpatient KATHY WILBURN [id number] Luisa Stinson 2023-09-27 00:00:00 2023-09-27 00:00:00 OFFICE VISIT ESTAB PT LEVEL 4 STLMLC STLMLC [id number] [facility] 2023-09-27 00:00:00 2023-09-27 00:00:00 (TEL) STLMLC STLMLC [id number] [facility] 2023-09-04 00:00:00 2023-09-04 00:00:00 (TEL) STLMLC STLMLC [id number] [facility] 2023-08-29 00:00:00 2023-08-29 00:00:00 (TEL) STLMLC STLMLC [id number] [facility] 2023-08-29 00:00:00 2023-08-29 00:00:00 OFFICE VISIT ESTAB PT LEVEL 4 STLMLC STLMLC [id number] [facility] 2023-08-01 00:00:00 2023-08-01 00:00:00 OFFICE VISIT NEW PT LEVEL 4 STLMLC STLMLC [id number] [facility] 2023-07-18 13:30:00 2023-07-18 13:30:00 Outpatient PEDRITO DOHERTY [id number] [facility] 2023-07-18 00:00:00 2023-07-18 00:00:00 (TEL) STLMLC STLMLC [id number] [facility] 2023-07-11 10:45:00 2023-07-11 10:45:00 Outpatient KATHY WILBURN [id number] [facility] 2023-06-29 00:00:00 2023-06-29 00:00:00 Outpatient GC_GCBZW_Ka latoya_S [facility] [id number] [facility] 2023-06-20 00:00:00 2023-06-20 00:00:00 Outpatient MD LUISA UMAÑA [id number] Luisa Stinson 2023-06-17 00:00:00 2023-06-17 00:00:00 Outpatient PREZASKATHY LUISA CAREY [id number] Luisa Milad 2023-06-08 00:00:00 2023-06-08 00:00:00 Outpatient PREZASKATHY [id number] Luisa Milad 2023-06-06 15:45:00 2023-06-06 15:45:00 Outpatient LAB90 LUISA CAREY [id number] Luisa Stinson 2023-06-06 15:00:00 2023-06-06 15:00:00 Outpatient PREZASteven KATHY CAREY [id number] [facility]isa [facility] 2023-05-23 00:00:00 2023-05-23 00:00:00 Outpatient PREZAS [facility] [id number] [facility] 2021-04-26 00:00:00 2021-04-26 00:00:00 OFFICE VISIT NEW PT LEVEL 3 STLMLC STLMLC [id number] [facility] 2020-12-16 09:00:00 2020-12-16 08:53:43 Outpatient TOYIN [facility] [id number] [facility] 2020-11-25 08:50:00 2020-11-25 08:41:49 Outpatient TOYIN [facility] [id number] [facility] 2020-03-10 00:00:00 2020-03-10 00:00:00 Patient Secure Msg Doctor Unassigned, [place] [facility] [id number] [facility] 2020-03-08 11:13:22 2020-03-08 11:33:22 Laboratory Only Lab, Adc Fam Pob Karen Miller [facility] [id number] [facility] 2020-03-08 11:13:22 2020-03-08 11:33:22 Laboratory Only Lab, [facility] [id number] 2020-03-08 11:20:00 2020-03-08 11:20:00 Outpatient R [facility] [id number] [facility] Results Test Description Test Time Test Comments Results Result Co mments Source HEMOGLOBIN [id number] 00:00:00* Test Item Value Reference Range Interpretation Comme [facility] A1C (test code = 4548-4) 13.4 COMPREHENSIVE METABOLIC [id number] 00:00:00* Test Item Value Reference Range Interpretation Comme [facility] HEMOGLOBIN A1c (test code = 4548-4) 9.8 % See_Comment H [Automated [employer]] The system which generated this result transmitted reference range: 4.2-5.6 %. The reference range was not used to interpret this result as normal/abnormal. ALBUMIN, URINE, RANDOM (test code = 62392-7) 1.5 MG/DL NOT ESTAB MG/DL CALC ALBUMIN/CREAT, RND (test code = 30227-2) 7 MG/G See_Comment [Automated [employer] ge] The system which generated this result transmitted reference range: <30 MG/G. The reference range was not used to interpret this result as normal/abnormal. CREATININE, URINE, CONC. (test code = 2161-8) 201.6 MG/DL NOT ESTAB MG/DL CALC LDL CHOL (test code = 12657-4) 167 MG/DL See_Comment H [Automated messa ge] [...] normal/abnormal. RISK RATIO LDL/HDL (test code = 14041-2) 4.91 RATIO See_Comment H [Automated message] The [...] result as normal/abnormal. CALCIUM (test code = 67575-9) 9.8 MG/DL See_Comment [Automated messa ge] The [...] as normal/abnormal. CALC GLOBULIN (test code = 98442-1) 3.1 G/DL See_Comment [Automated messa ge] The [...] normal/abnormal. eGFR (2020 CKD-EPI) (test code = 20045-2) 93 ML/MIN/1.73 See_Comment [Automated message] The system [...] to interpret this result as normal/abnormal. HEMOGLOBIN [id number] 00:00:00* Test Item Value Reference Range Interpretation Comme nts A1C (test code = 4548-4) 9.3 HEMOGLOBIN [id number] 00:00:00* Test Item Value Reference Range Interpretation Comme nts A1C (test code = 4548-4) 12.4 HEMOGLOBIN [id number] 00:00:00* Test Item Value Reference Range Interpretation [...]
--- NOTE | 2024-12-05 18:07 | RAD REPORT ---
EXAMINATION: Lumbar Spine 3 Views CLINICAL INDICATION: Female, 59 years old. fall;Pain TECHNIQUE: AP, lateral, focused lateral lumbosacral views of the lumbar spine were obtained. [id number]. COMPARISON: CT 10/17/2024 FINDINGS: ALIGNMENT: Trace retrolisthesis of L2 on L3 and L3-L4. Minimal thoracic lumbar curvature. BONES: Vertebral bodies are normal in height. No aggressive osseous lesions. DEGENERATIVE: Severe disc height loss and advanced degenerative changes at L1-2 and L2-3. Mild to mod erate disc height loss and endplate sclerosis at L3-4. Moderate disc height loss at L4-5 and L5-S1. SOFT TISSUE: Cholecystectomy clips. Tubal ligation clips. IMPRESSION: No acute lumbar spine abnormality. Severe degenerative disc disease as noted above.
--- NOTE | 2024-12-05 18:22 | RAD REPORT ---
EXAM: Hand Right 3 View HISTORY: PAIN COMPARISON: 10/21/2020 FINDINGS: Bones: No acute fracture identified. Alignment:No significant malalignment. Degenerative changes:None significant. Other: n/a IMPRESSION: No evidence of acute osseous abnormality involving the imaged hand.
[2024-12-05] MEDS ORDERED: HYDROCODONE/APAP 7.5/325 MG TAB ONE (18:40)
[2024-12-05] MEDS ORDERED: KETOROLAC 30 MG/ML INJ ONE (18:40)
--- NOTE | 2024-12-05 19:04 | EDPHYS ---
Physician Documentation [facility] Name: Erma Yoo Age: 59 yrs Sex: Female : 1965 Arrival Date: 12/05/2024 Time: 17:20 Bed 17 Private MD: ED Physician Anand Naranjo HPI: 12/05 17:40 This 59 yrs old Female presents to ER via Ambulatory with complaints of Back cp Pain, Leg Pain. 17:40 The patient presents with pain that is chronic. cp 17:40 The symptoms are located in the right low back. Onset: The symptoms/episode cp began/occurred chronic with pain worse over past 2 days. The pain radiates to the right leg. Associated signs and symptoms: Pertinent positives: right leg weakness causing leg to give out and patient to fall, Pertinent negatives: abdominal pain, fever, numbness. 17:40 Severity of symptoms: in the emergency department the symptoms are unchanged, despite cp home interventions. Historical: - Allergies: 17:26 Cheese; ap3 17:26 Niacin (Hives, Respiratory distress); ap3 - PMHx: 17:26 Asthma; Depression; Diabetes - NIDDM; Hypertension; insomnia; ap3 - PSHx: 17:26 Cholecystectomy; Ligation of fallopian tube; ap3 - Immunization history:: Client reports receiving the 2nd dose of the Covid vaccine, Flu vaccine is up to date. - Infectious Disease History:: Denies. - Social history:: Smoking status: Patient reports the use of cigarette tobacco products. ROS: 17:45 Constitutional: Negative for body aches, chills, fever, poor PO intake, cp 17:45 Eyes: Negative for injury, pain, redness, and discharge, cp 17:45 Neck: Negative for pain with movement, pain at rest, stiffness, 17:45 Cardiovascular: Negative for chest pain, palpitations, 17:45 Respiratory: Negative for cough, shortness of breath, wheezing, 17:45 Abdomen/GI: Negative for abdominal pain, nausea, vomiting, and diarrhea, bowel incontinence, 17:45 Back: Positive for pain at rest, pain with movement, 17:45 : Negative for urinary symptoms, difficulty urinating, bladder incontinence, 17:45 MS/extremity: Positive for pain, of the right leg, Negative for paresthesias, 17:45 Neuro: Positive for weakness, of the right leg, Negative for altered mental status, headache, numbness, 17:45 All other systems are negative, Exam: 17:50 Constitutional: The patient appears in no acute distress, alert, awake, non-toxic, well cp developed, well nourished, 17:50 Head/Face: Normocephalic, atraumatic. cp 17:50 Eyes: Periorbital structures: appear normal, Conjunctiva: normal, no exudate, no injection, Sclera: no appreciated abnormality, Lids and lashes: appear normal, bilaterally, 17:50 ENT: External ear(s): are unremarkable, Nose: is normal, Mouth: Lips: moist, Oral mucosa: moist, Posterior pharynx: Airway: no evidence of obstruction, patent, 17:50 Chest/axilla: Inspection: normal, 17:50 Cardiovascular: Rate: normal, 17:50 Respiratory: the patient does not display signs of respiratory distress, Respirations: normal, no use of accessory muscles, no retractions, labored breathing, is not present, Breath sounds: are clear throughout, no decreased breath sounds, 17:50 Abdomen/GI: Inspection: abdomen appears normal, Palpation: abdomen is soft and non-tender, in all quadrants, 17:50 Back: pain, that is moderate, of the right low back, ROM is painful, with all movement, 17:50 Neuro: Orientation: to person, place \T\ time. Mentation: is normal, Motor: moves all fours, strength is normal, Sensation: no obvious gross deficits, Gait: is steady, Vital Signs: 17:24 BP 142 / 95; Pulse 91; Resp 18; Temp 98.6(O); Pulse Ox 100% on R/A; Weight 67.13 kg; ap3 Height 5 ft. 0 in. ; Pain 8/10; 19:06 BP 140 / 88; Pulse 88; Resp 18; Temp 98; Pulse Ox 100% on R/A; kj2 17:24 Body Mass Index 28.90 (67.13 kg, 152.4 cm) ap3 17:24 Pain Scale: Adult ap3 MDM: 17:36 Medical Screening Exam initiated cp 19:03 Data reviewed: vital signs, nurses notes, radiologic studies, plain films, and as a cp result, I will discharge patient. 19:03 Differential diagnosis: chronic back pain, Pyelonephritis ruptured disc, cp Ureterolithiasis vertebral fracture. I considered the following discharge prescriptions or medication management in the emergency department Medications were administered in the Emergency Department. See MAR. Care significantly affected by the following chronic conditions: Diabetes, Hypertension. 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 Response to treatment: the patient's symptoms have markedly improved after treatment, and as a result, I will discharge patient. 12/05 17:37 Order name: XRAY Lumbar Spine (3 Views); Complete Time: 18:54 cp 12/05 18:55 Interpretation: Report reviewed. cp 12/05 17:37 Order name: XRAY Hand RIGHT 3 View; Complete Time: 18:54 cp Administered Medications: 18:49 Drug: Ketorolac IM 30 mg IM once Route: IM; Site: right deltoid; kj2 19:06 Follow up: Response: No adverse reaction kj2 18:49 Drug: Hydrocodone-Acetaminophen PO (7.5 mg-325 mg) 1 tabs PO once; RASS on ADMIN: kj2 Combtv4, Very Agttd3, Agttd2, Rstlss1, AlertClm0, Drwsy-1, Lt Sdtn-2, Mod Sdtn-3, Dp Sdtn-4, UnArsble-5 Route: PO; 19:06 Follow up: Response: No adverse reaction kj2 Disposition Summary: 12/05/24 19:04 Discharge Ordered Notes: Location: Home cp Problem: an ongoing problem cp Symptoms: have improved cp Condition: Stable cp Diagnosis - Fall on same level from slipping, tripping and stumbling with subsequent striking cp against object - Radiculopathy, lumbosacral region cp - Low back pain cp - Pain in right hand cp Followup: cp - With: Private Physician - When: 2 - 3 days - Reason: Recheck today's complaints Discharge Instructions: - Discharge Summary Sheet cp - Chronic Back Pain cp - Lumbosacral Radiculopathy cp - Hand Pain cp Forms: - Medication Reconciliation Form cp - Antibiotic Education cp - Prescription Opioid Use cp - Patient Portal Instructions cp - Leadership Thank You Letter cp Prescriptions: - Celebrex 200 mg Oral Capsule - take 1 capsule ORAL route once daily As needed take with food; 20 capsule; cp Refills: 0, Product Selection Permitted - methocarbamol 500 mg Oral tablet - take 2 tablets ORAL route 3 times per day; 60 tablet; Refills: 0, Product cp Selection Permitted Addendum: 12/08/2024 10:24 Co-signature as Attending Physician, Anand Naranjo MD I reviewed the patient's care r n provided by the Advanced Practice Provider and agree with the diagnosis and treatment plan. Signatures: Dispatcher [employer] EDAnand Dial MD MD rn Arie Milner PA PA cp Prokisch, Amanda RN RN ap3 Daisy Jimenez RN RN kj2 Corrections: (The following items were deleted from the chart) 12/06 18:13 12/05 17:40 The patient presents with pain that is chronic, cp cp
--- NOTE | 2024-12-05 19:04 | ER ---
Nurse's Notes [facility] Name: Erma Yoo Age: 59 yrs Sex: Female : 1965 Arrival Date: 12/05/2024 Time: 17:20 Bed 17 Private MD: Diagnosis: Fall on same level from slipping, tripping and stumbling with subsequent striking against object;Radiculopathy, lumbosacral region;Low back pain;Pain in right hand Presentation: 12/05 17:24 Chief complaint: Patient states: she has been having back, right arm and right leg pain ap3 that started approx 2 days ago. patient reports she has been using "hot pads" but it is not working. patient currently rates her pain as an 8/10 on the pain scale. patient denies any nausea or vomiting at this time. Coronavirus screen: At this time, the client does not indicate any symptoms associated with coronavirus-19. Ebola Screen: No symptoms or risks identified at this time. Initial Sepsis Screen: Does the patient meet any 2 criteria? HR > 90 bpm. Does the patient have a suspected source of infection? No. Patient's initial sepsis screen is negative. Risk Assessment: Do you want to hurt yourself or someone else? Patient reports no desire to harm self or others. Onset of symptoms was December 03, 2024. 17:24 Method Of Arrival: Ambulatory ap3 17:24 Acuity: VINNY 3 ap3 Triage Assessment: 17:27 General: Appears in no apparent distress. Behavior is calm, cooperative, appropriate ap3 for age. Pain: Complains of pain in back, right arm and right leg Pain currently is 8 out of 10 on a pain scale. Pain began 2-3 days ago. Neuro: Level of Consciousness is awake, alert, obeys commands, Oriented to person, place, time, situation, Appropriate for age Speech is normal. Neuro: Gait is steady. Cardiovascular: Patient's skin is warm and dry. Respiratory: Airway is patent Respiratory effort is even, unlabored, Respiratory pattern is regular, symmetrical. Musculoskeletal: Range of motion: intact in all extremities, Reports. Historical: - Allergies: 17:26 Cheese; ap3 17:26 Niacin (Hives, Respiratory distress); ap3 - PMHx: 17:26 Asthma; Depression; Diabetes - NIDDM; Hypertension; insomnia; ap3 - PSHx: 17:26 Cholecystectomy; Ligation of fallopian tube; ap3 - Immunization history:: Client reports receiving the 2nd dose of the Covid vaccine, Flu vaccine is up to date. - Infectious Disease History:: Denies. - Social history:: Smoking status: Patient reports the use of cigarette tobacco products. Screenin:27 Abuse screen: Denies threats or abuse. Nutritional screening: No deficits noted. ap3 Tuberculosis screening: No symptoms or risk factors identified. 17:28 [facility] ED Fall Risk Assessment (Adult) History of falling in the last 3 months, ap3 including since admission Yes- fall prone (multiple falls) (3 pts) Confusion or Disorientation No (0 pts) Intoxicated or Sedated No (0 pts) Impaired Gait No (0 pts) Mobility Assist Device Used No (0 pt) Altered Elimination No (0 pt) Score/Fall Risk Level 3 or more points = High Risk Oriented to surroundings, Maintained a safe environment, Educated pt \\T\\ family on fall prevention, incl call for assistance when getting out of bed, Assessed \\T\\ reinforced patient's understanding of fall precautions, Hourly rounding (assess needs \\T\\ fall precautionary measures) done, Implemented a Fall Risk Plan of Care, Apply high fall risk patient identification: yellow non skid footwear/ fall signage, Offered frequent toileting (1:1 observation), Remained with patient while ambulating. Assessment: 18:30 General: Appears in no apparent distress. Behavior is cooperative. Pain: Complains of kj2 pain in right leg and right arm and back Pain currently is 6 out of 10 on a pain scale. Neuro: Level of Consciousness is awake, alert, obeys commands, Oriented to person, place, time, situation. Cardiovascular: Patient's skin is warm and dry. Respiratory: Airway is patent Respiratory effort is even, unlabored. GI: No signs and/or symptoms were reported involving the gastrointestinal system. : No signs and/or symptoms were reported regarding the genitourinary system. 19:06 Reassessment: Patient appears in no apparent distress at this time. Patient and/or kj2 family updated on plan of care and expected duration. Pain level reassessed. Patient is alert, oriented x 3, equal unlabored respirations, skin warm/dry/pink. Vital Signs: 17:24 BP 142 / 95; Pulse 91; Resp 18; Temp 98.6(O); Pulse Ox 100% on R/A; Weight 67.13 kg; ap3 Height 5 ft. 0 in. ; Pain 8/10; 19:06 BP 140 / 88; Pulse 88; Resp 18; Temp 98; Pulse Ox 100% on R/A; kj2 17:24 Body Mass Index 28.90 (67.13 kg, 152.4 cm) ap3 17:24 Pain Scale: Adult ap3 ED Course: 17:22 Patient arrived in ED. al6 17:25 Arie Milner PA is PHCP. cp 17:25 Anand Naranjo MD is Attending Physician. cp 17:26 Triage completed. ap3 17:27 Arm band placed on right wrist. ap3 18:00 XRAY Lumbar Spine (3 Views) In Process Unspecified. EDMS 18:00 XRAY Hand RIGHT 3 View In Process Unspecified. EDMS 18:27 Annie Rivera, SISSY is Primary Nurse. ap3 18:30 Patient has correct armband on for positive identification. Bed in low position. Call kj2 light in reach. Adult w/ patient. Provided Education on: call light. 18:51 No provider procedures requiring assistance completed. kj2 19:07 Patient did not have IV access during this emergency room visit. kj2 Administered Medications: 18:49 Drug: Ketorolac IM 30 mg IM once Route: IM; Site: right deltoid; kj2 19:06 Follow up: Response: No adverse reaction kj2 18:49 Drug: Hydrocodone-Acetaminophen PO (7.5 mg-325 mg) 1 tabs PO once; RASS on ADMIN: kj2 Combtv4, Very Agttd3, Agttd2, Rstlss1, AlertClm0, Drwsy-1, Lt Sdtn-2, Mod Sdtn-3, Dp Sdtn-4, UnArsble-5 Route: PO; 19:06 Follow up: Response: No adverse reaction kj2 Medication: 19:07 VIS not applicable for this client. kj2 Outcome: 19:04 Discharge ordered by . cp 19:07 Discharged to home ambulatory, with family, kj2 19:07 Condition: stable 19:07 Discharge instructions given to patient, family, Instructed on discharge instructions, follow up and referral plans. Demonstrated understanding of instructions, follow-up care, 19:36 Patient left the ED. kj2 Signatures: Dispatcher [employer] EDMS Arie Milner PA PA cp Prokisch, Amanda RN RN ap3 Daisy Jimenez RN RN kj2 Nella Parada6
[2024-12-05 20:11] VITALS: O2SAT 100
[2024-12-05 20:12] VITALS: BP 140/88; TEMP 98
== END 2024-12-05 19:36 | disposition home or self-care (01) ==
LOC: ER 17:20
DX: M54.17 Radiculopathy, lumbosacral region (principal); M79.641 Pain in right hand; W01.10XA Fall on same level from slipping, tripping and stumbling with subsequent striking against unspecified object, initial encounter
CPT/HCPCS: 72100; 96372; 99284

== ENCOUNTER 2024-12-31 09:06 | Inpatient (IN) | payer OTHER ==
--- OUTSIDE RECORDS SUMMARY | 2024-12-31 09:10 | XMS REPORT | Continuity of Care Document ---
Author Name Unknown Address [address] [place] [address] [facility] Address [address] [place] [address] Care Team Providers Care Printed Circuit Board Pcb Designer Name Role Phone Marvin Seymour Jr. Primary Care Physician + [phone] Ian Crespo Attending Clinician Unavailable KATHY WILBURN Attending Clinician Unavailable JAMES YOST Attending Clinician Unavailab JAZLYN Bosch Attending Clinician UnavailANDREA Mcknight Attending Clinician Unavailab SALVATORE Hector Attending Clinician Unavailable PEDRITO DOHERTY Attending Clinician Unavailable [email or web address] Attending Clinician Unavailsanto LONGORIA MD Attending Clinician Unavailab le LAB90 Attending Clinician Unavailable TOYIN SHWA Attending Clinician Unavailable Doctor Unassigned, [place] Attending Clinician U navailable Lab, Adc Fam Pob I Attending Clinician Unavailab Mccarthy COUNTER INTELLIGENCEKaren Fisher Attending Clinician KAREN JOHNSON Attending Clinician Unavailable [email or web address] Admitting Clinician Unavaila darshan Payers Payer Name Policy Type Policy Number Effective Date Expirati on Date Source [facility] Individual Exchange Benefit Plan [id number] 2024 00:00:00 [facility] EUGENIO CHEN COPAY FOCUS 9 [id number] 2024 00:00:00 [employer]ET[employer] MP [facility] G[facility] 4 [facility] ON/OFF 9 [id number] 2023 00:00:00 Problems Condition Name Condition Details Condition Category Status Onset Date Resolution Date Last Treatment Date Treating Clinician Comments Source HTN (hypertens ion) HTN (hypertens ion) Disease Active 2022-09 00:00: 00 Luisa Stinson - Externa rick Insomnia Insomnia Disease Active 2022-09 00:00: 00 Luisa Stinson - Externa rick Depression Depression Disease Active 2022-09 00:00: 00 Luisa Crewsold - Externa rick DM (diabetes mellitus) (multi HCC) DM (diabetes mellitus) (multi HCC) Disease Active 2022-09 00:00: 00 Luisa Stinson - Externa l Asthma (HHS-HCC) Asthma (HHS-HCC) Disease Active 2022-09 00:00: 00 Luisa Stinson - Externa l Overweight (BMI 25.0-29.9) Overweight (BMI 25.0-29.9) Disease Active 2022-09 00:00: 00 Luisa Stinson - Externa l History of suicide attempt History of suicide attempt Disease Active 1 00:00: 00 Luisa Stinson - Externa l [id number] Carpal tunnel syndrome of right wrist Problem Active [facility] [id number] Depression with anxiety Problem [facility] [id number] Essential hypertensi on Problem [facility] [id number] Type 2 diabetes mellitus with hyperglyce ana m, without long-term current use of insulin Problem [facility] [id number] Mild persistent asthma without complicati on Problem [facility] [id number] Primary insomnia Problem [facility] [id number] Mixed hyperlipid emia Problem [facility] [id number] Lumbar disc herniation Problem [facility] Allergies, Adverse Reactions, Alerts Allergy Name Allergy Type Status Severity Reaction(s) Onset Date Inactive Date Treating Clinician Comments Source Cheese Propensi ty to adverse reaction s Active 2022-09 00:00: 00 Other reaction( s): Unknown Luisa Stinson - Externa l Isopropy l Nicotina te Propensi ty to adverse reaction s Active 12-21 00:00: 00 Other reaction( s): Unknown Luisa Aguilar Externa l NO KNOWN ALLERGIE S Drug Class Active [facility] niacin niacin Active Unknown [facility] Cheese Cheese Active Unknown [facility] Social History Social Habit Start Date Stop Date Quantity Comments Source Sexual orientation Lesli Stinson - External History of tobacco use Cigarette Smoker Luisa pfeiffer - External Tobacco use and exposure 2023-06-06 00:00:00 2023-06-06 00:00:00 Smokeless tobacco non-user Luisa Stinson - External Alcohol intake 2023-06-06 00:00:00 2023-06-06 00:00:00 Ex-drinker (finding) uLisa Stinson - External History of Social function 2023-06-06 00:00:00 2023-06-06 00:00:00 Luisa Stinson - External Education 2023-06-06 00:00:00 2023-06-06 00:00:00 17 Luisa Aguilar External Alcohol Comment 2023-06-06 00:00:00 2023-06-06 00:00:00 sober since 2021 Luisa Aguilar External Cigarettes smoked current (pack per day) - Reported 2023-06-06 00:00:00 2023-06-06 00:00:00 Luisa Aguilar External Cigarette pack-years 2023-06-06 00:00:00 2023-06-06 00:00:00 Luisa Elliott Sex Ass[birth year] At 1965 00:00:00 1965 00:00:00 Luisa Aguilar External Smoking Status Start Date Stop Date Source Tobacco smoking consumption unknown [facility] Former Smoker 2024-12-26 00:00:00 2024-12-26 00:00:00 [facility] Never Smoker [facility] Smokes tobacco daily 2023-06-06 00:00:00 Luisa Elliott Medications Ordered Medication Name Filled Medication Name Start Date Stop Date Current Medication? Ordering Clinician Indication Dosage Frequency Signature (SIG) Comments Components Source HYDROcodone -Acetaminop hen 5-325 MG HYDROcodone -Acetaminop hen 5-325 MG 12-26 00:00: 00 No 1{table t_as_ne eded} BID HYDROcodon e-Acetamin ophen 5-325 MG Rosuvastati n Calcium 40 MG Rosuvastati n Calcium 40 MG 11-18 00:00: 00 No 1{table t} QD Rosuvastat in Calcium 40 MG Zolpidem Tartrate 10 MG Zolpidem Tartrate 10 MG 18 00:00: 00 No 1{table t_at_be dtime_a s_neede d} QD Zolpidem Tartrate 10 MG SOLU-Medrol SOLU-Medrol 10-28 00:00: 00 No 125mg [facility] Amoxicillin -Pot Clavulanate 875-125 MG Amoxicillin -Pot Clavulanate 875-125 MG 2023-09 00:00: 00 No 1{table t} BID Amoxicilli n-Pot Clavulanat e 875-125 MG Pseudoeph-B romphen-DM 30-2-10 MG/5ML Pseudoeph-B romphen-DM 30-2-10 MG/5ML 2023-09 00:00: 00 No 5{ml} TID Pseudoeph- Bromphen-D M 30-2-10 MG/5ML Losartan Potassium 50 MG Losartan Potassium 50 MG 2023-09-12 00:00: 00 No 1{table t} QD Losartan Potassium 50 MG Gabapentin 100 MG Gabapentin 100 MG - 00:00: 00 No 1{capsu le} QD Gabapentin 100 MG Naproxen 500 MG Naproxen 500 MG -15 00:00: 00 No BID Naproxen 500 MG Ondansetron HCl 4 MG Ondansetron HCl 4 MG 08 00:00: 00 No 1{table t} QD Ondansetro n HCl 4 MG Metformin HCl 500 MG oral Tablet 2022-09 15:07: 08 Yes 500mg Take 1 tablet (500 mg total) by mouth in the morning and 1 tablet (500 mg total) in the evening. Take with meals. Luisa cabrera Trulicity 0.75 MG/0.5ML subcutaneou s Solution Pen-injecto r 2022-09 00:00: 00 Yes [id number] .75mg Inject 0.75 mg into the skin [...] cabrera Zolpidem Tartrate 10 MG oral Tablet 08 00:00: 00 Yes 10mg Take 1 tablet [...] 2 TIMES PER DAY. Luisa cabrera Pen [place] 32G x 4 mm 1/6" Pen [place] 32G x 4 mm 1/6" No QD Pen [place] 32G x 4 mm 1/6" clonazePAM 0.5 [...] - SDS - 0.5mL Unknown Completed [facility] Vital Signs Vital Name Observation Time Observation Value Comments S kadyce height 2024-12-26 08:15:00 60 [in_i] Commo n [facility] weight 2024-12-26 08:15:00 141.4 [lb_av] Co [facility] temperature 2024-12-26 08:15:00 97.9 [degF] Com [facility] bmi 2024-12-26 08:15:00 27.61 kg/m2 Comm on [facility] oximetry 2024-12-26 08:15:00 99 % Commo n [facility] blood pressure systolic 2024-12-26 08:15:00 138 mm[Hg] [facility] blood pressure diastolic 2024-12-26 08:15:00 84 mm[Hg] [facility] height 2024-11-18 13:45:00 60 [in_i] Commo n [facility] weight 2024-11-18 13:45:00 144.6 [lb_av] Co [facility] temperature 2024-11-18 13:45:00 98.2 [degF] Com [facility] bmi 2024-11-18 13:45:00 28.24 kg/m2 Comm on [facility] oximetry 2024-11-18 13:45:00 98 % Commo n [facility] blood pressure systolic 2024-11-18 13:45:00 129 mm[Hg] [facility] blood pressure diastolic 2024-11-18 13:45:00 80 mm[Hg] [facility] height 2024-10-28 16:30:00 60 [in_i] Commo n [facility] weight 2024-10-28 16:30:00 145.4 [lb_av] Co [facility] temperature 2024-10-28 16:30:00 98.1 [degF] Com [facility] bmi 2024-10-28 16:30:00 28.39 kg/m2 Comm on [facility] oximetry 2024-10-28 16:30:00 98 % Commo n [facility] blood pressure systolic 2024-10-28 16:30:00 160 mm[Hg] [facility] blood pressure diastolic 2024-10-28 16:30:00 87 mm[Hg] [facility] height 2024-10-07 14:30:00 60 [in_i] Commo n [facility] weight 2024-10-07 14:30:00 145.8 [lb_av] Co [facility] temperature 2024-10-07 14:30:00 98.4 [degF] Com [facility] bmi 2024-10-07 14:30:00 28.47 kg/m2 Comm on [facility] oximetry 2024-10-07 14:30:00 95 % Commo n [facility] respiratory rate 2024-10-07 14:30:00 16 /min Common [facility] blood pressure systolic 2024-10-07 14:30:00 146 mm[Hg] [facility] blood pressure diastolic 2024-10-07 14:30:00 80 mm[Hg] [facility] height 2024-08-20 08:00:00 60 [in_i] Commo n [facility] weight 2024-08-20 08:00:00 144.8 [lb_av] Co [facility] temperature 2024-08-20 08:00:00 98.1 [degF] Com mon [facility] bmi 2024-08-20 08:00:00 28.28 kg/m2 Comm on [facility] oximetry 2024-08-20 08:00:00 99 % Commo n [facility] respiratory rate 2024-08-20 08:00:00 16 /min Common [facility] blood pressure systolic 2024-08-20 08:00:00 156 mm[Hg] [facility] blood pressure diastolic 2024-08-20 08:00:00 84 mm[Hg] [facility] height 2024-08-08 16:00:00 60 [in_i] Commo n [facility] weight 2024-08-08 16:00:00 147 [lb_av] Comm on [facility] temperature 2024-08-08 16:00:00 98.0 [degF] Com [facility] bmi 2024-08-08 16:00:00 28.71 kg/m2 Comm on [facility] oximetry 2024-08-08 16:00:00 99 % Commo n [facility] respiratory rate 2024-08-08 16:00:00 16 /min [facility] blood pressure systolic 2024-08-08 16:00:00 150 mm[Hg] [facility] blood pressure diastolic 2024-08-08 16:00:00 76 mm[Hg] [facility] height 2024-08-04 15:00:00 60 [in_i] Commo n [facility] weight 2024-08-04 15:00:00 147.0 [lb_av] Co mmon [facility] temperature 2024-08-04 15:00:00 97.5 [degF] Com [facility] bmi 2024-08-04 15:00:00 28.71 kg/m2 Comm on [facility] oximetry 2024-08-04 15:00:00 96 % Commo n [facility] respiratory rate 2024-08-04 15:00:00 16 /min Common [facility] height 2024-07-15 14:40:00 60 [in_i] Commo n [facility] weight 2024-07-15 14:40:00 149.4 [lb_av] Co mmon [facility] temperature 2024-07-15 14:40:00 97.9 [degF] Com mon [facility] bmi 2024-07-15 14:40:00 29.17 kg/m2 Comm on [facility] oximetry 2024-07-15 14:40:00 98 % Commo n [facility] respiratory rate 2024-07-15 14:40:00 16 /min [facility] blood pressure systolic 2024-07-15 14:40:00 134 mm[Hg] [facility] blood pressure diastolic 2024-07-15 14:40:00 84 mm[Hg] [facility] height 2024-04-18 08:00:00 60 [in_i] Commo n [facility] weight 2024-04-18 08:00:00 157.8 [lb_av] Co mmon [facility] temperature 2024-04-18 08:00:00 98.2 [degF] Com mon [facility] bmi 2024-04-18 08:00:00 30.81 kg/m2 Comm on [facility] oximetry 2024-04-18 08:00:00 98 % Commo n [facility] respiratory rate 2024-04-18 08:00:00 16 /min [facility] blood pressure systolic 2024-04-18 08:00:00 178 mm[Hg] [facility] blood pressure diastolic 2024-04-18 08:00:00 77 mm[Hg] [facility] height 2024-03-27 16:00:00 60 [in_i] Commo n [facility] weight 2024-03-27 16:00:00 158.4 [lb_av] Co [facility] temperature 2024-03-27 16:00:00 97.3 [degF] Com [facility] bmi 2024-03-27 16:00:00 30.93 kg/m2 Comm on [facility] oximetry 2024-03-27 16:00:00 97 % Commo n [facility] respiratory rate 2024-03-27 16:00:00 16 /min [facility] blood pressure systolic 2024-03-27 16:00:00 144 mm[Hg] [facility] blood pressure diastolic 2024-03-27 16:00:00 78 mm[Hg] [facility] height 2024-02-13 10:40:00 60 [in_i] Commo n [facility] weight 2024-02-13 10:40:00 155.8 [lb_av] Co [facility] temperature 2024-02-13 10:40:00 97.8 [degF] Com [facility] bmi 2024-02-13 10:40:00 30.42 kg/m2 Comm on [facility] oximetry 2024-02-13 10:40:00 98 % Commo n [facility] respiratory rate 2024-02-13 10:40:00 16 /min Common [facility] blood pressure systolic 2024-02-13 10:40:00 123 mm[Hg] [facility] blood pressure diastolic 2024-02-13 10:40:00 69 mm[Hg] [facility] height 2024-01-23 11:20:00 60 [in_i] Commo n [facility] weight 2024-01-23 11:20:00 156.0 [lb_av] Co mmon [facility] temperature 2024-01-23 11:20:00 98.1 [degF] Com [facility] bmi 2024-01-23 11:20:00 30.46 kg/m2 Comm on [facility] oximetry 2024-01-23 11:20:00 99 % Commo n [facility] respiratory rate 2024-01-23 11:20:00 16 /min Common [facility] blood pressure systolic 2024-01-23 11:20:00 127 mm[Hg] [facility] blood pressure diastolic 2024-01-23 11:20:00 78 mm[Hg] [facility] height 2024-01-16 09:00:00 60 [in_i] Commo n [facility] weight 2024-01-16 09:00:00 153.2 [lb_av] Co [facility] temperature 2024-01-16 09:00:00 98.4 [degF] Com [facility] bmi 2024-01-16 09:00:00 29.92 kg/m2 Comm on [facility] oximetry 2024-01-16 09:00:00 99 % Commo n [facility] respiratory rate 2024-01-16 09:00:00 16 /min Common [facility] blood pressure systolic 2024-01-16 09:00:00 158 mm[Hg] [facility] blood pressure diastolic 2024-01-16 09:00:00 96 mm[Hg] [facility] height 2024-01-09 10:40:00 60 [in_i] Commo n [facility] weight 2024-01-09 10:40:00 154.2 [lb_av] Co [facility] temperature 2024-01-09 10:40:00 98.1 [degF] Com [facility] bmi 2024-01-09 10:40:00 30.11 kg/m2 Comm on [facility] oximetry 2024-01-09 10:40:00 95 % Commo n [facility] respiratory rate 2024-01-09 10:40:00 16 /min [facility] blood pressure systolic 2024-01-09 10:40:00 162 mm[Hg] [facility] blood pressure diastolic 2024-01-09 10:40:00 98 mm[Hg] [facility] height 2023-11-29 10:20:00 60 [in_i] Commo n [facility] weight 2023-11-29 10:20:00 155.6 [lb_av] Co [facility] temperature 2023-11-29 10:20:00 97.9 [degF] Com [facility] bmi 2023-11-29 10:20:00 30.39 kg/m2 Comm on [facility] oximetry 2023-11-29 10:20:00 97 % Commo n [facility] respiratory rate 2023-11-29 10:20:00 16 /min [facility] blood pressure systolic 2023-11-29 10:20:00 114 mm[Hg] [facility] blood pressure diastolic 2023-11-29 10:20:00 65 mm[Hg] [facility] height 2023-09-27 15:00:00 60 [in_i] Commo n [facility] weight 2023-09-27 15:00:00 153.6 [lb_av] Co [facility] temperature 2023-09-27 15:00:00 98.4 [degF] Com [facility] bmi 2023-09-27 15:00:00 29.99 kg/m2 Comm on [facility] oximetry 2023-09-27 15:00:00 99 % Commo n [facility] respiratory rate 2023-09-27 15:00:00 16 /min Common [facility] blood pressure systolic 2023-09-27 15:00:00 128 mm[Hg] [facility] blood pressure diastolic 2023-09-27 15:00:00 74 mm[Hg] [facility] height 2023-08-29 08:00:00 60 [in_i] Commo n [facility] weight 2023-08-29 08:00:00 156.4 [lb_av] Co mmon [facility] temperature 2023-08-29 08:00:00 98.6 [degF] Com [facility] bmi 2023-08-29 08:00:00 30.54 kg/m2 Comm on [facility] oximetry 2023-08-29 08:00:00 98 % Commo n [facility] respiratory rate 2023-08-29 08:00:00 16 /min Common [facility] blood pressure systolic 2023-08-29 08:00:00 136 mm[Hg] [facility] blood pressure diastolic 2023-08-29 08:00:00 78 mm[Hg] [facility] height 2023-08-01 09:00:00 60 [in_i] Commo n [facility] weight 2023-08-01 09:00:00 155 [lb_av] Comm on [facility] temperature 2023-08-01 09:00:00 98.2 [degF] Com [facility] bmi 2023-08-01 09:00:00 30.27 kg/m2 Comm on [facility] oximetry 2023-08-01 09:00:00 98 % Commo n [facility] respiratory rate 2023-08-01 09:00:00 16 /min Common [facility] blood pressure systolic 2023-08-01 09:00:00 122 mm[Hg] [facility] blood pressure diastolic 2023-08-01 09:00:00 82 mm[Hg] [facility] Systolic blood pressure 2023-06-06 19:54:00 117 mm[Hg] [...] Pulse oximetry 2023-06-06 19:54:00 99 /min Luisa Boudreauxybo ld - External height 2021-04-26 08:00:00 60 [in_i] Commo n [facility] weight 2021-04-26 08:00:00 173.8 [lb_av] Co mmon [facility] bmi 2021-04-26 08:00:00 33.94 kg/m2 Comm on [facility] blood pressure systolic 2021-04-26 08:00:00 132 mm[Hg] [facility] blood pressure diastolic 2021-04-26 08:00:00 82 mm[Hg] [facility] Encounters Start Date/Time End Date/Time Encounter Type Admission Type Attending [facility] Care Facility Care Department Encounter ID Source 2024-11-17 16:40:00 Outpatient Ian Crespo [facility] [id number] [facility] 2024-10-27 13:44:01 Outpatient Ian Crespo [facility] [id number] [facility] 2024-08-04 14:45:00 Outpatient Ian Crespo [facility] [id number] [facility] 2024-07-15 14:36:00 Outpatient Ian Crespo [facility] [id number] [facility] 2024-07-11 09:23:00 Outpatient Ian Crespo [facility] [id number] [facility] 2024-07-07 16:16:01 Outpatient Ian Crespo [facility] [id number] [facility] 2024-05-09 09:47:00 Outpatient Ian Crespo [facility] [id number] [facility] 2024-04-16 10:14:01 Outpatient Ian Crespo [facility] [id number] [facility] 2024-03-03 10:42:00 Outpatient Ian Crespo [facility] [id number] [facility] 2024-02-12 14:30:00 Outpatient Ian Crespo [facility] [id number] [facility] 2024-01-23 10:57:00 Outpatient Ian Crespo [facility] [id number] [facility] 2024-01-15 16:26:00 Outpatient Ian Crespo [facility] [id number] [facility] 2023-12-27 09:47:00 Outpatient Ian Crespo [facility] [id number] [facility] 2023-11-29 09:19:00 Outpatient Ian Crespo [facility] [id number] [facility] 2023-11-27 08:46:00 Outpatient Ian Crespo [facility] [id number] [facility] 2023-11-23 09:29:00 Outpatient Ian Crespo [facility] [id number] [facility] 2023-11-22 14:24:00 Outpatient Ian Crespo [facility] [id number] [facility] 2023-10-25 08:19:00 Outpatient Ian Crespo [facility] [id number] [facility] 2023-09-26 16:29:00 Outpatient Ian Crespo [facility] [id number] [facility] 2023-09-24 08:07:00 Outpatient Ian Crespo [facility] [id number] [facility] 2023-08-01 09:10:01 Outpatient Ian Crespo [facility] [id number] [facility] 2023-07-31 16:27:00 Outpatient Ian Crespo [facility] [id number] [facility] 2023-07-24 13:22:00 Outpatient Ian Crespo [facility] [id number] [facility] 2023-07-18 16:14:00 Outpatient [facility] [id number] [facility] 2021-09-28 13:41:50 Outpatient [facility] [id number] [facility] 2024-12-26 00:00:00 2024-12-26 00:00:00 OFFICE VISIT ESTAB PT LEVEL 4 [facility] [id number] [facility] 2024-12-26 00:00:00 2024-12-26 00:00:00 (TEL) [facility] [id number] [facility] 2024-11-18 00:00:00 2024-11-18 00:00:00 OFFICE VISIT ESTAB PT LEVEL 4 [facility] [id number] [facility] 2024-11-05 00:00:00 2024-11-05 00:00:00 (TEL) [facility] [id number] [facility] 2024-10-28 00:00:00 2024-10-28 00:00:00 OFFICE VISIT ESTAB PT LEVEL 3 [facility] [id number] [facility] 2024-10-27 00:00:00 2024-10-27 00:00:00 (TEL) [facility] [id number] [facility] 2024-10-16 00:00:00 2024-10-16 00:00:00 (TEL) [facility] [id number] [facility] 2024-10-07 00:00:00 2024-10-07 00:00:00 OFFICE VISIT ESTAB PT LEVEL 3 [facility] [id number] [facility] 2024-08-20 00:00:00 2024-08-20 00:00:00 OFFICE VISIT ESTAB PT LEVEL 4 [facility] [id number] [facility] 2024-08-08 00:00:00 2024-08-08 00:00:00 OFFICE VISIT ESTAB PT LEVEL 3 [facility] [id number] [facility] 2024-08-06 00:00:00 2024-08-06 00:00:00 (TEL) [facility] [id number] [facility] 2024-08-04 00:00:00 2024-08-04 00:00:00 OFFICE VISIT ESTAB PT LEVEL 3 [facility] [id number] [facility] 2024-07-15 00:00:00 2024-07-15 00:00:00 OFFICE VISIT ESTAB PT LEVEL 4 [facility] [id number] [facility] 2024-06-06 00:00:00 2024-06-06 00:00:00 Outpatient AKILAVIVIENNEKATHY LUISA CAREY [id number] [facility] 2024-05-29 11:30:00 2024-05-29 11:30:00 Outpatient JAMES YOST LUISA CAREY [id number] [facility] 2024-05-08 00:00:00 2024-05-08 00:00:00 (TEL) [facility] [id number] [facility] 2024-04-29 00:00:00 2024-04-29 00:00:00 (TEL) [facility] [id number] [facility] 2024-04-18 00:00:00 2024-04-18 00:00:00 OFFICE VISIT ESTAB PT LEVEL 3 [facility] [id number] [facility] 2024-04-10 00:00:00 2024-04-10 00:00:00 Outpatient VIVIENNE WILBURNAND LUISA CAREY [id number] [facility] 2024-04-09 00:00:00 2024-04-09 00:00:00 (TEL) STLMLC STLMLC [id number] [facility] 2024-04-07 00:00:00 2024-04-07 00:00:00 (TEL) STLMLC STLMLC [id number] [facility] 2024-03-27 00:00:00 2024-03-27 00:00:00 OFFICE VISIT ESTAB PT LEVEL 4 STLMLC STLMLC [id number] [facility] 2024-03-22 18:05:00 2024-03-22 20:03:00 Emergency ER JAZLYN SCHULTZ [facility] [id number] [facility] 2024-02-13 00:00:00 2024-02-13 00:00:00 OFFICE VISIT ESTAB PT LEVEL 3 STLMLC STLMLC [id number] [facility] 2024-02-11 15:37:00 2024-02-11 17:40:00 Emergency ER ANDREA RINCON [facility] [id number] [facility] 2024-01-26 19:11:00 2024-01-26 21:17:00 Emergency ER SALVATORE VARELA [facility] [id number] [facility] 2024-01-23 00:00:00 2024-01-23 00:00:00 OFFICE VISIT ESTAB PT LEVEL 4 STLMLC STLMLC [id number] [facility] 2024-01-16 00:00:00 2024-01-16 00:00:00 OFFICE VISIT ESTAB PT LEVEL 3 STLMLC STLMLC [id number] [facility] 2024-01-09 00:00:00 2024-01-09 00:00:00 OFFICE VISIT ESTAB PT LEVEL 4 STLMLC STLMLC [id number] [facility] 2023-12-28 00:00:00 2023-12-28 00:00:00 (TEL) STLMLC STLMLC [id number] [facility] 2023-11-29 00:00:00 2023-11-29 00:00:00 (ESTPTWM) Raudele d PT Women STLMLC STLMLC [id number] [facility] 2023-11-29 00:00:00 2023-11-29 00:00:00 (TEL) STLMLC STLMLC [id number] [facility] 2023-11-22 00:00:00 2023-11-22 00:00:00 (TEL) STLMLC STLMLC [id number] [facility] 2023-10-10 00:00:00 2023-10-10 00:00:00 Outpatient KATHY WILBURN [id number] [facility] 2023-09-27 00:00:00 2023-09-27 00:00:00 OFFICE VISIT ESTAB PT LEVEL 4 STLMLC STLMLC [id number] [facility] 2023-09-27 00:00:00 2023-09-27 00:00:00 (TEL) STLMLC STLMLC [id number] [facility] 2023-09-04 00:00:00 2023-09-04 00:00:00 (TEL) STLMLC STLMLC [id number] [facility] 2023-08-29 00:00:00 2023-08-29 00:00:00 (TEL) STLMLC STLMLC [id number] [facility] 2023-08-29 00:00:00 2023-08-29 00:00:00 OFFICE VISIT ESTAB PT LEVEL 4 STLMLC STLMLC [id number] [facility] 2023-08-01 00:00:00 2023-08-01 00:00:00 OFFICE VISIT NEW PT LEVEL 4 STLMLC STLMLC [id number] [facility] 2023-07-18 13:30:00 2023-07-18 13:30:00 Outpatient PEDRITO DOHERTY [id number] [facility] 2023-07-18 00:00:00 2023-07-18 00:00:00 (TEL) STLMLC STLMLC [id number] [facility] 2023-07-11 10:45:00 2023-07-11 10:45:00 Outpatient KATHY WILBURN [id number] [facility] 2023-06-29 00:00:00 2023-06-29 00:00:00 Outpatient GC_[email or web address]_Ka diyala_S [facility] [id number] [facility] 2023-06-20 00:00:00 2023-06-20 00:00:00 Outpatient MD LUISA UMAÑA [id number] [facility] 2023-06-17 00:00:00 2023-06-17 00:00:00 Outpatient PREKATHY TURNER [id number] [facility] 2023-06-08 00:00:00 2023-06-08 00:00:00 Outpatient KATHY WILBURN [id number] [facility] 2023-06-06 15:45:00 2023-06-06 15:45:00 Outpatient LAB90 LUISA CAREY [id number] [facility] 2023-06-06 15:00:00 2023-06-06 15:00:00 Outpatient KATHY WILBURN [id number] [facility] 2023-05-23 00:00:00 2023-05-23 00:00:00 Outpatient KATHY WILBURN [id number] [facility] 2021-04-26 00:00:00 2021-04-26 00:00:00 OFFICE VISIT NEW PT LEVEL 3 STLMLC STLMLC [id number] [facility] 2020-12-16 09:00:00 2020-12-16 08:53:43 Outpatient TOYIN ELIZABETH [facility] [id number] General acute hospital 2020-11-25 08:50:00 2020-11-25 08:41:49 Outpatient TOYIN [facility] [id number] General acute hospital 2020-03-10 00:00:00 2020-03-10 00:00:00 Patient Secure Msg Doctor Unassigned, [place] [facility] [id number] General acute hospital 2020-03-08 11:13:22 2020-03-08 11:33:22 Laboratory Only Lab, Adc Fam Pob Karen Miller [facility] [id number] General acute hospital 2020-03-08 11:13:22 2020-03-08 11:33:22 Laboratory Only Lab, Adc Fam Pob I [facility] [id number] 2020-03-08 11:20:00 2020-03-08 11:20:00 Outpatient Max JOHNSONROBLESY [facility] [id number] General acute hospital Results Test Description Test Time Test Comments Results Result Co mments Source HEMOGLOBIN [id number] 00:00:00* Test Item Value Reference Range Interpretation Comme nts A1C (test code = 4548-4) 13.4 COMPREHENSIVE METABOLIC [id number] 00:00:00* Test Item Value Reference Range Interpretation Comme nts HEMOGLOBIN A1c (test code = 4548-4) 9.8 % See_Comment H [Automated messa ge] The system which generated this result transmitted reference range: 4.2-5.6 %. The reference range was not used to interpret this result as normal/abnormal. ALBUMIN, URINE, RANDOM (test code = 07820-7) 1.5 MG/DL NOT ESTAB MG/DL CALC ALBUMIN/CREAT, RND (test code = 52396-0) 7 MG/G See_Comment [Automated messa ge] The system which generated this result transmitted reference range: <30 MG/G. The reference range was not used to interpret this result as normal/abnormal. CREATININE, URINE, CONC. (test code = 2161-8) 201.6 MG/DL NOT ESTAB MG/DL CALC LDL CHOL (test code = 92320-5) 167 MG/DL See_Comment H [Automated messa ge] [...] normal/abnormal. RISK RATIO LDL/HDL (test code = 92131-3) 4.91 RATIO See_Comment H [Automated message] The [...] result as normal/abnormal. CALCIUM (test code = 11946-4) 9.8 MG/DL See_Comment [Automated messa ge] The [...] as normal/abnormal. CALC GLOBULIN (test code = 35623-3) 3.1 G/DL See_Comment [Automated messa ge] The [...] normal/abnormal. eGFR (2020 CKD-EPI) (test code = 72572-0) 93 ML/MIN/1.73 See_Comment [Automated message] The system [...] to interpret this result as normal/abnormal. HEMOGLOBIN [id number] 00:00:00* Test Item Value Reference Range Interpretation Comme nts A1C (test code = 4548-4) 9.3 HEMOGLOBIN [id number] 00:00:00* Test Item Value Reference Range Interpretation Comme nts A1C (test code = 4548-4) 12.4 HEMOGLOBIN [id number] 00:00:00* Test Item Value Reference Range Interpretation Comme nts HEMOGLOBIN A1c (test code = 4548-4) 13.1 % See_Comment H [Automated messa ge] The system which generated this result transmitted reference range: 4.2-5.6 %. The reference range was not used to interpret this result as normal/abnormal. POC, COVID 19 Antigen + Flu by [place] (CircleMe)iaPOC, COVID 19 Antigen + Flu by SofiaPOC, COVID 19 Antigen + Flu by SofiaPOC, COVID 19 Antigen + Flu by [place]
--- NOTE | 2024-12-31 10:30 | ER ---
Nurse's Notes [facility] Name: Erma Yoo Age: 59 yrs Sex: Female : 1965 Arrival Date: 12/31/2024 Time: 09:06 Bed IW8 Private MD: Diagnosis: Cutaneous abscess of groin-mons;Type 2 diabetes mellitus with hyperglycemia;Cellulitis of groin Presentation: 12/31 09:23 Chief complaint: Patient states: R sided abscess to vaginal area for 2 days. No ll1 drainage or fever. Coronavirus screen: Client denies travel out of the [place] in the last 14 days. At this time, the client does not indicate any symptoms associated with coronavirus-19. Ebola Screen: Patient denies travel to an Ebola-affected area in the 21 days before illness onset. Initial Sepsis Screen: Does the patient meet any 2 criteria? No. Patient's initial sepsis screen is negative. Does the patient have a suspected source of infection? No. Patient's initial sepsis screen is negative. Risk Assessment: Do you want to hurt yourself or someone else? Patient reports no desire to harm self or others. Onset of symptoms was December 30, 2024. 09:23 Method Of Arrival: Ambulatory ll1 09:23 Acuity: VINNY 3 ll1 Triage Assessment: 09:23 General: Appears distressed, uncomfortable, Behavior is cooperative, appropriate for ll1 age, crying. Pain: Complains of pain in R side vagina. : Reports pain in right vagina. Derm: Abscess located on R side of vagina. Historical: - Allergies: 09:22 Niacin (Hives, Respiratory distress); ll1 09:22 Cheese; ll1 - PMHx: 09:22 Asthma; Depression; Diabetes - NIDDM; Hypertension; insomnia; ll1 - PSHx: 09:22 Cholecystectomy; Ligation of fallopian tube; ll1 - Immunization history:: Adult Immunizations up to date. - Infectious Disease History:: Denies. - Social history:: Smoking status: Patient denies any tobacco usage or history of. Screenin:42 [facility] ED Fall Risk Assessment (Adult) History of falling in the last 3 months, db including since admission No falls in past 3 months (0 pts) Confusion or Disorientation No (0 pts) Intoxicated or Sedated No (0 pts) Impaired Gait No (0 pts) Mobility Assist Device Used No (0 pt) Altered Elimination No (0 pt) Score/Fall Risk Level 0 - 2 = Low Risk Oriented to surroundings, Maintained a safe environment. Abuse screen: Denies threats or abuse. Denies injuries from another. Nutritional screening: No deficits noted. Tuberculosis screening: No symptoms or risk factors identified. Assessment: 10:30 Reassessment: Patient appears in no apparent distress at this time. Patient and/or db family updated on plan of care and expected duration. Pain level reassessed. Patient is alert, oriented x 3, equal unlabored respirations, skin warm/dry/pink. General: Appears in no apparent distress. comfortable, Behavior is calm, cooperative. Neuro: Level of Consciousness is awake, alert, obeys commands, Oriented to person, place, time, situation. Respiratory: Airway is patent Respiratory effort is even, unlabored, Respiratory pattern is regular, symmetrical. Derm: Wound noted groin Abscess. Vital Signs: 09:23 BP 188 / 100; Pulse 99; Resp 18; Temp 98.7; Pulse Ox 100% ; Weight 63.05 kg; Height 5 ll1 ft. 0 in. ; Pain 10/10; 11:00 BP 146 / 83; Pulse 88; Resp 16; Pulse Ox 99% ; db 09:23 Body Mass Index 27.15 (63.05 kg, 152.4 cm) ll1 09:23 Pain Scale: Adult ll1 ED Course: 09:10 Patient arrived in ED. cj3 09:10 Arie Frey MD is Attending Physician. julio 09:22 Arm band placed on Patient placed in an exam room, on a stretcher. ll1 09:24 Triage completed. ll1 09:51 Rosario Roy, SISSY is Primary Nurse. ph 10:28 Eduardo Xie is Hospitalizing Provider. julio 10:38 Initial lab(s) drawn, by me, sent to lab. Wound culture swab sent to lab. Inserted db saline lock: 20 gauge in right antecubital area, using aseptic technique. Blood collected. Flushed with 10 mL NS. 10:43 Patient has correct armband on for positive identification. Bed in low position. Call db light in reach. Side rails up X 1. Pulse ox on. NIBP on. Warm blanket given. Pillow given. 11:41 Provided Education on: ADMISSION TO OR. db 11:41 No provider procedures requiring assistance completed. Patient admitted, IV remains in db place. Administered Medications: 10:55 Drug: NS 0.9% IV 1000 ml IV at 1000 ml once; to be given as a bolus over 60 minutes db Route: IV; Rate: 1000 ml; Site: right antecubital; 11:30 Follow up: Response: No adverse reaction; IV Status: Completed infusion; IV Intake: db 1000ml 10:55 Drug: Clindamycin IVPB 900 mg IVPB once over 30 mins; (mix in 50 mL) Route: IVPB; db Infused Over: 30 mins; Site: right antecubital; 11:30 Follow up: Response: No adverse reaction; IV Status: Completed infusion; IV Intake: db 1000ml 11:30 Follow up: IV Status: Infusion continued upon admission db 10:55 Drug: fentaNYL (PF) IVP 50 mcg IVP once Route: IVP; Site: right antecubital; db 11:41 Follow up: Response: No adverse reaction db 10:55 Drug: Ondansetron IVP 4 mg IVP once; over 2 minutes Route: IVP; Site: right antecubital;db 11:30 Follow up: Response: No adverse reaction db 11:15 Drug: Ciprofloxacin IVPB 400 mg 200 ml IVPB once over 60 mins Volume: 200 ml; Route: db IVPB; Infused Over: 60 mins; Site: right antecubital; 11:30 Follow up: IV Status: Infusion continued upon admission db Medication: 11:41 VIS not applicable for this client. db Intake: 11:30 IV: 1000ml; Total: 1000ml. db 11:30 IV: 1000ml; Total: 2000ml. db Outcome: 10:29 Decision to Hospitalize by Provider. julio 11:33 Admitted to OR accompanied by nurse, on monitor, db 11:33 Condition: stable 11:33 Instructed on the need for admit, 11:43 Patient left the ED. db 12:34 Patient left the ED. bd Signatures: Darlene Perez Corey, MD MD cha Hall, Patricia, RN RN Tabby Moreno RN RN ll1 Sonja Smith RN RN db [place] 3
--- NOTE | 2024-12-31 10:30 | EDPHYS ---
Physician Documentation [facility] Name: Erma Yoo Age: 59 yrs Sex: Female : 1965 Arrival Date: 12/31/2024 Time: 09:06 Bed IW8 Private MD: ED Physician Arie Frey HPI: 12/31 10:20 This 59 yrs old Female presents to ER via Ambulatory with complaints of julio Vaginal Pain, Vaginal Discomfort. Historical: - Allergies: 09: Niacin (Hives, Respiratory distress); ll1 09:22 Cheese; ll1 - PMHx: :22 Asthma; Depression; Diabetes - NIDDM; Hypertension; insomnia; ll1 - PSHx: : Cholecystectomy; Ligation of fallopian tube; ll1 - Immunization history:: Adult Immunizations up to date. - Infectious Disease History:: Denies. - Social history:: Smoking status: Patient denies any tobacco usage or history of. ROS: 10:20 Constitutional: Negative for fever, chills, and weight loss, Eyes: Negative for injury, julio pain, redness, and discharge, ENT: Negative for injury, pain, and discharge, Neck: Negative for injury, pain, and swelling, Cardiovascular: Negative for chest pain, palpitations, and edema, Respiratory: Negative for shortness of breath, cough, wheezing, and pleuritic chest pain, Abdomen/GI: Negative for abdominal pain, nausea, vomiting, diarrhea, and constipation, Back: Negative for injury and pain, : Negative for injury, bleeding, discharge, and swelling, MS/Extremity: Negative for injury and deformity, Neuro: Negative for headache, weakness, numbness, tingling, and seizure, Psych: Negative for depression, anxiety, suicide ideation, homicidal ideation, and hallucinations, Allergy/Immunology: Negative for hives, rash, and allergies, Endocrine: Negative for neck swelling, polydipsia, polyuria, polyphagia, and marked weight changes, Hematologic/Lymphatic: Negative for swollen nodes, abnormal bleeding, and unusual bruising, 10:20 Skin: Positive for erythema, swelling, Exam: 10:20 Constitutional: This is a well developed, well nourished patient who is awake, alert, julio and in no acute distress. Head/Face: Normocephalic, atraumatic. Eyes: Pupils equal round and reactive to light, extra-ocular motions intact. Lids and lashes normal. Conjunctiva and sclera are non-icteric and not injected. Cornea within normal limits. Periorbital areas with no swelling, redness, or edema. ENT: Nares patent. No nasal discharge, no septal abnormalities noted. Tympanic membranes are normal and external auditory canals are clear. Oropharynx with no redness, swelling, or masses, exudates, or evidence of obstruction, uvula midline. Mucous membranes moist. Neck: Trachea midline, no thyromegaly or masses palpated, and no cervical lymphadenopathy. Supple, full range of motion without nuchal rigidity, or vertebral point tenderness. No Meningismus. Chest/axilla: Normal chest wall appearance and motion. Nontender with no deformity. No lesions are appreciated. Cardiovascular: Regular rate and rhythm with a normal S1 and S2. No gallops, murmurs, or rubs. Normal PMI, no JVD. No pulse deficits. Respiratory: Lungs have equal breath sounds bilaterally, clear to auscultation and percussion. No rales, rhonchi or wheezes noted. No increased work of breathing, no retractions or nasal flaring. Abdomen/GI: Soft, non-tender, with normal bowel sounds. No distension or tympany. No guarding or rebound. No evidence of tenderness throughout. Back: No spinal tenderness. No costovertebral tenderness. Full range of motion. MS/ Extremity: Pulses equal, no cyanosis. Neurovascular intact. Full, normal range of motion., bilateral aka Neuro: Awake and alert, GCS 15, oriented to person, place, time, and situation. Cranial nerves II-XII grossly intact. Motor strength 5/5 in all extremities. Sensory grossly intact. Cerebellar exam normal. Normal gait. Psych: Awake, alert, with orientation to person, place and time. Behavior, mood, and affect are within normal limits. 10:20 Skin: abscess, that is moderate sized, of the groin, cellulitis, that is moderate, 12:26 ECG was reviewed by the Attending Physician. [facility] Vital Signs: 09:23 BP 188 / 100; Pulse 99; Resp 18; Temp 98.7; Pulse Ox 100% ; Weight 63.05 kg; Height 5 ll1 ft. 0 in. ; Pain 10/10; 11:00 BP 146 / 83; Pulse 88; Resp 16; Pulse Ox 99% ; db 09:23 Body Mass Index 27.15 (63.05 kg, 152.4 cm) ll1 09:23 Pain Scale: Adult ll1 MDM: 09:10 Medical Screening Exam initiated [facility] 10:25 Differential diagnosis: abscess, cellulitis. Data reviewed: vital signs, nurses notes, [facility] lab test result(s), EKG, radiologic studies. Consideration of Admission/Observation Patient was admitted/placed on observation. Escalation of care including admission/observation considered. I considered the following discharge prescriptions or medication management in the emergency department Medications were administered in the Emergency Department. See MAR. Independent interpretation of the following test(s) in the Emergency Department EKG: See my EKG interpretation above. Test considered but Not performed: CT: no ct ab/pwl. Care significantly affected by the following chronic conditions: Diabetes, Hypertension, Obesity. 12/31 09:58 Order name: CBC with Diff [facility] 12/31 09:58 Order name: CMP [facility] 12/31 09:58 Order name: Wound Culture [facility] 12/31 09:58 Order name: Urinalysis w/ reflexes [facility] 12/31 11:08 Order name: CBC Smear Scan [facility]DAK 12/31 09:58 Order name: EKG; Complete Time: 09:58 [facility] 12/31 09:58 Order name: Suture Tray Setup; Complete Time: 11:27 [facility] 12/31 09:58 Order name: EKG - Nurse/Tech; Complete Time: 11:26 [facility] EC:26 Rate is 91 beats/min. Rhythm is regular. QRS [place] is Normal. UT interval is normal. QRS julio interval is normal. QT interval is normal. No Q waves. T waves are Normal. ST Segment is depressed in leads II, III, aVF. Administered Medications: 10:55 Drug: NS 0.9% IV 1000 ml IV at 1000 ml once; to be given as a bolus over 60 minutes db Route: IV; Rate: 1000 ml; Site: right antecubital; 11:30 Follow up: Response: No adverse reaction; IV Status: Completed infusion; IV Intake: db 1000ml 10:55 Drug: Clindamycin IVPB 900 mg IVPB once over 30 mins; (mix in 50 mL) Route: IVPB; db Infused Over: 30 mins; Site: right antecubital; 11:30 Follow up: Response: No adverse reaction; IV Status: Completed infusion; IV Intake: db 1000ml 11:30 Follow up: IV Status: Infusion continued upon admission db 10:55 Drug: fentaNYL (PF) IVP 50 mcg IVP once Route: IVP; Site: right antecubital; db 11:41 Follow up: Response: No adverse reaction db 10:55 Drug: Ondansetron IVP 4 mg IVP once; over 2 minutes Route: IVP; Site: right antecubital;db 11:30 Follow up: Response: No adverse reaction db 11:15 Drug: Ciprofloxacin IVPB 400 mg 200 ml IVPB once over 60 mins Volume: 200 ml; Route: db IVPB; Infused Over: 60 mins; Site: right antecubital; 11:30 Follow up: IV Status: Infusion continued upon admission db Disposition Summary: 12/31/24 10:29 Hospitalization Ordered Notes: Hospitalization Status: Observation julio Provider: Eduardo Xie cha Location: Telemetry/MedSurg (observation) julio Condition: Stable julio Problem: new julio Symptoms: have improved julio Bed/Room Type: Standard [facility] Room Assignment: julio Diagnosis - Cutaneous abscess of groin - mons julio - Type 2 diabetes mellitus with hyperglycemia julio - Cellulitis of groin julio Forms: - Medication Reconciliation Form julio - SBAR form julio - Leadership Thank You Letter julio Signatures: Dispatcher [employer] Arie Villeda MD MD cha Lewis, Lynsay, RN RN ll1 Sonja Smith RN RN db Corrections: (The following items were deleted from the chart) 09:59 09:58 CBC+H.LAB.BRZ ordered. EDMS EDMS 09:59 09:58 COMPREHENSIVE METABOLIC PANEL+C.LAB.BRZ ordered. EDMS EDMS 09:59 09:58 Wound Culture+BA.LAB.BRZ ordered. EDMS EDMS 09:59 09:58 Urinalysis+U.LAB.BRZ ordered. EDMS EDMS
--- NOTE | 2024-12-31 10:36 | P.HP ---
Certification for Inpatient Patient admitted to: Observation Practitioner: I am a practitioner with admitting privileges, knowledge of patient current condition, hospital course, and medical plan of care. Services: Services provided to patient in accordance with Admission requirements found in Title 42 Section 412.3 of the Code of Federal Regulations Patient History Date of Service: 12/31/24 Primary Care Provider: Zak Sosa PCP Reason for admission: Mons abscess History of Present Illness: 59-year-old female with a past medical history of insulin-dependent diabetes me llitus, hypertension, hyperlipidemia, presents to the emergency room with suprapubic abscess. She reports symptoms started 2 days ago is getting progressively worse. She reports pain and tenderness, reports some drainage from abscess. No reported fever, nausea vomiting diarrhea. plan to admit for mons abscess for surgery to eval. Allergies niacin Allergy (Unverified 12/21/17 13:56) Unknown Home Medications: Aspirin [Aspirin EC 81 MG] 81 mg PO DAILY #30 tablet.dr 05/13/21 Atorvastatin Calcium 40 mg PO DAILY #30 tablet 05/13/21 Gabapentin [Neurontin] 100 mg PO TID 05/13/21 Hydrocodone 5/APAP 325 [Bandy 5/325] 1 tab PO Q6H PRN #30 tab 05/13/21 Metformin ER [Glucophage ER] 500 mg PO DAILY 05/13/21 Nitroglycerin 0.4 mg SL DIRECTED #20 tab.subl 05/13/21 Potassium Chloride [Klor-Con 10] 10 meq PO DAILY 05/13/21 Zolpidem Tartrate [Ambien] 10 mg PO BEDTIME PRN PRN 05/13/21 - Past Medical/Surgical History Diabetic: Yes -: HTN -: DM insulin-dependent -: HLD -: ASTHMA -: INSOMNIA -: iron -: tubal ligation - Family History Mother -: Heart disease - Social History Alcohol use: Yes CD- Drugs: No Caffeine use: Yes Review of Systems 10-point ROS is otherwise unremarkable Physical Examination - Physical Exam General: Alert, In no apparent distress, Oriented x3 HEENT: Atraumatic, Normocephalic, PERRLA Neck: 2+ carotid pulse no bruit, JVD not distended Cardiovascular: No edema, Normal pulses, Regular rate/rhythm, Normal S1 S2 Gastrointestinal: Normal bowel sounds, Soft and benign Integumentary: Other (Mons abscess, erythema, tenderness to touch) Neurological: Normal speech, Normal strength at 5/5 x4 extr, Normal tone Assessment and Plan - Problems (Diagnosis) (1) Abscess Current Visit: Yes Status: Acute (2) HTN (hypertension) Current Visit: No Status: Chronic Qualifiers: Hypertension type: primary hypertension Qualified Code(s): I10 - Essential (primary) hypertension (3) HLD (hyperlipidemia) Current Visit: No Status: Chronic Qualifiers: Hyperlipidemia type: unspecified Qualified Code(s): E78.5 - Hyperlipidemia, unspecified - Plan Admit to [facility] Surgery consult 12/31 Incision and drainage mons abscess Dr. Roman IV antibiotics, clindamycin as needed analgesics, antiemetic Trend culture Diabetes with hyperglycemia BG, monitoring, SSI A1c Educated on diabetic diet Resume home antihypertensives, statin Full code DVT Lovenox Diet diabetic Discharge Plan: Home - Advance Directives Does patient have a Living Will: No Does patient have a Durable POA for Healthcare: No - Code Status/Comfort Care Code Status: Full Code Critical Care: No
[2024-12-31] MEDS ORDERED: ONDANSETRON 4 MG/2 ML VIAL ONE ×2 (10:50→11:47)
[2024-12-31] MEDS ORDERED: FENTANYL CITR 100 MCG/2 ML ONE ×2 (10:50→11:47)
[2024-12-31] MEDS ORDERED: NA CHLORIDE 0.9% 1,000 ML ONE (10:51)
[2024-12-31] MEDS ORDERED: CLINDAMYCIN 900MG/D5W 900 MG/50 ML IVPB IV ONE (10:51)
[2024-12-31 10:54] LABS: Absolute Eosinophils 0.2 K/uL (0-0.5); Absolute Lymphocytes (CBC) 1.4 K/uL (0.7-4.9); Absolute Monocytes 0.5 K/uL (0.1-1.3); Absolute Neutrophil 7.3 K/uL (1.8-8.0); Basophils % 0.2 % (0-1.3); Eosinophils % 2.3 % (0-4.4); Hematocrit 41.6 % (36.0-45.0); Hemoglobin 13.9 g/dL (12.0-15.0); Lymphocytes % 14.8 % (15.3-44.8); MCH 24.6 pg (27.0-35.0); MCHC 33.4 g/dL (32.0-36.0); MCV 73.5 fL (80-100); MPV 7.8 fL (7.6-11.3); Monocytes % 5.5 % (3.3-12.3); Neutrophils % 77.2 % (41.7-73.7); Nucleated Red Blood Cells % 0.4 % (0-0); Platelets 292 thou/uL (152-406); RBC Red Blood Cell Count 5.66 M/uL (3.86-4.86); Red Cell Distribution Width 14.9 % (12.1-15.2)
[2024-12-31 11:28] LABS: ALT/SGPT 19 U/L (13-56); Albumin 3.8 g/dL (3.4-5.0); Albumin/Globulin Ratio 0.9 (1.1-1.8); Alkaline Phosphatase 135 U/L (45-117); Anion Gap 8.8 mEq/L (5.0-15.0); BUN Blood Urea Nitrogen 8 mg/dL (7-18); Bicarbonate 26 mEq/L (21-32); Bilirubin Total 0.5 mg/dL (0.2-1.0); Globulin 4.1 g/dL (2.3-3.5); Glomerular Filtration Rate 83 ml/min (=/>90); Glucose Level 380 mg/dL (74-106); Potassium 3.8 mEq/L (3.5-5.1); Protein, Total 7.9 g/dL (6.4-8.2); Sodium Level 133 mEq/L (136-145)
[2024-12-31] MEDS: CIPROFLOXACIN 400mg IV 400 MG/200 ML BAG IV ONE (11:38)
[2024-12-31 11:44] LABS: AST/SGOT < 10 U/L (15-37)
[2024-12-31 11:47] LABS: Specific Gravity > 1.030 (1.005-1.030); Urine Bacteria Loaded /HPF (<20); Urine Bilirubin NEGATIVE (Negative); Urine Blood Negative (Negative); Urine Clarity Extremely Turbid (Clear); Urine Color Light-Yellow (Yellow); Urine Culture Reflex Order NOT NEEDED; Urine Glucose 4+ (Over) (Negative); Urine Ketones NEGATIVE (Negative); Urine Microscopic Reflex YN ORDER UMIC; Urine Mucus 3+ /HPF (None Seen); Urine Nitrite 2+ (Negative); Urine Protein NEGATIVE (Negative); Urine RBC None Seen /HPF (None Seen); Urine Urobilinogen Normal (Normal); Urine WBC None Seen /HPF (<5); Urine pH 5.5 (5.0-7.0)
[2024-12-31] MEDS ORDERED: propofoL 200 MG/20 ML VIAL IV ONE (11:47)
[2024-12-31] MEDS ORDERED: LIDOCAINE 2% MPF 5 ML VIAL ONE (11:47)
[2024-12-31] MEDS ORDERED: MIDAZOLAM HCL 2 MG/2 ML INJ ONE (11:47)
[2024-12-31] MEDS: INSULIN REGULAR (HUMAN) 100 UNIT/ML ONE (11:54)
[2024-12-31] MEDS: LOSARTAN/HCTZ 50-12.5 PO SCH (12:11)
[2024-12-31] MEDS ORDERED: EPHEDRINE SULF 50 MG/ML VIAL ONE (12:54)
[2024-12-31] MEDS: NA CHLORIDE 0.9% 1,000 ML IV SCH (13:00)
[2024-12-31 13:07] LABS: Blood Morphology Comment NOT SEEN (NOT SEEN); Platelet Estimate ADEQ; White Blood Cell Scan OK (OK)
--- NOTE | 2024-12-31 13:09 | P.BOP ---
Preoperative diagnosis: cellulitis and abscess suprapubic area Postoperative diagnosis: same, complex abscess Primary procedure: Incision and drainage of complex abscess suprapubic area [id number] Estimated blood loss: <10cc Specimen: abscess tissue, culture Findings: as above Anesthesia: General Complications: None Drain(s): Other (iodoform packing) Transferred to: Recovery Room Condition: Good
[2024-12-31] MEDS: FENTANYL CITR 100 MCG/2 ML ONE (13:42)
[2024-12-31] MEDS: NA CHLORIDE 0.9% 1,000 ML ONE (13:50)
[2024-12-31] MEDS: HYDROMORPHONE HCL 1 MG/ML INJ ONE ×2 (13:51→13:55)
[2024-12-31 15:03] VITALS: BMI 22.0
[2024-12-31] MEDS: CLINDAMYCIN 600MG/D5W 50 ML IV SCH (17:12)
[2024-12-31] MEDS: MORPHINE 4 MG/ML SYR IV PRN (17:12)
[2024-12-31] MEDS: INSULIN REGULAR (HUMAN) 100 UNIT/ML SQ SCH (17:12)
--- NOTE | 2024-12-31 17:58 | CON ---
Date of Consultation: 12/31/2024 Diagnosis: Groin and suprapubic abscess. History Of Present Illness: This is a case of a 59-year-old patient with history of diabetes, comes to us with a tender suprapubic area with swelling, redness, fluctuance consistent with an abscess. A pparently, she had a drain before, but it does not resolve, so the surgical consult was obtained for surgical incision and drainage of this complex abscess and debridement. She denies any trauma. She denies any dysuria, hematuria, hematochezia, melena. Denies any recent travel out of the country. D enies any family member sick at home. Review of Systems: Ten points otherwise unremarkable. Allergies: NIACIN. Medications: Aspirin, Neurontin, hydrocodone, metformin, nitroglycerin, . Past Medical History: Include insulin-dependent diabetes, asthma, insomnia. Past Surgical History: Include laparoscopic cholecystectomy and tubal ligation. Family History: Heart disease. Social History: She drinks alcohol occasionally. She does not smoke. Review of Systems: As above. Ten points otherwise unremarkable. Physical Examination: Vital signs: Reviewed. General: The patient is awake, alert, complaining of suprapubic pain, tenderness. Mild distress fro m it. HEENT: Pupils are equal, reactive, anicteric. Neck: Supple. Chest: Clear. Heart: S1, S2. Abdomen: Soft and depressible in the area of suprapubic and groin area. Patient has a large area of an abscess, looked complex, already there is purulent discharge coming from it and fluctuance presen t. No crepitus. Going into the external genitalia area, does not seem to be going inside the genita hemant. Obviously it is very tender at this moment for examination. Perianal area is not involved. Extremities: Good capillary refill. Laboratory Data: Blood work shows WBC count of 9.5, hemoglobin of 13.9 and potassium 3.8, and glucos e 380. Assessment: A 59-year-old patient with abscess and the suprapubic purulent discharge, fluctuance pre sent and cellulitis of the area. The patient was sent to [facility] for surgical drainage. The benefits, al ternatives, and risks of incision and drainage of this complex abscess fully explained emergently, wh ich include, but not limited to infection, bleeding, damage to adjacent structures, nonhealing wound, AL, and . She also understands this may not relieve symptoms. She might need more than one amaya rgical intervention. She understood that OR was immediately called. ANA/TOPHER Voice ID: [id number] Report ID: [id number]
[2024-12-31] MEDS: VANCOMYCIN 1 GM in NA CHLORIDE 0.9% 250 ML IVPB SCH (18:17)
[2024-12-31 20:36] VITALS: O2SAT 96
[2024-12-31] MEDS: PIPER TAZO 3.375 GM in NA CHLORIDE 0.9% 100 ML IV SCH (21:42)
[2024-12-31] MEDS: INSULIN GLARGINE 100 UNIT/ML SQ SCH (21:42)
--- NOTE | 2024-12-31 22:03 | OP ---
Date of Procedure: 12/31/2024 Surgeon: Clif Roman MD Preoperative Diagnosis: Cellulitis, abscess suprapubic area. Postoperative Diagnosis: Cellulitis, abscess suprapubic area plus complex abscess. Procedure: Incision and drainage of complex abscess suprapubic area, 6 x 4 x 2 cm. Estimated Blood Loss: Less than 10 cc. Specimen: Abscess, tissue and culture. Findings: Multiloculated abscess. Multiple loculations present. Anesthesia: General plus local. Complications: None. Packing: Iodoform half an inch. Indications: This is a case of a 59-year-old patient who came to us with a very tender suprapubic ar ea with abscess, purulent discharge, cellulitis present. The benefits, alternatives, and risks of in cision and drainage of an abscess under anesthesia fully explained, which include, but not limited to , infection, bleeding, damage to adjacent structures, anesthesia complication, nonhealing wound, MN, and even . She also understands this may not relieve any symptoms. She might need more than on e surgical intervention. She understood, signed a consent. Description Of Procedure: Patient was brought to the operating room, placed in supine position. Ane sthesia was induced without complication. Abdominal area was prepped and draped in sterile fashion. Local anesthesia was applied. After time-out, we proceeded to make an incision in that area. Pus w as immediately coming out. We noticed some loculations connected to what it could be just a subcutan eous mass that is infected with a complex abscess. So we removed the lump on that area and smaller l oculations were drained, then irrigated, then obtained hemostasis, and then after that, packed with i odoform half an inch. Patient tolerated the procedure well. The area was covered with sterile dress ings. Patient was sent to recovery in stable condition. ANA/TOPHER Voice ID: [id number] Report ID: [id number]
[2025-01-01 05:01] LABS: Absolute Eosinophils 0.3 K/uL (0-0.5); Absolute Lymphocytes (CBC) 1.2 K/uL (0.7-4.9); Absolute Monocytes 0.5 K/uL (0.1-1.3); Basophils % 0.6 % (0-1.3); Eosinophils % 4.6 % (0-4.4); Hematocrit 34.8 % (36.0-45.0); Hemoglobin 11.5 g/dL (12.0-15.0); Lymphocytes % 19.9 % (15.3-44.8); MCH 24.5 pg (27.0-35.0); MCHC 33.1 g/dL (32.0-36.0); MPV 7.6 fL (7.6-11.3); Monocytes % 8.4 % (3.3-12.3); Neutrophils % 66.5 % (41.7-73.7); Platelets 224 thou/uL (152-406); RBC Red Blood Cell Count 4.71 M/uL (3.86-4.86); Red Cell Distribution Width 15.3 % (12.1-15.2)
[2025-01-01 05:14] LABS: Anion Gap 7.5 mEq/L (5.0-15.0); Magnesium 1.9 mg/dL (1.6-2.4); Potassium 3.5 mEq/L (3.5-5.1)
[2025-01-01] MEDS: ENOXAPARIN 40 MG/0.4 ML SQ SCH (08:46)
--- NOTE | 2025-01-01 11:56 | EKG ---
Test Date: 2024-12-31 Test Time: 11:16:12 [employer] Trainer: LAURA MEASUREMENT RESULTS: Intervals: Rate: 91 NV: 190 QRSD: 74 QT: 338 QTc: 415 [place]: P: 48 NV: 190 QRS: 14 T: -76 INTERPRETIVE STATEMENTS: Normal sinus rhythm Nonspecific ST and T wave abnormality Abnormal ECG Compared to ECG 04/24/2023 18:09:52 ST (T wave) deviation now present Sinus arrhythmia no longer present Electronically Signed On 01-01-25 11:53:19 CDT by Clemente Vargas
--- NOTE | 2025-01-01 16:08 | P.PN ---
Subjective Date of Service: 01/01/25 Primary Care Provider: Zak Sosa PCP Chief Complaint: Mons abscess Subjective: No chest pain or shortness of breath. No nausea or vomiting. No abdominal pain other than suprapubic pain which is controlled. No obvious bleeding. Looks comfortable in the bed. Objective: General appearance: Alert and comfortable CVS: Normal S1 and S2 Lungs: Clear to auscultation bilaterally Abdomen: Soft, bowel sounds present, no tenderness Extremities: No lower extremity edema Physical Examination - Vital Signs Temperature: 98.0 F Blood Pressure: 156/75 Pulse: 75 Respirations: 18 Pulse Ox (%): 98 - Studies Microbiology Data (last 24 hrs): 12/31/24 10:35 Wound - Abscess Gram Stain - Final Assessment And Plan - Plan (1) Supra pubic Abscess Current Visit: Yes Status: Acute (2) HTN (hypertension) Current Visit: No Status: Chronic Qualifiers: Hypertension type: primary hypertension Qualified Code(s): I10 - Essential (primary) hypertension (3) HLD (hyperlipidemia) Current Visit: No Status: Chronic Qualifiers: Hyperlipidemia type: unspecified Qualified Code(s): E78.5 - Hyperlipidemia, unspecified - Plan 12/31 Incision and drainage of abscess Dr. Roman IV antibiotics, -f/u cultures 59 yo Patient present with suprapubic abscess, she already has a drainage by the surgical team, follow-up on cultures and adjust antibiotics. Elevated blood sugars, adjsuted insulin. DC home tomorrow depending on culture results.
[2025-01-01] MEDS ORDERED: GLUCAGON 1 MG/VIAL IM PRN (16:21)
[2025-01-01] MEDS ORDERED: D10W 125 ML IV PRN (16:21)
[2025-01-01] MEDS: INSULIN GLARGINE 100 UNIT/ML SQ SCH (20:50)
[2025-01-01] MEDS: ALPRAZOLAM 0.25 MG TABLET PO PRN (20:53)
[2025-01-01] MEDS: ONDANSETRON 4 MG/2 ML VIAL IV PRN (21:35)
[2025-01-02 05:28] LABS: Absolute Eosinophils 0.3 K/uL (0-0.5); Absolute Lymphocytes (CBC) 1.6 K/uL (0.7-4.9); Absolute Monocytes 0.5 K/uL (0.1-1.3); Absolute Neutrophil 2.9 K/uL (1.8-8.0); Basophils % 0.8 % (0-1.3); Eosinophils % 6.4 % (0-4.4); Hematocrit 37.7 % (36.0-45.0); Hemoglobin 12.4 g/dL (12.0-15.0); Lymphocytes % 29.7 % (15.3-44.8); MCH 24.1 pg (27.0-35.0); MCHC 32.8 g/dL (32.0-36.0); MCV 73.4 fL (80-100); MPV 8.2 fL (7.6-11.3); Monocytes % 8.9 % (3.3-12.3); Neutrophils % 54.2 % (41.7-73.7); Nucleated Red Blood Cells % 0.1 % (0-0); Platelets 235 thou/uL (152-406); RBC Red Blood Cell Count 5.13 M/uL (3.86-4.86); Red Cell Distribution Width 14.6 % (12.1-15.2)
[2025-01-02 05:53] LABS: Anion Gap 6.6 mEq/L (5.0-15.0); Magnesium 1.9 mg/dL (1.6-2.4); Potassium 3.6 mEq/L (3.5-5.1)
[2025-01-02] MEDS: DIPHENHYDRAMINE 50 MG/ML VIAL IV ONE (09:14)
[2025-01-02 12:39] VITALS: BP 164/93; TEMP 98
== END 2025-01-02 12:59 | disposition home or self-care (01) | DRG 603 ==
LOC: ER 09:06 → ERHOLD 12:01 → OBSVTOIN 12:01 → INTOOBSV 12:01 → 4TH 13:38 → OBSVTOIN 01-02 12:47 → UNDODISOB 01-02 12:59
PROVIDERS: ADMIT Hospitalist; ATTEND Hospitalist
PROC: 0J9C0ZZ Drainage of Pelvic Region Subcutaneous Tissue and Fascia, Open Approach (ICD-10-PCS; principal; 2024-12-31 11:30)
DX: L03.314 Cellulitis of groin (principal); L02.214 Cutaneous abscess of groin; E11.65 Type 2 diabetes mellitus with hyperglycemia; E78.5 Hyperlipidemia, unspecified; I10 Essential (primary) hypertension; E66.9 Obesity, unspecified; Z68.22 Body mass index [BMI] 22.0-22.9, adult; Z79.4 Long term (current) use of insulin; Z79.82 Long term (current) use of aspirin; Z79.84 Long term (current) use of oral hypoglycemic drugs; Z90.49 Acquired absence of other specified parts of digestive tract; Z91.018 Allergy to other foods; Z79.899 Other long term (current) drug therapy
CPT/HCPCS: 36415; 80048; 80053; 81001; 82947; 83036; 83735; 85025; 87070; 87075; 87077; 87186; 87205; 88304; 93005; 94010; 96365; 96375; 99285; G0378; J0744; J1171; J1200; J1650; J1815; J2003; J2250; J2405; J2543; J2704; J3010; J3370; J7030; J7050

== ENCOUNTER 2025-01-09 14:26 | Emergency (ER) | payer OTHER ==
--- OUTSIDE RECORDS SUMMARY | 2025-01-09 14:34 | XMS REPORT | Continuity of Care Document ---
Author Name Unknown Address [address] [place] [address] [facility] Address [address] [place] [address] Care Team Providers Care Credit Specialist Name Role Phone Marvin Seymour Jr. Primary Care Physician Ian Crespo Attending Clinician Unavailable KATHY WILBURN Attending Clinician Unavailable JAMES YOST Attending Clinician Unavailab JAZLYN Bosch Attending Clinician UnavailANDREA Mcknight Attending Clinician Unavailab SALVATORE Hector Attending Clinician Unavailable PEDRITO DOHERTY Attending Clinician Unavailable [email or web address] Attending Clinician Unavailsanto LONGORIA MD Attending Clinician Unavailab le LAB90 Attending Clinician Unavailable TOYIN SHAW Attending Clinician Unavailable Doctor Unassigned, [place] Attending Clinician U navailable Lab, Adc Fam Pob I Attending Clinician UnavailKaren Farrell Attending Clinician KAREN JOHNSON Attending Clinician Unavailable [email or web address] Admitting Clinician Unavaila darshan Payers Payer Name Policy Type Policy Number Effective Date Expirati on Date Source [facility] Individual Exchange Benefit Plan [id number] 2024 00:00:00 [facility] EUGENIO CHEN COPAY FOCUS 9 [id number] 2024 00:00:00 [employer]ETNA MP [facility] GOLD 4 [facility] ON/OFF 9 [id number] 2023 00:00:00 Problems Condition Name Condition Details Condition Category Status Onset Date Resolution Date Last Treatment Date Treating Clinician Comments Source HTN (hypertens ion) HTN (hypertens ion) Disease Active 2022-09 00:00: 00 Luisa Stinson - Externa rick Insomnia Insomnia Disease Active 2022-09 00:00: 00 Luisa Stinson - Externa rick Depression Depression Disease Active 2022-09 00:00: 00 Luisa Crewsold - Externa l DM (diabetes mellitus) (multi HCC) DM (diabetes mellitus) (multi HCC) Disease Active 2022-09 00:00: 00 Luisa Crewsold - Externa l Asthma (HHS-HCC) Asthma (HHS-HCC) Disease Active 2022-09 00:00: 00 Luisa Stinson - Externa l Overweight (BMI 25.0-29.9) Overweight (BMI 25.0-29.9) Disease Active 2022-09 00:00: 00 Luisa Stinson - Externa l History of suicide attempt History of suicide attempt Disease Active 09-03 00:00: 00 Luisa Stinson - Externa l [id number] Carpal tunnel syndrome of right wrist Problem Active [facility] [id number] Depression with anxiety Problem [facility] [id number] Essential hypertensi on Problem [facility] [id number] Type 2 diabetes mellitus with hyperglyce ana m, without long-term current use of insulin Problem [facility] [id number] Mild persistent asthma without complicati on Problem [facility] [id number] Primary insomnia Problem [facility] [id number] Mixed hyperlipid emia Problem [facility] [id number] Lumbar disc herniation Problem [facility] Allergies, Adverse Reactions, Alerts Allergy [...] NO KNOWN ALLERGIE S Drug Class Active [facility] niacin niacin Active Unknown [facility] Cheese Cheese Active Unknown [facility] Social History Social Habit Start [...] Education 2023-06-06 00:00:00 2023-06-06 00:00:00 19 Luisa Elliott Alcohol Comment 2023-06-06 00:00:00 2023-06-06 00:00:00 sober since 2021 Luisa Aguilar External Cigarettes smoked current (pack per day) - Reported 2023-06-06 00:00:00 2023-06-06 00:00:00 Luisa Aguilar External Cigarette pack-years 2023-06-06 00:00:00 2023-06-06 00:00:00 Luisa Elliott Sex Ass[birth year] At 1965 00:00:00 1965 00:00:00 Luisa Aguilar External Smoking Status Start Date Stop Date Source Tobacco smoking consumption unknown [facility] Former Smoker 2024-12-26 00:00:00 2024-12-26 00:00:00 [facility] Never Smoker [facility] Smokes tobacco daily 2023-06-06 00:00:00 Luisa Aguilar External Medications Ordered Medication Name Filled Medication [...] SOLU-Medrol SOLU-Medrol 10-28 00:00: 00 No 125mg [facility] Amoxicillin -Pot Clavulanate 875-125 MG Amoxicillin -Pot Clavulanate 875-125 MG 20212-02 00:00: 00 No 1{table t} BID Amoxicilli n-Pot Clavulanat e 875-125 MG Pseudoeph-B romphen-DM 30-2-10 MG/5ML Pseudoeph-B romphen-DM 30-2-10 MG/5ML 2023-09 00:00: 00 No 5{ml} TID Pseudoeph- Bromphen-D M 30-2-10 MG/5ML Losartan Potassium 50 MG Losartan Potassium 50 MG 2023-09- 00:00: 00 No 1{table t} QD Losartan Potassium 50 MG Gabapentin 100 MG Gabapentin 100 MG 03-27 00:00: 00 No 1{capsu le} QD Gabapentin [...] Solution Pen-injecto r 2022-09 00:00: 00 Yes [id number] .75mg Inject 0.75 mg into the skin [...] 2 TIMES PER DAY. Luisa cabrera Pen Oriental 32G x 4 mm 1/6" Pen Oriental 32G x 4 mm 1/6" No QD Pen Oriental 32G x 4 mm 1/6" clonazePAM 0.5 [...] (IIV3) - SDS - 0.5mL Unknown Completed [facility] Vital Signs Vital Name Observation Time Observation Value Comments S kitty height 2024-12-26 08:15:00 60 [in_i] Commo n [facility] weight 2024-12-26 08:15:00 141.4 [lb_av] Co [facility] temperature 2024-12-26 08:15:00 97.9 [degF] Com [facility] bmi 2024-12-26 08:15:00 27.61 kg/m2 Comm on [facility] oximetry 2024-12-26 08:15:00 99 % Commo n [facility] blood pressure systolic 2024-12-26 08:15:00 138 mm[Hg] [facility] blood pressure diastolic 2024-12-26 08:15:00 84 mm[Hg] [facility] height 2024-11-18 13:45:00 60 [in_i] Commo n [facility] weight 2024-11-18 13:45:00 144.6 [lb_av] Co [facility] temperature 2024-11-18 13:45:00 98.2 [degF] Com [facility] bmi 2024-11-18 13:45:00 28.24 kg/m2 Comm on [facility] oximetry 2024-11-18 13:45:00 98 % Commo n [facility] blood pressure systolic 2024-11-18 13:45:00 129 mm[Hg] [facility] blood pressure diastolic 2024-11-18 13:45:00 80 mm[Hg] [facility] height 2024-10-28 16:30:00 60 [in_i] Commo n [facility] weight 2024-10-28 16:30:00 145.4 [lb_av] Co [facility] temperature 2024-10-28 16:30:00 98.1 [degF] Com [facility] bmi 2024-10-28 16:30:00 28.39 kg/m2 Comm on [facility] oximetry 2024-10-28 16:30:00 98 % Commo n [facility] blood pressure systolic 2024-10-28 16:30:00 160 mm[Hg] [facility] blood pressure diastolic 2024-10-28 16:30:00 87 mm[Hg] Common [facility] height 2024-10-07 14:30:00 60 [in_i] Commo n [facility] weight 2024-10-07 14:30:00 145.8 [lb_av] Co [facility] temperature 2024-10-07 14:30:00 98.4 [degF] Com [facility] bmi 2024-10-07 14:30:00 28.47 kg/m2 Comm on [facility] oximetry 2024-10-07 14:30:00 95 % Commo n [facility] respiratory rate 2024-10-07 14:30:00 16 /min Common [facility] blood pressure systolic 2024-10-07 14:30:00 146 mm[Hg] [facility] blood pressure diastolic 2024-10-07 14:30:00 80 mm[Hg] Common [facility] height 2024-08-20 08:00:00 60 [in_i] Commo n [facility] weight 2024-08-20 08:00:00 144.8 [lb_av] Co [facility] temperature 2024-08-20 08:00:00 98.1 [degF] Com mon [facility] bmi 2024-08-20 08:00:00 28.28 kg/m2 Comm on [facility] oximetry 2024-08-20 08:00:00 99 % Commo n [facility] respiratory rate 2024-08-20 08:00:00 16 /min Common [facility] blood pressure systolic 2024-08-20 08:00:00 156 mm[Hg] [facility] blood pressure diastolic 2024-08-20 08:00:00 84 mm[Hg] [facility] height 2024-08-08 16:00:00 60 [in_i] Commo n [facility] weight 2024-08-08 16:00:00 147 [lb_av] Comm on [facility] temperature 2024-08-08 16:00:00 98.0 [degF] Com mon [facility] bmi 2024-08-08 16:00:00 28.71 kg/m2 Comm on [facility] oximetry 2024-08-08 16:00:00 99 % Commo n [facility] respiratory rate 2024-08-08 16:00:00 16 /min Common [facility] blood pressure systolic 2024-08-08 16:00:00 150 mm[Hg] [facility] blood pressure diastolic 2024-08-08 16:00:00 76 mm[Hg] [facility] height 2024-08-04 15:00:00 60 [in_i] Commo n [facility] weight 2024-08-04 15:00:00 147.0 [lb_av] Co mmon [facility] temperature 2024-08-04 15:00:00 97.5 [degF] Com [facility] bmi 2024-08-04 15:00:00 28.71 kg/m2 Comm on [facility] oximetry 2024-08-04 15:00:00 96 % Commo n [facility] respiratory rate 2024-08-04 15:00:00 16 /min Common [facility] height 2024-07-15 14:40:00 60 [in_i] Commo n [facility] weight 2024-07-15 14:40:00 149.4 [lb_av] Co mmon [facility] temperature 2024-07-15 14:40:00 97.9 [degF] Com [facility] bmi 2024-07-15 14:40:00 29.17 kg/m2 Comm on [facility] oximetry 2024-07-15 14:40:00 98 % Commo n [facility] respiratory rate 2024-07-15 14:40:00 16 /min [facility] blood pressure systolic 2024-07-15 14:40:00 134 mm[Hg] [facility] blood pressure diastolic 2024-07-15 14:40:00 84 mm[Hg] [facility] height 2024-04-18 08:00:00 60 [in_i] Commo n [facility] weight 2024-04-18 08:00:00 157.8 [lb_av] Co mmon [facility] temperature 2024-04-18 08:00:00 98.2 [degF] Com mon [facility] bmi 2024-04-18 08:00:00 30.81 kg/m2 Comm on [facility] oximetry 2024-04-18 08:00:00 98 % Commo n [facility] respiratory rate 2024-04-18 08:00:00 16 /min [facility] blood pressure systolic 2024-04-18 08:00:00 178 mm[Hg] [facility] blood pressure diastolic 2024-04-18 08:00:00 77 mm[Hg] [facility] height 2024-03-27 16:00:00 60 [in_i] Commo n [facility] weight 2024-03-27 16:00:00 158.4 [lb_av] Co [facility] temperature 2024-03-27 16:00:00 97.3 [degF] Com [facility] bmi 2024-03-27 16:00:00 30.93 kg/m2 Comm on [facility] oximetry 2024-03-27 16:00:00 97 % Commo n [facility] respiratory rate 2024-03-27 16:00:00 16 /min [facility] blood pressure systolic 2024-03-27 16:00:00 144 mm[Hg] [facility] blood pressure diastolic 2024-03-27 16:00:00 78 mm[Hg] [facility] height 2024-02-13 10:40:00 60 [in_i] Commo n [facility] weight 2024-02-13 10:40:00 155.8 [lb_av] Co [facility] temperature 2024-02-13 10:40:00 97.8 [degF] Com [facility] bmi 2024-02-13 10:40:00 30.42 kg/m2 Comm on [facility] oximetry 2024-02-13 10:40:00 98 % Commo n [facility] respiratory rate 2024-02-13 10:40:00 16 /min [facility] blood pressure systolic 2024-02-13 10:40:00 123 mm[Hg] [facility] blood pressure diastolic 2024-02-13 10:40:00 69 mm[Hg] [facility] height 2024-01-23 11:20:00 60 [in_i] Commo n [facility] weight 2024-01-23 11:20:00 156.0 [lb_av] Co mmon [facility] temperature 2024-01-23 11:20:00 98.1 [degF] Com [facility] bmi 2024-01-23 11:20:00 30.46 kg/m2 Comm on [facility] oximetry 2024-01-23 11:20:00 99 % Commo n [facility] respiratory rate 2024-01-23 11:20:00 16 /min [facility] blood pressure systolic 2024-01-23 11:20:00 127 mm[Hg] [facility] blood pressure diastolic 2024-01-23 11:20:00 78 mm[Hg] [facility] height 2024-01-16 09:00:00 60 [in_i] Commo n [facility] weight 2024-01-16 09:00:00 153.2 [lb_av] Co mmon [facility] temperature 2024-01-16 09:00:00 98.4 [degF] Com [facility] bmi 2024-01-16 09:00:00 29.92 kg/m2 Comm on [facility] oximetry 2024-01-16 09:00:00 99 % Commo n [facility] respiratory rate 2024-01-16 09:00:00 16 /min [facility] blood pressure systolic 2024-01-16 09:00:00 158 mm[Hg] [facility] blood pressure diastolic 2024-01-16 09:00:00 96 mm[Hg] [facility] height 2024-01-09 10:40:00 60 [in_i] Commo n [facility] weight 2024-01-09 10:40:00 154.2 [lb_av] [facility] 2024-01-09 10:40:00 98.1 [degF] Com mon [facility] bmi 2024-01-09 10:40:00 30.11 kg/m2 Comm on [facility] oximetry 2024-01-09 10:40:00 95 % Commo n [facility] respiratory rate 2024-01-09 10:40:00 16 /min [facility] blood pressure systolic 2024-01-09 10:40:00 162 mm[Hg] [facility] blood pressure diastolic 2024-01-09 10:40:00 98 mm[Hg] [facility] height 2023-11-29 10:20:00 60 [in_i] Commo n [facility] weight 2023-11-29 10:20:00 155.6 [lb_av] Co [facility] temperature 2023-11-29 10:20:00 97.9 [degF] Com [facility] bmi 2023-11-29 10:20:00 30.39 kg/m2 Comm on [facility] oximetry 2023-11-29 10:20:00 97 % Commo n [facility] respiratory rate 2023-11-29 10:20:00 16 /min [facility] blood pressure systolic 2023-11-29 10:20:00 114 mm[Hg] [facility] blood pressure diastolic 2023-11-29 10:20:00 65 mm[Hg] [facility] height 2023-09-27 15:00:00 60 [in_i] Commo n [facility] weight 2023-09-27 15:00:00 153.6 [lb_av] Co [facility] temperature 2023-09-27 15:00:00 98.4 [degF] Com [facility] bmi 2023-09-27 15:00:00 29.99 kg/m2 Comm on [facility] oximetry 2023-09-27 15:00:00 99 % Commo n [facility] respiratory rate 2023-09-27 15:00:00 16 /min [facility] blood pressure systolic 2023-09-27 15:00:00 128 mm[Hg] [facility] blood pressure diastolic 2023-09-27 15:00:00 74 mm[Hg] [facility] height 2023-08-29 08:00:00 60 [in_i] Commo n [facility] weight 2023-08-29 08:00:00 156.4 [lb_av] Co mmon [facility] temperature 2023-08-29 08:00:00 98.6 [degF] Com [facility] bmi 2023-08-29 08:00:00 30.54 kg/m2 Comm on [facility] oximetry 2023-08-29 08:00:00 98 % Commo n [facility] respiratory rate 2023-08-29 08:00:00 16 /min [facility] blood pressure systolic 2023-08-29 08:00:00 136 mm[Hg] [facility] blood pressure diastolic 2023-08-29 08:00:00 78 mm[Hg] [facility] height 2023-08-01 09:00:00 60 [in_i] Commo n [facility] weight 2023-08-01 09:00:00 155 [lb_av] Comm on [facility] temperature 2023-08-01 09:00:00 98.2 [degF] Com [facility] bmi 2023-08-01 09:00:00 30.27 kg/m2 Comm on [facility] oximetry 2023-08-01 09:00:00 98 % Commo n [facility] respiratory rate 2023-08-01 09:00:00 16 /min [facility] blood pressure systolic 2023-08-01 09:00:00 122 mm[Hg] [facility] blood pressure diastolic 2023-08-01 09:00:00 82 mm[Hg] [facility] Systolic blood pressure 2023-06-06 19:54:00 [...] height 2021-04-26 08:00:00 60 [in_i] Commo n [facility] weight 2021-04-26 08:00:00 173.8 [lb_av] Co mmon [facility] bmi 2021-04-26 08:00:00 33.94 kg/m2 Comm on [facility] blood pressure systolic 2021-04-26 08:00:00 132 mm[Hg] [facility] blood pressure diastolic 2021-04-26 08:00:00 82 mm[Hg] [facility] Encounters Start Date/Time End Date/Time Encounter Type Admission Type Attending [facility] Care Facility Care Department Encounter ID Source 2024-11-17 16:40:00 Outpatient Ian Crespo [facility] [id number] [facility] 2024-10-27 13:44:01 Outpatient Ian Crespo [facility] [id number] [facility] 2024-08-04 14:45:00 Outpatient Ian Crespo [facility] [id number] [facility] 2024-07-15 14:36:00 Outpatient Ian Crespo [facility] [id number] [facility] 2024-07-11 09:23:00 Outpatient Ian Crespo [facility] [id number] [facility] 2024-07-07 16:16:01 Outpatient Ian Crespo [facility] [id number] [facility] 2024-05-09 09:47:00 Outpatient Ian Crespo [facility] [id number] [facility] 2024-04-16 10:14:01 Outpatient Ian Crespo [facility] [id number] [facility] 2024-03-03 10:42:00 Outpatient Ian Crespo [facility] [id number] [facility] 2024-02-12 14:30:00 Outpatient Ian Crespo [facility] [id number] [facility] 2024-01-23 10:57:00 Outpatient Ian Crespo [facility] [id number] [facility] 2024-01-15 16:26:00 Outpatient Ian Crespo [facility] [id number] [facility] 2023-12-27 09:47:00 Outpatient Ian Crespo [facility] [id number] [facility] 2023-11-29 09:19:00 Outpatient Ian Crespo [facility] [id number] [facility] 2023-11-27 08:46:00 Outpatient Ian Crespo [facility] [id number] [facility] 2023-11-23 09:29:00 Outpatient Ian Crespo [facility] [id number] [facility] 2023-11-22 14:24:00 Outpatient Ian Crespo [facility] [id number] [facility] 2023-10-25 08:19:00 Outpatient Ian Crespo [facility] [id number] [facility] 2023-09-26 16:29:00 Outpatient Ian Crespo [facility] [id number] [facility] 2023-09-24 08:07:00 Outpatient Ian Crespo [facility] [id number] [facility] 2023-08-01 09:10:01 Outpatient Ian Crespo [facility] [id number] [facility] 2023-07-31 16:27:00 Outpatient Ian Crespo [facility] [id number] [facility] 2023-07-24 13:22:00 Outpatient Ian Crespo [facility] [id number] [facility] 2023-07-18 16:14:00 Outpatient [facility] [id number] [facility] 2021-09-28 13:41:50 Outpatient [facility] [id number] [facility] 2025-01-05 00:00:00 2025-01-05 00:00:00 (TEL) [facility] [id number] [facility] 2024-12-26 00:00:00 2024-12-26 00:00:00 OFFICE VISIT ESTAB PT LEVEL 4 [facility] [id number] [facility] 2024-12-26 00:00:00 2024-12-26 00:00:00 (TEL) [facility] [id number] [facility] 2024-11-18 00:00:00 2024-11-18 00:00:00 OFFICE VISIT ESTAB PT LEVEL 4 [facility] [id number] [facility] 2024-11-05 00:00:00 2024-11-05 00:00:00 (TEL) [facility] [id number] [facility] 2024-10-28 00:00:00 2024-10-28 00:00:00 OFFICE VISIT ESTAB PT LEVEL 3 [facility] [id number] [facility] 2024-10-27 00:00:00 2024-10-27 00:00:00 (TEL) [facility] [id number] [facility] 2024-10-16 00:00:00 2024-10-16 00:00:00 (TEL) [facility] [id number] [facility] 2024-10-07 00:00:00 2024-10-07 00:00:00 OFFICE VISIT ESTAB PT LEVEL 3 [facility] [id number] [facility] 2024-08-20 00:00:00 2024-08-20 00:00:00 OFFICE VISIT ESTAB PT LEVEL 4 [facility] [id number] [facility] 2024-08-08 00:00:00 2024-08-08 00:00:00 OFFICE VISIT ESTAB PT LEVEL 3 [facility] [id number] [facility] 2024-08-06 00:00:00 2024-08-06 00:00:00 (TEL) [facility] [id number] [facility] 2024-08-04 00:00:00 2024-08-04 00:00:00 OFFICE VISIT ESTAB PT LEVEL 3 [facility] [id number] [facility] 2024-07-15 00:00:00 2024-07-15 00:00:00 OFFICE VISIT ESTAB PT LEVEL 4 [facility] [id number] [facility] 2024-06-06 00:00:00 2024-06-06 00:00:00 Outpatient KATHY WILBURN [id number] [facility] 2024-05-29 11:30:00 2024-05-29 11:30:00 Outpatient JAMES YOST [id number] [facility] 2024-05-08 00:00:00 2024-05-08 00:00:00 (TEL) [facility] [id number] [facility] 2024-04-29 00:00:00 2024-04-29 00:00:00 (TEL) [facility] [id number] [facility] 2024-04-18 00:00:00 2024-04-18 00:00:00 OFFICE VISIT ESTAB PT LEVEL 3 [facility] [id number] [facility] 2024-04-10 00:00:00 2024-04-10 00:00:00 Outpatient KATHY WILBURN [id number] [facility] 2024-04-09 00:00:00 2024-04-09 00:00:00 (TEL) [facility] [id number] [facility] 2024-04-07 00:00:00 2024-04-07 00:00:00 (TEL) [facility] [id number] [facility] 2024-03-27 00:00:00 2024-03-27 00:00:00 OFFICE VISIT ESTAB PT LEVEL 4 [facility] [id number] [facility] 2024-03-22 18:05:00 2024-03-22 20:03:00 Emergency ER JAZLYN SCHULTZ [facility] [id number] [facility] 2024-02-13 00:00:00 2024-02-13 00:00:00 OFFICE VISIT ESTAB PT LEVEL 3 [facility] [id number] [facility] 2024-02-11 15:37:00 2024-02-11 17:40:00 Emergency ER ANDREA RINCON [facility] [id number] [facility] 2024-01-26 19:11:00 2024-01-26 21:17:00 Emergency ER SALVATORE VARELA [facility] [id number] [facility] 2024-01-23 00:00:00 2024-01-23 00:00:00 OFFICE VISIT ESTAB PT LEVEL 4 [facility] [id number] [facility] 2024-01-16 00:00:00 2024-01-16 00:00:00 OFFICE VISIT ESTAB PT LEVEL 3 [facility] [id number] [facility] 2024-01-09 00:00:00 2024-01-09 00:00:00 OFFICE VISIT ESTAB PT LEVEL 4 [facility] [id number] [facility] 2023-12-28 00:00:00 2023-12-28 00:00:00 (TEL) [facility] STLMLC [id number] [facility] 2023-11-29 00:00:00 2023-11-29 00:00:00 (ESTPTWM) Establishe d PT Women STLMLC STLMLC [id number] [facility] 2023-11-29 00:00:00 2023-11-29 00:00:00 (TEL) STLMLC STLMLC [id number] [facility] 2023-11-22 00:00:00 2023-11-22 00:00:00 (TEL) STLMLC STLMLC [id number] [facility] 2023-10-10 00:00:00 2023-10-10 00:00:00 Outpatient KATHY WILBURN [id number] [facility] 2023-09-27 00:00:00 2023-09-27 00:00:00 OFFICE VISIT ESTAB PT LEVEL 4 STLMLC STLMLC [id number] [facility] 2023-09-27 00:00:00 2023-09-27 00:00:00 (TEL) STLMLC STLMLC [id number] [facility] 2023-09-04 00:00:00 2023-09-04 00:00:00 (TEL) STLMLC STLMLC [id number] [facility] 2023-08-29 00:00:00 2023-08-29 00:00:00 (TEL) STLMLC STLMLC [id number] [facility] 2023-08-29 00:00:00 2023-08-29 00:00:00 OFFICE VISIT ESTAB PT LEVEL 4 STLMLC STLMLC [id number] [facility] 2023-08-01 00:00:00 2023-08-01 00:00:00 OFFICE VISIT NEW PT LEVEL 4 STLMLC STLMLC [id number] [facility] 2023-07-18 13:30:00 2023-07-18 13:30:00 Outpatient PEDRITO DOHERTY [id number] [facility] 2023-07-18 00:00:00 2023-07-18 00:00:00 (TEL) STLMLC STLMLC [id number] [facility] 2023-07-11 10:45:00 2023-07-11 10:45:00 Outpatient KATHY WILBURN [id number] [facility] 2023-06-29 00:00:00 2023-06-29 00:00:00 Outpatient GC_GCBZW_Ka diyala_S [facility] [id number] [facility] 2023-06-20 00:00:00 2023-06-20 00:00:00 Outpatient MD LUISA UMAÑA [id number] Luisa [facility] 2023-06-17 00:00:00 2023-06-17 00:00:00 Outpatient KATHY WILBURN LUISA [id number] Luisa [facility] 2023-06-08 00:00:00 2023-06-08 00:00:00 Outpatient PREZAKATHY Harris LUISA [id number] Luisa [facility] 2023-06-06 15:45:00 2023-06-06 15:45:00 Outpatient LAB90 LUISA CAREY [id number] Luisa [facility] 2023-06-06 15:00:00 2023-06-06 15:00:00 Outpatient KATHY WILBURN LUISA LUISA [id number] Luisa [facility] 2023-05-23 00:00:00 2023-05-23 00:00:00 Outpatient KATHY WILBURN LUISA CAREY [id number] Luisa [facility] 2021-04-26 00:00:00 2021-04-26 00:00:00 OFFICE VISIT NEW PT LEVEL 3 STLMLC STLMLC [id number] [facility] 2020-12-16 09:00:00 2020-12-16 08:53:43 Outpatient [facility]IN [facility] [id number] [facility] 2020-11-25 08:50:00 2020-11-25 08:41:49 Outpatient TO[facility]IN [facility] [id number] [facility] 2020-03-10 00:00:00 2020-03-10 00:00:00 Patient Secure Msg Doctor Unassigned, [place] [facility] OFF[facility] BUILD[facility] [id number] [facility] 2020-03-08 11:13:22 2020-03-08 11:33:22 Laboratory Only Lab, Adc Fam PoKaren Farooq [facility] Office [facility] [address] [id number] [facility] 2020-03-08 11:13:22 2020-03-08 11:33:22 Laboratory Only Lab, Ad[facility] [address] [id number] 2020-03-08 11:20:00 2020-03-08 11:20:00 Outpatient KAREN [facility] [id number] [facility] Results Test Description Test Time Test Comments Results Result Co mments Source HEMOGLOBIN [id number] 00:00:00* Test Item Value Reference Range Interpretation Comme [facility] A1C (test code = 4548-4) 13.4 COMPREHENSIVE METABOLIC [id number] 00:00:00* Test Item Value Reference Range Interpretation Comme [facility] HEMOGLOBIN A1c (test code = 4548-4) 9.8 % See_Comment H [Automated messa ge] The system which generated this result transmitted reference range: 4.2-5.6 %. The reference range was not used to interpret this result as normal/abnormal. ALBUMIN, URINE, RANDOM (test code = 51202-5) 1.5 MG/DL NOT ESTAB MG/DL CALC ALBUMIN/CREAT, RND (test code = 92089-2) 7 MG/G See_Comment [Automated messa ge] The system which generated this result transmitted reference range: <30 MG/G. The reference range was not used to interpret this result as normal/abnormal. CREATININE, URINE, CONC. (test code = 2161-8) 201.6 MG/DL NOT ESTAB MG/DL CALC LDL CHOL (test code = 18596-4) 167 MG/DL See_Comment H [Automated messa ge] [...] normal/abnormal. RISK RATIO LDL/HDL (test code = 36330-1) 4.91 RATIO See_Comment H [Automated message] The [...] result as normal/abnormal. CALCIUM (test code = 86507-4) 9.8 MG/DL See_Comment [Automated messa ge] The [...] as normal/abnormal. CALC GLOBULIN (test code = 49861-9) 3.1 G/DL See_Comment [Automated messa ge] The [...] normal/abnormal. eGFR (2020 CKD-EPI) (test code = 83401-9) 93 ML/MIN/1.73 See_Comment [Automated message] The system [...] to interpret this result as normal/abnormal. HEMOGLOBIN [id number] 00:00:00* Test Item Value Reference Range Interpretation Comme nts A1C (test code = 4548-4) 9.3 HEMOGLOBIN [id number] 00:00:00* Test Item Value Reference Range Interpretation Comme nts A1C (test code = 4548-4) 12.4 HEMOGLOBIN [id number] 00:00:00* Test Item Value Reference Range Interpretation [...]
--- NOTE | 2025-01-09 17:18 | EDPHYS ---
Physician Documentation [facility] Name: Erma Yoo Age: 59 yrs Sex: Female : 1965 Arrival Date: 01/09/2025 Time: 14:26 Bed 18 Private MD: ED Physician Kendrick Silverman HPI: 01/09 21:22 This 59 yrs old Female presents to ER via Ambulatory with complaints of Wound ms3 Check. 21:22 89-year-old female with past medical history of diabetes, depression, asthma, insomnia, ms3 hypertension presents to the emergency department for needing packing from her incision and drainage changed. Patient states she had surgery with Dr. Roman on Sunday for an abscess. Patient states her discomfort is an 8/10. Patient denies fevers, chills, nausea, vomiting. Historical: - Allergies: 14:46 Cheese; iw 14:46 Niacin (Hives, Respiratory distress); iw - PMHx: 14:46 Diabetes - NIDDM; Depression; Asthma; insomnia; Hypertension; iw - PSHx: 14:46 Cholecystectomy; Ligation of fallopian tube; iw - Immunization history:: Adult Immunizations unknown. - Infectious Disease History:: Denies. - Social history:: Smoking status: unknown. ROS: 21:22 Constitutional: Negative for fever, and chills. Cardiovascular: Negative for chest ms3 pain, and palpitations. Respiratory: Negative for shortness of breath, cough, wheezing, and pleuritic chest pain, Abdomen/GI: Negative for abdominal pain, nausea, vomiting, diarrhea, and constipation, MS/Extremity: Negative for injury and deformity, 21:22 Skin: Positive for Open wound where abscess was I\T\D, Exam: 21:22 Constitutional: This is a well developed, well nourished patient who is awake, alert, ms3 and in no acute distress. Cardiovascular: Regular rate and rhythm with a normal S1 and S2. No gallops, murmurs, or rubs. Normal PMI, no JVD. No pulse deficits. Respiratory: Lungs have equal breath sounds bilaterally, clear to auscultation and percussion. No rales, rhonchi or wheezes noted. No increased work of breathing, no retractions or nasal flaring. Abdomen/GI: Soft, non-tender, with normal bowel sounds. No distension or tympany. No guarding or rebound. No evidence of tenderness throughout. 21:22 Skin: Wound recheck: Abscess I\T\D: Minimal surrounding erythema, serosanguineous drainage. Packing removed., Vital Signs: 14:44 BP 135 / 94; Pulse 100; Resp 18; Pulse Ox 100% on R/A; iw 17:37 BP 136 / 72; Pulse 74; Resp 15; Pulse Ox 100% ; cm10 MDM: 15:21 Medical Screening Exam initiated ms3 21:22 Differential diagnosis: cellulitis, Abscess. Data reviewed: vital signs, nurses notes, ms3 and as a result, I will discharge patient. Management of patient was discussed with the following: Water Pollution Control Technician: Dr. Roman. Recommends removal of packing, placing mupirocin on wound, and placing gauze over. I considered the following discharge prescriptions or medication management in the emergency department Medications were administered in the Emergency Department. See MAR. Counseling: I had a detailed discussion with the patient and/or guardian regarding the historical points, exam findings, and any diagnostic results supporting the discharge/admit diagnosis, the need for outpatient follow up, to return to the emergency department if symptoms worsen or persist or if there are any questions or concerns that arise at home. Special discussion: I discussed with the patient/guardian in detail that at this point there is no indication for admission to the hospital. It is understood, however, that if the symptoms persist or worsen the patient needs to return immediately for re-evaluation. ED course: Packing removed and dressing placed on wound with mupirocin ointment. Patient to follow-up with Dr. Roman in 2 to 3 days. Patient understands and agrees with plan. Questions were answered. Return precautions discussed include worsening symptoms, or any other concerns. On reevaluation patient alert and oriented x 4, no apparent distress, nontoxic-appearing, speaking full sentences, ambulatory in the emergency department. Administered Medications: 17:35 Drug: Mupirocin Topical Ointment 2 % 1 application Topical once Route: Topical; Site: cm10 affected area; Disposition Summary: 01/09/25 17:17 Discharge Ordered Notes: Location: Home ms3 Condition: Stable ms3 Diagnosis - Abscess I\T\D wound evaluation ms3 - Dressing change ms3 Followup: ms3 - With: Clif Roman MD - When: 2 - 3 days - Reason: Recheck today's complaints Discharge Instructions: - Discharge Summary Sheet ms3 - Skin Abscess, [id number] ms3 Forms: - Medication Reconciliation Form ms3 - Antibiotic Education ms3 - Prescription Opioid Use ms3 - Patient Portal Instructions ms3 - Leadership Thank You Letter ms3 - Work release form cm10 Prescriptions: - mupirocin 2 % Topical ointment - apply 1 application TOPICAL route 2 times per day; 30 gram tube; Refills: 0, ms3 Product Selection Permitted Signatures: Hellen Giang, RN RN iw Kendrick Silvreman DO DO ms3 Karen Roman RN RN cm10
--- NOTE | 2025-01-09 17:18 | ER ---
Nurse's Notes [facility] Name: Erma Yoo Age: 59 yrs Sex: Female : 1965 Arrival Date: 01/09/2025 Time: 14:26 Bed 18 Private MD: Diagnosis: Abscess I\T\D wound evaluation;Dressing change Presentation: 01/09 14:44 Chief complaint: Patient states: had surgical I \T\ D of an abscess near her vaginal iw opening last week, she has not had the packing changed because she has not been able to set up wound healing. Coronavirus screen: At this time, the client does not indicate any symptoms associated with coronavirus-19. Ebola Screen: No symptoms or risks identified at this time. Risk Assessment: Do you want to hurt yourself or someone else? Patient reports no desire to harm self or others. 14:44 Method Of Arrival: Ambulatory iw 14:44 Acuity: VINNY 4 iw 17:38 Initial Sepsis Screen: Does the patient meet any 2 criteria? No. Patient's initial cm10 sepsis screen is negative. Does the patient have a suspected source of infection? No. Patient's initial sepsis screen is negative. Onset of symptoms was January 09, 2025. Historical: - Allergies: 14:46 Cheese; iw 14:46 Niacin (Hives, Respiratory distress); iw - PMHx: 14:46 Diabetes - NIDDM; Depression; Asthma; insomnia; Hypertension; iw - PSHx: 14:46 Cholecystectomy; Ligation of fallopian tube; iw - Immunization history:: Adult Immunizations unknown. - Infectious Disease History:: Denies. - Social history:: Smoking status: unknown. Screenin:36 [facility] ED Fall Risk Assessment (Adult) History of falling in the last 3 months, cm10 including since admission No falls in past 3 months (0 pts) Confusion or Disorientation No (0 pts) Intoxicated or Sedated No (0 pts) Impaired Gait No (0 pts) Mobility Assist Device Used No (0 pt) Altered Elimination No (0 pt) Score/Fall Risk Level 0 - 2 = Low Risk Oriented to surroundings, Maintained a safe environment, Hourly rounding (assess needs \T\ fall precautionary measures) done. Abuse screen: Denies threats or abuse. Denies injuries from another. Nutritional screening: No deficits noted. Tuberculosis screening: No symptoms or risk factors identified. Assessment: 17:37 General: Appears in no apparent distress. uncomfortable, Behavior is calm, cooperative. cm10 Pain: Complains of pain in groin. Neuro: No deficits noted. Level of Consciousness is awake, alert, obeys commands, Oriented to person, place, time, situation, Appropriate for age. Respiratory: No deficits noted. Airway is patent Respiratory effort is even, unlabored, Respiratory pattern is regular, symmetrical. Derm: Abscess located on groin. Vital Signs: 14:44 BP 135 / 94; Pulse 100; Resp 18; Pulse Ox 100% on R/A; iw 17:37 BP 136 / 72; Pulse 74; Resp 15; Pulse Ox 100% ; cm10 ED Course: 14:30 Patient arrived in ED. cj3 14:33 Kendrick Silverman DO is Attending Physician. ms3 14:46 Triage completed. iw 17:10 Karen Roman, RN is Primary Nurse. cm10 17:16 Clif Roman MD is Referral Physician. ms3 17:36 Arm band placed on right wrist. Patient placed in an exam room, on a stretcher. cm10 17:36 Patient has correct armband on for positive identification. Provided Education on: cm10 Follow-up instructions. 17:36 No provider procedures requiring assistance completed. Patient did not have IV access cm10 during this emergency room visit. Wound care: to Surgical wound located on groin was dressed with 4X4s, Patient tolerated well. Administered Medications: 17:35 Drug: Mupirocin Topical Ointment 2 % 1 application Topical once Route: Topical; Site: cm10 affected area; Medication: 17:36 VIS not applicable for this client. cm10 Outcome: 17:17 Discharge ordered by . ms3 17:38 Discharged to home ambulatory, cm10 17:38 Condition: good 17:38 Discharge instructions given to patient, Instructed on discharge instructions, follow up and referral plans. medication usage, wound care, Demonstrated understanding of instructions, follow-up care, medications, Prescriptions given X 1, 17:39 Patient left the ED. cm10 Signatures: Hellen Giang RN SISSY iw Kendrick Silverman DO DO ms3 Karen Roman RN RN cm10 Mary Mansfield cj3
[2025-01-09] MEDS ORDERED: MUPIROCIN 2% OINT 22GM TUBE TOP ONE (17:19)
[2025-01-09 17:46] VITALS: O2SAT 100
[2025-01-09 17:48] VITALS: BP 136/72
== END 2025-01-09 17:39 | disposition home or self-care (01) ==
LOC: ER 14:26
DX: Z48.01 Encounter for change or removal of surgical wound dressing (principal)
CPT/HCPCS: 99283